=== PATIENT | male | born 1945 | race Caucasian/White ===

== ENCOUNTER 2016-08-23 20:23 | Inpatient (IN) | payer BC, MEDICARE ==
[~2016-08-23] VITALS: Ht 175.3 cm; Wt 77.1 kg
[~2016-08-23 20:23] MED LIST: /PANT40TA OR; ACET50TAOT PO; ACET65TA OR; ACTO15TA; ASA PO; ASPI1TAB PO; ASPI81CH3 PO; ASPI81TA83 PO; CINNAMON PO; DIOV160T5 PO; DIOV160T6 PO; GLIM2TAB PO; GLUC850T PO; LIPI10TA PO; METF850T PO; METO-209 PO; METO100T3 PO; METOPROLOL PO; TYLE325T5 PO
[2016-08-23] MEDS ORDERED: MORPHINE 4 MG/ML 1ML SYRINGE As Ordered ONE ×2 (21:24→23:37)
[2016-08-23] MEDS ORDERED: ONDANSETRON 4MG/2ML VIAL (J2405) As Ordered ONE ×2 (21:24→23:15)
[2016-08-23 21:52] LABS: BASO % 0.1 % (0.0-1.0); EOS # 0.2 K/mm3 (0.0-0.50); EOS % 1.1 % (0.0-3.0); LARGE UNSTAINED CELL % 0.2 % (0.0-4.0); LYMPH # 0.7 K/mm3 (1.5-4.5); LYMPH % 3.6 % (24.0-44.0); MEAN CORPUSCULAR HEMOGLOBIN 30.1 pg (27.0-33.0); MEAN CORPUSCULAR HGB CONC 34.9 g/dl (32.0-36.5); MEAN CORPUSCULAR VOLUME 86.2 fl (80.0-96.0); MONO # 0.8 K/mm3 (0.0-0.8); MONO % 4.3 % (0.0-5.0); NEUTROPHILS # 17.6 K/mm3 (1.8-7.7); NEUTROPHILS % 90.8 % (36.0-66.0); PLATELET COUNT, AUTOMATED 318 k/mm3 (150-450); RED CELL DISTRIBUTION WIDTH 13.5 % (11.5-14.5); WHITE BLOOD COUNT 19.4 K/mm3 (4.0-10.0)
[2016-08-23 22:16] LABS: ALBUMIN 3.2 GM/DL (3.2-5.2); ALBUMIN/GLOBULIN RATIO 1.33 (1.00-1.93); ALKALINE PHOSPHATASE 75 U/L (45-117); ALT/SGPT 24 U/L (12-78); ANION GAP 14 MEQ/L (8-16); AST/SGOT 23 U/L (15-37); BILIRUBIN,TOTAL 1.3 MG/DL (0.2-1.0); BLOOD UREA NITROGEN 14 MG/DL (7-18); CALCIUM LEVEL 8.4 MG/DL (8.8-10.2); CARBON DIOXIDE LEVEL 23 MEQ/L (21-32); CHLORIDE LEVEL 103 MEQ/L (98-107); CREATININE FOR GFR 1.02 MG/DL (0.70-1.30); GLOMERULAR FILTRATION RATE > 60.0 (>42); GLUCOSE, FASTING 341 MG/DL (83-110); POTASSIUM SERUM 4.3 MEQ/L (3.5-5.1); SODIUM LEVEL 140 MEQ/L (136-145); TOTAL PROTEIN 5.6 GM/DL (6.4-8.2)
[2016-08-23 22:49] LABS: AMYLASE 2620 U/L (25-115)
[2016-08-23] MEDS ORDERED: ISOVUE-370 76% 100ML VIAL (Q9967) As Ordered ONE (23:26)
[2016-08-23] MEDS ORDERED: PERCOCET 5MG/325MG TAB PO PRN ×2 (23:30)
[2016-08-23] MEDS ORDERED: ONDANSETRON 4MG/2ML VIAL (J2405) IV PRN (23:30)
[2016-08-23] MEDS ORDERED: GLUCAGON FOR INJ 1 MG VIAL (J1610) SC PRN (23:30)
[2016-08-23] MEDS ORDERED: GLUCOSE 4 GM CHEW TABLET PO PRN (23:30)
[2016-08-23] MEDS ORDERED: ACETAMINOPHEN TAB 650MG DOSE (2X325MG) PO PRN (23:30)
[2016-08-23] MEDS ORDERED: DEXTROSE 50% 50 ML SYRINGE IV PRN (23:30)
[2016-08-23] MEDS ORDERED: MORPHINE 4 MG/ML 1ML SYRINGE IV PRN (23:30)
[2016-08-24] MEDS ORDERED: LR 1,000 ML IV SCH
[2016-08-24 00:20] LABS: INR 0.96
--- NOTE | 2016-08-24 00:31 | EDDOCDS ---
Nurse's Notes [facility] Name: Mehul Griggs Age: 71 yrs Sex: Male : 1945 Arrival Date: 08/23/2016 Time: 20:23 Bed 14 Private MD: Liliya Diagnosis: Idiopathic acute pancreatitis-Acute on Chronic Idiopathic Pancreatitis Presentation: 08/23 20:27 Presenting complaint: Patient states: nausea, vomiting, abdominal pain- onset 3 hours af2 ago. reports "I think I am having one of my pancreatitis attacks.". Adult Sepsis Screening: The patient does not have new or worsening altered mentation. Patient's respiratory rate is less than 22. Systolic blood pressure is greater than 100. Patient has a qSOFA score of 0- Negative Sepsis Screen. Suicide/Homicide risk assessment- the patient denies having any suicidal and/or homicidal ideations and does not present with any other emotional, behavioral or mental health complaints. Status: Patient is not a support services manager or dependent. Transition of care: patient was not received from another setting of care. 20:27 Acuity: BASHIR Level 3 af2 20:27 Method Of Arrival: Walkin/Carried/Asstd af2 Triage Assessment: 20:29 General: Appears uncomfortable, Behavior is cooperative. Pain: Location: abdomen Pain af2 currently is 10 out of 10 on a pain scale. GI: Reports upper abdominal pain, nausea, vomiting. Historical: - Allergies: No known drug Allergies; - Home Meds: 1. Diovan 160 mg Oral tab 1 tab once daily 2. glimepiride 2 mg Oral tab 1 tab once daily 3. metoprolol tartrate 100 mg Oral tab 1 tab once daily 4. Lipitor 10 mg Oral tab 1 tab once daily 5. metformin 850 mg Oral tab 1 tab 2 times per day - PMHx: Diabetes - NIDDM: controlled; Hypercholesterolemia; Hypertension; Pancreatitis; - PSHx: Cholecystectomy; - Social history: Smoking status: Patient states was never smoker of tobacco. No barriers to communication noted, The patient speaks fluent Armenian. - Family history: Not pertinent. - : The pt / caregiver states he / she is not on anticoagulants. Home medication list is obtained from the patient. - Exposure Risk Screening:: None identified. Screenin:06 Screening information is obtained from the patient. Fall risk: No risks identified. mlc Assistance ADL's: requires no assistance with activities of daily living. Abuse/DV Screen: The patient / caregiver reports he/she is: not in a situation that causes fear, pain or injury. Nutritional screening: No deficits noted. Advance Directives: Currently, there is a health care proxy, Anna Peña, daughter. There is no active DNR order. There is a living will, but a copy is not available at this time. There is an active Power of Information Coordinator, Anna Peña, daughter. home support is adequate. Assessment: 21:06 General: Appears ill, Behavior is cooperative. Pain: Location: right upper quadrant and mlc left upper quadrant Pain currently is 10 out of 10 on a pain scale. Neurological: Level of Consciousness is awake, alert, Oriented to person, place, time. Cardiovascular: Capillary refill < 3 seconds Heart tones S1 S2 present. Respiratory: Airway is patent Respiratory effort is even, unlabored, Respiratory pattern is regular, Breath sounds are clear bilaterally. GI: Abdomen is non- distended Bowel sounds present X 4 quads. Abd is soft X 4 quads Abd is tender to palpation in right upper quadrant, left upper quadrant, right lower quadrant and left lower quadrant Reports nausea, vomiting. Derm: Skin is pale. 22:00 Reassessment: Patient appears in no apparent distress at this time. Patient states mlc symptoms have not improved. pt medicated per order. . 22:51 Reassessment: Patient appears in no apparent distress at this time. Patient states mlc feeling better. Patient states symptoms have improved. pt reports decrease in pain and nausea. IV fluids infusing per order. pt states he is comfortable. . 23:34 Reassessment: pt returned from CT, pt tolerated well. . mlc 23:55 Reassessment: Patient appears in no apparent distress at this time. pt reports pain is mlc increased, pt medicated per order.. 08/24 00:15 General: Appears in no apparent distress, comfortable, Behavior is cooperative. Pain: mlc Pain currently is 5 out of 10 on a pain scale. Neurological: Level of Consciousness is awake, alert, Oriented to person, place, time. Respiratory: Airway is patent Respiratory effort is even, unlabored, Respiratory pattern is regular. Derm: Skin is. Vital Signs: 08/23 20:25 BP 147 / 82; Pulse 82; Resp 18 S; Temp 97.6(O); Pulse Ox 100% on R/A; Weight 77.11 kg gr2 (R); Height 5 ft. 9 in. (175.26 cm) (R); Pain 7/10; 22:50 BP 152 / 74; Pulse 87; Resp 18; Pulse Ox 100% ; Pain 5/10; mlc 08/24 00:15 Temp 98.2; Pain 5/10; mlc 00:19 BP 169 / 82; Pulse 86; Resp 18; Pulse Ox 96% on R/A; Pain 5/10; david 08/23 20:25 Body Mass Index 25.10 (77.11 kg, 175.26 cm) gr2 Vitals: 08/23 20:25 Log In Time: August 23, 2016 at 20:25. gr2 ED Course: 20:24 Patient visited by Marysol Blancas. gr2 20:24 Patient moved to Waiting gr2 20:25 Liliya is Private Physician. gr2 20:26 Patient visited by Marysol Blancas. gr2 20:26 Patient moved to Pre RCE gr2 20:28 Triage Initiated af2 20:30 Patient visited by Virgie Grace,HO. af2 20:33 Guillermina Chen,HO is Primary Nurse. sls1 20:33 Patient moved to 14 sls1 20:36 Geraldine Rice FNP is PHCP. le 20:37 Godfrey Henriquez DO is PHCP. gk1 20:37 Tito Bedoya DO is Attending Physician. gk1 20:43 Patient visited by Pat Roberson PCA. cln 20:43 EKG done. (by ED staff). Reviewed by Godfrey Henriquez DO. cln 20:44 Patient visited by Tito Bedoya DO. mm11 21:08 Patient visited by Guillermina Chen,HO. mlc 21:54 Inserted saline lock: 20 gauge in left forearm. ko2 22:00 The patient / caregiver is instructed regarding the plan of care and ED course. mlc 22:01 Patient visited by Guillermina Chen,HO. mlc 22:24 [facility] Payment Agreement was scanned into [employer] and attached to record. slh 22:51 Patient visited by Guillermina Chen RN. mlc 23:19 Jarvis Rubio DO is Hospitalizing Provider. gk1 23:54 BLOOD CULTURES Sent. [facility] 23:55 Patient visited by Guillermina Chen RN. [facility] 02 00:20 Patient visited by Prema Tadeo PCA. david 00:20 No procedures done that require assistance. mlc Administered Medications: 08/23 21:17 CANCELLED (Other Intervention Used): morphine 1 mg IVP once [facility] 22:00 Drug: Ondansetron 4 mg [ondansetron HCl 2 mg/mL intravenous solution (2 mL)] Route: mlc IVP; Site: left forearm; 22:50 Follow up: Response: Nausea is decreased [facility] 22:00 Drug: NS 0.9% 1000 ml [sodium chloride 0.9 % intravenous solution] Route: IV; Rate: mlc bolus; Site: left forearm; 23:55 Follow up: IV Status: Completed infusion [facility] 22:00 Drug: morphine 4 mg [morphine 4 mg/mL intravenous cartridge (1 mL)] Route: IVP; Site: [facility] left forearm; 22:50 Follow up: BP 152 / 74; Pulse 87 bpm; Resp 18 bpm; Pulse Ox 100% ; Pain 5/10 Adult; [facility] Response: Pain is decreased; pt reports he is comfortable at this time 23:14 Not Given (Other Intervention Used): Ondansetron 4 mg PO once [facility] 23:19 Drug: Ondansetron 4 mg [ondansetron HCl 2 mg/mL intravenous solution (2 mL)] Route: mlc IVP; Site: left forearm; 23:34 Follow up: Response: Nausea is decreased [facility] 23:54 Drug: NS 0.9% 1000 ml [sodium chloride 0.9 % intravenous solution] Route: IV; Rate: 250 mlc mL/hr; Site: left forearm; 23:55 Drug: morphine 4 mg [morphine 4 mg/mL intravenous cartridge (1 mL)] Route: IVP; Site: [facility] left forearm; Intake: Order Results: Lab Order: Amylase; SPEC'M 08/23/16 21:41 Test: AMYLASE; Value: 2620; Range: 25-115; Abnormal: Above high normal; Units: U/L; Status: F Lab Order: Lipase; SPEC'M 08/23/16 21:41 Test: LIPASE; Value: 99719; Range: 73-393; Abnormal: Above high normal; Units: U/L; Status: F Lab Order: CBC with Diff; SPEC'M 08/23/16 21:41 Test: WHITE BLOOD COUNT; Value: 19.4; Range: 4.0-10.0; Abnormal: Above high normal; Units: K/mm3; Status: F Test: RED BLOOD COUNT; Value: 5.03; Range: 4.30-6.10; Units: M/mm3; Status: F Test: HEMOGLOBIN; Value: 15.1; Range: 14.0-18.0; Units: g/dl; Status: F Test: HEMATOCRIT; Value: 43.3; Range: 42.0-52.0; Units: %; Status: F Test: MEAN CORPUSCULAR VOLUME; Value: 86.2; Range: 80.0-96.0; Units: fl; Status: F Test: MEAN CORPUSCULAR HEMOGLOBIN; Value: 30.1; Range: 27.0-33.0; Units: pg; Status: F Test: MEAN CORPUSCULAR HGB CONC; Value: 34.9; Range: 32.0-36.5; Units: g/dl; Status: F Test: RED CELL DISTRIBUTION WIDTH; Value: 13.5; Range: 11.5-14.5; Units: %; Status: F Test: PLATELET COUNT, AUTOMATED; Value: 318; Range: 150-450; Units: k/mm3; Status: F Test: NEUTROPHILS %; Value: 90.8; Range: 36.0-66.0; Abnormal: Above high normal; Units: %; Status: F Test: LYMPH %; Value: 3.6; Range: 24.0-44.0; Abnormal: Below low normal; Units: %; Status: F Test: MONO %; Value: 4.3; Range: 0.0-5.0; Units: %; Status: F Test: EOS %; Value: 1.1; Range: 0.0-3.0; Units: %; Status: F Test: BASO %; Value: 0.1; Range: 0.0-1.0; Units: %; Status: F Test: LARGE UNSTAINED CELL %; Value: 0.2; Range: 0.0-4.0; Units: %; Status: F Test: NEUTROPHILS #; Value: 17.6; Range: 1.8-7.7; Abnormal: Above high normal; Units: K/mm3; Status: F Test: LYMPH #; Value: 0.7; Range: 1.5-4.5; Abnormal: Below low normal; Units: K/mm3; Status: F Test: MONO #; Value: 0.8; Range: 0.0-0.8; Units: K/mm3; Status: F Test: EOS #; Value: 0.2; Range: 0.0-0.50; Units: K/mm3; Status: F Test: BASO #; Value: 0.0; Range: 0.0-0.2; Units: K/mm3; Status: F Test: LARGE UNSTAINED CELL #; Value: 0.0; Range: 0.0-0.4; Units: K/mm3; Status: F Lab Order: Complete Comphrensive Metabolic; SPEC'M 08/23/16 21:41 Test: GLUCOSE, FASTING; Value: 341; Range: 83-110; Abnormal: Above high normal; Units: MG/DL; Status: F Test: BLOOD UREA NITROGEN; Value: 14; Range: 7-18; Units: MG/DL; Status: F Test: CREATININE FOR GFR; Value: 1.02; Range: 0.70-1.30; Units: MG/DL; Status: F Test: GLOMERULAR FILTRATION RATE; Value: > 60.0; Range: >42; Status: F Test: SODIUM LEVEL; Value: 140; Range: 136-145; Units: MEQ/L; Status: F Test: POTASSIUM SERUM; Value: 4.3; Range: 3.5-5.1; Units: MEQ/L; Status: F Test: CHLORIDE LEVEL; Value: 103; Range: 98-107; Units: MEQ/L; Status: F Test: CARBON DIOXIDE LEVEL; Value: 23; Range: 21-32; Units: MEQ/L; Status: F Test: ANION GAP; Value: 14; Range: 8-16; Units: MEQ/L; Status: F Test: CALCIUM LEVEL; Value: 8.4; Range: 8.8-10.2; Abnormal: Below low normal; Units: MG/DL; Status: F Test: AST/SGOT; Value: 23; Range: 15-37; Units: U/L; Status: F Test: ALT/SGPT; Value: 24; Range: 12-78; Units: U/L; Status: F Test: ALKALINE PHOSPHATASE; Value: 75; Range: 45-117; Units: U/L; Status: F Test: BILIRUBIN,TOTAL; Value: 1.3; Range: 0.2-1.0; Abnormal: Above high normal; Units: MG/DL; Status: F Test: TOTAL PROTEIN; Value: 5.6; Range: 6.4-8.2; Abnormal: Below low normal; Units: GM/DL; Status: F Test: ALBUMIN; Value: 3.2; Range: 3.2-5.2; Units: GM/DL; Status: F Test: ALBUMIN/GLOBULIN RATIO; Value: 1.33; Range: 1.00-1.93; Status: F Test Note: ; Units are mL/min/1.73 m2 Chronic Kidney Disease Staging per NKF: Stage I & II GFR >=60 Normal to Mildly Decreased Stage III GFR 30-59 Moderately Decreased Stage IV GFR 15-29 Severely Decreased Stage V GFR <15 Very Little GFR Left ESRD GFR <15 on OPERATOR CAVITY PUMP Lab Order: Cardiac Injury Profile; SPEC'M 08/23/16 21:41 Test: CPK CREATINE PHOSPHOKINASE; Value: 89; Range: 39-308; Units: U/L; Status: F Test: CK-MB VALUE MASS; Value: 1.1; Range: 0.0-3.6; Units: NG/ML; Status: F Test: MB/CK RELATIVE INDEX; Value: 1.23; Range: < OR =4; Status: F Test Note: ; DIAGNOSIS CRITERIA MMB ng/ml Relative Index (RI) NON-AMI < or = 5 N/A COREA ZONE > 5 < or = 4 AMI > 5 > 4 Lab Order: Troponin; SPEC'M 08/23/16 21:41 Test: TROPONIN I; Value: < 0.02; Range: < 0.10; Units: NG/ML; Status: F Test Note: ; Troponin I Reference Interval for Rover LOCI: 99th Percentile= 0.00-0.045 ng/ml Risk Stratification: <= 0.10 ng/ml Decreased Risk for Adverse Clinical Events. 0.10-1.50 ng/ml Increased Risk for Adverse Clinical Events. Evaluation of additional criterion and/or repeat testing in 2-6 hours is suggested to rule out myocardial damage. >= 1.50 ng/ml Indicative of Myocardial Injury. Lab Order: PT & APTT; SPEC'M 08/23/16 23:56 Test: PROTHROMBIN TIME; Value: 12.9; Range: 12.3-14.5; Units: SECONDS; Status: F Test: INR; Value: 0.96; Status: F Test: PARTIAL THROMBOPLASTIN TIME; Value: 22.4; Range: 26.6-37.1; Abnormal: Below low normal; Units: SECONDS; Status: F Test Note: ; THERAPUTIC HUMAN INR VALUES INDICATIONS NORMAL RANGES PROPHYLAXIS/TREATMENT OF: VENOUS THROMBOSIS 2.0-3.0 PULMONARY EMBOLISM 2.0-3.0 PREVENTION OF SYSTEMIC EMBOLISM FROM: TISSUE HEART VALVES 2.0-3.0 ACUTE MYOCARDIAL INFARCTION 2.0-3.0 VALVULAR HEART DISEASE 2.0-3.0 ATRIAL FIBRILLATION 2.0-3.0 MECHANICAL VALVES(HIGH RISK) 2.5-3.5 RECURRENT MYOCARDIAL INFARCTION 2.5-3.5 Outcome: 23:20 Decision to Hospitalize by Provider. gk1 08/24 00:17 Discharge Assessment: Patient awake, alert and oriented x 3. No cognitive and/or mlc functional deficits noted. Patient verbalized understanding of disposition instructions. patient administered narcotics - yes. Patient was admitted to the hospital or transferred to another facility. The following High Risk Discharge criteria are identified: None. Admitted to Pediatrics accompanied by tech, via wheelchair. Condition: stable. CT Study completed. Admission hand-off: Report called to HO Noonan. Property :Personal belongings accompany Pt. 00:30 Patient left the ED. [facility] Signatures: Tito Bedoya, DO DO mm11 Geraldine Rice, JOURNEYMAN ELECTRICIAN JOURNEYMAN ELECTRICIAN Prema Uriarte, LICENSED DISPENSING OPTICIAN LICENSED DISPENSING OPTICIAN Subha Avilez RN RN sls1 Marysol Blancas gr2 Guillermina Chen RN RN [facility] Dawn Wheat RN RN ko2 Sumi Adan Virgie Bean RN RN af2 Pat Roberson, LICENSED DISPENSING OPTICIAN LICENSED DISPENSING OPTICIAN denian Godfrey Henriquez, DO DO gk1 MTDD
--- NOTE | 2016-08-24 00:31 | EDDOCDS ---
Physician Documentation [facility] Name: Mehul Griggs Age: 71 yrs Sex: Male : 1945 Arrival Date: 08/23/2016 Time: 20:23 Bed 14 Private MD: Liliya Disposition: 08/23 23:13 I have independently interviewed and examined the patient, and I agree with the mm11 investigation, diagnosis and treatment plan as documented by the Resident. Disposition: 08/23/16 23:20 Hospitalization ordered by Jarvis Rubio for Inpatient Admission. Preliminary diagnosis is Idiopathic acute pancreatitis - Acute on Chronic Idiopathic Pancreatitis. - Bed requested for M PED. - Status is Inpatient Admission. mlc - Condition is Stable. - Problem is an acute exacerbation. - Symptoms have improved. Historical: - Allergies: No known drug Allergies; - Home Meds: 1. Diovan 160 mg Oral tab 1 tab once daily 2. glimepiride 2 mg Oral tab 1 tab once daily 3. metoprolol tartrate 100 mg Oral tab 1 tab once daily 4. Lipitor 10 mg Oral tab 1 tab once daily 5. metformin 850 mg Oral tab 1 tab 2 times per day - PMHx: Diabetes - NIDDM: controlled; Hypercholesterolemia; Hypertension; Pancreatitis; - PSHx: Cholecystectomy; - Social history: Smoking status: Patient states was never smoker of tobacco. No barriers to communication noted, The patient speaks fluent [place]. - Family history: Not pertinent. - : The pt / caregiver states he / she is not on anticoagulants. Home medication list is obtained from the patient. - Exposure Risk Screening:: None identified. Vital Signs: 20:25 BP 147 / 82; Pulse 82; Resp 18 S; Temp 97.6(O); Pulse Ox 100% on R/A; Weight 77.11 kg / gr2 170 lbs (R); Height 5 ft. 9 in. (175.26 cm) (R); Pain 7/10; 22:50 BP 152 / 74; Pulse 87; Resp 18; Pulse Ox 100% ; Pain 5/10; mlc 08/24 00:15 Temp 98.2; Pain 5/10; mlc 00:19 BP 169 / 82; Pulse 86; Resp 18; Pulse Ox 96% on R/A; Pain 5/10; david 08/23 20:25 Body Mass Index 25.10 (77.11 kg, 175.26 cm) gr2 MDM: 08/23 20:35 ECG WITH READING ER PHYS+CARDIAG ordered. EDMS 21:10 IV Saline Lock ordered. gk1 21:10 Ondansetron 4 mg IVP once ordered. gk1 21:10 NS 0.9% 1000 ml IV at bolus once ordered. gk1 21:12 Amylase Ordered. EDMS 21:12 Lipase Ordered. EDMS 21:12 CBC with Diff Ordered. EDMS 21:12 Complete Comphrensive Metabolic Ordered. EDMS 21:12 Cardiac Injury Profile Ordered. EDMS 21:12 Troponin Ordered. EDMS 21:12 NOTHING BY MOUTH+DIET ordered. EDMS 21:15 Financial registration complete. h 21:15 morphine 4 mg IVP every 30 minutes; Document pain score/vitals after each dose (Hold if gk1 SBP < 90mmHg) x2 ordered. 22:21 CBC with Diff Reviewed. mm11 22:24 [facility] Payment Agreement was scanned into [employer] and attached to record. [facility] 22:53 Amylase Reviewed. [facility] 22:53 Lipase Reviewed. mm11 22:53 Complete Comphrensive Metabolic Reviewed. mm11 22:53 Cardiac Injury Profile Reviewed. mm11 22:53 Troponin Reviewed. mm11 22:54 CT ABD & PELVIS: IV Contrast Only Ordered. EDMS 22:59 BED REQUEST+ADM ordered. EDMS 23:07 -Blood Culture (Adults Only), peripheral from different site, or from device/port/PICC gk1 etc. if present ordered. 23:07 NS 0.9% 1000 ml IV at 250 mL/hr continuous ordered. gk1 23:09 -Blood Culture (Adults Only), peripheral from different site, or from device/port/PICC ml3 etc. if present complete. 23:09 BLOOD CULTURES Ordered. EDMS 23:11 Ondansetron 4 mg PO once ordered. gk1 23:14 Ondansetron 4 mg IVP once ordered. gk1 23:22 morphine 4 mg IVP every 30 minutes; Document pain score/vitals after each dose (Hold if gk1 SBP < 90mmHg) x2 ordered. 23:35 Admission / Observation Status ordered. EDMS 23:36 NPO DIET ordered. EDMS 23:36 PT & APTT Ordered. EDMS 23:36 ERYTHROCYTE SEDIMENTATION RATE Ordered. EDMS 23:36 C REACTIVE PROTEIN QUANTITATIV Ordered. EDMS 23:36 COMPLETE BLOOD COUNT Ordered. EDMS 23:37 COMPLETE COMPHRENSIVE METABOLI Ordered. EDMS 23:37 LIPASE Ordered. EDMS 23:40 LACTATE DEHYDROGENASE Ordered. EDMS 08/24 00:04 LACTIC ACID LEVEL, LACTATE Ordered. EDMS 00:08 C REACTIVE PROTEIN QUANTITATIV Ordered. EDMS Administered Medications: 08/23 21:17 CANCELLED (Other Intervention Used): morphine 1 mg IVP once [facility] [place] 22:00 Drug: Ondansetron 4 mg [ondansetron HCl 2 mg/mL intravenous solution (2 mL)] Route: mlc IVP; Site: left forearm; 22:50 Follow up: Response: Nausea is decreased [facility] [place] 22:00 Drug: NS 0.9% 1000 ml [sodium chloride 0.9 % intravenous solution] Route: IV; Rate: mlc bolus; Site: left forearm; 23:55 Follow up: IV Status: Completed infusion [facility] [place] 22:00 Drug: morphine 4 mg [morphine 4 mg/mL intravenous cartridge (1 mL)] Route: IVP; Site: [facility] [place] left forearm; 22:50 Follow up: BP 152 / 74; Pulse 87 bpm; Resp 18 bpm; Pulse Ox 100% ; Pain 5/10 Adult; [facility] Response: Pain is decreased; pt reports he is comfortable at this time 23:14 Not Given (Other Intervention Used): Ondansetron 4 mg PO once gk1 23:19 Drug: Ondansetron 4 mg [ondansetron HCl 2 mg/mL intravenous solution (2 mL)] Route: mlc IVP; Site: left forearm; 23:34 Follow up: Response: Nausea is decreased [facility] 23:54 Drug: NS 0.9% 1000 ml [sodium chloride 0.9 % intravenous solution] Route: IV; Rate: 250 mlc mL/hr; Site: left forearm; 23:55 Drug: morphine 4 mg [morphine 4 mg/mL intravenous cartridge (1 mL)] Route: IVP; Site: [facility] [place] [place] left forearm; Signatures: Dispatcher [employer] EDMS Ross Tomas, [employer] ml3 Tito Bedoya DO DO mm11 Guillermina Chen RN RN mlc Hook, Sandra slh Fulton, Amber, RN RN af2 Godfrey Henriquez DO DO gk1 The chart was reviewed and I authenticate all verbal orders and agree with the evaluation and treatment provided.Corrections: (The following items were deleted from the chart) 21:17 21:11 morphine 1 mg IVP once ordered. gk1 [facility] 21:17 21:16 morphine 1 mg IVP once [address] [facility] 23:57 23:36 PROTHROMBIN TIME PROFILE\E\INR ordered. EDMS EDMS 08/24 00:08 02 23:36 C REACTIVE PROTEIN QUANTITATIV ordered. EDMS EDMS Attachments: 22:24 [facility] [place] Agreement [facility] MTDD
[2016-08-24 00:40] VITALS: BP 171/87
--- NOTE | 2016-08-24 01:10 | REPUSA ---
CLINICAL HISTORY: Abdominal pain. TECHNIQUE: Multiple axial, sagittal and coronal CT images were obtained through the abdomen and pelvi s after administration of intravenous contrast material. COMMENTS: Comparison is made to the prior exam on 05/05/2016. The liver is of decreased attenuation with scattered simple hepatic cysts. There is no intra or extra hepatic biliary ductal dilatation. The spleen is normal. The gallbladder is surgically absent. There is no evidence of adrenal mass. Enlarged pancreas. There is peripancreatic fat stranding. Surrounding free fluid. No loculated draina ble fluid collection. Reactive thickening of the second and third portions of the duodenum. Both kidneys demonstrate prompt and equal nephrograms. The kidneys are normal in size, shape and conf iguration. There is no evidence of renal or ureteral mass. No renal or ureteral calculi are identifie d. There is no hydroureter or hydronephrosis. No evidence for appendicitis. No evidence for small or large bowel obstruction. There is no evidenc e of abdominal ascites or lymphadenopathy. There is no evidence of intrinsic or extrinsic bladder mass. There is no pelvic ascites or lymphadeno lety. Moderate prostatomegaly. Prostatic calcifications. Mild diffuse thickening of the one of the b ladder. Images of the lung bases show no evidence of pleural or parenchymal mass. There are no pleural effusi ons. The bony structures are free of lytic or blastic lesions. Multilevel degenerative changes are seen in volving the thoracolumbar spine. Scattered calcifications are seen involving the aorta and major bran ches compatible with atherosclerosis. Bilateral fat containing inguinal hernias without incarceration. IMPRESSION: Acute pancreatitis. This is a recurrent finding. No loculated fluid collection. Mild fatty liver infiltration. Reactive duodenitis. Thank you for your kind referral of this patient.
[2016-08-24] MEDS: HumaLOG INSULIN (NovoLOG) PER UNIT SC SCH ×4 (01:27→17:56)
[2016-08-24] MEDS: metroNIDAZOLE 500 MG in APPROPRIATE DILUENT 1 EA IV SCH ×3 (04:12→21:03)
[2016-08-24 04:15] VITALS: BP 138/76
[2016-08-24] MEDS: LR 1,000 ML IV SCH ×3 (06:04→17:48)
--- NOTE | 2016-08-24 06:10 | ECGEPIP ---
Stationary ECG Study [facility] - ED Test Date: 2016-08-23 Pat Name: SERA HAQUE Department: Room: - Gender: M Pharmacy Affairs Assistant: noemi : 1945 Requested By: LIZBET Silva PA-C Order Number: [id number] Reading MD: Rico Mittal Measurements Intervals [place] Rate: 72 P: 7 GA: 129 QRS: -6 QRSD: 102 T: 37 QT: 366 QTc: 403 Interpretive Statements SINUS RHYTHM NONSPECIFIC ST DEPRESSION SIMILAR TO 12/30/15 Electronically Signed On 08-24-2016 6:09:35 EST by Rico Mittal
--- NOTE | 2016-08-24 06:41 | HPE ---
DATE OF ADMISSION: 08/23/2016 PRIMARY CARE PROVIDER: Dr. Lovell. PHYSICS TECHNICIAN: Shared between Dr. Anibal martinez and [facility]. CHIEF COMPLAINT: Abdominal pain, midepigastric. HISTORY OF PRESENT ILLNESS: Mr. Griggs is a 71-year-old gentleman familiar to the hospitalist service with history of recurrent acute on chronic pancreatitis. He stated that he was in his normal state of health and approximately 3 hours ago suddenly developed abdominal pain in the epigastric region with nausea, vomiting and states that he has had some of these pancreatic attacks in the past that he knows to get to the hospital immediately. His last pancreatitis episode was three months ago. He was seen at [facility] approximately 4-6 weeks ago, had an endoscopic retrograde cholangiopancreatography (ERCP) done and he stated they did snip the tip of the ampulla of Vater to see if that would help out with his symptomatology. Again, he does have a history of idiopathic pancreatitis. He does not drink alcohol. No tobacco use. His main risk factor for pancreatitis is the fact that he has had repeated episodes in the past without any definitive cause, hence the diagnosis of chronic idiopathic pancreatitis. He denies fevers, chills, shortness of breath, productive sputum, cough or hemoptysis. His vital signs have been stable in the emergency department. However, he does have uncontrolled abdominal epigastric pain with elevated white count. His CT of the abdomen and pelvis is pending at this time. However, the hospitalist was called for admission due to him having a lipase greater than 63,000 and his symptomatology. PAST MEDICAL HISTORY: 1. Recurrent episodes of chronic idiopathic pancreatitis. 2. Diabetes. 3. Hypertension. 4. Hyperlipidemia. PAST SURGICAL HISTORY: Cholecystectomy. SOCIAL HISTORY: The patient lives at home. Denies any tobacco use, alcohol use. No recent travel. No sick contacts. No illicit drug use. FAMILY HISTORY: Noncontributory. ALLERGIES: NO KNOWN DRUG ALLERGIES. HOME MEDICATION: - Diovan 160 mg daily. - glimepiride 2 mg daily - metoprolol tartrate 100 mg daily - Lipitor 10 mg daily - metformin 850 mg daily REVIEW OF SYSTEMS: CONSTITUTIONAL: He denies lightheaded, dizziness, blurry vision, double vision, no difficulty with speech or swallow. PULMONARY: No productive sputum, cough or hemoptysis. Denies shortness of breath or wheeze. No cough. CARDIOVASCULAR: Denies substernal chest pain, paroxysmal nocturnal dyspnea (PND), orthopnea and no dyspnea on exertion. GASTROINTESTINAL (GI): As outlined above, epigastric pain that started suddenly about 3 hours ago which he describes as sharp, stabbing pain in the epigastric region. He did have some nausea with vomiting times one with no hemoptysis. He denies any steatorrhea, and denies any hematochezia or melena. MUSCULOSKELETAL: No bone loss or joint pain swelling or erythema. NEUROLOGY: No paresthesias, paralysis or loss of consciousness. No history of seizure disorder. ENDOCRINE: Positive for diabetes. Positive for chronic pancreatitis with recurrent episodes and noted to be idiopathic. No history of thyroid disorder. HEMATOLOGY: No bleeding or bruising disorder. No prior history of venous thromboembolism. ONCOLOGY: No history of cancer. LYMPHATICS: No lumps, bumps, swelling neck, axilla or groin. No night sweats. No weight loss. PSYCHIATRIC: Negative for depression. No anxiety. No suicidal ideation and no audiovisual hallucinations. 10-point review of systems complete, pertinent positives are listed. PHYSICAL EXAMINATION: VITAL SIGNS: Temperature is 97.6, respiratory rate 18, pulse 87, blood pressure (BP) is 147/82, repeat is 152/74, SPO2 is 100% on room air. GENERAL: The patient appears to be in no acute distress. However, he is in some discomfort with a 10/10 pain in the epigastric region. HEENT: Head is atraumatic, normocephalic. Eyes: Pupils equal, round, reactive to light and accommodation (PERRLA), throat clear. LUNGS: Clear. HEART: Regular rhythm. ABDOMEN: Epigastric tenderness. Positive bowel sounds. No masses, no rebound. EXTREMITIES: No edema or calf tenderness. NEUROLOGY: Cranial nerves II-XII grossly intact. He does not demonstrate any focal neurologic deficits. LABORATORY DATA AND DIAGNOSTICS: 12-lead EKG sinus rhythm with no acute ST-T wave abnormality. White count is 19.4, hemoglobin 15.1, platelets are 318,000. Sodium 140, potassium 4.3, chloride 103, bicarbonate 23, anion gap 14, BUN is 14, creatinine 1.02, glucose is 341. Total bilirubin 1.3, calcium is 8.4, AST 23, ALT is 24, alkaline phosphatase 75, CK 89, CK-MB 1.1, troponin less than 0.02, albumin is 3.2, amylase 2620, lipase is 63,000. CT of the abdomen and pelvis preliminary; he does appear to have some inflammatory changes surrounding the pancreas. I do not appreciate a pseudocyst. No bowel obstruction; however, official reading is pending at this time. IMPRESSION: Mr. Griggs is a pleasant 71-year-old gentleman who unfortunately has repeated episodes of acute on chronic pancreatitis which is felt to be idiopathic. He has had multiple workups, multiple diagnostic studies in the past . Recently he had an endoscopic retrograde cholangiopancreatography (ERCP) performed with procedure to try to dilate the ampulla of Vater approximately 4-6 weeks ago. He states he has been well up until this time and suddenly developed, approximately three hours ago, with intractable nausea, vomiting and mid epigastric pain. He presents to the emergency department with elevated lipase of 63,000 and white count 19,000. He remains afebrile. Vital signs stable and no signs of sepsis at this point. PROBLEM LIST: 1. Acute on chronic pancreatitis, history of idiopathic chronic pancreatitis. 2. Leukocytosis with no signs of sepsis. No fever. 3. Diabetes. 4. Hypertension. 5. Hyperlipidemia. PLAN: The patient will be admitted to the [facility] per Dr. Onofre. Will continue with intravenous (IV) fluid bolus in the emergency room (ER) followed by lactated Ringer's at 250 mL an hour for another liter, then to change to 150 mL an hour thereafter. He will remain nothing by mouth (NPO) through the night. Will manage pain control and check official read on CT abdomen and pelvis when it is available. Will check an LDH and a lactate on him now. His hemoglobin and hematocrit appear to be relatively unremarkable and no signs of hemoconcentration at this point. In the morning we will repeat his labs. Currently will hold his home medications for now and plan on restarting in the morning. Will check fingerstick blood sugars every six hours with sliding scale coverage. Currently he does not appear to have any signs of multiorgan dysfunction. His vital signs are stable. No signs of hypotension or shock and likely a good candidate for the medical floor. However, should he appear to deteriorate at any point we will consider an upgrade to continue or intensive care unit (ICU), however, his clinical picture for the time being does not appear to necessitate this. Deep venous thrombosis (DVT) prophylaxis with Lovenox. DISPOSITION: He will likely be here for 2-3
[2016-08-24 07:20] LABS: MEAN CORPUSCULAR HEMOGLOBIN 31.3 pg (27.0-33.0); RED CELL DISTRIBUTION WIDTH 13.7 % (11.5-14.5); WHITE BLOOD COUNT 14.4 K/mm3 (4.0-10.0)
[2016-08-24 07:45] VITALS: BP 156/75
[2016-08-24 07:52] LABS: ALBUMIN 2.7 GM/DL (3.2-5.2); ALBUMIN/GLOBULIN RATIO 1.35 (1.00-1.93); ALKALINE PHOSPHATASE 58 U/L (45-117); ALT/SGPT 20 U/L (12-78); ANION GAP 8 MEQ/L (8-16); AST/SGOT 14 U/L (15-37); BILIRUBIN,TOTAL 1.4 MG/DL (0.2-1.0); BLOOD UREA NITROGEN 14 MG/DL (7-18); CALCIUM LEVEL 8.1 MG/DL (8.8-10.2); CARBON DIOXIDE LEVEL 28 MEQ/L (21-32); CHLORIDE LEVEL 107 MEQ/L (98-107); CREATININE FOR GFR 0.72 MG/DL (0.70-1.30); GLOMERULAR FILTRATION RATE > 60.0 (>42); GLUCOSE, FASTING 227 MG/DL (83-110); POTASSIUM SERUM 4.2 MEQ/L (3.5-5.1); SODIUM LEVEL 143 MEQ/L (136-145); TOTAL PROTEIN 4.7 GM/DL (6.4-8.2)
[2016-08-24] MEDS: ENOXAPARIN 40 MG/0.4 ML SYRINGE (J1650) SC SCH (09:15)
[2016-08-24 16:00] VITALS: BP 147/74
--- NOTE | 2016-08-24 19:58 | IPN ---
DATE: 08/24/2016 SUBJECTIVE: Patient seen and examined in the room today. Patient stated his abdominal pain shows improvement. Patient has been having recurrence of pancreatitis flare for (cut off). Patient has been followed by Dr. Barnett, gastrointestinal (GI) specialist in [place]; however, there is no known cause of the patient's chronic pancreatitis with frequent flare. Patient denied alcohol use. Denies any new lifestyle modification. Denies any new medications. Currently, patient does not have any acute complaints. OBJECTIVE: VITAL SIGNS: Temperature 97, pulse 75, respirations 18, blood pressure is 156/75, pulse oximetry 97% on room air. GENERAL: No sign of acute distress, alert and oriented times three. HEENT: Normocephalic, atraumatic. Extraocular motor grossly intact. CARDIOVASCULAR: Positive S1, S2, regular rate. GASTROINTESTINAL: Epigastric tenderness. Positive bowel sounds. Abdomen is soft. EXTREMITIES: No edema. No sign of cyanosis. LABORATORY DATA: WBC is 14.4, hemoglobin is 13.5, hematocrit 37.4, platelet count is 245. Sodium is 143, potassium 4.2, chloride 107, carbon dioxide 28, BUN 14, creatinine 0.72, GFR greater than 60, fasting glucose 227, calcium is 8.1. Total bilirubin is 1.4, AST is 14, ALT is 20, alkaline phosphatase 58, C-reactive protein is 1.75, albumin 2.7. Lipase is 34. Blood cultures pending. CT of abdomen and pelvis showed acute pancreatitis. No loculated fluid collection. Mild fatty liver infiltrate. Reactive duodenitis. ASSESSMENT AND PLAN: 1. Acute on chronic pancreatitis. Patient is on conservative medical management with pain control. Patient showed improvement of his symptoms. Patient's white count decreased from 19.4 to 14.4. Lipase level dropped from 63,640 down to 17,234. Will continue the same management. Patient to follow with Dr. Barnett in [place], GI specialist in [place]. 2. Diabetes. Continue consistent-carbohydrate diet and sliding scale. 3. Hypertension. Currently blood pressure is in the satisfactory range. 4. Hyperlipidemia. We will followup with lipid profile. 5. Deep vein thrombosis (DVT) prophylaxis. Patient on Lovenox.
[2016-08-24 20:00] VITALS: BP 159/82
[2016-08-24] MEDS: ASPIRIN 81 MG ENTERIC TAB PO SCH (21:04)
[2016-08-24] MEDS: VALSARTAN 80 MG TAB (DIOVAN) PO SCH (21:04)
[2016-08-24] MEDS: METOPROLOL SUCC (TopROL XL) 100MG *XL* TAB PO SCH (21:05)
[2016-08-24] MEDS: ATORVASTATIN 10 MG TAB PO SCH (21:05)
[2016-08-25] VITALS: BP 132/77
[2016-08-25] MEDS: HumaLOG INSULIN (NovoLOG) PER UNIT SC SCH ×4 (00:48→17:56)
[2016-08-25] MEDS: LR 1,000 ML IV SCH ×4 (00:49→19:46)
[2016-08-25] MEDS: metroNIDAZOLE 500 MG in APPROPRIATE DILUENT 1 EA IV SCH ×3 (04:54→19:45)
[2016-08-25 06:51] LABS: MEAN CORPUSCULAR HEMOGLOBIN 30.6 pg (27.0-33.0); MEAN CORPUSCULAR HGB CONC 35.1 g/dl (32.0-36.5); MEAN CORPUSCULAR VOLUME 87.3 fl (80.0-96.0); RED CELL DISTRIBUTION WIDTH 13.6 % (11.5-14.5); WHITE BLOOD COUNT 14.6 K/mm3 (4.0-10.0)
[2016-08-25 07:12] LABS: ALBUMIN 2.3 GM/DL (3.2-5.2); ALBUMIN/GLOBULIN RATIO 0.92 (1.00-1.93); ALKALINE PHOSPHATASE 50 U/L (45-117); ALT/SGPT 17 U/L (12-78); ANION GAP 8 MEQ/L (8-16); AST/SGOT 14 U/L (15-37); BILIRUBIN,TOTAL 1.7 MG/DL (0.2-1.0); BLOOD UREA NITROGEN 11 MG/DL (7-18); CALCIUM LEVEL 7.8 MG/DL (8.8-10.2); CARBON DIOXIDE LEVEL 27 MEQ/L (21-32); CHLORIDE LEVEL 105 MEQ/L (98-107); CHOLESTEROL LEVEL 119 MG/DL (<200); CREATININE FOR GFR 0.71 MG/DL (0.70-1.30); GLOMERULAR FILTRATION RATE > 60.0 (>42); GLUCOSE, FASTING 110 MG/DL (83-110); POTASSIUM SERUM 3.9 MEQ/L (3.5-5.1); SODIUM LEVEL 140 MEQ/L (136-145); TOTAL PROTEIN 4.8 GM/DL (6.4-8.2); TRIGLYCERIDES LEVEL 66 MG/DL (<150)
[2016-08-25 08:00] VITALS: BP 137/83
[2016-08-25] MEDS: VALSARTAN 80 MG TAB (DIOVAN) PO SCH (09:02)
[2016-08-25] MEDS: ATORVASTATIN 10 MG TAB PO SCH (09:02)
[2016-08-25] MEDS: METOPROLOL SUCC (TopROL XL) 100MG *XL* TAB PO SCH (09:02)
[2016-08-25] MEDS: ENOXAPARIN 40 MG/0.4 ML SYRINGE (J1650) SC SCH (09:03)
--- NOTE | 2016-08-25 14:11 | REP ---
Clinical: Right upper quadrant pain. Findings: The patient is status post cholecystectomy. No biliary ductal dilatation is appreciated and the common bile duct measures 3 mm diameter. Liver is normal in contour, size, and echogenicity with to right lobe cysts measuring 11 mm and 4 mm diameter. Visualized pancreas is unremarkable. Right kidney measures 10.5 x 6.6 x 6.4 cm without hydronephrosis and includes 1.7 cm mid pole simple cyst. No ascites in the visualized right upper quadrant. Impression: 1. 1.7 cm benign right renal cyst. 2. Two small subcentimeter hepatic cysts. 3. Status post cholecystectomy without biliary ductal dilatation. Signed by Chilango Griffiths MD 08/25/2016 02:02 P
--- NOTE | 2016-08-25 15:44 | IPNPDOC ---
Text Note Date of Service The patient was seen on 08/25/16. NOTE Subjective: Patient states his abdominal pain, nausea, vomiting has resolved. Feeling well. Objective: Vitals: (see below) General: No acute distress, laying comfortably in bed. HEENT: Moist mucous membranes. Neck: No JVD or lymphadenopathy Cardiac: RRR, No murmurs Pulm: Clear to auscultation b/l. No wheezing, rhonchi Abd: NT/ND + BS Ext: No edema or cyanosis Labs (see below) Images: CT abd/pelvis 08/24/16 IMPRESSION: Acute pancreatitis. This is a recurrent finding. No loculated fluid collection. Mild fatty liver infiltration. Reactive duodenitis. Abd u/s 08/25/16 Impression: 1. 1.7 cm benign right renal cyst. 2. Two small subcentimeter hepatic cysts. 3. Status post cholecystectomy without biliary ductal dilatation. Assessment/Plan 1. Acute on chronic pancreatitis- abdominal pain resolved, lipase trending down. CT abdomen pelvis with acute pancreatitis, however no complications. Abdominal ultrasound (see above). Patient states his status post ampulla sphincterotomy, follows up closely with Dr. Treviño (GI at [facility]). States this is his seventh episode of pancreatitis with clear cause. Denies any alcohol use. Is status post cholecystectomy. Advanced diet to clears followed by full liquid diets and regular diet as tolerated. 2. Diabetes mellitus- sliding-scale insulin. Carbohydrate consistent diet 3. Hypertension- controlled continue current meds DVT prophy: Lovenox Dispo: Plan to discharge in next 24- to 48 hours if tolerating diet. VS,Fishbone, I+O VS, Fishbone, I+O Laboratory Tests 08/25/16 06:11 Calcium Level 7.8 L, Aspartate Amino Transf (AST/SGOT) 14 L, Alanine Aminotransferase (ALT/SGPT) 17, Alkaline Phosphatase 50, Total Bilirubin 1.7 H, Triglycerides Level 66, Cholesterol Level 119, HDL Cholesterol 44, LDL Cholesterol 61.8, Total Protein 4.8 L, Albumin 2.3 L, Red Blood Count 4.42, Mean Corpuscular Volume 87.3, Mean Corpuscular Hemoglobin 30.6, Mean Corpuscular Hemoglobin Concent 35.1, Red Cell Distribution Width 13.6 Vital Signs Date Time Temp Pulse Resp B/P Pulse Ox O2 Delivery O2 Flow Rate FiO2 08/25/16 09:02 137/83 08/25/16 09:02 88 08/25/16 08:00 97.7 18 97 Room Air I&O- Last 24 Hours up to 6 AM 08/25/16 06:00 Intake Total 1900 ml Output Total 2825 ml Balance -925 ml MICHEAL SINGH MD Aug 25, 2016 15:44
[2016-08-25 16:00] VITALS: BP 132/81
[2016-08-25] MEDS ORDERED: GLUCAGON FOR INJ 1 MG VIAL (J1610) SC PRN (18:30)
[2016-08-25] MEDS ORDERED: GLUCOSE 4 GM CHEW TABLET PO PRN (18:30)
[2016-08-25] MEDS ORDERED: DEXTROSE 50% 50 ML SYRINGE IV PRN (18:30)
[2016-08-25] MEDS: ASPIRIN 81 MG ENTERIC TAB PO SCH (19:46)
[2016-08-25 20:00] VITALS: BP 133/73
[2016-08-25] MEDS ORDERED: HumaLOG INSULIN (NovoLOG) PER UNIT SC SCH (21:00)
[2016-08-26] VITALS: BP 162/83
--- NOTE | 2016-08-26 01:31 | EDDOCDS ---
Physician Documentation [facility] Name: Mehul Griggs Age: 71 yrs Sex: Male : 1945 Arrival Date: 08/23/2016 Time: 20:23 Bed 14 Private MD: Liliya Disposition: 08/23 23:13 I have independently interviewed and examined the patient, and I agree with the mm11 investigation, diagnosis and treatment plan as documented by the Resident. Disposition: 08/23/16 23:20 Hospitalization ordered by Jarvis Rubio for Inpatient Admission. Preliminary diagnosis is Idiopathic acute pancreatitis - Acute on Chronic Idiopathic Pancreatitis. - Bed requested for M PED. - Status is Inpatient Admission. mlc - Condition is Stable. - Problem is an acute exacerbation. - Symptoms have improved. Historical: - Allergies: No known drug Allergies; - Home Meds: 1. Diovan 160 mg Oral tab 1 tab once daily 2. glimepiride 2 mg Oral tab 1 tab once daily 3. metoprolol tartrate 100 mg Oral tab 1 tab once daily 4. Lipitor 10 mg Oral tab 1 tab once daily 5. metformin 850 mg Oral tab 1 tab 2 times per day - PMHx: Diabetes - NIDDM: controlled; Hypercholesterolemia; Hypertension; Pancreatitis; - PSHx: Cholecystectomy; - Social history: Smoking status: Patient states was never smoker of tobacco. No barriers to communication noted, The patient speaks fluent Guyanese. - Family history: Not pertinent. - : The pt / caregiver states he / she is not on anticoagulants. Home medication list is obtained from the patient. - Exposure Risk Screening:: None identified. Vital Signs: 20:25 BP 147 / 82; Pulse 82; Resp 18 S; Temp 97.6(O); Pulse Ox 100% on R/A; Weight 77.11 kg / gr2 170 lbs (R); Height 5 ft. 9 in. (175.26 cm) (R); Pain 7/10; 22:50 BP 152 / 74; Pulse 87; Resp 18; Pulse Ox 100% ; Pain 5/10; mlc 08/24 00:15 Temp 98.2; Pain 5/10; mlc 00:19 BP 169 / 82; Pulse 86; Resp 18; Pulse Ox 96% on R/A; Pain 5/10; david 08/23 20:25 Body Mass Index 25.10 (77.11 kg, 175.26 cm) gr2 MDM: 08/23 20:35 ECG WITH READING ER PHYS+CARDIAG ordered. EDMS 21:10 IV Saline Lock ordered. gk1 21:10 Ondansetron 4 mg IVP once ordered. gk1 21:10 NS 0.9% 1000 ml IV at bolus once ordered. gk1 21:12 Amylase Ordered. EDMS 21:12 Lipase Ordered. EDMS 21:12 CBC with Diff Ordered. EDMS 21:12 Complete Comphrensive Metabolic Ordered. EDMS 21:12 Cardiac Injury Profile Ordered. EDMS 21:12 Troponin Ordered. EDMS 21:12 NOTHING BY MOUTH+DIET ordered. EDMS 21:15 Financial registration complete. h 21:15 morphine 4 mg IVP every 30 minutes; Document pain score/vitals after each dose (Hold if gk1 SBP < 90mmHg) x2 ordered. 22:21 CBC with Diff Reviewed. mm11 22:24 [facility] Payment Agreement was scanned into Enlighted and attached to record. [facility] 22:53 Amylase Reviewed. [facility] 22:53 Lipase Reviewed. mm11 22:53 Complete Comphrensive Metabolic Reviewed. mm11 22:53 Cardiac Injury Profile Reviewed. mm11 22:53 Troponin Reviewed. mm11 22:54 CT ABD & PELVIS: IV Contrast Only Ordered. EDMS 22:59 BED REQUEST+ADM ordered. EDMS 23:07 -Blood Culture (Adults Only), peripheral from different site, or from device/port/PICC gk1 etc. if present ordered. 23:07 NS 0.9% 1000 ml IV at 250 mL/hr continuous ordered. gk1 23:09 -Blood Culture (Adults Only), peripheral from different site, or from device/port/PICC ml3 etc. if present complete. 23:09 BLOOD CULTURES Ordered. EDMS 23:11 Ondansetron 4 mg PO once ordered. gk1 23:14 Ondansetron 4 mg IVP once ordered. gk1 23:22 morphine 4 mg IVP every 30 minutes; Document pain score/vitals after each dose (Hold if gk1 SBP < 90mmHg) x2 ordered. 23:35 Admission / Observation Status ordered. EDMS 23:36 NPO DIET ordered. EDMS 23:36 PT & APTT Ordered. EDMS 23:36 ERYTHROCYTE SEDIMENTATION RATE Ordered. EDMS 23:36 C REACTIVE PROTEIN QUANTITATIV Ordered. EDMS 23:36 COMPLETE BLOOD COUNT Ordered. EDMS 23:37 COMPLETE COMPHRENSIVE METABOLI Ordered. EDMS 23:37 LIPASE Ordered. EDMS 23:40 LACTATE DEHYDROGENASE Ordered. EDMS 08/24 00:04 LACTIC ACID LEVEL, LACTATE Ordered. EDMS 00:08 C REACTIVE PROTEIN QUANTITATIV Ordered. EDMS 12:27 T-Sheet-- Draft Copy was scanned into Enlighted and attached to record. gb 12:27 ECG/EKG was scanned into Enlighted and attached to record. gb Administered Medications: 08/23 21:17 CANCELLED (Other Intervention Used): morphine 1 mg IVP once [facility] 22:00 Drug: Ondansetron 4 mg [ondansetron HCl 2 mg/mL intravenous solution (2 mL)] Route: mlc IVP; Site: left forearm; 22:50 Follow up: Response: Nausea is decreased [facility] 22:00 Drug: NS 0.9% 1000 ml [sodium chloride 0.9 % intravenous solution] Route: IV; Rate: mlc bolus; Site: left forearm; 23:55 Follow up: IV Status: Completed infusion [facility] 22:00 Drug: morphine 4 mg [morphine 4 mg/mL intravenous cartridge (1 mL)] Route: IVP; Site: mlc left forearm; 22:50 Follow up: BP 152 / 74; Pulse 87 bpm; Resp 18 bpm; Pulse Ox 100% ; Pain 5/10 Adult; [facility] Response: Pain is decreased; pt reports he is comfortable at this time 23:14 Not Given (Other Intervention Used): Ondansetron 4 mg PO once gk1 23:19 Drug: Ondansetron 4 mg [ondansetron HCl 2 mg/mL intravenous solution (2 mL)] Route: mlc IVP; Site: left forearm; 23:34 Follow up: Response: Nausea is decreased [facility] 23:54 Drug: NS 0.9% 1000 ml [sodium chloride 0.9 % intravenous solution] Route: IV; Rate: 250 mlc mL/hr; Site: left forearm; 23:55 Drug: morphine 4 mg [morphine 4 mg/mL intravenous cartridge (1 mL)] Route: IVP; Site: mlc left forearm; Signatures: Dispatcher [employer] EDMS Lupe Norris, Reg Reg gb Ross Tomas, [employer] ml3 Tito Bedoya DO DO mm11 Guillermina Chen,RN RN mlc Loco Sumi [facility] Virgie GraceRN RN af2 Godfrey Henriquez, DO gk1 The chart was reviewed and I authenticate all verbal orders and agree with the evaluation and treatment provided.Corrections: (The following items were deleted from the chart) 21:17 21:11 morphine 1 mg IVP once ordered. gk1 [facility] 21:17 21:16 morphine 1 mg IVP once ordered. [facility] 23:57 23:36 PROTHROMBIN TIME PROFILE\E\INR ordered. EDMS EDMS 08/24 00:08 08/23 23:36 C REACTIVE PROTEIN QUANTITATIV ordered. EDMS EDMS Attachments: 22:24 [facility] [place] Agreement [facility] 08/24 12:27 T-Sheet-- Draft Copy gb 12:27 ECG/EKG gb Chart Complete MTDMariah
--- NOTE | 2016-08-26 01:31 | EDDOCDS ---
Nurse's Notes [facility] Name: Mehul Griggs Age: 71 yrs Sex: Male : 1945 Arrival Date: 08/23/2016 Time: 20:23 Bed 14 Private MD: Liliya Diagnosis: Idiopathic acute pancreatitis-Acute on Chronic Idiopathic Pancreatitis Presentation: 08/23 20:27 Presenting complaint: Patient states: nausea, vomiting, abdominal pain- onset 3 hours af2 ago. reports "I think I am having one of my pancreatitis attacks.". Adult Sepsis Screening: The patient does not have new or worsening altered mentation. Patient's respiratory rate is less than 22. Systolic blood pressure is greater than 100. Patient has a qSOFA score of 0- Negative Sepsis Screen. Suicide/Homicide risk assessment- the patient denies having any suicidal and/or homicidal ideations and does not present with any other emotional, behavioral or mental health complaints. Status: Patient is not a client service coordinator or dependent. Transition of care: patient was not received from another setting of care. 20:27 Acuity: BASHIR Level 3 af2 20:27 Method Of Arrival: Walkin/Carried/Asstd af2 Triage Assessment: 20:29 General: Appears uncomfortable, Behavior is cooperative. Pain: Location: abdomen Pain af2 currently is 10 out of 10 on a pain scale. GI: Reports upper abdominal pain, nausea, vomiting. Historical: - Allergies: No known drug Allergies; - Home Meds: 1. Diovan 160 mg Oral tab 1 tab once daily 2. glimepiride 2 mg Oral tab 1 tab once daily 3. metoprolol tartrate 100 mg Oral tab 1 tab once daily 4. Lipitor 10 mg Oral tab 1 tab once daily 5. metformin 850 mg Oral tab 1 tab 2 times per day - PMHx: Diabetes - NIDDM: controlled; Hypercholesterolemia; Hypertension; Pancreatitis; - PSHx: Cholecystectomy; - Social history: Smoking status: Patient states was never smoker of tobacco. No barriers to communication noted, The patient speaks fluent Uzbek. - Family history: Not pertinent. - : The pt / caregiver states he / she is not on anticoagulants. Home medication list is obtained from the patient. - Exposure Risk Screening:: None identified. Screenin:06 Screening information is obtained from the patient. Fall risk: No risks identified. mlc Assistance ADL's: requires no assistance with activities of daily living. Abuse/DV Screen: The patient / caregiver reports he/she is: not in a situation that causes fear, pain or injury. Nutritional screening: No deficits noted. Advance Directives: Currently, there is a health care proxy, Anna Peña, daughter. There is no active DNR order. There is a living will, but a copy is not available at this time. There is an active Power of Flat Grinder Operator, Anna Peña, daughter. home support is adequate. Assessment: 21:06 General: Appears ill, Behavior is cooperative. Pain: Location: right upper quadrant and mlc left upper quadrant Pain currently is 10 out of 10 on a pain scale. Neurological: Level of Consciousness is awake, alert, Oriented to person, place, time. Cardiovascular: Capillary refill < 3 seconds Heart tones S1 S2 present. Respiratory: Airway is patent Respiratory effort is even, unlabored, Respiratory pattern is regular, Breath sounds are clear bilaterally. GI: Abdomen is non- distended Bowel sounds present X 4 quads. Abd is soft X 4 quads Abd is tender to palpation in right upper quadrant, left upper quadrant, right lower quadrant and left lower quadrant Reports nausea, vomiting. Derm: Skin is pale. 22:00 Reassessment: Patient appears in no apparent distress at this time. Patient states mlc symptoms have not improved. pt medicated per order. . 22:51 Reassessment: Patient appears in no apparent distress at this time. Patient states mlc feeling better. Patient states symptoms have improved. pt reports decrease in pain and nausea. IV fluids infusing per order. pt states he is comfortable. . 23:34 Reassessment: pt returned from CT, pt tolerated well. . mlc 23:55 Reassessment: Patient appears in no apparent distress at this time. pt reports pain is mlc increased, pt medicated per order.. 08/24 00:15 General: Appears in no apparent distress, comfortable, Behavior is cooperative. Pain: mlc Pain currently is 5 out of 10 on a pain scale. Neurological: Level of Consciousness is awake, alert, Oriented to person, place, time. Respiratory: Airway is patent Respiratory effort is even, unlabored, Respiratory pattern is regular. Derm: Skin is. Vital Signs: 08/23 20:25 BP 147 / 82; Pulse 82; Resp 18 S; Temp 97.6(O); Pulse Ox 100% on R/A; Weight 77.11 kg gr2 (R); Height 5 ft. 9 in. (175.26 cm) (R); Pain 7/10; 22:50 BP 152 / 74; Pulse 87; Resp 18; Pulse Ox 100% ; Pain 5/10; mlc 08/24 00:15 Temp 98.2; Pain 5/10; mlc 00:19 BP 169 / 82; Pulse 86; Resp 18; Pulse Ox 96% on R/A; Pain 5/10; david 08/23 20:25 Body Mass Index 25.10 (77.11 kg, 175.26 cm) gr2 Vitals: 08/23 20:25 Log In Time: August 23, 2016 at 20:25. gr2 ED Course: 20:24 Patient visited by Marysol Blancas. gr2 20:24 Patient moved to Waiting gr2 20:25 Liliya is Private Physician. gr2 20:26 Patient visited by Marysol Blancas. gr2 20:26 Patient moved to Pre RCE gr2 20:28 Triage Initiated af2 20:30 Patient visited by Virgie Grace,HO. af2 20:33 Guillermina Chen,HO is Primary Nurse. sls1 20:33 Patient moved to 14 sls1 20:36 Geraldine Rice FNP is PHCP. le 20:37 Godfrey Henriquez DO is PHCP. gk1 20:37 Tito Bedoya DO is Attending Physician. gk1 20:43 Patient visited by Pat Roberson PCA. cln 20:43 EKG done. (by ED staff). Reviewed by Godfrey Henriquez DO. cln 20:44 Patient visited by Tito Bedoya DO. mm11 21:08 Patient visited by Guillermina Chen,HO. mlc 21:54 Inserted saline lock: 20 gauge in left forearm. ko2 22:00 The patient / caregiver is instructed regarding the plan of care and ED course. mlc 22:01 Patient visited by Guillermina Chen,HO. mlc 22:24 [facility] Payment Agreement was scanned into X-IO and attached to record. slh 22:51 Patient visited by Guillermina Chen RN. mlc 23:19 Jarvis Rubio DO is Hospitalizing Provider. gk1 23:54 BLOOD CULTURES Sent. [facility] 23:55 Patient visited by Guillermina Chen RN. mlc 02 00:20 Patient visited by Prema Tadeo PCA. david 00:20 No procedures done that require assistance. [facility] 12:27 T-Sheet-- Draft Copy was scanned into X-IO and attached to record. gb 12:27 ECG/EKG was scanned into [email or web address] and attached to record. gb Administered Medications: 08/23 21:17 CANCELLED (Other Intervention Used): morphine 1 mg IVP once [facility] 22:00 Drug: Ondansetron 4 mg [ondansetron HCl 2 mg/mL intravenous solution (2 mL)] Route: mlc IVP; Site: left forearm; 22:50 Follow up: Response: Nausea is decreased [facility] 22:00 Drug: NS 0.9% 1000 ml [sodium chloride 0.9 % intravenous solution] Route: IV; Rate: mlc bolus; Site: left forearm; 23:55 Follow up: IV Status: Completed infusion [facility] 22:00 Drug: morphine 4 mg [morphine 4 mg/mL intravenous cartridge (1 mL)] Route: IVP; Site: [facility] left forearm; 22:50 Follow up: BP 152 / 74; Pulse 87 bpm; Resp 18 bpm; Pulse Ox 100% ; Pain 5/10 Adult; [facility] Response: Pain is decreased; pt reports he is comfortable at this time 23:14 Not Given (Other Intervention Used): Ondansetron 4 mg PO once 1 23:19 Drug: Ondansetron 4 mg [ondansetron HCl 2 mg/mL intravenous solution (2 mL)] Route: mlc IVP; Site: left forearm; 23:34 Follow up: Response: Nausea is decreased [facility] 23:54 Drug: NS 0.9% 1000 ml [sodium chloride 0.9 % intravenous solution] Route: IV; Rate: 250 mlc mL/hr; Site: left forearm; 23:55 Drug: morphine 4 mg [morphine 4 mg/mL intravenous cartridge (1 mL)] Route: IVP; Site: [facility] left forearm; Intake: Order Results: Lab Order: Amylase; SPEC'M 08/23/16 21:41 Test: AMYLASE; Value: 2620; Range: 25-115; Abnormal: Above high normal; Units: U/L; Status: F Lab Order: Lipase; SPEC'M 08/23/16 21:41 Test: LIPASE; Value: 53731; Range: 73-393; Abnormal: Above high normal; Units: U/L; Status: F Lab Order: CBC with Diff; SPEC'M 08/23/16 21:41 Test: WHITE BLOOD COUNT; Value: 19.4; Range: 4.0-10.0; Abnormal: Above high normal; Units: K/mm3; Status: F Test: RED BLOOD COUNT; Value: 5.03; Range: 4.30-6.10; Units: M/mm3; Status: F Test: HEMOGLOBIN; Value: 15.1; Range: 14.0-18.0; Units: g/dl; Status: F Test: HEMATOCRIT; Value: 43.3; Range: 42.0-52.0; Units: %; Status: F Test: MEAN CORPUSCULAR VOLUME; Value: 86.2; Range: 80.0-96.0; Units: fl; Status: F Test: MEAN CORPUSCULAR HEMOGLOBIN; Value: 30.1; Range: 27.0-33.0; Units: pg; Status: F Test: MEAN CORPUSCULAR HGB CONC; Value: 34.9; Range: 32.0-36.5; Units: g/dl; Status: F Test: RED CELL DISTRIBUTION WIDTH; Value: 13.5; Range: 11.5-14.5; Units: %; Status: F Test: PLATELET COUNT, AUTOMATED; Value: 318; Range: 150-450; Units: k/mm3; Status: F Test: NEUTROPHILS %; Value: 90.8; Range: 36.0-66.0; Abnormal: Above high normal; Units: %; Status: F Test: LYMPH %; Value: 3.6; Range: 24.0-44.0; Abnormal: Below low normal; Units: %; Status: F Test: MONO %; Value: 4.3; Range: 0.0-5.0; Units: %; Status: F Test: EOS %; Value: 1.1; Range: 0.0-3.0; Units: %; Status: F Test: BASO %; Value: 0.1; Range: 0.0-1.0; Units: %; Status: F Test: LARGE UNSTAINED CELL %; Value: 0.2; Range: 0.0-4.0; Units: %; Status: F Test: NEUTROPHILS #; Value: 17.6; Range: 1.8-7.7; Abnormal: Above high normal; Units: K/mm3; Status: F Test: LYMPH #; Value: 0.7; Range: 1.5-4.5; Abnormal: Below low normal; Units: K/mm3; Status: F Test: MONO #; Value: 0.8; Range: 0.0-0.8; Units: K/mm3; Status: F Test: EOS #; Value: 0.2; Range: 0.0-0.50; Units: K/mm3; Status: F Test: BASO #; Value: 0.0; Range: 0.0-0.2; Units: K/mm3; Status: F Test: LARGE UNSTAINED CELL #; Value: 0.0; Range: 0.0-0.4; Units: K/mm3; Status: F Lab Order: Complete Comphrensive Metabolic; SPEC'M 08/23/16 21:41 Test: GLUCOSE, FASTING; Value: 341; Range: 83-110; Abnormal: Above high normal; Units: MG/DL; Status: F Test: BLOOD UREA NITROGEN; Value: 14; Range: 7-18; Units: MG/DL; Status: F Test: CREATININE FOR GFR; Value: 1.02; Range: 0.70-1.30; Units: MG/DL; Status: F Test: GLOMERULAR FILTRATION RATE; Value: > 60.0; Range: >42; Status: F Test: SODIUM LEVEL; Value: 140; Range: 136-145; Units: MEQ/L; Status: F Test: POTASSIUM SERUM; Value: 4.3; Range: 3.5-5.1; Units: MEQ/L; Status: F Test: CHLORIDE LEVEL; Value: 103; Range: 98-107; Units: MEQ/L; Status: F Test: CARBON DIOXIDE LEVEL; Value: 23; Range: 21-32; Units: MEQ/L; Status: F Test: ANION GAP; Value: 14; Range: 8-16; Units: MEQ/L; Status: F Test: CALCIUM LEVEL; Value: 8.4; Range: 8.8-10.2; Abnormal: Below low normal; Units: MG/DL; Status: F Test: AST/SGOT; Value: 23; Range: 15-37; Units: U/L; Status: F Test: ALT/SGPT; Value: 24; Range: 12-78; Units: U/L; Status: F Test: ALKALINE PHOSPHATASE; Value: 75; Range: 45-117; Units: U/L; Status: F Test: BILIRUBIN,TOTAL; Value: 1.3; Range: 0.2-1.0; Abnormal: Above high normal; Units: MG/DL; Status: F Test: TOTAL PROTEIN; Value: 5.6; Range: 6.4-8.2; Abnormal: Below low normal; Units: GM/DL; Status: F Test: ALBUMIN; Value: 3.2; Range: 3.2-5.2; Units: GM/DL; Status: F Test: ALBUMIN/GLOBULIN RATIO; Value: 1.33; Range: 1.00-1.93; Status: F Test Note: ; Units are mL/min/1.73 m2 Chronic Kidney Disease Staging per NKF: Stage I & II GFR >=60 Normal to Mildly Decreased Stage III GFR 30-59 Moderately Decreased Stage IV GFR 15-29 Severely Decreased Stage V GFR <15 Very Little GFR Left ESRD GFR <15 on PRACTICING MD ANESTHESIOLOGIST Lab Order: Cardiac Injury Profile; SPEC'08/23/16 21:41 Test: CPK CREATINE PHOSPHOKINASE; Value: 89; Range: 39-308; Units: U/L; Status: F Test: CK-MB VALUE MASS; Value: 1.1; Range: 0.0-3.6; Units: NG/ML; Status: F Test: MB/CK RELATIVE INDEX; Value: 1.23; Range: < OR =4; Status: F Test Note: ; DIAGNOSIS CRITERIA MMB ng/ml Relative Index (RI) NON-AMI < or = 5 N/A COREA ZONE > 5 < or = 4 AMI > 5 > 4 Lab Order: Troponin; SPEC'M 08/23/16 21:41 Test: TROPONIN I; Value: < 0.02; Range: < 0.10; Units: NG/ML; Status: F Test Note: ; Troponin I Reference Interval for [employer] LOCI: 99th Percentile= 0.00-0.045 ng/ml Risk Stratification: <= 0.10 ng/ml Decreased Risk for Adverse Clinical Events. 0.10-1.50 ng/ml Increased Risk for Adverse Clinical Events. Evaluation of additional criterion and/or repeat testing in 2-6 hours is suggested to rule out myocardial damage. >= 1.50 ng/ml Indicative of Myocardial Injury. Lab Order: PT & APTT; [facility] 08/23/16 23:56 Test: PROTHROMBIN TIME; Value: 12.9; Range: 12.3-14.5; Units: SECONDS; Status: F Test: INR; Value: 0.96; Status: F Test: PARTIAL THROMBOPLASTIN TIME; Value: 22.4; Range: 26.6-37.1; Abnormal: Below low normal; Units: SECONDS; Status: F Test Note: ; THERAPUTIC HUMAN INR VALUES INDICATIONS NORMAL RANGES PROPHYLAXIS/TREATMENT OF: VENOUS THROMBOSIS 2.0-3.0 PULMONARY EMBOLISM 2.0-3.0 PREVENTION OF SYSTEMIC EMBOLISM FROM: TISSUE HEART VALVES 2.0-3.0 ACUTE MYOCARDIAL INFARCTION 2.0-3.0 VALVULAR HEART DISEASE 2.0-3.0 ATRIAL FIBRILLATION 2.0-3.0 MECHANICAL VALVES(HIGH RISK) 2.5-3.5 RECURRENT MYOCARDIAL INFARCTION 2.5-3.5 Lab Order: ERYTHROCYTE SEDIMENTATION RATE; [facility] 08/23/16 23:56 Test: ERYTHROCYTE SEDIMENTATION RATE; Value: 6; Range: 0-20; Units: mm/hr; Status: F Lab Order: LACTATE DEHYDROGENASE; [facility] 08/23/16 23:56 Test: LDH LACTATE DEHYDROGENASE; Value: 136; Range: 87-241; Units: U/L; Status: F Lab Order: C REACTIVE PROTEIN QUANTITATIV; [facility] 08/23/16 23:56 Test: C REACTIVE PROTEIN QUANTITATIV; Value: < 0.30; Range: 0.00-0.30; Units: MG/DL; Status: F Outcome: 23:20 Decision to Hospitalize by Provider. gk1 08/24 00:17 Discharge Assessment: Patient awake, alert and oriented x 3. No cognitive and/or mlc functional deficits noted. Patient verbalized understanding of disposition instructions. patient administered narcotics - yes. Patient was admitted to the hospital or transferred to another facility. The following High Risk Discharge criteria are identified: None. Admitted to Pediatrics accompanied by tech, via wheelchair. Condition: stable. CT Study completed. Admission hand-off: Report called to HO Noonan. Property :Personal belongings accompany Pt. 00:30 Patient left the ED. [facility] Signatures: Lupe Norris, Reg Reg gb Tito Bedoya, DO DO mm11 Geraldine Rice, STORAGE BATTERY INSPECTOR AND TESTER STORAGE BATTERY INSPECTOR AND TESTER Prema Uriarte, SCHOOL COOK SCHOOL COOK david Subha Staton, RN RN sls1 Marysol Blancas gr2 Guillermina Chen RN RN [facility] Dawn Wheat RN RN ko2 Sumi Adan AmberRN RN af2 Pat Roberson, SCHOOL COOK SCHOOL COOK cln Godfrey Henriquez, DO DO gk1 Chart Complete MTDD
--- NOTE | 2016-08-26 01:31 | EDDOCDS ---
Physician Documentation [facility] Name: Mehul Griggs Age: 71 yrs Sex: Male : 1945 Arrival Date: 08/23/2016 Time: 20:23 Bed 14 Private MD: Liliya Disposition: 08/23 23:13 I have independently interviewed and examined the patient, and I agree with the mm11 investigation, diagnosis and treatment plan as documented by the Resident. Disposition: 08/23/16 23:20 Hospitalization ordered by Jarvis Rubio for Inpatient Admission. Preliminary diagnosis is Idiopathic acute pancreatitis - Acute on Chronic Idiopathic Pancreatitis. - Bed requested for M PED. - Status is Inpatient Admission. mlc - Condition is Stable. - Problem is an acute exacerbation. - Symptoms have improved. Historical: - Allergies: No known drug Allergies; - Home Meds: 1. Diovan 160 mg Oral tab 1 tab once daily 2. glimepiride 2 mg Oral tab 1 tab once daily 3. metoprolol tartrate 100 mg Oral tab 1 tab once daily 4. Lipitor 10 mg Oral tab 1 tab once daily 5. metformin 850 mg Oral tab 1 tab 2 times per day - PMHx: Diabetes - NIDDM: controlled; Hypercholesterolemia; Hypertension; Pancreatitis; - PSHx: Cholecystectomy; - Social history: Smoking status: Patient states was never smoker of tobacco. No barriers to communication noted, The patient speaks fluent Mongolian. - Family history: Not pertinent. - : The pt / caregiver states he / she is not on anticoagulants. Home medication list is obtained from the patient. - Exposure Risk Screening:: None identified. Vital Signs: 20:25 BP 147 / 82; Pulse 82; Resp 18 S; Temp 97.6(O); Pulse Ox 100% on R/A; Weight 77.11 kg / gr2 170 lbs (R); Height 5 ft. 9 in. (175.26 cm) (R); Pain 7/10; 22:50 BP 152 / 74; Pulse 87; Resp 18; Pulse Ox 100% ; Pain 5/10; mlc 08/24 00:15 Temp 98.2; Pain 5/10; mlc 00:19 BP 169 / 82; Pulse 86; Resp 18; Pulse Ox 96% on R/A; Pain 5/10; david 08/23 20:25 Body Mass Index 25.10 (77.11 kg, 175.26 cm) gr2 MDM: 08/23 20:35 ECG WITH READING ER PHYS+CARDIAG ordered. EDMS 21:10 IV Saline Lock ordered. gk1 21:10 Ondansetron 4 mg IVP once ordered. gk1 21:10 NS 0.9% 1000 ml IV at bolus once ordered. gk1 21:12 Amylase Ordered. EDMS 21:12 Lipase Ordered. EDMS 21:12 CBC with Diff Ordered. EDMS 21:12 Complete Comphrensive Metabolic Ordered. EDMS 21:12 Cardiac Injury Profile Ordered. EDMS 21:12 Troponin Ordered. EDMS 21:12 NOTHING BY MOUTH+DIET ordered. EDMS 21:15 Financial registration complete. h 21:15 morphine 4 mg IVP every 30 minutes; Document pain score/vitals after each dose (Hold if gk1 SBP < 90mmHg) x2 ordered. 22:21 CBC with Diff Reviewed. mm11 22:24 [facility] Payment Agreement was scanned into [employer] and attached to record. [facility] 22:53 Amylase Reviewed. [facility] 22:53 Lipase Reviewed. mm11 22:53 Complete Comphrensive Metabolic Reviewed. mm11 22:53 Cardiac Injury Profile Reviewed. mm11 22:53 Troponin Reviewed. mm11 22:54 CT ABD & PELVIS: IV Contrast Only Ordered. EDMS 22:59 BED REQUEST+ADM ordered. EDMS 23:07 -Blood Culture (Adults Only), peripheral from different site, or from device/port/PICC gk1 etc. if present ordered. 23:07 NS 0.9% 1000 ml IV at 250 mL/hr continuous ordered. gk1 23:09 -Blood Culture (Adults Only), peripheral from different site, or from device/port/PICC ml3 etc. if present complete. 23:09 BLOOD CULTURES Ordered. EDMS 23:11 Ondansetron 4 mg PO once ordered. gk1 23:14 Ondansetron 4 mg IVP once ordered. gk1 23:22 morphine 4 mg IVP every 30 minutes; Document pain score/vitals after each dose (Hold if gk1 SBP < 90mmHg) x2 ordered. 23:35 Admission / Observation Status ordered. EDMS 23:36 NPO DIET ordered. EDMS 23:36 PT & APTT Ordered. EDMS 23:36 ERYTHROCYTE SEDIMENTATION RATE Ordered. EDMS 23:36 C REACTIVE PROTEIN QUANTITATIV Ordered. EDMS 23:36 COMPLETE BLOOD COUNT Ordered. EDMS 23:37 COMPLETE COMPHRENSIVE METABOLI Ordered. EDMS 23:37 LIPASE Ordered. EDMS 23:40 LACTATE DEHYDROGENASE Ordered. EDMS 08/24 00:04 LACTIC ACID LEVEL, LACTATE Ordered. EDMS 00:08 C REACTIVE PROTEIN QUANTITATIV Ordered. EDMS 12:27 T-Sheet-- Draft Copy was scanned into [employer] and attached to record. gb 12:27 ECG/EKG was scanned into [employer] and attached to record. gb Administered Medications: 08/23 21:17 CANCELLED (Other Intervention Used): morphine 1 mg IVP once [facility] 22:00 Drug: Ondansetron 4 mg [ondansetron HCl 2 mg/mL intravenous solution (2 mL)] Route: mlc IVP; Site: left forearm; 22:50 Follow up: Response: Nausea is decreased [facility] 22:00 Drug: NS 0.9% 1000 ml [sodium chloride 0.9 % intravenous solution] Route: IV; Rate: mlc bolus; Site: left forearm; 23:55 Follow up: IV Status: Completed infusion [facility] 22:00 Drug: morphine 4 mg [morphine 4 mg/mL intravenous cartridge (1 mL)] Route: IVP; Site: mlc left forearm; 22:50 Follow up: BP 152 / 74; Pulse 87 bpm; Resp 18 bpm; Pulse Ox 100% ; Pain 5/10 Adult; [facility] Response: Pain is decreased; pt reports he is comfortable at this time 23:14 Not Given (Other Intervention Used): Ondansetron 4 mg PO once gk1 23:19 Drug: Ondansetron 4 mg [ondansetron HCl 2 mg/mL intravenous solution (2 mL)] Route: mlc IVP; Site: left forearm; 23:34 Follow up: Response: Nausea is decreased [facility] 23:54 Drug: NS 0.9% 1000 ml [sodium chloride 0.9 % intravenous solution] Route: IV; Rate: 250 mlc mL/hr; Site: left forearm; 23:55 Drug: morphine 4 mg [morphine 4 mg/mL intravenous cartridge (1 mL)] Route: IVP; Site: mlc left forearm; Signatures: Dispatcher [employer] EDMS Lupe Norris, Reg Reg gb Ross Tomas, Professional Development Manager Unit ml3 Tito Bedoya DO DO mm11 Guillermina Chen,RN RN mlc Loco Sumi [facility] Virgie GraceRN RN af2 Godfrey Henriquez, DO gk1 The chart was reviewed and I authenticate all verbal orders and agree with the evaluation and treatment provided.Corrections: (The following items were deleted from the chart) 21:17 21:11 morphine 1 mg IVP once ordered. gk1 [facility] 21:17 21:16 morphine 1 mg IVP once ordered. [facility] 23:57 23:36 PROTHROMBIN TIME PROFILE\E\INR ordered. EDMS EDMS 08/24 00:08 08/23 23:36 C REACTIVE PROTEIN QUANTITATIV ordered. EDMS EDMS Attachments: 22:24 [facility] Payment Agreement [facility] 08/24 12:27 T-Sheet-- Draft Copy gb 12:27 ECG/EKG gb Chart Complete MTDMariah
[2016-08-26] MEDS: metroNIDAZOLE 500 MG in APPROPRIATE DILUENT 1 EA IV SCH ×2 (04:35→11:41)
[2016-08-26] MEDS: LR 1,000 ML IV SCH ×2 (04:36→08:21)
[2016-08-26 06:53] LABS: MEAN CORPUSCULAR HEMOGLOBIN 31.3 pg (27.0-33.0); MEAN CORPUSCULAR HGB CONC 35.6 g/dl (32.0-36.5); MEAN CORPUSCULAR VOLUME 87.7 fl (80.0-96.0); RED CELL DISTRIBUTION WIDTH 13.4 % (11.5-14.5); WHITE BLOOD COUNT 10.6 K/mm3 (4.0-10.0)
[2016-08-26 07:14] LABS: ALBUMIN 2.1 GM/DL (3.2-5.2); ALBUMIN/GLOBULIN RATIO 0.84 (1.00-1.93); ALKALINE PHOSPHATASE 50 U/L (45-117); ALT/SGPT 16 U/L (12-78); ANION GAP 10 MEQ/L (8-16); AST/SGOT 13 U/L (15-37); BILIRUBIN,TOTAL 1.9 MG/DL (0.2-1.0); BLOOD UREA NITROGEN 11 MG/DL (7-18); CALCIUM LEVEL 7.8 MG/DL (8.8-10.2); CARBON DIOXIDE LEVEL 26 MEQ/L (21-32); CHLORIDE LEVEL 105 MEQ/L (98-107); CREATININE FOR GFR 0.59 MG/DL (0.70-1.30); GLOMERULAR FILTRATION RATE > 60.0 (>42); GLUCOSE, FASTING 125 MG/DL (83-110); POTASSIUM SERUM 3.7 MEQ/L (3.5-5.1); SODIUM LEVEL 141 MEQ/L (136-145); TOTAL PROTEIN 4.6 GM/DL (6.4-8.2)
[2016-08-26 08:00] VITALS: BP 139/71
[2016-08-26] MEDS: HumaLOG INSULIN (NovoLOG) PER UNIT SC SCH ×2 (08:19→11:41)
[2016-08-26] MEDS: ENOXAPARIN 40 MG/0.4 ML SYRINGE (J1650) SC SCH (08:20)
[2016-08-26] MEDS: VALSARTAN 80 MG TAB (DIOVAN) PO SCH (08:20)
[2016-08-26 08:21] VITALS: BP 139/71
[2016-08-26] MEDS: METOPROLOL SUCC (TopROL XL) 100MG *XL* TAB PO SCH (08:21)
[2016-08-26] MEDS: ATORVASTATIN 10 MG TAB PO SCH (08:21)
[2016-08-26 12:00] VITALS: BP 139/78
--- NOTE | 2016-08-26 15:09 | DS.PDOC ---
Discharge Summary General Date of Admission Aug 23, 2016 at 23:17 Date of Discharge 08/26/16 Primary Care Physician: Jr Lovell Collins Attending Physician: MICHEAL SINGH MD Discharge Summary PROCEDURES PERFORMED DURING STAY: None. COMPLICATIONS/CHIEF COMPLAINT: Acute Pancreatitis/Leukocytosis ADMISSION/DISCHARGE DIAGNOSES: 1. Acute on chronic pancreatitis 2. Diabetes mellitus 3. Hypertension 4. Elevated bilirubin HISTORY OF PRESENT ILLNESS/HOSPITAL COURSE: This is a 71-year-old male past history of diabetes, hypertension, chronic pancreatitis who presents complaining of abdominal pain found to be in acute pancreatitis lipase 63,000. Patient also had CAT scan findings of acute pancreatitis however no loculated fluid collection. Patient states that he's been followed by Dr. looney at [facility] for gastroenterology and recently had Ampulla sphincterotomy a month ago. Patient also had extensive workup for his recurrent pancreatitis and states this is seventh episode. No clear cause has been found at this time. Patient does not drink alcohol. Had his cholecystectomy many years ago. No overt medications causing this. Triglyceride level within normal limits. At this time patient's abdominal pain has completely resolved and lipase has decreased dramatically. He is tolerating a regular diets and he is ready for discharge. He'll need to follow-up with his engineering scientist closely. I have also given him a prescription for CMP to be done by 08/28/16 for elevated bilirubin, with results to be sent to his primary care physician.. DISCHARGE MEDICATIONS: Please see below. ALLERGIES: Please see below. PHYSICAL EXAMINATION ON DISCHARGE: VITAL SIGNS: Please see below. General: No acute distress, laying comfortably in bed. HEENT: Moist mucous membranes. Neck: No JVD or lymphadenopathy Cardiac: RRR, No murmurs Pulm: Clear to auscultation b/l. No wheezing, rhonchi Abd: NT/ND + BS Ext: No edema or cyanosis LABORATORY DATA: Please see below. IMAGING: CT abd/pelvis 08/24/16 IMPRESSION: Acute pancreatitis. This is a recurrent finding. No loculated fluid collection. Mild fatty liver infiltration. Reactive duodenitis. Abd u/s 08/25/16 Impression: 1. 1.7 cm benign right renal cyst. 2. Two small subcentimeter hepatic cysts. 3. Status post cholecystectomy without biliary ductal dilatation. VTE Prophylaxis ordered?: Y DISCHARGE CONDITION: Stable. DISPOSITION: Stable ACTIVITY: As tolerated DIET: As tolerated DISCHARGE PLAN AND INSTRUCTIONS: 1. TIME SPENT ON DISCHARGE: Greater than 30 minutes. Vital Signs/I&Os Vital Signs Date Time Temp Pulse Resp B/P Pulse Ox O2 Delivery O2 Flow Rate FiO2 08/26/16 12:00 98.9 88 18 139/78 95 Room Air I&O- Last 24 Hours up to 6 AM 08/26/16 06:00 Intake Total 4630 ml Output Total 2650 ml Balance 1980 ml Laboratory Data Labs 24H Laboratory Tests 2 08/25/16 17:51: Bedside Glucose (Misc Panel) 129H 08/25/16 21:27: Bedside Glucose (Misc Panel) 116H 08/26/16 06:17: Blood Urea Nitrogen 11, Creatinine 0.59L, Sodium Level 141, Potassium Level 3.7 , Chloride Level 105, Carbon Dioxide Level 26, Calcium Level 7.8L, Aspartate Amino Transf (AST/SGOT) 13L, Alanine Aminotransferase (ALT/SGPT) 16, Alkaline Phosphatase 50, Total Bilirubin 1.9H, Total Protein 4.6L, Albumin 2.1L, Albumin/ Globulin Ratio 0.84L, Anion Gap 10, Glomerular Filtration Rate > 60.0, Lipase 131 08/26/16 11:26: Bedside Glucose (Misc Panel) 136H CBC/BMP Laboratory Tests 08/26/16 06:17 Calcium Level 7.8 L, Aspartate Amino Transf (AST/SGOT) 13 L, Alanine Aminotransferase (ALT/SGPT) 16, Alkaline Phosphatase 50, Total Bilirubin 1.9 H, Total Protein 4.6 L, Albumin 2.1 L, Red Blood Count 4.08 L, Mean Corpuscular Volume 87.7, Mean Corpuscular Hemoglobin 31.3, Mean Corpuscular Hemoglobin Concent 35.6, Red Cell Distribution Width 13.4 FSBS Laboratory Tests Test 08/25/16 17:51 08/25/16 21:27 08/26/16 11:26 Range/Units Bedside Glucose (Misc Panel) 129 116 136 83-110 MG/DL Microbiology Microbiology 08/23/16 Blood Culture - Preliminary, Resulted No Growth after 48 hours. All Specime... Medications Scheduled Aspirin (Aspirin 81) 81 Mg Tab 81 MG PO QHS Atorvastatin Calcium (Lipitor) 10 Mg Tab 10 MG PO DAILY Glimepiride (Glimepiride) 2 Mg Tab 2 MG PO QHS Metformin Hydrochloride (Metformin HCl) 850 Mg Tab 850 MG PO BID Metoprolol Succinate (Metoprolol Succinate ER) 100 Mg Tab 100 MG PO DAILY Valsartan (Diovan) 160 Mg Tab 160 MG PO DAILY Allergies Coded Allergies: No Known Drug Allergy (Verified Allergy, Unknown, 10/08/12) MICHEAL SINGH MD Aug 26, 2016 15:09
== END 2016-08-26 15:50 | disposition home or self-care (01) | DRG 440 ==
LOC: M ED 20:23 → M ED INP 23:17 → M PED 08-24 00:39
PROVIDERS: ADMIT Hospitalist; ATTEND Internal Medicine
DX: K85.00 Idiopathic acute pancreatitis without necrosis or infection (principal); E80.6 Other disorders of bilirubin metabolism; K86.1 Other chronic pancreatitis; E78.5 Hyperlipidemia, unspecified; E11.9 Type 2 diabetes mellitus without complications; K29.80 Duodenitis without bleeding; N28.1 Cyst of kidney, acquired; I10 Essential (primary) hypertension; Z90.49 Acquired absence of other specified parts of digestive tract; Z79.84 Long term (current) use of oral hypoglycemic drugs; Z79.899 Other long term (current) drug therapy

== ENCOUNTER → 2016-11-18 | Outpatient (REF) | payer MEDICARE, BC ==
[2016-11-18 16:46] LABS: AMYLASE 44 U/L (25-115)
[2016-11-25 13:08] LABS: F-ACTIN IgG AUTOANTIBODIES 10 UNITS (<20)
== END ==
LOC: M LABDRAW1 15:36
PROVIDERS: ATTEND Internal Medicine Gastroenterology
DX: K86.1 Other chronic pancreatitis (principal); Z79.899 Other long term (current) drug therapy

== ENCOUNTER → 2017-03-11 | Outpatient (CLI) | payer BC, MEDICARE ==
[~2017-03-11] MED LIST changes: -METF850T PO; +METF850T4 PO; -METO-209 PO; +METO1TAB33 PO
--- NOTE | 2017-03-11 11:21 | REP ---
MRCP EXAMINATION WITHOUT CONTRAST: HISTORY: Chronic pancreatitis. Comparison sonography August 25, 2016. Comparison CT study August 23, 2016. Comparison MRI study March 13, 2016. TECHNIQUE: Coronal TRUE FISP and axial T2 HASTE imaging was acquired. In addition MRCP T2-weighted imaging was acquired and maximal intensity projection images are generated and viewed rotational. MRCP FINDINGS: There are multiple tiny subcentimeter cysts projecting in the liver. No pancreatic or hepatic mass lesion is seen. No pancreatic cyst is observed. The hepatic cysts are unchanged from comparison imaging. The visualized intrahepatic bile ducts are normal in caliber. Pancreatic duct is unremarkable. The common bile and common hepatic duct segment are normal in caliber. No stricture or mass is seen. IMPRESSION: Multiple small subcentimeter liver cysts. Otherwise unremarkable MRCP exam. Signed by Rashard Shannon MD 03/11/2017 02:44 P
--- NOTE | 2017-03-11 12:00 | REP ---
MRI abdomen without and with IV contrast: History: Chronic pancreatitis. Comparison MRI study is from 12/29/2011. Comparison CT examination August 23, 2016. MRI contrast dose: 15 ml of intravenous ProHance. MR technique: Axial and coronal imaging planes utilized. T1 and T2-weighted sequences include true FISP, in and out of phase, spin echo, turbo spin-echo, and sequential dynamic postcontrast T1 fat sat 2-D gradient echo sequences. MRI findings: Multiple subcentimeter T2 hyperintense foci are seen within the liver compatible with previously noted small cysts. No focal hepatic lesion is seen. No splenic lesion is observed. No adrenal mass is seen. There is a cyst in the upper pole of the right kidney noted measuring 2.0 cm. No pancreatic cyst or mass is seen. Dynamically acquired post gadolinium enhanced images show no suspicious area of enhancement. There is no evidence of mass in the pancreatic tail. This enhances homogeneously today. Impression: Multiple small cysts in the liver. Right upper pole renal cyst again noted unchanged. No pancreatic cyst or mass. Signed by Rashard Shannon MD 03/11/2017 02:45 P
[2017-03-11 12:24] LABS: BLOOD UREA NITROGEN 16 MG/DL (7-18); CREATININE FOR GFR 0.73 MG/DL (0.70-1.30); GLOMERULAR FILTRATION RATE > 60.0 (>42)
== END ==
LOC: M LAB 09:11
PROVIDERS: ATTEND Internal Medicine Gastroenterology
DX: K86.1 Other chronic pancreatitis (principal)
CPT/HCPCS: 74181; 74183; 82565; 84520; A9576

== ENCOUNTER 2017-07-01 09:15 | Inpatient (IN) | payer MEDICARE ==
[2017-07-01 09:58] LABS: BASO # 0.1 10^3/uL (0.0-0.2); BASO % 0.3 % (0.0-1.0); EOS # 0.2 10^3/uL (0.0-0.50); EOS % 1.2 % (0.0-3.0); IMMATURE GRANULOCYTE # 0.1 10^3/uL (0-0); IMMATURE GRANULOCYTE % 0.6 % (0-0); LYMPH % 5.8 % (24.0-44.0); MEAN CORPUSCULAR HEMOGLOBIN 30.6 pg (27.0-33.0); MEAN CORPUSCULAR HGB CONC 34.7 g/dl (32.0-36.5); MEAN CORPUSCULAR VOLUME 88.2 fl (80.0-96.0); MONO # 0.8 10^3/uL (0.0-0.8); MONO % 4.8 % (0.0-5.0); NEUTROPHILS # 14.8 10^3/uL (1.8-7.7); NEUTROPHILS % 87.3 % (36.0-66.0); PLATELET COUNT, AUTOMATED 317 10^3/uL (150-450); WHITE BLOOD COUNT 16.9 10^3/uL (4.0-10.0)
[2017-07-01] MEDS: ONDANSETRON 4MG/2ML VIAL (J2405) IV (10:04)
[2017-07-01] MEDS: NS 500 ML IV ×2 (10:04→10:26)
[2017-07-01] MEDS: MORPHINE 4 MG/ML 1ML SYRINGE IV (10:04)
[2017-07-01 10:06] LABS: KETONE, URINE AUTO RFX TRACE mg/dL (NEGATIVE); MUCUS, URINE RFX SMALL (NEGATIVE); RBC, URINE AUTO RFX 2 /HPF (0-3); SPECIFIC GRAVITY UR AUTO RFX 1.024 (1.002-1.035); SQUAM EPITHELIAL CELL UR AURFX 0 /HPF (0-6); WBC, URINE AUTO RFX 3 /HPF (0-3)
[2017-07-01 10:07] LABS: LEUKOCYTE ESTERASE UR AUTO RFX TRACE (NEGATIVE); NITRITE, URINE AUTO RFX POSITIVE (NEGATIVE)
[2017-07-01 10:21] LABS: ALBUMIN 3.1 GM/DL (3.2-5.2); ALBUMIN/GLOBULIN RATIO 1.24 (1.00-1.93); ALKALINE PHOSPHATASE 71 U/L (45-117); ALT/SGPT 27 U/L (12-78); ANION GAP 10 MEQ/L (8-16); AST/SGOT 19 U/L (7-37); BILIRUBIN,DIRECT 0.2 MG/DL (0.0-0.2); BLOOD UREA NITROGEN 20 MG/DL (7-18); CARBON DIOXIDE LEVEL 27 MEQ/L (21-32); CHLORIDE LEVEL 104 MEQ/L (98-107); CREATININE FOR GFR 0.89 MG/DL (0.70-1.30); GLOMERULAR FILTRATION RATE > 60.0 (>42); GLUCOSE, FASTING 312 MG/DL (83-110); POTASSIUM SERUM 3.8 MEQ/L (3.5-5.1); SODIUM LEVEL 141 MEQ/L (136-145); TOTAL PROTEIN 5.6 GM/DL (6.4-8.2)
[2017-07-01 10:22] LABS: LACTIC ACID SEPSIS PROTOCOL 4.8 MMOL/L (0.4-2.0)
[2017-07-01] MEDS ORDERED: ISOVUE-370 76% 100ML VIAL (Q9967) As Ordered (10:24)
[2017-07-01] MEDS: HumaLOG INSULIN (NovoLOG) PER UNIT SC ×3 (12:00→19:12)
[2017-07-01] MEDS ORDERED: GLUCAGON FOR INJ 1 MG VIAL (J1610) SC (13:15)
[2017-07-01] MEDS ORDERED: MORPHINE 2 MG/ML 1ML SYRINGE IV (13:15)
[2017-07-01] MEDS ORDERED: DEXTROSE 50% 50 ML SYRINGE IV (13:15)
[2017-07-01] MEDS ORDERED: ONDANSETRON 4MG/2ML VIAL (J2405) IV (13:15)
[2017-07-01] MEDS ORDERED: GLUCOSE 4 GM CHEW TABLET PO (13:15)
[2017-07-01] MEDS ORDERED: ACETAMINOPHEN TAB 650MG DOSE (2X325MG) PO (13:15)
[2017-07-01] MEDS: SODIUM CHLORIDE 0.9% 1000 ML IV (14:20)
[2017-07-01] MEDS: NS 1,000 ML IV ×2 (15:00→23:30)
[2017-07-01] MEDS: PERCOCET 5MG/325MG TAB PO (16:50)
[2017-07-01] MEDS: ATORVASTATIN 10 MG TAB PO (16:51)
[2017-07-01] MEDS: METOPROLOL SUCC (TopROL XL) 100MG *XL* TAB PO (16:53)
[2017-07-01] MEDS: VALSARTAN 80 MG TAB (DIOVAN) PO (16:58)
[2017-07-01] MEDS: ASPIRIN 81 MG ENTERIC TAB PO (21:21)
[2017-07-02] MEDS: HumaLOG INSULIN (NovoLOG) PER UNIT SC ×4 (00:43→18:51)
[2017-07-02] MEDS: NS 1,000 ML IV ×3 (06:15→15:47)
[2017-07-02 06:48] LABS: MEAN CORPUSCULAR HEMOGLOBIN 30.2 pg (27.0-33.0); MEAN CORPUSCULAR HGB CONC 35.2 g/dl (32.0-36.5); MEAN CORPUSCULAR VOLUME 85.9 fl (80.0-96.0); PLATELET COUNT, AUTOMATED 269 10^3/uL (150-450); RED CELL DISTRIBUTION WIDTH 13.3 % (11.5-14.5); WHITE BLOOD COUNT 16.3 10^3/uL (4.0-10.0)
[2017-07-02 07:13] LABS: ALBUMIN 2.3 GM/DL (3.2-5.2); ALBUMIN/GLOBULIN RATIO 0.88 (1.00-1.93); ALKALINE PHOSPHATASE 50 U/L (45-117); ALT/SGPT 25 U/L (12-78); ANION GAP 8 MEQ/L (8-16); AST/SGOT 12 U/L (7-37); BILIRUBIN,TOTAL 1.7 MG/DL (0.2-1.0); BLOOD UREA NITROGEN 14 MG/DL (7-18); CALCIUM LEVEL 7.4 MG/DL (8.8-10.2); CARBON DIOXIDE LEVEL 25 MEQ/L (21-32); CHLORIDE LEVEL 110 MEQ/L (98-107); CHOLESTEROL LEVEL 137 MG/DL (<200); CREATININE FOR GFR 0.48 MG/DL (0.70-1.30); GLOMERULAR FILTRATION RATE > 60.0 (>42); GLUCOSE, FASTING 130 MG/DL (83-110); MAGNESIUM LEVEL 1.7 MG/DL (1.8-2.4); POTASSIUM SERUM 3.5 MEQ/L (3.5-5.1); SODIUM LEVEL 143 MEQ/L (136-145); TOTAL PROTEIN 4.9 GM/DL (6.4-8.2); TRIGLYCERIDES LEVEL 72 MG/DL (<150)
[2017-07-02] MEDS: ATORVASTATIN 10 MG TAB PO (09:07)
[2017-07-02] MEDS: ENOXAPARIN 40 MG/0.4 ML SYRINGE (J1650) SC (09:07)
[2017-07-02] MEDS: MAGNESIUM OXIDE 400 MG TAB (MAG-OX) PO ×2 (09:08→20:48)
[2017-07-02] MEDS: VALSARTAN 80 MG TAB (DIOVAN) PO (09:08)
[2017-07-02] MEDS: METOPROLOL SUCC (TopROL XL) 100MG *XL* TAB PO (09:08)
[2017-07-02] MEDS: ASPIRIN 81 MG ENTERIC TAB PO (20:48)
[2017-07-03 05:57] LABS: MEAN CORPUSCULAR HEMOGLOBIN 30.8 pg (27.0-33.0); MEAN CORPUSCULAR HGB CONC 35.8 g/dl (32.0-36.5); MEAN CORPUSCULAR VOLUME 86.2 fl (80.0-96.0); PLATELET COUNT, AUTOMATED 257 10^3/uL (150-450)
[2017-07-03 06:24] LABS: ALBUMIN 2.2 GM/DL (3.2-5.2); ALBUMIN/GLOBULIN RATIO 0.85 (1.00-1.93); ALKALINE PHOSPHATASE 47 U/L (45-117); ALT/SGPT 18 U/L (12-78); ANION GAP 7 MEQ/L (8-16); AST/SGOT 14 U/L (7-37); BILIRUBIN,TOTAL 1.9 MG/DL (0.2-1.0); BLOOD UREA NITROGEN 11 MG/DL (7-18); CALCIUM LEVEL 7.5 MG/DL (8.8-10.2); CARBON DIOXIDE LEVEL 25 MEQ/L (21-32); CHLORIDE LEVEL 108 MEQ/L (98-107); CREATININE FOR GFR 0.55 MG/DL (0.70-1.30); GLOMERULAR FILTRATION RATE > 60.0 (>42); GLUCOSE, FASTING 119 MG/DL (83-110); MAGNESIUM LEVEL 1.9 MG/DL (1.8-2.4); POTASSIUM SERUM 3.9 MEQ/L (3.5-5.1); SODIUM LEVEL 140 MEQ/L (136-145); TOTAL PROTEIN 4.8 GM/DL (6.4-8.2)
[2017-07-03] MEDS: HumaLOG INSULIN (NovoLOG) PER UNIT SC ×2 (06:43)
[2017-07-03] MEDS: ENOXAPARIN 40 MG/0.4 ML SYRINGE (J1650) SC (09:00)
[2017-07-03] MEDS: METOPROLOL SUCC (TopROL XL) 100MG *XL* TAB PO (10:05)
[2017-07-03] MEDS: ATORVASTATIN 10 MG TAB PO (10:06)
[2017-07-03] MEDS: MAGNESIUM OXIDE 400 MG TAB (MAG-OX) PO (10:06)
[2017-07-03] MEDS: VALSARTAN 80 MG TAB (DIOVAN) PO (10:06)
== END 2017-07-03 11:10 | disposition home or self-care (01) | DRG 439 ==
LOC: M ED 09:15 → M ED INP 13:03 → M MSPAV 15:40
DX: K85.00 Idiopathic acute pancreatitis without necrosis or infection (principal); E87.2 Acidosis; E78.5 Hyperlipidemia, unspecified; I10 Essential (primary) hypertension; E11.9 Type 2 diabetes mellitus without complications; Z79.82 Long term (current) use of aspirin; Z79.84 Long term (current) use of oral hypoglycemic drugs; Z79.899 Other long term (current) drug therapy; Z90.49 Acquired absence of other specified parts of digestive tract

== ENCOUNTER 2018-05-08 06:58 | Observation (INO) | payer MEDICARE ==
[2018-05-08 07:38] LABS: BASO % 0.2 % (0.0-1.0); EOS # 0.2 10^3/uL (0.0-0.50); EOS % 1.9 % (0.0-3.0); HEMOGLOBIN 14.6 g/dl (13.5-17.5); IMMATURE GRANULOCYTE % 0.6 % (0-3.0); LYMPH # 0.4 10^3/uL (1.5-4.5); LYMPH % 3.3 % (24.0-44.0); MEAN CORPUSCULAR HEMOGLOBIN 31.3 pg (27.0-33.0); MEAN CORPUSCULAR HGB CONC 35.6 g/dl (32.0-36.5); MEAN CORPUSCULAR VOLUME 87.8 fl (80.0-96.0); MONO # 0.7 10^3/uL (0.0-0.8); NEUTROPHILS # 10.3 10^3/uL (1.8-7.7); PLATELET COUNT, AUTOMATED 295 10^3/uL (150-450); RED BLOOD COUNT 4.67 10^6/uL (4.30-6.10); RED CELL DISTRIBUTION WIDTH 13.1 % (11.5-14.5); WHITE BLOOD COUNT 11.7 10^3/uL (4.0-10.0)
[2018-05-08] MEDS: ONDANSETRON 4MG/2ML VIAL (J2405) IV (07:38)
[2018-05-08] MEDS: MORPHINE 4 MG/ML 1ML VIAL/SYRINGE (J2270) IV (07:38)
[2018-05-08] MEDS: NS 1,000 ML IV ×3 (07:38→21:36)
[2018-05-08 08:11] LABS: ALBUMIN 2.9 GM/DL (3.2-5.2); ALBUMIN/GLOBULIN RATIO 1.21 (1.00-1.93); ALKALINE PHOSPHATASE 55 U/L (45-117); ALT/SGPT 24 U/L (12-78); AMYLASE 512 U/L (25-115); ANION GAP 9 MEQ/L (8-16); AST/SGOT 14 U/L (7-37); BILIRUBIN,DIRECT 0.2 MG/DL (0.0-0.2); BILIRUBIN,TOTAL 1.1 MG/DL (0.2-1.0); BLOOD UREA NITROGEN 17 MG/DL (7-18); CALCIUM LEVEL 8.4 MG/DL (8.8-10.2); CARBON DIOXIDE LEVEL 26 MEQ/L (21-32); CHLORIDE LEVEL 106 MEQ/L (98-107); CREATININE FOR GFR 0.82 MG/DL (0.70-1.30); GLOMERULAR FILTRATION RATE > 60.0 (>42); GLUCOSE, FASTING 270 MG/DL (70-100); LIPASE 6654 U/L (73-393); POTASSIUM SERUM 3.8 MEQ/L (3.5-5.1); SODIUM LEVEL 141 MEQ/L (136-145); TOTAL PROTEIN 5.3 GM/DL (6.4-8.2)
[2018-05-08] MEDS: LR 1,000 ML IV (09:16)
[2018-05-08] MEDS ORDERED: GLUCAGON FOR INJ 1 MG VIAL (J1610) SC (12:30)
[2018-05-08] MEDS ORDERED: GLUCOSE 4 GM CHEW TABLET PO (12:30)
[2018-05-08] MEDS ORDERED: MORPHINE 4 MG/ML 1ML VIAL/SYRINGE (J2270) IV (12:30)
[2018-05-08] MEDS ORDERED: PERCOCET 5MG/325MG TAB PO (12:30)
[2018-05-08] MEDS ORDERED: ONDANSETRON 4MG/2ML VIAL (J2405) IV (12:30)
[2018-05-08] MEDS ORDERED: ACETAMINOPHEN TAB 650MG DOSE (2X325MG) PO (12:30)
[2018-05-08] MEDS ORDERED: DEXTROSE 50% 50 ML SYRINGE IV (12:30)
[2018-05-08] MEDS: HumaLOG INSULIN (NovoLOG) PER UNIT SC ×3 (13:03→23:12)
[2018-05-08] MEDS: METOPROLOL SUCC (TopROL XL) 100MG *XL* TAB PO (13:04)
[2018-05-08] MEDS: VALSARTAN 80 MG TAB (DIOVAN) PO (13:04)
[2018-05-08] MEDS: ENOXAPARIN 40 MG/0.4 ML SYRINGE (J1650) SC (13:05)
[2018-05-08 17:42] LABS: BEDSIDE GLUCOSE 95 MG/DL (83-110)
[2018-05-08] MEDS: ASPIRIN 81 MG ENTERIC TAB PO (20:44)
[2018-05-08] MEDS: **hydrALAZINE** 10 MG TAB PO (21:36)
[2018-05-08 23:10] LABS: BEDSIDE GLUCOSE 94 MG/DL (83-110)
[2018-05-09 05:55] LABS: BEDSIDE GLUCOSE 122 MG/DL (83-110)
[2018-05-09] MEDS: NS 1,000 ML IV (05:55)
[2018-05-09] MEDS: HumaLOG INSULIN (NovoLOG) PER UNIT SC ×2 (05:55→13:10)
[2018-05-09 07:29] LABS: HEMATOCRIT 38.9 % (42.0-52.0); HEMOGLOBIN 13.4 g/dl (13.5-17.5); MEAN CORPUSCULAR HEMOGLOBIN 30.5 pg (27.0-33.0); MEAN CORPUSCULAR HGB CONC 34.4 g/dl (32.0-36.5); MEAN CORPUSCULAR VOLUME 88.6 fl (80.0-96.0); PLATELET COUNT, AUTOMATED 256 10^3/uL (150-450); RED BLOOD COUNT 4.39 10^6/uL (4.30-6.10); WHITE BLOOD COUNT 6.9 10^3/uL (4.0-10.0)
[2018-05-09 07:53] LABS: ALBUMIN 2.2 GM/DL (3.2-5.2); ALBUMIN/GLOBULIN RATIO 0.88 (1.00-1.93); ALKALINE PHOSPHATASE 46 U/L (45-117); ALT/SGPT 26 U/L (12-78); ANION GAP 6 MEQ/L (8-16); AST/SGOT 19 U/L (7-37); BILIRUBIN,TOTAL 1.5 MG/DL (0.2-1.0); BLOOD UREA NITROGEN 8 MG/DL (7-18); CALCIUM LEVEL 7.4 MG/DL (8.8-10.2); CARBON DIOXIDE LEVEL 26 MEQ/L (21-32); CHLORIDE LEVEL 111 MEQ/L (98-107); CREATININE FOR GFR 0.66 MG/DL (0.70-1.30); GLOMERULAR FILTRATION RATE > 60.0 (>42); GLUCOSE, FASTING 118 MG/DL (70-100); LIPASE 254 U/L (73-393); MAGNESIUM LEVEL 1.5 MG/DL (1.8-2.4); POTASSIUM SERUM 3.8 MEQ/L (3.5-5.1); SODIUM LEVEL 143 MEQ/L (136-145); TOTAL PROTEIN 4.7 GM/DL (6.4-8.2)
[2018-05-09] MEDS: MAG SULF 1GM/100ML (MAG RUN) 1 GM in APPROPRIATE DILUENT 1 EA IV ×3 (08:54→11:55)
[2018-05-09] MEDS: ENOXAPARIN 40 MG/0.4 ML SYRINGE (J1650) SC (09:01)
[2018-05-09] MEDS: VALSARTAN 80 MG TAB (DIOVAN) PO (09:02)
[2018-05-09] MEDS: METOPROLOL SUCC (TopROL XL) 100MG *XL* TAB PO (09:03)
[2018-05-09 11:49] LABS: BEDSIDE GLUCOSE 318 MG/DL (83-110)
[2018-05-09 11:51] LABS: BEDSIDE GLUCOSE 270 MG/DL (83-110)
[2018-05-09] MEDS ORDERED: HumaLOG INSULIN (NovoLOG) PER UNIT SC ×2 (12:00→21:00)
== END 2018-05-09 14:50 | disposition home or self-care (01) ==
LOC: M ED 06:58 → M ED INP 12:33 → M PED 15:40
DX: K85.90 Acute pancreatitis without necrosis or infection, unspecified (principal); D72.829 Elevated white blood cell count, unspecified; E11.9 Type 2 diabetes mellitus without complications; I10 Essential (primary) hypertension; E78.5 Hyperlipidemia, unspecified; Z79.82 Long term (current) use of aspirin; Z79.84 Long term (current) use of oral hypoglycemic drugs; Z79.899 Other long term (current) drug therapy
CPT/HCPCS: J2270

== ENCOUNTER → 2020-06-11 | Outpatient (CLI) | payer MEDICARE ==
[~2020-06-11] MED LIST changes: -/PANT40TA OR; +ACET500T15 PO; -ACET50TAOT PO; -ASPI1TAB PO; -ASPI81CH3 PO; +ASPI81CH48 PO; +ASPI81TA26 PO; +GLIM2TAB4 PO; +LOSA100T50 PO; +MAGN200T PO; +PROT1TAB2 OR
== END ==
LOC: M LABSMTC 13:44
PROVIDERS: ATTEND Pediatrics
DX: Z11.59 Encounter for screening for other viral diseases (principal)

== ENCOUNTER → 2020-09-11 | Outpatient (REF) | payer MEDICARE | LOC: M LAB REF 18:28 | PROVIDERS: ATTEND Dermatology | DX: C44.229 Squamous cell carcinoma of skin of left ear and external auricular canal (principal) ==

== ENCOUNTER 2020-12-04 09:31 | Inpatient (IN) | payer MEDICARE ==
[~2020-12-04] VITALS: Ht 175.3 cm; Wt 75.1 kg
[2020-12-04] VITALS (8 sets, daily range): BP systolic 111–152; BP diastolic 58–81
[2020-12-04 10:08] LABS: BASO % 0.3 % (0.0-1.0); EOS # 0.3 10^3/uL (0.0-0.5); EOS % 2.8 % (0.0-3.0); HEMATOCRIT 46.2 % (42.0-52.0); HEMOGLOBIN 15.7 g/dl (13.5-17.5); LYMPH # 0.7 10^3/uL (1.5-5.0); LYMPH % 7.3 % (24.0-44.0); MEAN CORPUSCULAR HEMOGLOBIN 30.9 pg (27.0-33.0); MEAN CORPUSCULAR VOLUME 90.9 fl (80.0-96.0); MONO # 0.6 10^3/uL (0.0-0.8); MONO % 6.6 % (2.0-8.0); NEUTROPHILS # 7.6 10^3/uL (1.5-8.5); NEUTROPHILS % 82.6 % (36.0-66.0); PLATELET COUNT, AUTOMATED 303 10^3/uL (150-450); RED BLOOD COUNT 5.08 10^6/uL (4.30-6.10); WHITE BLOOD COUNT 9.2 10^3/uL (4.0-10.0)
--- NOTE | 2020-12-04 10:14 | REP ---
INDICATION: CVA - Nursing interventions must not delay CT COMPARISON: None. TECHNIQUE: Axial noncontrast images from the skull base to the thoracic inlet with coronal reformations. This CT examination was performed using the following dose reduction techniques: Automated exposure control, adjustment of mA and/or kv according to the patient's size, and use of iterative reconstruction technique. FINDINGS: Atrophy with periventricular leukomalacia and microvascular ischemic changes are appreciated. The ventricles and sulci are symmetric. Toth-white differentiation is maintained. There is no evidence for acute intracranial hemorrhage, mass/mass effect, pathology or infarction. No extra-axial fluid collection. Calvarium is intact. Paranasal sinuses and mastoid air cells are clear. IMPRESSION: Atrophy and microvascular ischemic changes. No acute intracranial hemorrhage, infarction, or mass/mass effect. <Electronically signed by Chilango Griffiths > 12/04/20 1016
--- NOTE | 2020-12-04 10:20 | REP ---
INDICATION: CVA COMPARISON: None. TECHNIQUE: Portable AP view of the chest FINDINGS: The mediastinum and cardiac silhouette are within normal limits for portable technique. Incidental calcified lymph nodes suggest prior granulomatous disease. The lung penaloza are clear without acute consolidation, effusion, or pneumothorax. Skeletal structures are intact. IMPRESSION: No acute cardiopulmonary process appreciated. <Electronically signed by Chilango Griffiths > 12/04/20 1016
[2020-12-04] MEDS ORDERED: GLIP5TAB8 PO ×2 (10:23→11:20)
[2020-12-04] MEDS ORDERED: INVO300T PO (10:23)
[2020-12-04] MEDS ORDERED: MYRB25TA PO (10:23)
[2020-12-04 10:26] LABS: INR 0.86; PROTHROMBIN TIME 11.9 SECONDS (12.5-14.3)
[2020-12-04 10:27] LABS: PARTIAL THROMBOPLASTIN TIME 24.9 SECONDS (24.2-38.5)
[2020-12-04 10:38] LABS: CK-MB VALUE MASS 1.6 NG/ML (<3.6); CPK CREATINE PHOSPHOKINASE 40 U/L (39-308); TROPONIN I < 0.02 NG/ML (< 0.10)
[2020-12-04 11:19] LABS: ALT/SGPT 35 U/L (12-78); BILIRUBIN,TOTAL 1.3 MG/DL (0.2-1.0); BLOOD UREA NITROGEN 18 MG/DL (7-18); CALCIUM LEVEL 8.8 MG/DL (8.8-10.2); CARBON DIOXIDE LEVEL 27 MEQ/L (21-32); CHLORIDE LEVEL 107 MEQ/L (98-107); CREATININE FOR GFR 0.76 MG/DL (0.70-1.30); GLOMERULAR FILTRATION RATE > 60.0 (>42); GLUCOSE, FASTING 231 MG/DL (70-100); POTASSIUM SERUM 4.6 MEQ/L (3.5-5.1); SODIUM LEVEL 140 MEQ/L (136-145); TOTAL PROTEIN 5.5 GM/DL (6.4-8.2)
[2020-12-04] MEDS ORDERED: VITMTA PO (11:20)
[2020-12-04] MEDS ORDERED: DEXTROSE 50% 50 ML SYRINGE IV PRN (11:50)
[2020-12-04] MEDS ORDERED: GLUCOSE 4GM CHEW TABLET PO PRN (11:50)
[2020-12-04] MEDS ORDERED: GLUCAGON INJ 1MG VIAL SC PRN (11:50)
[2020-12-04] MEDS: HumaLOG INSULIN (NovoLOG) PER UNIT SC SCH ×3 (12:00→21:00)
[2020-12-04 12:04] LABS: RSV AMPLIFICATION NEGATIVE (NEGATIVE)
--- NOTE | 2020-12-04 12:34 | HPEPDOC ---
General Date of Admission December 04, 2020 Date of Service: Dec 04, 2020 Chief Complaint The patient is a 75-year-old male admitted with a reason for visit of S/S Stroke. Source: Patient, Family History of Present Illness Mr. Griggs is a 75 year old male with diabetes mellitus and chronic pancreatitis who presents with ataxia and slurred speech. Yesterday, he was in good health. After eating dinner on 12/03/2020, he felt unstable on his feet. He could not walk straight. Otherwise, denied any fever/chills, chest pain, dyspnea, or abdominal pain. He went to bed. This morning, he went to the shower and he was still unstable on his feet. He sat down and spoke with his son who noticed that his speech was slurred. He was taken to the ED. While in the ED, his CT head was negative, but he still has dysarthria and mild right lower extremity weakness. Patient was outside the window for TPA. Patient denies any history of stroke, cardiac history, or arrhythmia. Admission was called. When I saw the patient, he was dysarthric and had asymmetry of the mouth while talking. He has mild dysarthria. Otherwise, EOMI. Finger to nose intact. Negative pronator drift. Muscle strength was 5/5 but felt weaker in the right arm and right leg when compared to left. Patient will be admitted for stroke work up. Home Medications Scheduled Aspirin (Aspirin EC) 81 Mg Tab, 81 MG PO QHS, (Reported) Canagliflozin (Invokana) 300 Mg Tablet, 300 MG PO DAILY, (Reported) Glipizide (Glipizide) 5 Mg Tablet, 5 MG PO DAILY, (Reported) Glipizide (Glipizide) 5 Mg Tablet, 10 MG PO QPM, (Reported) Losartan Potassium (Losartan Potassium) 100 Mg Tablet, 100 TAB PO DAILY, (Reported) Magnesium (Magnesium) 200 Mg Tab, 200 MG PO QHS, (Reported) Metformin HCl (Metformin HCl) 850 Mg Tab, 850 MG PO BID, (Reported) Metoprolol Succinate (Metoprolol Succinate) 100 Mg Tab, 100 MG PO DAILY, (Reported) Mirabegron (Myrbetriq) 25 Mg Tab.er.24h, 25 MG PO DAILY, (Reported) Multivitamins (Thera M Plus Tablet) 1 Each Tablet, 1 TAB PO QHS, (Reported) Allergies Coded Allergies: No Known Allergies (Unverified , 10/20/18) Past Medical History Medical History 1. NIDDM 2. Chronic pancreatitis 3. Hyperlipidemia 4. Hypercholesterolemia Surgical History 1. Ampulla Sphincterotomy in 07/2016 2. Cholecystectomy Family History Father: at 96 years old from prostate cancer and GI cancer Mother: at 92 year old from natural causes Social History * Smoker: non-smoker Alcohol: Denies Drugs: denies A-FIB/CHADSVASC A-FIB History Current/History of A-Fib/PAF?: No Review of Systems Constitutional: Reports: Weakness; Denies: Chills, Fever Eyes: Denies: Vision change ENT: Denies: Sore Throat Skin: Denies: Rash Pulmonary: Denies: Dyspnea, Cough Cardiovascular: Denies: Chest Pain Gastrointestinal: Denies: Abdominal Pain Genitourinary: Denies: Dysuria Hematologic: Reports: Bruising (reports thin skin and easily bruised) Neurological: Reports: Other Symptoms (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 Has some neuropathy in hands bilaterally) Psych: Denies: Anxiety, Depression Physical Examination General Exam: Positive: Alert, Cooperative Eye Exam: Positive: EOMI; Negative: Sclera icteric ENT Exam: Positive: Atraumatic Neck Exam: Positive: Supple Chest Exam: Positive: Clear to auscultation; Negative: Rales, Rhonchi, Wheezing Heart Exam: Positive: Rate Normal, Regular Rhythm Abdomen Exam: Positive: Normal bowel sounds, Soft; Negative: Tenderness Extremity Exam: Negative: Edema Neuro Exam: Positive: Other (finger to nose intact, negative pronator drift); Negative: Normal Speech (dysarthric) Psych Exam: Positive: Mental status NL, Mood NL Vital Signs Vital Signs Date Time Temp Pulse Resp B/P (MAP) Pulse Ox O2 Delivery O2 Flow Rate FiO2 12/04/20 11:46 61 15 134/82 (99) 98 Room Air 12/04/20 09:32 97.3 Laboratory Data Labs 24H Laboratory Tests 2 12/04/20 09:53: Immature Granulocyte % (Auto) 0.4, Neutrophils (%) (Auto) 82.6H, Lymphocytes (%) (Auto) 7.3L, Monocytes (%) (Auto) 6.6, Eosinophils (%) (Auto) 2.8, Basophils (%) (Auto) 0.3, Neutrophils # (Auto) 7.6, Lymphocytes # (Auto) 0.7L, Monocytes # (Auto) 0.6, Eosinophils # (Auto) 0.3, Basophils # (Auto) 0.0, Nucleated Red Blood Cells % (auto) 0.0, Prothrombin Time 11.9, Prothromb Time International Ratio 0.86, Activated Partial Thromboplast Time 24.9L, Anion Gap 6L, Glomerular Filtration Rate > 60.0, Calcium Level 8.8, Total Bilirubin 1.3H, Aspartate Amino Transf (AST/SGOT) 18, Alanine Aminotransferase (ALT/SGPT) 35, Alkaline Phosphatase 64, Total Creatine Kinase 40, Creatine Kinase MB 1.6, Creatine Kinase MB Relative Index 4.00, Troponin I < 0.02, Total Protein 5.5L, Albumin 3.0L, Albumin/Globulin Ratio 1.2 12/04/20 11:12: Coronavirus (COVID-19)(PCR) NEGATIVE, Influenza Type A (RT-PCR) NEGATIVE, Influenza Type B (RT-PCR) NEGATIVE, Respiratory Syncytial Virus (PCR) NEGATIVE CBC/BMP Laboratory Tests 12/04/20 09:53 Assessment/Plan Mr. Griggs is a 75 year old male with diabetes mellitus and chronic pancreatitis who presents with ataxia and slurred speech. Highly suspect patient had a CVA. Ordered for MRI brain, MRA head, US carotids, echocardiogram, and telemetry. Lipid panel and HbA1c will be obtained tomorrow. PT and ST ordered. Will allow for permissive hypertension for 48 hours. Plan / VTE VTE Prophylaxis Ordered?: Yes Plan Plan 1. Suspected CVA -Pending MRI brain, MRA head, and US carotids -Echocardiogram, Lipid panel, and HbA1c ordered for tomorrow -Monitor on telemetry and allow for permissive hypertension -If MRI is positive for CVA, will discuss antiplatelet agents with neurology as patient was previously on aspirin 2. NIDDM -Carbohydrate consistent diet -Sliding scale insulin -HbA1c ordered for tomorrow morning 3. Hypertension -Allowing for permissive hypertension -Holding losartan and Toprol XL at this time 4. History of chronic pancreatitis -Ampulla Sphincterotomy in 07/2016 -Doing well. Last flare was about a year and a half ago 5. DVT ppx -SCD and TEDs Disposition: Pending results of MRI. Patient may need 48 hours of permissive hypertension if MRI positive for CVA. STAR MEDRANO DO Dec 04, 2020 12:34
[2020-12-04] MEDS: MULTIVITAMINS/MINERALS THERAP 1 TAB PO SCH (20:15)
[2020-12-04] MEDS: ASPIRIN 81MG ENTERIC TABLET PO SCH (20:15)
--- NOTE | 2020-12-04 20:52 | ECGEPIP ---
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
--- NOTE | 2020-12-04 22:32 | REPVR ---
PROCEDURE INFORMATION: Exam: MR Head Without Contrast Exam date and time: 12/04/2020 9:58 PM Age: 75 years old Clinical indication: Other: Dysarthria TECHNIQUE: Imaging protocol: MR of the head without contrast. COMPARISON: CT Head without contrast 2020-12-04 10:00 FINDINGS: Brain: 2 x 1.3 cm acute left hubert felicitas infarct. [id number] scattered FLAIR hyperintense foci within the supratentorial deep and subcortical white matter suggesting mild chronic small vessel ischemic disease. No gradient susceptibility blooming within the brain parenchyma to suggest hemorrhage. No midline shift, mass, or fluid collection is present. Diffuse cerebral age related volume loss. Cerebral ventricles: Normal. No ventriculomegaly. Bones/joints: Unremarkable. Paranasal sinuses: Normal as visualized. No acute sinusitis. Mastoid air cells: Normal as visualized. No mastoid effusion. Orbital cavity: Unremarkable. Soft tissues: Unremarkable. IMPRESSION: 2 x 1.3 cm acute left hubert feilcitas infarct. Electronically signed by: Delgado Chapman On 12/04/2020 22:32:19 PM
--- NOTE | 2020-12-04 22:35 | REPVR ---
PROCEDURE INFORMATION: Exam: MRA Head Without Contrast; Arteriography Exam date and time: 12/04/2020 9:58 PM Age: 75 years old Clinical indication: Other: Dysarthria TECHNIQUE: Imaging protocol: Magnetic resonance angiography head without contrast. Exam focused on the arteries. COMPARISON: CT Head without contrast 2020-12-04 10:00 FINDINGS: ANTERIOR CIRCULATION: Right internal carotid artery: Mild cavernous and supraclinoid right internal carotid artery atherosclerotic plaque and stenosis. 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 Right middle cerebral artery: No occlusion or significant stenosis. No aneurysm. Right anterior cerebral artery: Small anterior communicating artery. Left internal carotid artery: Mild cavernous and supraclinoid left internal carotid artery atherosclerotic plaque and stenosis. Left middle cerebral artery: No occlusion or significant stenosis. No aneurysm. Left anterior cerebral artery: No occlusion or significant stenosis. No aneurysm. POSTERIOR CIRCULATION: Right vertebral artery: Severely stenotic right vertebral artery proximal V4 segment with severe stenosis/near occlusion of the right vertebral artery V4 segment in the region of the right PICA origin. Left vertebral artery: Mild left vertebral artery atherosclerotic irregularity. Basilar artery: No occlusion or significant stenosis. No aneurysm. Right posterior cerebral artery: No occlusion or significant stenosis. No aneurysm. Left posterior cerebral artery: No occlusion or significant stenosis. No aneurysm. IMPRESSION: 1. Severely stenotic right vertebral artery proximal V4 segment with severe stenosis/near occlusion of the right vertebral artery V4 segment in the region of the right PICA origin. 2. 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 Electronically signed by: Delgado Chapman On 12/04/2020 22:35:24 PM
[2020-12-05] MEDS ORDERED: CLOPIDOGREL 75 MG TAB PO ONE (00:15)
[2020-12-05 00:30] VITALS: BP 110/60
--- NOTE | 2020-12-05 01:12 | IPNPDOC ---
Text Note Date of Service The patient was seen on 12/05/20. NOTE Received patients MRI Brain results which shows: Severely stenotic Right Vertebr al Artery proximal V4 segment with severe stenosis occluding the Right Vertebral Artery segment V4 in region of Right PICA. 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 Right internal carotid artery: Mild cavernous and supraclinoid right internal carotid artery atherosclerotic plaque and stenosis. *Right middle cerebral artery is not occluded or stenotic, and negative for a neurysm. Right anterior cerebral artery: Small anterior communicating artery. *Left internal carotid artery: Mild cavernous and supraclinoid left internal carotid artery has atherosclerotic plaque with stenosis. Left middle cerebral and Left anterior cerebral artery is not occluded nor are they stenotic, and both negative for aneurysm. I assessed patient at bedside and informed him of the results of his MRI Brain. In physically assessing patient he has Right sided upper and lower extremity drift, lips mildly shifted to left, speech continues to be slurred when speaking. Current blood pressure 110/62. Attending notified and will continue to monitor patients blood pressure and symptoms. Neurology consult/manage made to Neurologist Dr. Сергей Mccarty for recommendations sent via Joyride. Patients morning provider will follow up with referral. Vital Signs Date Time Temp Pulse Resp B/P (MAP) Pulse Ox O2 Delivery O2 Flow Rate FiO2 12/04/20 21:00 98.1 66 18 119/62 (81) 95 Room Air 12/04/20 16:00 78 111/60 (77) 12/04/20 16:00 113/61 12/04/20 13:58 61 16 111/60 Room Air 12/04/20 13:51 98.6 69 20 116/59 (78) 95 Room Air 12/04/20 13:15 98.2 61 17 111/60 (77) 98 Room Air 12/04/20 13:00 64 16 132/83 (99) 97 Room Air 12/04/20 12:45 63 16 116/59 (78) 98 Room Air 12/04/20 12:30 55 16 109/65 (80) 96 Room Air 12/04/20 12:15 61 15 150/69 (96) 98 Room Air 12/04/20 11:46 61 15 134/82 (99) 98 Room Air 12/04/20 11:31 61 16 143/67 (92) 98 Room Air 12/04/20 11:15 55 16 128/58 (81) 98 Room Air 12/04/20 11:05 111/58 12/04/20 11:00 59 16 111/58 (75) 97 Room Air 12/04/20 10:50 137/65 12/04/20 10:35 142/78 12/04/20 10:30 60 16 116/62 (80) 97 Room Air 12/04/20 10:23 12/04/20 10:23 152/81 12/04/20 10:15 66 16 152/81 (104) 99 Room Air 12/04/20 10:10 63 16 114/66 (82) 99 Room Air 12/04/20 10:07 63 18 171/77 (108) 99 Room Air 12/04/20 09:54 63 18 137/67 (90) 99 Room Air 12/04/20 09:32 97.3 64 16 168/75 (106) 97 Room Air Intake & Output 12/05/20 06:00 Intake Total 240 ml Output Total 0 ml Balance 240 ml Laboratory Tests 12/04/20 09:53: White Blood Count 9.2, Red Blood Count 5.08, Hemoglobin 15.7, Hematocrit 46.2, Mean Corpuscular Volume 90.9, Mean Corpuscular Hemoglobin 30.9, Mean Corpuscular Hemoglobin Concent 34.0, Red Cell Distribution Width 12.9, Platelet Count 303, Immature Granulocyte % (Auto) 0.4, Neutrophils (%) (Auto) 82.6H, Lymphocytes (%) (Auto) 7.3L, Monocytes (%) (Auto) 6.6, Eosinophils (%) (Auto) 2.8, Basophils (%) (Auto) 0.3, Neutrophils # (Auto) 7.6, Lymphocytes # (Auto) 0.7L, Monocytes # (Auto) 0.6, Eosinophils # (Auto) 0.3, Basophils # (Auto) 0.0, Nucleated Red B lood Cells % (auto) 0.0, Prothrombin Time 11.9, Prothromb Time International Ratio 0.86, Activated Partial Thromboplast Time 24.9L, Sodium Level 140, Potassium Level 4.6, Chloride Level 107, Carbon Dioxide Level 27, Anion Gap 6L, Blood Urea Nitrogen 18, Creatinine 0.76, Glomerular Filtration Rate > 60.0, Fasting Glucose 231H, Calcium Level 8.8, Total Bilirubin 1.3H, Aspartate Amino Transf (AST/SGOT) 18, Alanine Aminotransferase (ALT/SGPT) 35, Alkaline Phosphatase 64, Total Creatine Kinase 40, Creatine Kinase MB 1.6, Creatine Kinase MB Relative Index 4.00, Troponin I < 0.02, Total Protein 5.5L, Albumin 3.0L, Albumin/Globulin Ratio 1.2 12/04/20 10:13: Bedside Glucose (Misc Panel) 219H 12/04/20 11:12: Coronavirus (COVID-19)(PCR) NEGATIVE, Influenza Type A (RT-PCR) NEGATIVE, Influenza Type B (RT-PCR) NEGATIVE, Respiratory Syncytial Virus (PCR) NEGATIVE 12/04/20 16:34: Bedside Glucose (Misc Panel) 183H 12/04/20 20:52: Bedside Glucose (Misc Panel) 152H Current Medications Medications (Trade) Dose Ordered Sig/Anay Route PRN Reason Start Time Stop Time Status Last Admin Dose Admin Aspirin (Ecotrin) 81 mg QHS PO 12/04/20 21:00 12/04/20 20:15 81 MG Insulin Human Lispro (HumaLOG INSULIN) SEE PROTOCOL TABLE AC SC 12/04/20 12:00 12/04/20 17:42 4 UNITS Multivitamins (Theragram-M) 1 tab QHS PO 12/04/20 21:00 12/04/20 20:15 1 TAB VS,Fishbone, I+O VS, Fishbone, I+O Laboratory Tests 12/04/20 09:53 Vital Signs Date Time Temp Pulse Resp B/P (MAP) Pulse Ox O2 Delivery O2 Flow Rate FiO2 12/04/20 21:00 98.1 66 18 119/62 (81) 95 Room Air I&O- Last 24 Hours up to 6 AM 12/05/20 06:00 Intake Total 240 ml Output Total 0 ml Balance 240 ml NITHIN ANNA Dec 05, 2020 01:12
[2020-12-05 06:00] VITALS: BP 102/52
[2020-12-05] MEDS: CLOPIDOGREL 75 MG TAB PO SCH (08:21)
[2020-12-05] MEDS: HumaLOG INSULIN (NovoLOG) PER UNIT SC SCH ×4 (08:21→20:21)
--- NOTE | 2020-12-05 08:51 | REP ---
INDICATION: CVA COMPARISON: None. TECHNIQUE: Toth scale and color Doppler evaluation using linear high frequency transducer Findings: FINDINGS: Two-dimensional toth scale and color images demonstrate minimal amount of bilateral atheromatous plaquing with normal arterial and normal laminar flow. No appreciable narrowing or occlusion identified. Color Doppler interrogation demonstrates normal arterial wave patterns and velocities with no significant spectral broadening. Normal flow direction is appreciated in the bilateral vertebral arteries. ICA peak systolic velocity: Right 89.6 cm/s; Left 85.9 cm/s ICA diastolic velocity: Right 22.2 cm/s; Left 20.7 cm/s ECA peak systolic velocity: Right 85.1 cm/s; Left 98.8 cm/s CCA peak systolic velocity: Right 110.3 cm/s; Left 109.6 cm/s ICA/CCA ratio: Right 0.8 cm/s; Left 0.8 cm/s IMPRESSION: No hemodynamically significant areas of narrowing or stenosis appreciated. Based on set standards narrowing falls within the less than 50% range. <Electronically signed by Chilango Griffiths > 12/05/20 0840
[2020-12-05 09:28] LABS: HEMATOCRIT 44.7 % (42.0-52.0); HEMOGLOBIN 15.2 g/dl (13.5-17.5); MEAN CORPUSCULAR HEMOGLOBIN 30.6 pg (27.0-33.0); MEAN CORPUSCULAR VOLUME 90.1 fl (80.0-96.0); PLATELET COUNT, AUTOMATED 283 10^3/uL (150-450); RED BLOOD COUNT 4.96 10^6/uL (4.30-6.10); WHITE BLOOD COUNT 8.3 10^3/uL (4.0-10.0)
[2020-12-05 10:07] LABS: ALBUMIN 2.6 GM/DL (3.2-5.2); ALT/SGPT 28 U/L (12-78); BILIRUBIN,TOTAL 1.5 MG/DL (0.2-1.0); BLOOD UREA NITROGEN 21 MG/DL (7-18); CALCIUM LEVEL 8.5 MG/DL (8.8-10.2); CARBON DIOXIDE LEVEL 23 MEQ/L (21-32); CHLORIDE LEVEL 108 MEQ/L (98-107); CHOLESTEROL LEVEL 164 MG/DL (<200); CHOLESTEROL RISK RATIO 3.094 (<5); CREATININE FOR GFR 0.66 MG/DL (0.70-1.30); GLOMERULAR FILTRATION RATE > 60.0 (>42); GLUCOSE, FASTING 222 MG/DL (70-100); HDL CHOLESTEROL 53 MG/DL (>40); LDL CHOLESTEROL 98 MG/DL (<100); NON-HDL-C 111 MG/DL; POTASSIUM SERUM 4.5 MEQ/L (3.5-5.1); SODIUM LEVEL 139 MEQ/L (136-145); TOTAL PROTEIN 5.1 GM/DL (6.4-8.2); TRIGLYCERIDES LEVEL 65 MG/DL (<150)
[2020-12-05 10:18] LABS: HEMOGLOBIN A1c 8.7 %
--- NOTE | 2020-12-05 14:10 | IPNPDOC ---
Subjective Date Seen The patient was seen on 12/05/20. Subjective Chief Complaint/HPI Mr. 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 This morning, patient denied any chest pain or dyspnea. He felt that his dysarthria was a little better today. Otherwise, his MRI brain demonstrated left felicitas CVA and MRA head demonstrated stenosis in the right vertebral artery. No arrhythmias seen on telemetry. Objective Physical Examination General Exam: Positive: Alert, Cooperative Eye Exam: Positive: EOMI; Negative: Sclera icteric ENT Exam: Positive: Atraumatic Neck Exam: Positive: Supple Chest Exam: Positive: Clear to auscultation; Negative: Rales, Rhonchi, Wheezing Heart Exam: Positive: Rate Normal, Regular Rhythm Abdomen Exam: Positive: Normal bowel sounds, Soft; Negative: Tenderness Extremity Exam: Negative: Edema Neuro Exam: Negative: Normal Speech (dysarthric) Psych Exam: Positive: Mental status NL, Mood NL Assessment /Plan Assessment Mr. 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 Stroke work up was order and patient was found to have right vertebral artery stenosis. Otherwise telemetry was negative for arrhythmia and US carotid arteries were negative for stenosis. Pending echocardiogram results. Will allow for 48 hours of permissive hypertension. Physical therapy to evaluate for ambulation. Otherwise, spoke with neurology, patient will need to be on dual antiplatelet therapy. Plan/VTE VTE Prophylaxis Ordered?: Yes Plan 1. Suspected CVA -MRI demonstrates left felicitas infarct. MRA demonstrates right vertebral artery stenosis. US carotids negative for stenosis -Echocardiogram pending results -Lipid panel demonstrates LDL of 98 -HbA1c elevated at 8.7 -Monitor on telemetry and allow for permissive hypertension -Spoke with neurology, patient will be on DAPT 2. NIDDM -Carbohydrate consistent diet -Sliding scale insulin -HbA1c of 8.7 3. Hypertension -Allowing for permissive hypertension -Holding losartan and Toprol XL at this time 4. History of chronic pancreatitis -Ampulla Sphincterotomy in 07/2016 -Doing well. Last flare was about a year and a half ago 5. DVT ppx -SCD and TEDs Disposition: Patient will need 48 hours of permissive hypertension. Pending PT evaluation. VS, I&O, 24H, Fishbone Vital Signs/I&O Vital Signs Date Time Temp Pulse Resp B/P (MAP) Pulse Ox O2 Delivery O2 Flow Rate FiO2 12/05/20 06:00 97.4 62 17 102/52 (69) 97 Room Air I&O- Last 24 Hours up to 6 AM 12/05/20 06:00 Intake Total 540 ml Output Total 0 ml Balance 540 ml Laboratory Data 24H LABS Laboratory Tests 2 12/04/20 16:34: Bedside Glucose (Misc Panel) 183H 12/04/20 20:52: Bedside Glucose (Misc Panel) 152H 12/05/20 08:14: Bedside Glucose (Misc Panel) 139H 12/05/20 09:13: Nucleated Red Blood Cells % (auto) 0.0, Anion Gap 8, Glomerular Filtration Rate > 60.0, Estimated Mean Plasma Glucose 203H, Hemoglobin A1c 8.7, Calcium Level 8.5L, Total Bilirubin 1.5H, Aspartate Amino Transf (AST/SGOT) 15, Alanine Aminotransferase (ALT/SGPT) 28, Alkaline Phosphatase 57, Total Protein 5.1L, Albumin 2.6L, Albumin/Globulin Ratio 1.0, Triglycerides Level 65, Total Cholesterol 164, LDL Cholesterol 98, Non-HDL Cholesterol (LDL + VLDL) 111, Total HDL Cholesterol 53, Cholesterol/HDL Ratio 3.094 12/05/20 12:12: Bedside Glucose (Misc Panel) 313H CBC/BMP Laboratory Tests 12/05/20 09:13 STAR MEDRANO DO Dec 05, 2020 14:10
[2020-12-05] MEDS: NS 1,000 ML IV SCH (16:24)
--- NOTE | 2020-12-05 16:46 | ECHO ---
ECHOCARDIOGRAM DATE OF PROCEDURE: 12/05/2020 Age: 75 Gender: Male Height: 69 inches Weight: 160 pounds Body surface area: 1.88 m2 [facility] REFERRING PHYSICIAN: Lewis King DO INDICATION: Cerebrovascular accident (CVA) cardiac source of embolic material. MEASUREMENTS: 2D Measurements: RV 3.3 cm LV 3.5 cm Septum 1.1 cm Posterior wall 1.1 cm Aortic Root 3.3 cm LA 3.6 cm LVEF 65% Doppler Measurements: AV 1.39 m/s LVOT 0.93 m/s LVOT diameter 2.2 cm MV-E 69, A 100, E/A ratio 0.7 Early mitral deceleration time 275 msec E prime medial 7, A prime medial 10, E prime lateral 7.4 Average E/E prime ratio 9.6/PCWP - 13 mmHg PV 0.8 m/s Pulmonary artery acceleration time 143 msec RVSP 23 mmHg IVC 1.8 cm COMMENTS: Normal sinus rhythm without intraventricular conduction disturbance. M-mode and two-dimensional echocardiography was performed with pulse, continuous wave, color flow, and tissue Doppler studies. Normal left ventricular size, wall thickness, and wall motion. Normal left atrial size with grade 1 LV diastolic dysfunction, but normal estimated mean left atrial pressure. Normal right heart chamber sizes and function with normal pulmonary arterial pressure. Normal IVC size and collapse against an elevated central venous pressure. Normal aortic dimensions. Mildly thickened aortic cusps with normal cusp separation and no aortic insufficiency. Normal appearing mitral valve apparatus and leaflet excursion with no posterior systolic buckling. No more than trace insufficiency. Normal appearing tricuspid valve with [id number] insufficiency. No apparent intracardiac mass or pericardial effusion. MTDD
[2020-12-05] MEDS: MULTIVITAMINS/MINERALS THERAP 1 TAB PO SCH (20:34)
[2020-12-05] MEDS: ASPIRIN 81MG ENTERIC TABLET PO SCH (20:34)
[2020-12-05 22:00] VITALS: BP 121/76
[2020-12-06] MEDS: NS 1,000 ML IV SCH ×3 (02:00→21:31)
[2020-12-06 06:00] VITALS: BP 163/79
[2020-12-06 06:28] LABS: HEMATOCRIT 44.1 % (42.0-52.0); HEMOGLOBIN 14.8 g/dl (13.5-17.5); MEAN CORPUSCULAR HEMOGLOBIN 30.5 pg (27.0-33.0); MEAN CORPUSCULAR HGB CONC 33.6 g/dl (32.0-36.5); MEAN CORPUSCULAR VOLUME 90.9 fl (80.0-96.0); PLATELET COUNT, AUTOMATED 274 10^3/uL (150-450); RED BLOOD COUNT 4.85 10^6/uL (4.30-6.10); WHITE BLOOD COUNT 7.8 10^3/uL (4.0-10.0)
[2020-12-06 06:55] LABS: BLOOD UREA NITROGEN 21 MG/DL (7-18); CALCIUM LEVEL 8.5 MG/DL (8.8-10.2); CARBON DIOXIDE LEVEL 24 MEQ/L (21-32); CHLORIDE LEVEL 111 MEQ/L (98-107); CREATININE FOR GFR 0.68 MG/DL (0.70-1.30); GLOMERULAR FILTRATION RATE > 60.0 (>42); GLUCOSE, FASTING 182 MG/DL (70-100); POTASSIUM SERUM 4.1 MEQ/L (3.5-5.1); SODIUM LEVEL 142 MEQ/L (136-145)
[2020-12-06] MEDS: CLOPIDOGREL 75 MG TAB PO SCH (09:34)
[2020-12-06] MEDS: HumaLOG INSULIN (NovoLOG) PER UNIT SC SCH ×4 (09:35→20:27)
[2020-12-06 14:00] VITALS: BP 141/86
--- NOTE | 2020-12-06 19:12 | IPNPDOC ---
Subjective Date Seen The patient was seen on 12/06/20. Subjective Chief Complaint/HPI Mr. 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 Today, he denies any fever/chills, chest pain, or dyspnea. He worked with PT/OT. Pending insurance approval for ARU Objective Physical Examination General Exam: Positive: Alert, Cooperative Eye Exam: Positive: EOMI; Negative: Sclera icteric ENT Exam: Positive: Atraumatic Neck Exam: Positive: Supple Chest Exam: Positive: Clear to auscultation; Negative: Rales, Rhonchi, Wheezing Heart Exam: Positive: Rate Normal, Regular Rhythm Abdomen Exam: Positive: Normal bowel sounds, Soft; Negative: Tenderness Extremity Exam: Negative: Edema Neuro Exam: Negative: Normal Speech (dysarthric) Psych Exam: Positive: Mental status NL, Mood NL Assessment /Plan Assessment Mr. 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 Stroke work up was order and patient was found to have right vertebral artery stenosis. Otherwise telemetry was negative for arrhythmia and US carotid arteries were negative for stenosis. Pending echocardiogram results. Will allow for 48 hours of permissive hypertension. Physical therapy to evaluate for ambulation. Otherwise, spoke with neurology, patient will need to be on dual antiplatelet therapy. Plan/VTE VTE Prophylaxis Ordered?: Yes Plan 1. Suspected CVA -MRI demonstrates left felicitas infarct. MRA demonstrates right vertebral artery stenosis. US carotids negative for stenosis -Echocardiogram: EF 65% -Lipid panel demonstrates LDL of 98 -HbA1c elevated at 8.7 -Monitor on telemetry and allow for permissive hypertension -Spoke with neurology, patient will be on DAPT 2. NIDDM -Carbohydrate consistent diet -Sliding scale insulin -HbA1c of 8.7 3. Hypertension -Allowing for permissive hypertension -Holding losartan and Toprol XL at this time 4. History of chronic pancreatitis -Ampulla Sphincterotomy in 07/2016 -Doing well. Last flare was about a year and a half ago 5. DVT ppx -SCD and TEDs Disposition: Pending insurance for ARU VS, I&O, 24H, Fishbone Vital Signs/I&O Vital Signs Date Time Temp Pulse Resp B/P (MAP) Pulse Ox O2 Delivery O2 Flow Rate FiO2 12/06/20 14:00 98.0 75 18 141/86 (104) 97 Room Air I&O- Last 24 Hours up to 6 AM 12/06/20 06:00 Intake Total 2630 ml Output Total 0 ml Balance 2630 ml Laboratory Data 24H LABS Laboratory Tests 2 12/05/20 20:17: Bedside Glucose (Misc Panel) 248H 12/06/20 05:58: Nucleated Red Blood Cells % (auto) 0.0, Anion Gap 7L, Glomerular Filtration Rate > 60.0, Calcium Level 8.5L 12/06/20 11:42: Bedside Glucose (Misc Panel) 328H 12/06/20 16:42: Bedside Glucose (Misc Panel) 186H 12/06/20 17:06: Bedside Glucose (Misc Panel) 168H CBC/BMP Laboratory Tests 12/06/20 05:58 STAR MEDRANO DO Dec 06, 2020 19:12
[2020-12-06] MEDS: MULTIVITAMINS/MINERALS THERAP 1 TAB PO SCH (20:34)
[2020-12-06] MEDS: ASPIRIN 81MG ENTERIC TABLET PO SCH (20:34)
[2020-12-06 22:00] VITALS: BP 138/86
[2020-12-07 06:00] VITALS: BP 160/72
[2020-12-07 06:22] LABS: HEMATOCRIT 39.7 % (42.0-52.0); HEMOGLOBIN 13.5 g/dl (13.5-17.5); MEAN CORPUSCULAR HEMOGLOBIN 30.8 pg (27.0-33.0); MEAN CORPUSCULAR VOLUME 90.6 fl (80.0-96.0); PLATELET COUNT, AUTOMATED 249 10^3/uL (150-450); RED BLOOD COUNT 4.38 10^6/uL (4.30-6.10); WHITE BLOOD COUNT 7.2 10^3/uL (4.0-10.0)
[2020-12-07 06:49] LABS: BLOOD UREA NITROGEN 16 MG/DL (7-18); CALCIUM LEVEL 7.6 MG/DL (8.8-10.2); CARBON DIOXIDE LEVEL 24 MEQ/L (21-32); CHLORIDE LEVEL 112 MEQ/L (98-107); GLOMERULAR FILTRATION RATE > 60.0 (>42); GLUCOSE, FASTING 155 MG/DL (70-100); POTASSIUM SERUM 3.9 MEQ/L (3.5-5.1); SODIUM LEVEL 142 MEQ/L (136-145)
[2020-12-07] MEDS: CLOPIDOGREL 75 MG TAB PO SCH (08:37)
[2020-12-07] MEDS: HumaLOG INSULIN (NovoLOG) PER UNIT SC SCH ×4 (08:37→20:32)
[2020-12-07] MEDS: NS 1,000 ML IV SCH ×2 (08:38→18:10)
[2020-12-07 14:00] VITALS: BP 140/83
--- NOTE | 2020-12-07 14:33 | IPNPDOC ---
Subjective Date Seen The patient was seen on 12/07/20. Subjective Chief Complaint/HPI Mr. 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 Today, he does not feel as strong as yesterday. Otherwise, denies chest pain or dyspnea. Objective Physical Examination General Exam: Positive: Alert, Cooperative Eye Exam: Positive: EOMI; Negative: Sclera icteric ENT Exam: Positive: Atraumatic Neck Exam: Positive: Supple Chest Exam: Positive: Clear to auscultation; Negative: Rales, Rhonchi, Wheezing Heart Exam: Positive: Rate Normal, Regular Rhythm Abdomen Exam: Positive: Normal bowel sounds, Soft; Negative: Tenderness Extremity Exam: Negative: Edema Neuro Exam: Negative: Normal Speech (dysarthric) Psych Exam: Positive: Mental status NL, Mood NL Assessment /Plan Assessment Mr. 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 Stroke work up was order and patient was found to have right vertebral artery stenosis. Otherwise telemetry was negative for arrhythmia and US carotid arteries were negative for stenosis. Will allow for 48 hours of permissive hypertension. Physical therapy to evaluate for ambulation. Otherwise, spoke with neurology, patient will need to be on dual antiplatelet therapy. Currently pending insurance approval for ARU. Plan/VTE VTE Prophylaxis Ordered?: Yes Plan 1. Suspected CVA -MRI demonstrates left felicitas infarct. MRA demonstrates right vertebral artery stenosis. US carotids negative for stenosis -Echocardiogram: EF 65% -Lipid panel demonstrates LDL of 98 -HbA1c elevated at 8.7 -Monitor on telemetry and allow for permissive hypertension -Spoke with neurology, patient will be on DAPT 2. NIDDM -Carbohydrate consistent diet -Sliding scale insulin -HbA1c of 8.7 3. Hypertension -Allowing for permissive hypertension -Holding losartan and Toprol XL at this time 4. History of chronic pancreatitis -Ampulla Sphincterotomy in 07/2016 -Doing well. Last flare was about a year and a half ago 5. DVT ppx -SCD and TEDs Disposition: Pending insurance for ARU VS, I&O, 24H, Fishbone Vital Signs/I&O Vital Signs Date Time Temp Pulse Resp B/P (MAP) Pulse Ox O2 Delivery O2 Flow Rate FiO2 12/07/20 14:00 97.8 78 14 140/83 (102) 98 Room Air I&O- Last 24 Hours up to 6 AM 12/07/20 06:00 Intake Total 3790 ml Balance 3790 ml Laboratory Data 24H LABS Laboratory Tests 2 12/06/20 16:42: Bedside Glucose (Misc Panel) 186H 12/06/20 17:06: Bedside Glucose (Misc Panel) 168H 12/06/20 20:06: Bedside Glucose (Misc Panel) 136H 12/07/20 05:25: Nucleated Red Blood Cells % (auto) 0.0, Anion Gap 6L, Glomerular Filtration Rate > 60.0, Calcium Level 7.6L 12/07/20 12:00: Bedside Glucose (Misc Panel) 187H CBC/BMP Laboratory Tests 12/07/20 05:25 STAR MEDRANO DO Dec 07, 2020 14:33
[2020-12-07] MEDS: MULTIVITAMINS/MINERALS THERAP 1 TAB PO SCH (20:32)
[2020-12-07] MEDS: ASPIRIN 81MG ENTERIC TABLET PO SCH (20:32)
[2020-12-08] MEDS: NS 1,000 ML IV SCH (04:45)
[2020-12-08 05:59] LABS: HEMATOCRIT 40.2 % (42.0-52.0); HEMOGLOBIN 13.9 g/dl (13.5-17.5); MEAN CORPUSCULAR HGB CONC 34.6 g/dl (32.0-36.5); MEAN CORPUSCULAR VOLUME 89.7 fl (80.0-96.0); PLATELET COUNT, AUTOMATED 251 10^3/uL (150-450); RED BLOOD COUNT 4.48 10^6/uL (4.30-6.10); WHITE BLOOD COUNT 6.9 10^3/uL (4.0-10.0)
[2020-12-08 06:00] VITALS: BP 144/90
[2020-12-08 06:22] LABS: BLOOD UREA NITROGEN 16 MG/DL (7-18); CALCIUM LEVEL 7.8 MG/DL (8.8-10.2); CARBON DIOXIDE LEVEL 25 MEQ/L (21-32); CHLORIDE LEVEL 112 MEQ/L (98-107); CREATININE FOR GFR 0.61 MG/DL (0.70-1.30); GLOMERULAR FILTRATION RATE > 60.0 (>42); GLUCOSE, FASTING 193 MG/DL (70-100); POTASSIUM SERUM 3.9 MEQ/L (3.5-5.1); SODIUM LEVEL 142 MEQ/L (136-145)
[2020-12-08] MEDS: CLOPIDOGREL 75 MG TAB PO SCH (08:25)
[2020-12-08] MEDS: HumaLOG INSULIN (NovoLOG) PER UNIT SC SCH ×4 (08:26→20:58)
--- NOTE | 2020-12-08 13:11 | IPNPDOC ---
Subjective Date Seen The patient was seen on 12/08/20. Subjective Chief Complaint/HPI Mr. 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 Today, he denies any fever, chest pain, or dyspnea. Objective Physical Examination General Exam: Positive: Alert, Cooperative Eye Exam: Positive: EOMI; Negative: Sclera icteric ENT Exam: Positive: Atraumatic Neck Exam: Positive: Supple Chest Exam: Positive: Clear to auscultation; Negative: Rales, Rhonchi, Wheezing Heart Exam: Positive: Rate Normal, Regular Rhythm Abdomen Exam: Positive: Normal bowel sounds, Soft; Negative: Tenderness Extremity Exam: Negative: Edema Neuro Exam: Negative: Normal Speech (dysarthric) Psych Exam: Positive: Mental status NL, Mood NL Assessment /Plan Assessment Mr. 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 Stroke work up was order and patient was found to have right vertebral artery stenosis. Otherwise telemetry was negative for arrhythmia and US carotid arteries were negative for stenosis. Will allow for 48 hours of permissive hypertension. Physical therapy to evaluate for ambulation. Otherwise, spoke with neurology, patient will need to be on dual antiplatelet therapy. Currently pending insurance approval for ARU. Plan/VTE VTE Prophylaxis Ordered?: Yes Plan 1. Suspected CVA -MRI demonstrates left felicitas infarct. MRA demonstrates right vertebral artery stenosis. US carotids negative for stenosis -Echocardiogram: EF 65% -Lipid panel demonstrates LDL of 98 -HbA1c elevated at 8.7 -Monitor on telemetry and allow for permissive hypertension -Spoke with neurology, patient will be on DAPT 2. NIDDM -Carbohydrate consistent diet -Sliding scale insulin -HbA1c of 8.7 3. Hypertension -Completed 48 hours of permissive hypertension -Will restart Losartan -Patient may not need Toprol XL depending on how his blood pressure reacts to Losartan 4. History of chronic pancreatitis -Ampulla Sphincterotomy in 07/2016 -Doing well. Last flare was about a year and a half ago 5. DVT ppx -SCD and TEDs Disposition: Pending insurance for ARU VS, I&O, 24H, Fishbone Vital Signs/I&O Vital Signs Date Time Temp Pulse Resp B/P (MAP) Pulse Ox O2 Delivery O2 Flow Rate FiO2 12/08/20 06:00 98.1 77 20 144/90 (108) 99 Room Air I&O- Last 24 Hours up to 6 AM 12/08/20 06:00 Intake Total 4100 ml Output Total 320 ml Balance 3780 ml Laboratory Data 24H LABS Laboratory Tests 2 12/07/20 16:38: Bedside Glucose (Misc Panel) 343H 12/07/20 19:50: Bedside Glucose (Misc Panel) 270H 12/08/20 05:48: Nucleated Red Blood Cells % (auto) 0.0, Anion Gap 5L, Glomerular Filtration Rate > 60.0, Calcium Level 7.8L 12/08/20 12:03: Bedside Glucose (Misc Panel) 319H CBC/BMP Laboratory Tests 12/08/20 05:48 STAR MEDRANO DO Dec 08, 2020 13:11
[2020-12-08 14:00] VITALS: BP 162/88
[2020-12-08] MEDS: LOSARTAN 50MG TABLET PO SCH (14:04)
[2020-12-08] MEDS: ASPIRIN 81MG ENTERIC TABLET PO SCH (20:12)
[2020-12-08] MEDS: MULTIVITAMINS/MINERALS THERAP 1 TAB PO SCH (20:12)
[2020-12-08 22:00] VITALS: BP 138/88
[2020-12-09 05:51] LABS: HEMATOCRIT 42.9 % (42.0-52.0); HEMOGLOBIN 14.5 g/dl (13.5-17.5); MEAN CORPUSCULAR HEMOGLOBIN 30.1 pg (27.0-33.0); MEAN CORPUSCULAR HGB CONC 33.8 g/dl (32.0-36.5); MEAN CORPUSCULAR VOLUME 89.2 fl (80.0-96.0); PLATELET COUNT, AUTOMATED 268 10^3/uL (150-450); RED BLOOD COUNT 4.81 10^6/uL (4.30-6.10); WHITE BLOOD COUNT 7.8 10^3/uL (4.0-10.0)
[2020-12-09 06:00] VITALS: BP 132/71
[2020-12-09 06:15] LABS: BLOOD UREA NITROGEN 16 MG/DL (7-18); CALCIUM LEVEL 7.9 MG/DL (8.8-10.2); CARBON DIOXIDE LEVEL 24 MEQ/L (21-32); CHLORIDE LEVEL 111 MEQ/L (98-107); CREATININE FOR GFR 0.58 MG/DL (0.70-1.30); GLOMERULAR FILTRATION RATE > 60.0 (>42); GLUCOSE, FASTING 205 MG/DL (70-100); POTASSIUM SERUM 3.9 MEQ/L (3.5-5.1); SODIUM LEVEL 141 MEQ/L (136-145)
[2020-12-09] MEDS: HumaLOG INSULIN (NovoLOG) PER UNIT SC SCH ×4 (08:16→20:57)
[2020-12-09] MEDS: CLOPIDOGREL 75 MG TAB PO SCH (08:16)
[2020-12-09] MEDS: LOSARTAN 50MG TABLET PO SCH (08:18)
[2020-12-09 14:00] VITALS: BP 134/69
[2020-12-09 20:55] VITALS: BP 131/68
[2020-12-09] MEDS: ASPIRIN 81MG ENTERIC TABLET PO SCH (20:57)
[2020-12-09] MEDS: MULTIVITAMINS/MINERALS THERAP 1 TAB PO SCH (20:57)
--- NOTE | 2020-12-09 21:01 | REPVR ---
PROCEDURE INFORMATION: Exam: MR Head Without Contrast Exam date and time: 12/09/2020 8:19 PM Age: 75 years old Clinical indication: Other: Increasing weakness. Expanding leasion? TECHNIQUE: Imaging protocol: MR of the head without contrast. COMPARISON: MRI-Brain without Contrast 12/04/2020 9:16 PM FINDINGS: Acute left pontine infarct unchanged in size and appearance, be coming somewhat more demarcated in the interim. No hemorrhagic transformation. Midline structures and cerebellar tonsillar position appear normal. Ventricles, cisterns and sulci are symmetric and normal for age. No intracranial mass, midline shift or abnormal extra-axial fluid. No acute intracranial hemorrhage. Mild pattern of increased T2 and flair signal in supratentorial white matter. Optic chiasm and pituitary infundibulum appear normal. Normal vascular flow voids in major intracranial arteries and dural venous sinuses. Paranasal sinuses are normally aerated. Mastoid air cells are normally aerated. Optic globes and orbits are unremarkable. IMPRESSION: No hemorrhagic transformation or appreciable change involving the left pontine infarct measuring roughly 2 x 1 cm. 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
[2020-12-09 21:08] VITALS: BP 120/70
--- NOTE | 2020-12-09 21:14 | IPNPDOC ---
Subjective Date Seen The patient was seen on 12/09/20. Subjective Chief Complaint/HPI Mr. 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 Today he denied any chest pain or dyspnea. He felt weaker than last Wednesday. Spoke with Dr. Mary. Recommended repeating MRI. MRI demonstrated no change. Objective Physical Examination General Exam: Positive: Alert, Cooperative Eye Exam: Positive: EOMI; Negative: Sclera icteric ENT Exam: Positive: Atraumatic Neck Exam: Positive: Supple Chest Exam: Positive: Clear to auscultation; Negative: Rales, Rhonchi, Wheezing Heart Exam: Positive: Rate Normal, Regular Rhythm Abdomen Exam: Positive: Normal bowel sounds, Soft; Negative: Tenderness Extremity Exam: Negative: Edema Neuro Exam: Negative: Normal Speech (dysarthric) Psych Exam: Positive: Mental status NL, Mood NL Assessment /Plan Assessment Mr. 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 Stroke work up was order and patient was found to have right vertebral artery stenosis. Otherwise telemetry was negative for arrhythmia and US carotid arteries were negative for stenosis. Will allow for 48 hours of permissive hypertension. Physical therapy to evaluate for ambulation. Otherwise, spoke with neurology, patient will need to be on dual antiplatelet therapy. Currently pending insurance approval for ARU. Plan/VTE VTE Prophylaxis Ordered?: Yes Plan 1. Suspected CVA -MRI demonstrates left felicitas infarct. MRA demonstrates right vertebral artery stenosis. US carotids negative for stenosis -Echocardiogram: EF 65% -Lipid panel demonstrates LDL of 98 -HbA1c elevated at 8.7 -Monitor on telemetry and allow for permissive hypertension -Spoke with neurology, patient will be on DAPT 2. NIDDM -Carbohydrate consistent diet -Sliding scale insulin -HbA1c of 8.7 3. Hypertension -Completed 48 hours of permissive hypertension -Will restart Losartan -Patient may not need Toprol XL depending on how his blood pressure reacts to Losartan 4. History of chronic pancreatitis -Ampulla Sphincterotomy in 07/2016 -Doing well. Last flare was about a year and a half ago 5. DVT ppx -SCD and TEDs Disposition: Pending insurance for ARU VS, I&O, 24H, Fishbone Vital Signs/I&O Vital Signs Date Time Temp Pulse Resp B/P (MAP) Pulse Ox O2 Delivery O2 Flow Rate FiO2 12/09/20 21:08 56 36 120/70 (87) Room Air 12/09/20 14:00 97.7 99 I&O- Last 24 Hours up to 6 AM 12/09/20 06:00 Intake Total 1635 ml Output Total 0 ml Balance 1635 ml Laboratory Data 24H LABS Laboratory Tests 2 12/09/20 05:33: Nucleated Red Blood Cells % (auto) 0.0, Anion Gap 6L, Glomerular Filtration Rate > 60.0, Calcium Level 7.9L 12/09/20 11:09: Bedside Glucose (Misc Panel) 288H 12/09/20 16:43: Bedside Glucose (Misc Panel) 301H CBC/BMP Laboratory Tests 12/09/20 05:33 STAR MEDRANO DO Dec 09, 2020 21:13
[2020-12-09] MEDS ORDERED: MORPHINE 2 MG/ML 1ML VIAL (J2270) IV ONE (21:20)
[2020-12-09 21:26] VITALS: BP 138/69
[2020-12-09 22:08] LABS: HEMOGLOBIN 14.9 g/dl (13.5-17.5); MEAN CORPUSCULAR HEMOGLOBIN 30.8 pg (27.0-33.0); MEAN CORPUSCULAR HGB CONC 33.1 g/dl (32.0-36.5); PLATELET COUNT, AUTOMATED 313 10^3/uL (150-450); RED BLOOD COUNT 4.84 10^6/uL (4.30-6.10); WHITE BLOOD COUNT 10.5 10^3/uL (4.0-10.0)
[2020-12-09] MEDS ORDERED: ISOVUE-370 76% 100ML VIAL As Ordered ONE (22:26)
--- NOTE | 2020-12-09 22:56 | REPVR ---
PROCEDURE INFORMATION: Exam: CTA Abdomen and Pelvis With Contrast Exam date and time: 12/09/2020 10:38 PM Age: 75 years old Clinical indication: Abdominal pain; Generalized; Additional info: Rule out mesenteric ischemia TECHNIQUE: Imaging protocol: Computed tomographic angiography of the abdomen and pelvis with contrast material. 3D rendering (Not supervised by radiologist): MIP and/or 3D reconstructed images were created by the technologist. Radiation optimization: All CT scans at this facility use at least one of these dose optimization techniques: automated exposure control; mA and/or kV adjustment per patient size (includes targeted exams where dose is matched to clinical indication); or iterative reconstruction. Contrast material: ISOVUE 370; Contrast volume: 100 ml; Contrast route: INTRAVENOUS (IV); COMPARISON: CT ABD/PEL W/IV CONTRAST ONLY 07/01/2017 10:30 AM FINDINGS: Lungs: No suspicious mass or airspace process in the visualized lung bases. Aorta: Distal thoracic aorta is normal in caliber. No aneurysm. Abdominal aorta is normal in caliber with no aneurysm or dissection and with mild atherosclerotic change. Celiac trunk and mesenteric arteries: Celiac trunk, SMA and ROBBIN show mild origin plaque with no significant stenosis. Normal enhancement of the major branch vessels. Renal arteries: Right and left renal arteries show normal luminal caliber and enhancement and no significant origin stenosis. Right iliac arteries: Right iliac arteries show mild atherosclerotic change with no flow limiting lesion. Left iliac arteries: Left iliac arteries show mild atherosclerotic change with no flow limiting lesion. Liver: Liver appears normal with no focal abnormality. Gallbladder and bile ducts: Gallbladder is surgically absent. Pancreas: Pancreas appears normal. No focal mass or peripancreatic inflammation. Spleen: Spleen appears homogeneous without focal mass. Adrenal glands: Adrenal glands are normal in appearance. Kidneys and ureters: Kidneys appear normal, with no stone, solid mass or hydronephrosis. Incidental right renal simple fluid density cyst medially, measuring 2 cm, unchanged since June 2017 Stomach and bowel: No evidence of small bowel obstruction. Terminal ileum has normal appearance. No concerning asymmetry or abnormality at the GE junction. No evidence of acute diverticulitis. Appendix: Normal caliber appendix is identified, with no adjacent inflammation. Intraperitoneal space: No pneumoperitoneum. Lymph nodes: No enlarged lymph nodes. Urinary bladder: Urinary bladder is distended. Bladder diverticula are present. Reproductive: Dystrophic prostate calcifications are noted. Bones/joints: Degenerative changes are present in the hips and lumbar spine. Soft tissues: Mild lower abdominal and pelvic body wall edema is present. IMPRESSION: 1. No significant atherosclerotic lesion involving the aortic mesenteric or renal vessels. No bowel changes of mesenteric ischemia or bowel inflammatory process. No explanation for clinical symptoms 2. Urinary bladder distension Electronically signed by: Michi Osborn On 12/09/2020 22:56:02 PM
[2020-12-09 23:49] LABS: BLOOD UREA NITROGEN 21 MG/DL (7-18); CALCIUM LEVEL 8.2 MG/DL (8.8-10.2); CARBON DIOXIDE LEVEL 25 MEQ/L (21-32); CHLORIDE LEVEL 107 MEQ/L (98-107); CREATININE FOR GFR 0.78 MG/DL (0.70-1.30); GLOMERULAR FILTRATION RATE > 60.0 (>42); GLUCOSE, FASTING 232 MG/DL (70-100); MAGNESIUM LEVEL 1.9 MG/DL (1.8-2.4); POTASSIUM SERUM 3.7 MEQ/L (3.5-5.1); SODIUM LEVEL 141 MEQ/L (136-145); TROPONIN I < 0.02 NG/ML (< 0.10)
[2020-12-10] MEDS ORDERED: ONDANSETRON 4MG/2ML VIAL IV PRN (04:25)
[2020-12-10 06:00] VITALS: BP_SYST 135; BP_SYST 145; BP_DIAS 73
[2020-12-10 06:06] LABS: HEMATOCRIT 44.6 % (42.0-52.0); HEMOGLOBIN 15.2 g/dl (13.5-17.5); MEAN CORPUSCULAR HEMOGLOBIN 30.7 pg (27.0-33.0); MEAN CORPUSCULAR HGB CONC 34.1 g/dl (32.0-36.5); MEAN CORPUSCULAR VOLUME 90.1 fl (80.0-96.0); PLATELET COUNT, AUTOMATED 315 10^3/uL (150-450); RED BLOOD COUNT 4.95 10^6/uL (4.30-6.10)
[2020-12-10 06:31] LABS: BLOOD UREA NITROGEN 19 MG/DL (7-18); CALCIUM LEVEL 8.3 MG/DL (8.8-10.2); CARBON DIOXIDE LEVEL 23 MEQ/L (21-32); CHLORIDE LEVEL 106 MEQ/L (98-107); CREATININE FOR GFR 0.68 MG/DL (0.70-1.30); GLOMERULAR FILTRATION RATE > 60.0 (>42); GLUCOSE, FASTING 328 MG/DL (70-100); POTASSIUM SERUM 4.2 MEQ/L (3.5-5.1); SODIUM LEVEL 138 MEQ/L (136-145)
[2020-12-10] MEDS: CLOPIDOGREL 75 MG TAB PO SCH (09:02)
[2020-12-10] MEDS: HumaLOG INSULIN (NovoLOG) PER UNIT SC SCH ×4 (09:03→21:00)
[2020-12-10] MEDS: LOSARTAN 50MG TABLET PO SCH (09:04)
--- NOTE | 2020-12-10 09:51 | REP ---
INDICATION: wbc elevation. COMPARISON: 12/04/2020. TECHNIQUE: Single portable AP view of the chest was performed. FINDINGS: There is no acute infiltrate or pulmonary edema. The heart is normal in size. Calcified left hilar lymph node is noted.The visualized osseous structures appear intact. IMPRESSION: No acute pulmonary disease. <Electronically signed by Bobby Toth > 12/10/20 [id number]
[2020-12-10 12:04] LABS: ALBUMIN 2.8 GM/DL (3.2-5.2); ALT/SGPT 29 U/L (12-78); BILIRUBIN,DIRECT 0.3 MG/DL (0.0-0.2); BILIRUBIN,TOTAL 1.1 MG/DL (0.2-1.0); LIPASE 5467 U/L (73-393); TOTAL PROTEIN 5.4 GM/DL (6.4-8.2); TROPONIN I < 0.02 NG/ML (< 0.10)
[2020-12-10 14:00] VITALS: BP 144/69
[2020-12-10] MEDS: TAMSULOSIN 0.4 MG CAP PO SCH (14:26)
[2020-12-10] MEDS: LEVEMIR (INSULIN DETEMIR) 1 UNITS/0.01ML SC SCH (18:00)
[2020-12-10] MEDS ORDERED: ATORVASTATIN 20 MG TAB PO SCH (21:00)
--- NOTE | 2020-12-10 21:04 | IPNPDOC ---
Date Seen The patient was seen on 12/10/20. Progress Note SUBJECTIVE: Mr. 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 Today he denied any chest pain or dyspnea. He felt weaker than last Wednesday.. Recommended repeating MRI. MRI demonstrated no change. Abdo pain overnight. retainin gurine. OBJECTIVE PHYSICAL EXAMINATION: VITAL SIGNS: please see below General: NAD, comfortable HEENT: PERRLA, EOMI, sclerae clear Neck: supple, normal ROM, no JVD Respiratory: lungs CTAB, no wheeze, no rales, no crackles CVS: RRR, normal S1, S2, no murmurs Abdo: soft, no masses, no hepatosplenomegaly, BS+, no rebound tenderness Extremities: no edema, pulses 2+ MSK: no joint deformities, normal ROM Neuro: RUE, RLE,3/5 strength. Psych: calm, cooperative, AAO x 3 LABORATORY DATA, IMAGING STUDIES, MICROBIOLOGY: Please see below. Echocardiogram: 12/05/20: Normal sinus rhythm without intraventricular conduction disturbance. M-mode and two-dimensional echocardiography was performed with pulse, continuous wave, color flow, and tissue Doppler studies. Normal left ventricular size, wall thickness, and wall motion. Normal left atrial size with grade 1 LV diastolic dysfunction, but normal estimated mean left atrial pressure. Normal right heart chamber sizes and function with normal pulmonary arterial pressure. Normal IVC size and collapse against an elevated central venous pressure. Normal aortic dimensions. Mildly thickened aortic cusps with normal cusp separation and no aortic insufficiency. Normal appearing mitral valve apparatus and leaflet excursion with no posterior systolic buckling. No more than trace insufficiency. Normal appearing tricuspid valve with [id number] insufficiency. No apparent intracardiac mass or pericardial effusion DVT prophylaxis ordered?: SCDs, teds ASSESSMENT AND PLAN: Mr. 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 Stroke work up was order and patient was found to have right vertebral artery stenosis. Otherwise telemetry was negative for arrhythmia and US carotid arteries were negative for stenosis. Will allow for 48 hours of permissive hypertension. Physical therapy to evaluate for ambulation. Otherwise, spoke with neurology, patient will need to be on dual antiplatelet therapy. Currently pending insurance approval for ARU. PROBLEMS: 1. Suspected CVA -MRI demonstrates left felicitas infarct. MRA demonstrates right vertebral artery stenosis. US carotids negative for stenosis -Echocardiogram: EF 65% -Lipid panel demonstrates LDL of 98 -HbA1c elevated at 8.7 -Monitor on telemetry and allow for permissive hypertension -Spoke with neurology, patient will be on DAPT - Dr. Mccarty evaluated patient, recommendations are greatly appreciated. Ordered CT angio neck and head. - reduced dose of antihypertensives - accepted at [facility], but family requesting attempt to transfer to [facility] [place]. - currently no bed availability at [facility] per my discussion with transfer center at 1800 on 11/09/20. 2. NIDDM -Carbohydrate consistent diet - elevated BGs -Sliding scale insulin - add levemir 10 units bid -HbA1c of 8.7 3. Hypertension -Completed 48 hours of permissive hypertension -Will restart Losartan -Patient may not need Toprol XL depending on how his blood pressure reacts to Losartan 4. History of chronic pancreatitis -Ampulla Sphincterotomy in 07/2016 -Doing well. Last flare was about a year and a half ago Urinary retention - straight cath 800 cc overnight, 600 during day - hx of protate hyperplasia - consider urology consult Abdo pain - likely 2/2 acute pancreatitis - CLD, pain control DVT ppx -SCD and TEDs VS, I&O, 24H, Fishbone Vital Signs/I&O Vital Signs Date Time Temp Pulse Resp B/P (MAP) Pulse Ox O2 Delivery O2 Flow Rate FiO2 12/10/20 14:00 98.0 82 14 144/69 (94) 98 Room Air I&O- Last 24 Hours up to 6 AM 12/10/20 06:00 Intake Total 1300 ml Output Total 1275 ml Balance 25 ml Laboratory Data 24H LABS Laboratory Tests 2 12/09/20 21:41: Nucleated Red Blood Cells % (auto) 0.0 12/09/20 23:06: Anion Gap 9, Glomerular Filtration Rate > 60.0, Calcium Level 8.2L, Magnesium Level 1.9, Troponin I < 0.02 12/10/20 05:42: Nucleated Red Blood Cells % (auto) 0.0, Anion Gap 9, Glomerular Filtration Rate > 60.0, Calcium Level 8.3L 12/10/20 08:59: Troponin I < 0.02, Lactic Acid Level 1.8, Total Bilirubin 1.1H, Direct Bilirubin 0.3H, Aspartate Amino Transf (AST/SGOT) 11, Alanine Aminotransferase (ALT/SGPT) 29, Alkaline Phosphatase 67, Total Protein 5.4L, Albumin 2.8L, Albumin/Globulin Ratio 1.1, Lipase 5467H 12/10/20 11:24: Bedside Glucose (Misc Panel) 255H 12/10/20 15:07: Urine Color YELLOW, Urine Appearance HAZY, Urine pH 5.0, Urine Specific [place] 1.038, Urine Protein NEGATIVE, Urine Glucose (UA) 3+H, Urine Ketones 2+H, Urine Blood 3+H, Urine Nitrite POSITIVEH, Urine Bilirubin NEGATIVE, Urine Urobilinogen 0.2, Urine Leukocyte Esterase NEGATIVE, Urine WBC (Auto) 5H, Urine RBC (Auto) 14H, Urine Hyaline Casts (Auto) 0, Urine Bacteria (Auto) 2+H, Urine Squamous Epithelial Cells 0, Urine Sperm (Auto) 12/10/20 16:28: Bedside Glucose (Misc Panel) 232H CBC/BMP Laboratory Tests 12/09/20 21:41 12/09/20 23:06 12/10/20 05:42 Microbiology Microbiology 12/10/20 Urine Culture, Received Pending 12/10/20 Blood Culture, Received Pending 12/10/20 Blood Culture, Received Pending SANYA DOMINGUEZ MD Dec 10, 2020 21:04
[2020-12-10] MEDS: MULTIVITAMINS/MINERALS THERAP 1 TAB PO SCH (21:05)
[2020-12-10] MEDS: ASPIRIN 81MG ENTERIC TABLET PO SCH (21:05)
[2020-12-10 22:00] VITALS: BP 142/70
--- NOTE | 2020-12-10 23:33 | REPVR ---
PROCEDURE INFORMATION: Exam: CT Angiography Neck With Contrast Exam date and time: 12/10/2020 5:47 PM Age: 75 years old Clinical indication: Other: Right side weak; Additional info: CVA TECHNIQUE: Imaging protocol: Computed tomography angiography of the neck with contrast. 3D rendering (Not supervised by radiologist): MIP and/or 3D reconstructed images were created by the technologist. Radiation optimization: All CT scans at this facility use at least one of these dose optimization techniques: automated exposure control; mA and/or kV adjustment per patient size (includes targeted exams where dose is matched to clinical indication); or iterative reconstruction. Contrast material: ISO; Contrast volume: 100 ml; Contrast route: INTRAVENOUS (IV); COMPARISON: US Duplex,carotid (complete) 12/05/2020 5:45 AM FINDINGS: Right common carotid artery: Minimal calcification at the right common carotid bifurcation without stenosis. Right internal carotid artery: No stenosis of the extracranial segment. No dissection or occlusion. Right external carotid artery: No occlusion or stenosis of the origin. Left common carotid artery: Mild calcification at the left common carotid bifurcation without hemodynamically significant stenosis. Left internal carotid artery: No stenosis of the extracranial segment. No dissection or occlusion. Left external carotid artery: No occlusion or stenosis of the origin. Right vertebral artery: No stenosis. No dissection or occlusion. Left vertebral artery: Left vertebral artery is dominant. Left vertebral artery is dominant. Soft tissues: Normal. No significant soft tissue swelling. Bones/joints: There are degenerative changes involving the spine. IMPRESSION: No hemodynamically significant stenosis. REFERENCES: NASCET CRITERIA. The degree of internal carotid artery stenosis is based on NASCET criteria. Normal is no stenosis. Mild is less than 50% stenosis. Moderate is 50-69% stenosis. Severe is 70% to 99% stenosis. Total occlusion is no detectable patent lumen. Electronically signed by: Tejinder Navarro On 12/10/2020 23:33:11 PM
--- NOTE | 2020-12-10 23:39 | REPVR ---
PROCEDURE INFORMATION: Exam: CT Angiography Head With Contrast, Arteriography Exam date and time: 12/10/2020 5:47 PM Age: 75 years old Clinical indication: Other: Right weaknes; Additional info: CVA TECHNIQUE: Imaging protocol: Computed tomography angiography of the head with contrast. Exam focused on the arteries. 3D rendering (Not supervised by radiologist): MIP and/or 3D reconstructed images were created by the technologist. Radiation optimization: All CT scans at this facility use at least one of these dose optimization techniques: automated exposure control; mA and/or kV adjustment per patient size (includes targeted exams where dose is matched to clinical indication); or iterative reconstruction. Contrast material: ISO; Contrast volume: 100 ml; Contrast route: INTRAVENOUS (IV); COMPARISON: MRA BRAIN W/O CONTRAST 12/04/2020 9:16 PM FINDINGS: ANTERIOR CIRCULATION: Right internal carotid artery: There is dense calcification involving the right carotid siphon with mild stenosis. No definite aneurysm is visualized. Right middle cerebral artery: Unremarkable. No occlusion or significant stenosis. No aneurysm. Right anterior cerebral artery: Unremarkable. No occlusion or significant stenosis. No aneurysm. Left internal carotid artery: Dense calcification involving the left carotid siphon with mild stenosis. Left middle cerebral artery: Unremarkable. No occlusion or significant stenosis. No aneurysm. Left anterior cerebral artery: Unremarkable. No occlusion or significant stenosis. No aneurysm. POSTERIOR CIRCULATION: Right vertebral artery: Severe right vertebral artery V4 stenosis versus short segment occlusion. Appearance is similar from recent MRA. Left vertebral artery: Dominant left vertebral artery. There is calcification at the proximal left vertebral artery with [id number] stenosis. Basilar artery: Unremarkable. No occlusion or significant stenosis. No aneurysm. Right posterior cerebral artery: Unremarkable. No occlusion or significant stenosis. No aneurysm. Left posterior cerebral artery: Unremarkable. No occlusion or significant stenosis. No aneurysm. IMPRESSION: Short segment severe stenosis involving the right vertebral artery V4 segment versus occlusion, stable from recent MRA. Electronically signed by: Tejinder Navarro On 12/10/2020 23:38:44 PM
[2020-12-11 06:00] VITALS: BP 150/80
--- NOTE | 2020-12-11 07:29 | REPVR ---
PROCEDURE INFORMATION: Exam: US Abdomen, Limited; Right Upper Quadrant Exam date and time: 12/11/2020 6:24 AM Age: 75 years old Clinical indication: Abnormal findings; Abnormal lab test; Other: Evel bili; Additional info: Elevated bilirubin TECHNIQUE: Imaging protocol: US abdomen. Real time ultrasound with image documentation. Limited exam focused on the right upper quadrant. COMPARISON: Abdomen, limited US 08/25/2016 1:27 PM FINDINGS: Liver: Hepatomegaly and steatosis. Gallbladder: Status post cholecystectomy. Common bile duct: Normal. No stones. No dilation. Pancreas: Obscured by bowel gas. Right kidney: Normal. No mass. No hydronephrosis. IMPRESSION: Hepatomegaly and steatosis Electronically signed by: Audi Ibarra On 12/11/2020 07:28:58 AM
--- NOTE | 2020-12-11 07:31 | REPVR ---
PROCEDURE INFORMATION: Exam: US Pelvis Limited, Bladder Exam date and time: 12/11/2020 6:24 AM Age: 75 years old Clinical indication: Retention of urine; Additional info: Urinary retention TECHNIQUE: Imaging protocol: Real-time pelvic ultrasound with image documentation. COMPARISON: CT ANGIO ABD/PEL 12/09/2020 10:30 PM FINDINGS: Urinary bladder: Distended thick-walled urinary bladder contains internal low-level echoes. Bladder pre-void volume (cc): 196 cc Bladder post-void residual volume (cc): Patient unable to void Prostate: Prostate measures approximately 4.2 x 4.5 x 4 cm. IMPRESSION: Distended thick-walled urinary bladder contains internal low-level echoes. Electronically signed by: Audi Ibarra On 12/11/2020 07:30:51 AM
[2020-12-11] MEDS ORDERED: cefTRIAXone SOD 1 GM in D5W MINI-BAG PLUS 50 ML IV SCH (08:00)
[2020-12-11] MEDS ORDERED: LOSARTAN 50MG TABLET PO SCH (09:00)
[2020-12-11] MEDS: LEVEMIR (INSULIN DETEMIR) 1 UNITS/0.01ML SC SCH (09:02)
[2020-12-11] MEDS: HumaLOG INSULIN (NovoLOG) PER UNIT SC SCH ×2 (09:02→12:32)
[2020-12-11] MEDS: CLOPIDOGREL 75 MG TAB PO SCH (09:03)
[2020-12-11] MEDS: TAMSULOSIN 0.4 MG CAP PO SCH (09:03)
[2020-12-11 09:05] VITALS: BP 139/69
--- NOTE | 2020-12-11 09:16 | CR ---
CONSULTATION DATE: 12/10/2020 REFERRING PHYSICIAN: Rodney Sorenson MD REASON FOR CONSULTATION: Stroke. HISTORY OF PRESENT ILLNESS: Mehul Griggs is a 75-year-old man with a history of diabetes, pancreatitis who presented to [facility] due to slurred speech and difficulty walking, ataxia. He was at his baseline state of health until the evening of December 03, 2020. He felt off balance when walking. He could not walk straight. He went to bed and woke up and when he went to take a shower, he felt unsteady on his feet. He sat down and tried talking to his son who noted slurred speech and he was brought to [facility] emergency department. The patient was not a candidate for TPA. He was noted to have right-sided weakness. He had difficulty speaking with slurred speech. MRI scan of brain showed left paramedian 2 x 1 cm acute ischemic stroke. He had a repeat MRI scan of due to fluctuating symptoms. At times his symptoms improve and other times he has worsening of symptoms temporarily. He thinks his symptoms are worse when he is tired. Two days ago, the patient developed urinary retention. He usually has urinary frequency and overactive bladder. He takes medications for prostate. Two days ago, he developed urinary retention. He denies any headaches, neck or back pain, double vision, falls, loss of consciousness or head injuries. DIAGNOSTIC STUDIES: MRI scan of brain is summarized above. He had two MRI scans of brain which showed stable stroke without hemorrhage. MRA brain showed severe stenosis of right vertebral artery. Carotid ultrasound showed less than 50% bilateral carotid artery stenosis. Telemetry monitoring and EKG revealed normal sinus rhythm. 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 HOME MEDICATIONS: 1. Aspirin 81 mg p.o. daily. 2. Invokana 300 mg p.o. daily. 3. Glipizide 5 mg in the morning and 10 mg at night. 4. Losartan 100 mg p.o. daily. 5. Metformin 850 mg p.o. b.i.d. 6. Metoprolol 100 mg p.o. daily. 7. Mybetriq 25 mg p.o. daily. 8. Multivitamin one tablet p.o. daily. ALLERGIES: None. PAST MEDICAL HISTORY: 1. Type 2 diabetes. 2. Chronic pancreatitis. 3. Dyslipidemia. 4. Cholecystectomy. 5. Ampulla sphincterotomy. SOCIAL HISTORY: The patient denies smoking, alcohol or illicit drugs. FAMILY HISTORY: Mother of natural causes. Father had prostate cancer and GI cancer. REVIEW OF SYSTEMS: All systems were reviewed and found to be noncontributory except as mentioned in history of present illness. PHYSICAL EXAMINATION: VITAL SIGNS: Temperature 98, pulse 82, respiratory rate 14, blood pressure 144/69, 98% saturation on room air. HEART: Regular rate and rhythm. LUNGS: Clear to auscultation. ABDOMEN: Soft, nontender, nondistended. EXTREMITIES: No pedal edema. MUSCULOSKELETAL: No abnormalities. SKIN: No rash. NEUROLOGICAL: No signs of meningeal irritation. The patient is awake, alert, oriented to place, person and time. Normal speech, comprehension and repetition. Extraocular muscles are intact. No facial weakness. Tongue and uvula are midline. Strength in his right arm and leg is 4-/5. He has slowing of rapid finger movements. Left-sided strength is 5/5. Deep tendon reflexes are 2+ in arms and knees and absent at ankles. His gait is unsteady. Right plantar is upgoing. There is no tremor, nystagmus, signs of meningeal irritation. He has decreased cold, pin prick vibration sensation in his feet. ASSESSMENT: 1. Left pontine paramedian 2 x 1 cm acute ischemic stroke. 2. Slurred speech, ataxia and right hemiparesis related to above. 3. Urinary retention possibly related to pontine stroke. There are case reports of urinary retention with unilateral pontine strokes. 4. Rule out prostate enlargement and avoid anticholinergic medications. 5. Hypertension, dyslipidemia and diabetes. 6. 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 PLAN: 1. Allow permissive hypertension and keep blood pressure below 180/100. 2. Decrease Losartan to 50 mg p.o. daily. 3. Aspirin 81 mg p.o. daily and Plavix 75 mg p.o. daily. 4. Start Lipitor 20 mg p.o. daily. 5. Physical, occupational therapy and rehabilitation. 6. CTA of head and neck and ultrasound of prostate and urinary bladder. 7. Consider urology consult if patient decides to stay at [facility]. Family is discussing amongst themselves if they want to transfer him to [facility].
[2020-12-11 09:41] LABS: BASO % 0.1 % (0.0-1.0); EOS # 0.2 10^3/uL (0.0-0.5); EOS % 1.6 % (0.0-3.0); HEMATOCRIT 47.4 % (42.0-52.0); HEMOGLOBIN 15.7 g/dl (13.5-17.5); LYMPH # 0.5 10^3/uL (1.5-5.0); LYMPH % 3.6 % (24.0-44.0); MEAN CORPUSCULAR HEMOGLOBIN 30.7 pg (27.0-33.0); MEAN CORPUSCULAR HGB CONC 33.1 g/dl (32.0-36.5); MEAN CORPUSCULAR VOLUME 92.6 fl (80.0-96.0); MONO # 0.9 10^3/uL (0.0-0.8); MONO % 6.5 % (2.0-8.0); NEUTROPHILS # 12.8 10^3/uL (1.5-8.5); NEUTROPHILS % 87.7 % (36.0-66.0); PLATELET COUNT, AUTOMATED 319 10^3/uL (150-450); RED BLOOD COUNT 5.12 10^6/uL (4.30-6.10); WHITE BLOOD COUNT 14.6 10^3/uL (4.0-10.0)
[2020-12-11 10:15] LABS: ALBUMIN 3.1 GM/DL (3.2-5.2); ALT/SGPT 26 U/L (12-78); BILIRUBIN,TOTAL 1.6 MG/DL (0.2-1.0); BLOOD UREA NITROGEN 17 MG/DL (7-18); CALCIUM LEVEL 8.8 MG/DL (8.8-10.2); CARBON DIOXIDE LEVEL 28 MEQ/L (21-32); CHLORIDE LEVEL 105 MEQ/L (98-107); CREATININE FOR GFR 0.61 MG/DL (0.70-1.30); GLOMERULAR FILTRATION RATE > 60.0 (>42); GLUCOSE, FASTING 185 MG/DL (70-100); MAGNESIUM LEVEL 1.9 MG/DL (1.8-2.4); POTASSIUM SERUM 4.2 MEQ/L (3.5-5.1); SODIUM LEVEL 140 MEQ/L (136-145); TOTAL PROTEIN 5.7 GM/DL (6.4-8.2)
[2020-12-11] MEDS ORDERED: COZA50TA PO (13:31)
[2020-12-11] MEDS ORDERED: CLOP75TA2 PO (13:31)
[2020-12-11] MEDS ORDERED: FLOM0.4C39 PO (13:31)
[2020-12-11] MEDS ORDERED: INSUDET SC (13:31)
[2020-12-11] MEDS ORDERED: ATOR1TAB21 PO (13:31)
--- NOTE | 2020-12-11 13:32 | DS.PDOC ---
Discharge Summary General Date of Admission Dec 04, 2020 at 11:46 Date of Discharge 12/11/20 Discharge Summary PROCEDURES PERFORMED DURING STAY: [None]. COMPLICATIONS/CHIEF COMPLAINT: CVA. HISTORY OF PRESENT ILLNESS: Mr. Griggs is a 75 year old male with diabetes mellitus and chronic pancreatitis who presents with ataxia and slurred speech. Yesterday, he was in good health. After eating dinner on 12/03/2020, he felt unstable on his feet. He could not walk straight. Otherwise, denied any fever/chills, chest pain, dyspnea, or abdominal pain. He went to bed. This morning, he went to the shower and he was still unstable on his feet. He sat down and spoke with his son who noticed that his speech was slurred. He was taken to the ED. While in the ED, his CT head was negative, but he still has dysarthria and mild right lower extremity weakness. Patient was outside the window for TPA. Patient denies any history of stroke, cardiac history, or arrhythmia. Admission was called. When I saw the patient, he was dysarthric and had asymmetry of the mouth while talking. He has mild dysarthria. Otherwise, EOM I. Finger to nose intact. Negative pronator drift. Muscle strength was 5/5 but felt weaker in the right arm and right leg when compared to left. Patient will be admitted for stroke work up. HOSPITAL COURSE: Mr. 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 Stroke work up was order and patient was found to have right vertebral artery stenosis. Otherwise telemetry was negative for arrhythmia and US carotid arteries were negative for stenosis. Will allow for 48 hours of permissive hypertension. Physical therapy to evaluate for ambulation. Otherwise, spoke with neurology, patient will need to be on dual antiplatelet therapy. Currently pending insurance approval for ARU. PROBLEMS: 1. Acute ischemic L pontine CVA -MRI demonstrates left felicitas infarct. MRA demonstrates right vertebral artery stenosis. US carotids negative for stenosis - Neck CTA negative for hemodynamically significant stenosis - CTA head showign severe stenosis involving R vertebral artery V4 segment vs occlusion, stable from MRA on admission -Echocardiogram: EF 65% -Lipid panel demonstrates LDL of 98 -HbA1c elevated at 8.7 -Monitor on telemetry and allow for permissive hypertension -Spoke with neurology, patient will be on DAPT with ASA and plavix - continue with atorvastatin 20 mg qhs. - Dr. Mccarty evaluated patient, recommendations are greatly appreciated. - reduced dose of antihypertensives - accepted at ARU, but family requesting attempt to transfer to [facility]. - attempted transfer per family request to [facility], but due to lack of bed availability for 24 hours, family agreeable for transfer 2. NIDDM -Carbohydrate consistent diet - patient received ISS - due to persistent hyperglycemia, added levemir 10 units BID - discontinued glipizide on DC to reduce risk of hypoglycemia with concurrent insulin use - continue PO metformin and invokana on DC -HbA1c of 8.7 3. Hypertension -Completed 48 hours of permissive hypertension -Losartan resumed at a lower dose of [address] Mccarty's recommendations - DC metoprolol for BP control. 4. Acute pancreatitis - recurrent hx, Ampulla Sphincterotomy in 07/2016 - lipase was ~5000, pain improved with NPO overnight - resumed patient on low fat diet - CTA abdomen did not show evidence of ischemia Urinary retention - patient previously taking myrbetriq for bladder spasms, started by PCP - developed abdominal pain overnight of 11/08/20 - started patient on flomax. D/w Dr. Bennett, recommended patient to receive indwelling salazar catheter as was retaining > 50% of bladder volume - will f/u in urology clinic on DC DVT ppx -SCD and TEDs DISCHARGE MEDICATIONS: Please see below. ALLERGIES: Please see below. PHYSICAL EXAMINATION ON DISCHARGE: VITAL SIGNS: Please see below. VITAL SIGNS: please see below General: NAD, comfortable HEENT: PERRLA, EOMI, sclerae clear Neck: supple, normal ROM, no JVD Respiratory: lungs CTAB, no wheeze, no rales, no crackles CVS: RRR, normal S1, S2, no murmurs Abdo: soft, no masses, no hepatosplenomegaly, BS+, no rebound tenderness Extremities: no edema, pulses 2+ MSK: no joint deformities, normal ROM Neuro: RUE, RLE,3/5 strength. Psych: calm, cooperative, AAO x 3 LABORATORY DATA: Please see below. IMAGING: Echocardiogram: 12/05/20: -Normal sinus rhythm without intraventricular conduction disturbance. -M-mode and two-dimensional echocardiography was performed with pulse, continuous wave, color flow, and tissue Doppler studies. -Normal left ventricular size, wall thickness, and wall motion. -Normal left atrial size with grade 1 LV diastolic dysfunction, but normal estimated mean left atrial pressure. -Normal right heart chamber sizes and function with normal pulmonary arterial pressure. -Normal IVC size and collapse against an elevated central venous pressure. Normal aortic dimensions. -Mildly thickened aortic cusps with normal cusp separation and no aortic insufficiency. -Normal appearing mitral valve apparatus and leaflet excursion with no posterior systolic buckling. No more than trace insufficiency. -Normal appearing tricuspid valve with hiue-gz-mjjhvnez insufficiency. - No apparent intracardiac mass or pericardial effusion Liver US (12/11/20): FINDINGS: Liver: Hepatomegaly and steatosis. Gallbladder: Status post cholecystectomy. Common bile duct: Normal. No stones. No dilation. Pancreas: Obscured by bowel gas. Right kidney: Normal. No mass. No hydronephrosis. IMPRESSION: Hepatomegaly and steatosis Bladder US (12/11/20): FINDINGS: Urinary bladder: Distended thick-walled urinary bladder contains internal low-level echoes. Bladder pre-void volume (cc): 196 cc Bladder post-void residual volume (cc): Patient unable to void Prostate: Prostate measures approximately 4.2 x 4.5 x 4 cm. IMPRESSION: Distended thick-walled urinary bladder contains internal low-level echoes CTA neck (12/10/20): FINDINGS: Right common carotid artery: Minimal calcification at the right common carotid bifurcation without stenosis. Right internal carotid artery: No stenosis of the extracranial segment. No dissection or occlusion. Right external carotid artery: No occlusion or stenosis of the origin. Left common carotid artery: Mild calcification at the left common carotid bifurcation without hemodynamically significant stenosis. Left internal carotid artery: No stenosis of the extracranial segment. No dissection or occlusion. Left external carotid artery: No occlusion or stenosis of the origin. Right vertebral artery: No stenosis. No dissection or occlusion. Left vertebral artery: Left vertebral artery is dominant. Left vertebral artery is dominant. Soft tissues: Normal. No significant soft tissue swelling. Bones/joints: There are degenerative changes involving the spine. IMPRESSION: No hemodynamically significant stenosis. CTA head (12/10/20): FINDINGS: ANTERIOR CIRCULATION: Right internal carotid artery: There is dense calcification involving the right carotid siphon with mild stenosis. No definite aneurysm is visualized. Right middle cerebral artery: Unremarkable. No occlusion or significant stenosis. No aneurysm. Right anterior cerebral artery: Unremarkable. No occlusion or significant stenosis. No aneurysm. Left internal carotid artery: Dense calcification involving the left carotid siphon with mild stenosis. Left middle cerebral artery: Unremarkable. No occlusion or significant stenosis. No aneurysm. Left anterior cerebral artery: Unremarkable. No occlusion or significant stenosis. No aneurysm. POSTERIOR CIRCULATION: Right vertebral artery: Severe right vertebral artery V4 stenosis versus short segment occlusion. Appearance is similar from recent MRA. Left vertebral artery: Dominant left vertebral artery. There is calcification at the proximal left vertebral artery with okbd-oy-qwhhsjaw stenosis. Basilar artery: Unremarkable. No occlusion or significant stenosis. No aneurysm. Right posterior cerebral artery: Unremarkable. No occlusion or significant stenosis. No aneurysm. Left posterior cerebral artery: Unremarkable. No occlusion or significant stenosis. No aneurysm. IMPRESSION: Short segment severe stenosis involving the right vertebral artery V4 segment versus occlusion, stable from recent MRA. CTA abdomen (12/09/20): 1. No significant atherosclerotic lesion involving the aortic mesenteric or renal vessels. No bowel changes of mesenteric ischemia or bowel inflammatory process. No explanation for clinical symptoms 2. Urinary bladder distension MRI brain wo contrast (12/09/20): No hemorrhagic transformation or appreci able change involving the left pontine infarct measuring roughly 2 x 1 cm. Mild chronic microangiopathic supratentorial white matter changes MRA brain wo contrast (12/09/20): 1. Severely stenotic right vertebral artery proximal V4 segment with severe stenosis/near occlusion of the right vertebral artery V4 segment in the region of the right PICA origin. 2. 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 MRI brain wo contrast (12/09/20): FINDINGS: Brain: 2 x 1.3 cm acute left hubert felicitas infarct. Bqkn-hl-njqmkeew scattered FLAIR hyperintense foci within the supratentorial deep and subcortical white matter suggesting mild chronic small vessel ischemic disease. No gradient susceptibility blooming within the brain parenchyma to suggest hemorrhage. No midline shift, mass, or fluid collection is present. Diffuse cerebral age related volume loss. Cerebral ventricles: Normal. No ventriculomegaly. Bones/joints: Unremarkable. Paranasal sinuses: Normal as visualized. No acute sinusitis. Mastoid air cells: Normal as visualized. No mastoid effusion. Orbital cavity: Unremarkable. Soft tissues: Unremarkable. IMPRESSION: 2 x 1.3 cm acute left hubert felicitas infarct. CT head wo contrast (12/04/20): Atrophy and microvascular ischemic changes. No acute intracranial hemorrhage, infarction, or mass/mass effect PROGNOSIS: good ACTIVITY: [As tolerated]. DIET: Consistent carbohydrate DISCHARGE PLAN: DC to ARU for ongoing rehab. Continue with DAPT (ASA and plavix), atorvastatin for acute L pontine CVA. To continue with indwelling salazar catheter, along with flomax, and hold myrbetriq. Will f/u in urology clinic with Dr. Bennett after DC for evaluation of possible BPH/urinary retention. Continue with ciprofloxacin for suspected UTI which may be contributing to UTI, (ciprofloxacin EOT 12/17/20). DISPOSITION: DC to ARU. DISCHARGE INSTRUCTIONS: . Please follow-up with your primary care doctor within 3-5 days . Please follow-up with urology within 1-2 weeks . Please taking medications as prescribed. . If you develop bleeding, chest pain, shortness of breath, seizures, nausea, fevers, or otherwise worsening of your symptoms, please call 911 or return to the nearest emergency room. ITEMS TO FOLLOWUP ON ON OUTPATIENT: 1. Final urine culture. DISCHARGE CONDITION: [Stable]. TIME SPENT ON DISCHARGE: 35 minutes Vital Signs/I&Os Vital Signs Date Time Temp Pulse Resp B/P (MAP) Pulse Ox O2 Delivery O2 Flow Rate FiO2 12/11/20 09:05 139/69 12/11/20 06:00 97.3 89 16 98 Room Air I&O- Last 24 Hours up to 6 AM 12/11/20 06:00 Intake Total 460 ml Output Total 1550 ml Balance -1090 ml Laboratory Data Labs 24H Laboratory Tests 2 12/10/20 15:07: Urine Color YELLOW, Urine Appearance HAZY, Urine pH 5.0, Urine Specific [place] 1.038, Urine Protein NEGATIVE, Urine Glucose (UA) 3+H, Urine Ketones 2+H, Urine Blood 3+H, Urine Nitrite POSITIVEH, Urine Bilirubin NEGATIVE, Urine Urobilinogen 0.2, Urine Leukocyte Esterase NEGATIVE, Urine WBC (Auto) 5H, Urine RBC (Auto) 14H, Urine Hyaline Casts (Auto) 0, Urine Bacteria (Auto) 2+H, Urine Squamous Epithelial Cells 0, Urine Sperm (Auto) 12/10/20 16:28: Bedside Glucose (Misc Panel) 232H 12/10/20 20:47: Bedside Glucose (Misc Panel) 191H 12/11/20 04:55: Bedside Glucose (Misc Panel) 151H 12/11/20 08:48: Immature Granulocyte % (Auto) 0.5, Neutrophils (%) (Auto) 87.7H, Lymphocytes (%) (Auto) 3.6L, Monocytes (%) (Auto) 6.5, Eosinophils (%) (Auto) 1.6, Basophils (%) (Auto) 0.1, Neutrophils # (Auto) 12.8H, Lymphocytes # (Auto) 0.5L, Monocytes # (Auto) 0.9H, Eosinophils # (Auto) 0.2, Basophils # (Auto) 0.0, Nucleated Red Blood Cells % (auto) 0.0, Anion Gap 7L, Glomerular Filtration Rate > 60.0, Calcium Level 8.8, Magnesium Level 1.9, Total Bilirubin 1.6H, Aspartate Amino Transf (AST/SGOT) 12, Alanine Aminotransferase (ALT/SGPT) 26, Alkaline Phosphatase 71, Total Protein 5.7L, Albumin 3.1L, Albumin/Globulin Ratio 1.2 12/11/20 11:46: Bedside Glucose (Misc Panel) 227H CBC/BMP Laboratory Tests 12/11/20 08:48 FSBS Laboratory Tests Test 12/10/20 16:28 12/10/20 20:47 12/11/20 04:55 12/11/20 11:46 Range/Units Bedside Glucose (Misc Panel) 232 191 151 227 83-110 MG/DL Microbiology Microbiology 12/10/20 Urine Culture, Received Pending 12/10/20 Blood Culture - Preliminary, Resulted No growth after 24 hours . All specim... 12/10/20 Blood Culture - Preliminary, Resulted No growth after 24 hours . All specim... Discharge Medications Scheduled Aspirin (Aspirin EC) 81 Mg Tab, 81 MG PO QHS, (Reported) Atorvastatin Calcium (Atorvastatin Calcium) 20 Mg Tablet, 20 MG PO QHS Canagliflozin (Invokana) 300 Mg Tablet, 300 MG PO DAILY, (Reported) Ciprofloxacin HCl (Cipro) 500 Mg Tablet, 1 TAB PO BID Clopidogrel Bisulfate (Clopidogrel) 75 Mg Tablet, 75 MG PO DAILY Insulin Detemir (Levemir) 100 Unit/1 Ml Vial, 10 UNITS SC BID Losartan Potassium (Cozaar) 50 Mg Tablet, 50 MG PO DAILY Magnesium (Magnesium) 200 Mg Tab, 200 MG PO QHS, (Reported) Metformin HCl (Metformin HCl) 850 Mg Tab, 850 MG PO BID, (Reported) Multivitamins (Thera M Plus Tablet) 1 Each Tablet, 1 TAB PO QHS, (Reported) Tamsulosin HCl (Flomax) 0.4 Mg Capsule, 0.4 MG PO DAILY Allergies Coded Allergies: No Known Allergies (Unverified , 10/20/18) SANYA DOMINGUEZ MD Dec 11, 2020 13:32
[2020-12-11] MEDS ORDERED: CIPR-249 PO (13:37)
[2020-12-11 14:00] VITALS: BP 136/85
--- NOTE | 2020-12-12 05:35 | ECGEPIP ---
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
== END 2020-12-11 15:29 | DRG 64 ==
LOC: M ED 09:31 → M ED INP 11:46 → ENRESERV 12:37 → M MSPAV 13:41
PROVIDERS: ADMIT Internal Medicine; ATTEND Family Medicine
DX: I63.9 Cerebral infarction, unspecified (principal); K85.90 Acute pancreatitis without necrosis or infection, unspecified; I69.351 Hemiplegia and hemiparesis following cerebral infarction affecting right dominant side; I69.393 Ataxia following cerebral infarction; E11.9 Type 2 diabetes mellitus without complications; I10 Essential (primary) hypertension; R33.9 Retention of urine, unspecified; Z79.4 Long term (current) use of insulin; Z79.899 Other long term (current) drug therapy

== ENCOUNTER 2020-12-10 14:31 | Inpatient (IN) | payer MEDICARE ==
[~2020-12-10] VITALS: Ht 172.7 cm; Wt 76.5 kg
[~2020-12-10 14:31] MED LIST changes: +GLIP5TAB8 PO; +INVO300T PO; +MYRB25TA PO; +VITMTA PO
[2020-12-10] MEDS ORDERED: ISOVUE-370 76% 100ML VIAL As Ordered ONE (23:08)
[2020-12-11] MEDS ORDERED: ACETAMINOPHEN TAB 650MG DOSE (2X325MG) PO PRN (13:20)
[2020-12-11] MEDS ORDERED: GLUCOSE 4GM CHEW TABLET PO PRN (13:20)
[2020-12-11] MEDS ORDERED: GLUCAGON INJ 1MG VIAL SC PRN (13:20)
[2020-12-11] MEDS ORDERED: MIRALAX *UNIT DOSE* 17GM PACKET PO PRN (13:20)
[2020-12-11] MEDS ORDERED: DEXTROSE 50% 50 ML SYRINGE IV PRN (13:20)
[2020-12-11] MEDS ORDERED: BISACODYL 10 MG SUPP PR PRN (13:20)
--- NOTE | 2020-12-11 13:22 | HPEPDOC ---
Mechanical Design Engineer Note DATE OF ADMISSION: 12-11-20 DATE OF SERVICE: 12-12-20 TIME OF ADMISSION: Please refer to physician's admission order. SOURCE OF ADMISSION INFORMATION: [facility] record and patient CHIEF COMPLAINT: stroke HISTORY OF PRESENT ILLNESS: 75M pmh chronic pancreatitis, DM, HLD who presented to [facility] ED on 12-04-20 with ataxia, dysarthria with RLE weakness. He was outside TPA window with MRI showing left felicitas infarct and MRA showing severe right vertebral artery stenosis. He was monitored on telemetry, allowed permissive HTN, and started on ASA and Plavix. He had worsening weakness on exam and there was concern for new stroke with follow-up MRI 12-09-20 sowing, No hemorrhagic transformation or appreciable boone e involving the left pontine infarct measuring roughly 2 x 1 cm. He had leukocytosis and started on Ceftriaxone for UTI with cultures pending. Additionally he had an episode of acute pancreatitis for which he was made NPO and then advanced to clear liquid diet then to low fat diet. He had considerable ADL and mobility impairments and was deemed medically appropriate for discharge top ARU on 12-11-20 REVIEW OF SYSTEMS: The following is a completed review of systems and has been reviewed. Review of systems otherwise unremarkable. PAIN: Patient self reports no pain EYES: No recent vision changes EARS, NOSE, & THROAT: No throat pain, or dysphagia, or rhinorrhea CARDIOVASCULAR: denies chest pain or palpitations PULMONARY: Denies shortness of breath GASTROINTESTINAL: Denies constipation/diarrhea GENITOURINARY: +salazar (retention) MUSCULOSKELETAL: right sided paresis NEUROLOGICAL:Right sided paresis, dysarthria HEMATOLOGICAL: denies easy bruising SKIN: no rash PSYCHIATRIC: Unremarkable All other review of systems found to be negative. PAST MEDICAL HISTORY: as per HPI PAST SURGICAL HISTORY: Cholecystectomy, ampulla sphincterotomy ALLERGIES: Please see below. MEDICATIONS: Please see below. FAMILY HISTORY:Prostate and GI cancer SOCIAL HISTORY: No etoh/illicit drugs/smoking DIET: mechanical soft PHYSICAL EXAMINATION: VITAL SIGNS: Please see below. GENERAL: Pleasant and cooperative. No acute distress. right facial droop HEENT: PERRL. Extraocular movements intact. Clear conjunctiva CARDIOVASCULAR: Regular rate and rhythm. No murmurs, rubs, or gallops LUNGS: Clear to auscultation bilaterally. No wheezes. No rhonchi ABDOMEN: Soft, nontender, nondistended. Positive bowel sounds. Normal active bowel sounds NEUROLOGICAL: Alert and oriented times three. Cranial nerves II through XII grossly intact. Sensation diminished to light touch RUE and altered in RLE EXTREMITIES: 5\5 strength left upper extremities. 4/5 RUE 5/5 strength in left lower extremity. 4/5 RLE RLE edema (-) homans LABORATORY DATA: Please see below. IMAGING:Imaging documentation personally reviewed by record FUNCTIONAL STATUS: Premorbid: Independent with all activities of daily life as well as mobility On Admission: Contact guard-Min assist for functional transfers, dressing, ambulation, toileting GOALS: Mod-I for functional transfers, dressing, ambulation, toileting ASSESSMENT:75-year-old M with past medical history of DM, chronic pancreatitis who presents status post left felicitas stroke PLAN: 1. REhab- PT/OT advance mobility and ADLs, strengthen/stretch/maintain ROM all 4 limbs, evaluate for AFO -VIDEO TAPE EDITOR for cog and swallow 2. 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 Cardiac- hx of HTN c/u BP meds, adjust prn 4. Resp- monitor for infection 5. GI ppx- protonix -hx of chronic pancreatitis with recent flair, patient stating his abdomen feels well 6. DVT ppx- MELLY, Dopplers to check for DVTs 7. Pain- tylenol prn 8. - +urinary tract infection on Ceftriaxone, switching to Ciprofloxacin, f/u Ucx 9. endo- hx of DM, c/u levemir and ISS 10. Dispo: tbd ECHO showing grade 1 diastolic dysfunction POST ADMISSION PHYSICIAN EVALUATION: Medical and functional status: Description of medical status, medical assessment: As above. Rehabilitation diagnosis and current and prior cold morbid medical conditions as above. Risk of complications and plans to mitigate them as above. Description of functional status current status is as above. Prior status as above. Status compared to preadmission: There are no clinically significant differences between the patient's current status and the information described on the preadmission screening document. Treatment plan anticipated: Treatment plan is as described above. Required disciplines including physical therapy, occupational therapy, others as noted above Intensity of services: 3 hours a day, 6 days a week. Special considerations: There are no specific special or safety considerations that would likely preclude immediate implementation of an intensive rehabilitation program or subsequently influence the plan of care. ATTESTATION: Considering all the information above, it is my best judgment that this patient requires intensive rehabilitation therapy as described above and an inpatient hospital environment due to the complexity of nursing, medical, and rehabilitation needs required by the patient. Furthermore, this patient can reasonably be expected to participate in an benefit from an inpatient rehabilitation stay with an interdisciplinary team approach to the delivery of rehabilitation care under the direction and supervision of rehabilitation physician. PROGNOSIS: Excellent ESTIMATED LENGTH OF STAY:14-16 days. PROJECTED DISCHARGE DESTINATION: Home with family support and any durable medical equipment required to increase functional safety and mobility TIME SPENT COUNSELING AND COORDINATING INITIAL CARE: Greater than 40 minutes. Vital Signs Vital Signs Date Time Temp Pulse Resp B/P (MAP) Pulse Ox O2 Delivery O2 Flow Rate FiO2 12/11/20 15:33 99.3 91 18 153/75 (101) 97 Room Air Home Medications Scheduled Aspirin (Aspirin EC) 81 Mg Tab, 81 MG PO QHS, (Reported) Atorvastatin Calcium (Atorvastatin Calcium) 20 Mg Tablet, 20 MG PO QHS Canagliflozin (Invokana) 300 Mg Tablet, 300 MG PO DAILY, (Reported) Ciprofloxacin HCl (Cipro) 500 Mg Tablet, 1 TAB PO BID Clopidogrel Bisulfate (Clopidogrel) 75 Mg Tablet, 75 MG PO DAILY Insulin Detemir (Levemir) 100 Unit/1 Ml Vial, 10 UNITS SC BID Losartan Potassium (Cozaar) 50 Mg Tablet, 50 MG PO DAILY Magnesium (Magnesium) 200 Mg Tab, 200 MG PO QHS, (Reported) Metformin HCl (Metformin HCl) 850 Mg Tab, 850 MG PO BID, (Reported) Multivitamins (Thera M Plus Tablet) 1 Each Tablet, 1 TAB PO QHS, (Reported) Tamsulosin HCl (Flomax) 0.4 Mg Capsule, 0.4 MG PO DAILY Allergies Coded Allergies: No Known Allergies (Unverified , 10/20/18) A-FIB/CHADSVASC A-FIB History Current/History of A-Fib/PAF?: No Current PO Anticoag Therapy: No AUSTIN SOUZA MD Dec 11, 2020 13:22
[2020-12-11] MEDS ORDERED: CLOP75TA2 PO (13:31)
[2020-12-11] MEDS ORDERED: COZA50TA PO (13:31)
[2020-12-11] MEDS ORDERED: INSUDET SC (13:31)
[2020-12-11] MEDS ORDERED: ATOR1TAB21 PO (13:31)
[2020-12-11] MEDS ORDERED: FLOM0.4C39 PO (13:31)
[2020-12-11] MEDS ORDERED: CIPR-249 PO (13:37)
[2020-12-11 15:33] VITALS: BP 153/75
[2020-12-11] MEDS: REMEDY PHYTOPLEX Z-GUARD PASTE 113GM TUBE (FROM STOREROOM PRODUCT) TOP SCH ×2 (16:00→20:48)
[2020-12-11] MEDS: HumaLOG INSULIN (NovoLOG) PER UNIT SC SCH ×2 (17:41→20:47)
[2020-12-11 20:00] VITALS: BP 132/73
[2020-12-11] MEDS: DOCUSATE SODIUM 100MG CAPSULE PO SCH (20:46)
[2020-12-11] MEDS: ATORVASTATIN 20 MG TAB PO SCH (20:46)
[2020-12-11] MEDS: SENNA 8.6 MG TAB (SENOKOT) PO SCH (20:47)
[2020-12-11] MEDS: LEVEMIR (INSULIN DETEMIR) 1 UNITS/0.01ML SC SCH (20:47)
[2020-12-12 06:00] VITALS: BP 154/73
[2020-12-12 06:40] LABS: BASO % 0.4 % (0.0-1.0); EOS # 0.4 10^3/uL (0.0-0.5); EOS % 3.5 % (0.0-3.0); HEMATOCRIT 42.4 % (42.0-52.0); HEMOGLOBIN 14.6 g/dl (13.5-17.5); LYMPH # 0.6 10^3/uL (1.5-5.0); LYMPH % 5.1 % (24.0-44.0); MEAN CORPUSCULAR HEMOGLOBIN 31.1 pg (27.0-33.0); MEAN CORPUSCULAR HGB CONC 34.4 g/dl (32.0-36.5); MEAN CORPUSCULAR VOLUME 90.2 fl (80.0-96.0); MONO # 0.9 10^3/uL (0.0-0.8); MONO % 7.8 % (2.0-8.0); NEUTROPHILS # 9.4 10^3/uL (1.5-8.5); NEUTROPHILS % 82.7 % (36.0-66.0); PLATELET COUNT, AUTOMATED 312 10^3/uL (150-450); WHITE BLOOD COUNT 11.3 10^3/uL (4.0-10.0)
[2020-12-12 07:06] LABS: ALBUMIN 2.6 GM/DL (3.2-5.2); ALT/SGPT 24 U/L (12-78); BILIRUBIN,TOTAL 1.4 MG/DL (0.2-1.0); BLOOD UREA NITROGEN 12 MG/DL (7-18); CALCIUM LEVEL 8.2 MG/DL (8.8-10.2); CARBON DIOXIDE LEVEL 26 MEQ/L (21-32); CHLORIDE LEVEL 109 MEQ/L (98-107); CREATININE FOR GFR 0.55 MG/DL (0.70-1.30); GLOMERULAR FILTRATION RATE > 60.0 (>42); GLUCOSE, FASTING 107 MG/DL (70-100); POTASSIUM SERUM 3.6 MEQ/L (3.5-5.1); SODIUM LEVEL 141 MEQ/L (136-145); TOTAL PROTEIN 5.6 GM/DL (6.4-8.2)
[2020-12-12] MEDS: ASPIRIN 81MG ENTERIC TABLET PO SCH (08:21)
[2020-12-12] MEDS: PANTOPRAZOLE 40MG TAB (PROTONIX) PO SCH (08:22)
[2020-12-12] MEDS: CLOPIDOGREL 75 MG TAB PO SCH (08:22)
[2020-12-12] MEDS: MULTIVITAMINS/MINERALS THERAP 1 TAB PO SCH (08:22)
[2020-12-12] MEDS: LOSARTAN 50MG TABLET PO SCH (08:22)
[2020-12-12] MEDS: HumaLOG INSULIN (NovoLOG) PER UNIT SC SCH ×4 (08:22→20:33)
[2020-12-12] MEDS: TAMSULOSIN 0.4 MG CAP PO SCH (08:22)
[2020-12-12] MEDS: LEVEMIR (INSULIN DETEMIR) 1 UNITS/0.01ML SC SCH ×2 (08:23→20:32)
[2020-12-12] MEDS: DOCUSATE SODIUM 100MG CAPSULE PO SCH ×2 (08:23→20:34)
[2020-12-12] MEDS: REMEDY PHYTOPLEX Z-GUARD PASTE 113GM TUBE (FROM STOREROOM PRODUCT) TOP SCH ×3 (08:24→20:34)
[2020-12-12] MEDS ORDERED: amLODIPine 5 MG TAB PO SCH (09:00)
[2020-12-12] MEDS ORDERED: cefTRIAXone SOD 1 GM in D5W MINI-BAG PLUS 50 ML IV SCH (09:00)
[2020-12-12] MEDS: LACTOBACILLUS ACIDOPHILUS CAP (BACID) PO SCH ×3 (09:00→20:32)
[2020-12-12 10:00] VITALS: BP 151/76
--- NOTE | 2020-12-12 12:48 | IPNPDOC ---
Date Seen The patient was seen on 12/12/20. Progress Note SUBJECTIVE: Patient was seen and examined at bedside this morning. Good spirits, sitting upright in chair, comfortable, doing well. Has gotten up and go to the bathroom, having a small bowel movement. Abdominal pain has resolved. Tolerating solid diet. No acute complaints at this time. OBJECTIVE PHYSICAL EXAMINATION: VITAL SIGNS: please see below General: NAD, comfortable HEENT: PERRLA, EOMI, sclerae clear Neck: supple, normal ROM, no JVD Respiratory: lungs CTAB, no wheeze, no rales, no crackles CVS: RRR, normal S1, S2, no murmurs Abdo: soft, no masses, no hepatosplenomegaly, BS+, no rebound tenderness Extremities: no edema, pulses 2+ MSK: no joint deformities, normal ROM Neuro: RUE, RLE,3/5 strength. Psych: calm, cooperative, AAO x 3 LABORATORY DATA, IMAGING STUDIES, MICROBIOLOGY: Please see below. Echocardiogram: Echocardiogram: 12/05/20: -Normal sinus rhythm without intraventricular conduction disturbance. -M-mode and two-dimensional echocardiography was performed with pulse, continuous wave, color flow, and tissue Doppler studies. -Normal left ventricular size, wall thickness, and wall motion. -Normal left atrial size with grade 1 LV diastolic dysfunction, but normal estimated mean left atrial pressure. -Normal right heart chamber sizes and function with normal pulmonary arterial pressure. -Normal IVC size and collapse against an elevated central venous pressure. Normal aortic dimensions. -Mildly thickened aortic cusps with normal cusp separation and no aortic insufficiency. -Normal appearing mitral valve apparatus and leaflet excursion with no posterior systolic buckling. No more than trace insufficiency. -Normal appearing tricuspid valve with kalp-ri-[id number] insufficiency. - No apparent intracardiac mass or pericardial effusion DVT prophylaxis ordered?: ASSESSMENT AND PLAN: Mr. 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 Stroke work up was order and patient was found to have right vertebral artery stenosis. Evaluated by neurology, to continue with ASA, plavix, atorvastatin. Admitted to ARU for ongoing acute rehab. PROBLEMS: #. Acute ischemic L pontine CVA -MRI demonstrates left felicitas infarct. MRA demonstrates right vertebral artery stenosis. US carotids negative for stenosis - Neck CTA negative for hemodynamically significant stenosis - CTA head showign severe stenosis involving R vertebral artery V4 segment vs occlusion, stable from MRA on admission -Echocardiogram: EF 65% -Lipid panel demonstrates LDL of 98 -HbA1c elevated at 8.7 -Monitor on telemetry and allow for permissive hypertension -Spoke with neurology, patient will be on DAPT with ASA and plavix - continue with atorvastatin 20 mg qhs. - Dr. Mccarty evaluated patient, recommendations are greatly appreciated. - reduced dose of antihypertensives - accepted at ARU, but family requesting attempt to transfer to [facility]. - attempted transfer per family request to [facility], but due to lack of bed availability for 24 hours, family agreeable for transfer to ARU. #. NIDDM -Carbohydrate consistent diet - patient received ISS - due to persistent hyperglycemia, added levemir 10 units BID - discontinued glipizide on DC to reduce risk of hypoglycemia with concurrent insulin use - continue PO metformin and invokana on DC - HbA1c of 8.7 #. Hypertension -Completed 48 hours of permissive hypertension -Losartan resumed at a lower dose of [address] Mccarty's recommendations - DC metoprolol for BP control. #. Acute pancreatitis - recurrent hx, Ampulla Sphincterotomy in 07/2016 - lipase was ~5000, pain improved with NPO overnight - resumed patient on low fat diet - CTA abdomen did not show evidence of ischemia #.Urinary retention - patient previously taking myrbetriq for bladder spasms, started by PCP - developed abdominal pain overnight of 11/08/20 - started patient on flomax. D/w Dr. Bennett, recommended patient to receive indwelling salazar catheter as was retaining > 50% of bladder volume - will f/u in urology clinic on DC DVT ppx -SCD and TEDs VS, I&O, 24H, Fishbone Vital Signs/I&O Vital Signs Date Time Temp Pulse Resp B/P (MAP) Pulse Ox O2 Delivery O2 Flow Rate FiO2 12/12/20 10:02 100 151/76 12/12/20 06:00 98.4 18 100 Room Air I&O- Last 24 Hours up to 6 AM 12/12/20 06:00 Intake Total 50 ml Output Total 725 ml Balance -675 ml Laboratory Data 24H LABS Laboratory Tests 2 12/11/20 16:31: Bedside Glucose (Misc Panel) 156H 12/11/20 20:43: Bedside Glucose (Misc Panel) 224H 12/12/20 06:23: Bedside Glucose (Misc Panel) 110 12/12/20 06:29: Immature Granulocyte % (Auto) 0.5, Neutrophils (%) (Auto) 82.7H, Lymphocytes (%) (Auto) 5.1L, Monocytes (%) (Auto) 7.8, Eosinophils (%) (Auto) 3.5H, Basophils (%) (Auto) 0.4, Neutrophils # (Auto) 9.4H, Lymphocytes # (Auto) 0.6L, Monocytes # (Auto) 0.9H, Eosinophils # (Auto) 0.4, Basophils # (Auto) 0.0, Nucleated Red Blood Cells % (auto) 0.0, Anion Gap 6L, Glomerular Filtration Rate > 60.0, Calcium Level 8.2L, Total Bilirubin 1.4H, Aspartate Amino Transf (AST/SGOT) 13, Alanine Aminotransferase (ALT/SGPT) 24, Alkaline Phosphatase 64, Total Protein 5.6L, Albumin 2.6L, Albumin/Globulin Ratio 0.9 12/12/20 11:22: Bedside Glucose (Misc Panel) 168H CBC/BMP Laboratory Tests 12/12/20 06:29 SANYA DOMINGUEZ MD Dec 12, 2020 12:48
[2020-12-12 13:15] VITALS: BP 153/68
[2020-12-12] MEDS: **hydrALAZINE HCL** 25 MG TAB PO SCH ×3 (13:38→23:50)
[2020-12-12 18:13] VITALS: BP 130/81
[2020-12-12 20:00] VITALS: BP 132/60
[2020-12-12] MEDS: ATORVASTATIN 20 MG TAB PO SCH (20:32)
[2020-12-12] MEDS: HEPARIN SOD (PORCINE) 5000UNITS/ML 1ML VIAL/SYRINGE SQ SCH (20:33)
[2020-12-12] MEDS: SENNA 8.6 MG TAB (SENOKOT) PO SCH (20:34)
[2020-12-13] MEDS: **hydrALAZINE HCL** 25 MG TAB PO SCH ×4 (05:49→23:25)
[2020-12-13] MEDS: CIPROFLOXACIN 500MG TABLET PO SCH ×2 (05:49→17:27)
[2020-12-13 06:00] VITALS: BP 168/77
[2020-12-13] MEDS: HumaLOG INSULIN (NovoLOG) PER UNIT SC SCH ×4 (07:05→21:00)
[2020-12-13] MEDS: TAMSULOSIN 0.4 MG CAP PO SCH (08:12)
[2020-12-13] MEDS: PANTOPRAZOLE 40MG TAB (PROTONIX) PO SCH (08:12)
[2020-12-13] MEDS: ASPIRIN 81MG ENTERIC TABLET PO SCH (08:13)
[2020-12-13] MEDS: REMEDY PHYTOPLEX Z-GUARD PASTE 113GM TUBE (FROM STOREROOM PRODUCT) TOP SCH ×3 (08:13→21:00)
[2020-12-13] MEDS: MULTIVITAMINS/MINERALS THERAP 1 TAB PO SCH (08:13)
[2020-12-13] MEDS: HEPARIN SOD (PORCINE) 5000UNITS/ML 1ML VIAL/SYRINGE SQ SCH ×2 (08:13→21:03)
[2020-12-13] MEDS: DOCUSATE SODIUM 100MG CAPSULE PO SCH ×2 (08:13→21:00)
[2020-12-13] MEDS: CLOPIDOGREL 75 MG TAB PO SCH (08:13)
[2020-12-13] MEDS: LACTOBACILLUS ACIDOPHILUS CAP (BACID) PO SCH ×3 (08:13→21:02)
[2020-12-13] MEDS: LOSARTAN 50MG TABLET PO SCH (08:14)
[2020-12-13] MEDS: LEVEMIR (INSULIN DETEMIR) 1 UNITS/0.01ML SC SCH ×2 (08:15→21:03)
[2020-12-13] MEDS: amLODIPine 5 MG TAB PO SCH ×2 (08:15→21:02)
[2020-12-13 12:05] VITALS: BP 126/78
[2020-12-13 14:00] VITALS: BP 151/67
[2020-12-13 16:44] VITALS: BP 121/68
[2020-12-13 21:00] VITALS: BP 139/66
[2020-12-13] MEDS: SENNA 8.6 MG TAB (SENOKOT) PO SCH (21:00)
[2020-12-13] MEDS: ATORVASTATIN 20 MG TAB PO SCH (21:02)
--- NOTE | 2020-12-14 00:40 | REPVR ---
PROCEDURE INFORMATION: Exam: US Duplex Lower Extremity Veins, Bilateral Exam date and time: 12/13/2020 9:55 PM Age: 75 years old Clinical indication: Screening exam; Immobility TECHNIQUE: Imaging protocol: Real-time duplex ultrasound of the extremities with 2-D roach scale, color Doppler flow and spectral waveform analysis with image documentation. Complete exam focused on the bilateral lower extremity veins. COMPARISON: No relevant prior studies available. FINDINGS: Right deep veins: Unremarkable. The common femoral, femoral, popliteal and visualized calf veins are patent without thrombus. Normal Doppler waveforms. Normal compressibility and/or augmentation response. Right superficial veins: Saphenofemoral junction is patent without thrombus. Left deep veins: Unremarkable. The common femoral, femoral, popliteal and visualized calf veins are patent without thrombus. Normal Doppler waveforms. Normal compressibility and/or augmentation response. Left superficial veins: Saphenofemoral junction is patent without thrombus. Soft tissues: Unremarkable. IMPRESSION: No sonographic evidence of deep vein thrombosis. Electronically signed by: Jaron Lama On 12/14/2020 00:39:44 AM
[2020-12-14] MEDS: **hydrALAZINE HCL** 25 MG TAB PO SCH ×3 (05:24→17:21)
[2020-12-14] MEDS: CIPROFLOXACIN 500MG TABLET PO SCH ×2 (05:24→17:19)
[2020-12-14 06:00] VITALS: BP 136/69
[2020-12-14 08:08] LABS: BASO % 0.5 % (0.0-1.0); EOS # 0.4 10^3/uL (0.0-0.5); EOS % 5.4 % (0.0-3.0); HEMATOCRIT 40.5 % (42.0-52.0); HEMOGLOBIN 14.1 g/dl (13.5-17.5); LYMPH # 0.4 10^3/uL (1.5-5.0); LYMPH % 5.6 % (24.0-44.0); MEAN CORPUSCULAR HEMOGLOBIN 31.5 pg (27.0-33.0); MEAN CORPUSCULAR HGB CONC 34.8 g/dl (32.0-36.5); MEAN CORPUSCULAR VOLUME 90.4 fl (80.0-96.0); MONO # 0.6 10^3/uL (0.0-0.8); MONO % 8.3 % (2.0-8.0); NEUTROPHILS # 5.3 10^3/uL (1.5-8.5); NEUTROPHILS % 79.9 % (36.0-66.0); PLATELET COUNT, AUTOMATED 297 10^3/uL (150-450); RED BLOOD COUNT 4.48 10^6/uL (4.30-6.10); WHITE BLOOD COUNT 6.7 10^3/uL (4.0-10.0)
[2020-12-14 08:29] LABS: BLOOD UREA NITROGEN 11 MG/DL (7-18); CALCIUM LEVEL 8.6 MG/DL (8.8-10.2); CARBON DIOXIDE LEVEL 26 MEQ/L (21-32); CHLORIDE LEVEL 106 MEQ/L (98-107); CREATININE FOR GFR 0.66 MG/DL (0.70-1.30); GLOMERULAR FILTRATION RATE > 60.0 (>42); GLUCOSE, FASTING 229 MG/DL (70-100); POTASSIUM SERUM 3.8 MEQ/L (3.5-5.1); SODIUM LEVEL 139 MEQ/L (136-145)
[2020-12-14] MEDS: LACTOBACILLUS ACIDOPHILUS CAP (BACID) PO SCH ×3 (08:42→22:04)
[2020-12-14] MEDS: CLOPIDOGREL 75 MG TAB PO SCH (08:42)
[2020-12-14] MEDS: DOCUSATE SODIUM 100MG CAPSULE PO SCH ×2 (08:42→22:04)
[2020-12-14] MEDS: ASPIRIN 81MG ENTERIC TABLET PO SCH (08:42)
[2020-12-14] MEDS: TAMSULOSIN 0.4 MG CAP PO SCH (08:42)
[2020-12-14] MEDS: HEPARIN SOD (PORCINE) 5000UNITS/ML 1ML VIAL/SYRINGE SQ SCH ×2 (08:42→22:03)
[2020-12-14] MEDS: PANTOPRAZOLE 40MG TAB (PROTONIX) PO SCH (08:42)
[2020-12-14] MEDS: LOSARTAN 50MG TABLET PO SCH (08:42)
[2020-12-14] MEDS: MULTIVITAMINS/MINERALS THERAP 1 TAB PO SCH (08:42)
[2020-12-14] MEDS: amLODIPine 5 MG TAB PO SCH ×2 (08:43→22:04)
[2020-12-14] MEDS: HumaLOG INSULIN (NovoLOG) PER UNIT SC SCH ×4 (08:43→21:00)
[2020-12-14] MEDS: LEVEMIR (INSULIN DETEMIR) 1 UNITS/0.01ML SC SCH ×2 (08:44→22:05)
[2020-12-14] MEDS: REMEDY PHYTOPLEX Z-GUARD PASTE 113GM TUBE (FROM STOREROOM PRODUCT) TOP SCH ×3 (08:44→22:07)
[2020-12-14 14:00] VITALS: BP 136/65
[2020-12-14 20:00] VITALS: BP 129/61
[2020-12-14] MEDS: ATORVASTATIN 20 MG TAB PO SCH (22:03)
[2020-12-14] MEDS: SENNA 8.6 MG TAB (SENOKOT) PO SCH (22:04)
[2020-12-15] MEDS: **hydrALAZINE HCL** 25 MG TAB PO SCH ×4 (00:34→17:25)
[2020-12-15] MEDS ORDERED: MORPHINE 4 MG/ML 1ML VIAL/SYRINGE (J2270) IM ONE (03:40)
[2020-12-15] MEDS: CIPROFLOXACIN 500MG TABLET PO SCH ×2 (05:37→17:25)
[2020-12-15 06:13] VITALS: BP 142/70
[2020-12-15 08:12] LABS: LIPASE 14745 U/L (73-393)
[2020-12-15 08:13] LABS: AMYLASE 1670 U/L (25-115)
[2020-12-15] MEDS: ASPIRIN 81MG ENTERIC TABLET PO SCH (08:19)
[2020-12-15] MEDS: MULTIVITAMINS/MINERALS THERAP 1 TAB PO SCH (08:20)
[2020-12-15] MEDS: HEPARIN SOD (PORCINE) 5000UNITS/ML 1ML VIAL/SYRINGE SQ SCH ×2 (08:20→20:40)
[2020-12-15] MEDS: TAMSULOSIN 0.4 MG CAP PO SCH (08:20)
[2020-12-15] MEDS: CLOPIDOGREL 75 MG TAB PO SCH (08:20)
[2020-12-15] MEDS: LACTOBACILLUS ACIDOPHILUS CAP (BACID) PO SCH ×3 (08:20→20:40)
[2020-12-15] MEDS: PANTOPRAZOLE 40MG TAB (PROTONIX) PO SCH (08:20)
[2020-12-15] MEDS: DOCUSATE SODIUM 100MG CAPSULE PO SCH ×2 (08:20→20:40)
[2020-12-15] MEDS: LOSARTAN 50MG TABLET PO SCH (08:20)
[2020-12-15] MEDS: HumaLOG INSULIN (NovoLOG) PER UNIT SC SCH ×4 (08:21→20:42)
[2020-12-15] MEDS: amLODIPine 5 MG TAB PO SCH ×2 (08:21→20:41)
[2020-12-15] MEDS: LEVEMIR (INSULIN DETEMIR) 1 UNITS/0.01ML SC SCH ×2 (08:21→20:40)
[2020-12-15] MEDS: REMEDY PHYTOPLEX Z-GUARD PASTE 113GM TUBE (FROM STOREROOM PRODUCT) TOP SCH ×3 (08:22→20:41)
[2020-12-15 14:23] VITALS: BP 140/67
--- NOTE | 2020-12-15 18:05 | IPNPDOC ---
Date Seen The patient was seen on 12/15/20. Progress Note Patient was seen and examined at bedside. Seen walking with a walker to the bathroom, alert, oriented and in good spirits. States his abdominal pain has resolved. Overnight patient developed significant epigastric pain, worsening left upper quadrant, approximately 7 out of 10 in intensity. Reports no vomiting. Denies any chest pain, seizures of breath, palpitations or fevers[place] [address]. Amylase 1700. Will continue to monitor for pain. Converted diet to clear liquids, tolerating well. VS, I&O, 24H, Fishbone Vital Signs/I&O Vital Signs Date Time Temp Pulse Resp B/P (MAP) Pulse Ox O2 Delivery O2 Flow Rate FiO2 12/15/20 17:25 128/68 12/15/20 14:23 98.5 101 16 98 Room Air I&O- Last 24 Hours up to 6 AM 12/15/20 06:00 Intake Total 490 ml Output Total 1350 ml Balance -860 ml Laboratory Data 24H LABS Laboratory Tests 2 12/14/20 20:30: Bedside Glucose (Misc Panel) 208H 12/15/20 05:09: Bedside Glucose (Misc Panel) 204H 12/15/20 06:32: Amylase Level 1670H, Lipase [id number] 12/15/20 11:53: Bedside Glucose (Misc Panel) 104 12/15/20 16:32: Bedside Glucose (Misc Panel) 170H SANYA DOMINGUEZ MD Dec 15, 2020 18:05
[2020-12-15 20:00] VITALS: BP 139/72
[2020-12-15] MEDS: SENNA 8.6 MG TAB (SENOKOT) PO SCH (20:40)
[2020-12-15] MEDS: ATORVASTATIN 20 MG TAB PO SCH (20:40)
[2020-12-16] MEDS: **hydrALAZINE HCL** 25 MG TAB PO SCH ×4 (00:12→17:30)
[2020-12-16] MEDS: CIPROFLOXACIN 500MG TABLET PO SCH ×2 (05:41→17:30)
[2020-12-16 06:47] VITALS: BP 147/72
[2020-12-16 07:06] LABS: BASO % 0.2 % (0.0-1.0); EOS # 0.5 10^3/uL (0.0-0.5); EOS % 5.9 % (0.0-3.0); HEMATOCRIT 41.3 % (42.0-52.0); HEMOGLOBIN 14.2 g/dl (13.5-17.5); LYMPH # 0.4 10^3/uL (1.5-5.0); LYMPH % 4.6 % (24.0-44.0); MEAN CORPUSCULAR HEMOGLOBIN 30.8 pg (27.0-33.0); MEAN CORPUSCULAR HGB CONC 34.4 g/dl (32.0-36.5); MEAN CORPUSCULAR VOLUME 89.6 fl (80.0-96.0); MONO # 0.7 10^3/uL (0.0-0.8); MONO % 8.3 % (2.0-8.0); NEUTROPHILS # 7.1 10^3/uL (1.5-8.5); NEUTROPHILS % 80.7 % (36.0-66.0); PLATELET COUNT, AUTOMATED 294 10^3/uL (150-450); RED BLOOD COUNT 4.61 10^6/uL (4.30-6.10); WHITE BLOOD COUNT 8.8 10^3/uL (4.0-10.0)
[2020-12-16] MEDS: HumaLOG INSULIN (NovoLOG) PER UNIT SC SCH ×4 (07:21→20:50)
[2020-12-16] MEDS: LEVEMIR (INSULIN DETEMIR) 1 UNITS/0.01ML SC SCH ×2 (07:23→20:49)
[2020-12-16 07:32] LABS: BLOOD UREA NITROGEN 10 MG/DL (7-18); CALCIUM LEVEL 8.2 MG/DL (8.8-10.2); CARBON DIOXIDE LEVEL 29 MEQ/L (21-32); CHLORIDE LEVEL 105 MEQ/L (98-107); CREATININE FOR GFR 0.56 MG/DL (0.70-1.30); GLOMERULAR FILTRATION RATE > 60.0 (>42); GLUCOSE, FASTING 87 MG/DL (70-100); POTASSIUM SERUM 3.7 MEQ/L (3.5-5.1); SODIUM LEVEL 140 MEQ/L (136-145)
[2020-12-16] MEDS: REMEDY PHYTOPLEX Z-GUARD PASTE 113GM TUBE (FROM STOREROOM PRODUCT) TOP SCH ×3 (09:00→20:50)
--- NOTE | 2020-12-16 09:35 | IPNPDOC ---
PM&R Progress Note DATE OF SERVICE: Dec 13, 2020 [employer] Sailor Progress Note Subjective: Patient seen in the gym on the exercise bike stating he is feeling well and has no abdominal pain. REVIEW OF SYSTEMS: The following is a completed review of systems and has been reviewed. Review of systems otherwise unremarkable. PAIN: Patient self reports no pain EYES: No recent vision changes EARS, NOSE, & THROAT: No throat pain, or dysphagia, or rhinorrhea CARDIOVASCULAR: denies chest pain or palpitations PULMONARY: Denies shortness of breath GASTROINTESTINAL: Denies constipation/diarrhea GENITOURINARY: +salazar (retention) MUSCULOSKELETAL: right sided paresis NEUROLOGICAL:Right sided paresis, dysarthria HEMATOLOGICAL: denies easy bruising SKIN: no rash PSYCHIATRIC: Unremarkable All other review of systems found to be negative. PHYSICAL EXAMINATION: VITAL SIGNS: Please see below. GENERAL: Pleasant and cooperative. No acute distress. right facial droop HEENT: PERRL. Extraocular movements intact. Clear conjunctiva CARDIOVASCULAR: Regular rate and rhythm. No murmurs, rubs, or gallops LUNGS: Clear to auscultation bilaterally. No wheezes. No rhonchi ABDOMEN: Soft, nontender, nondistended. Positive bowel sounds. Normal active bowel sounds NEUROLOGICAL: Alert and oriented times three. Cranial nerves II through XII grossly intact. Sensation diminished to light touch RUE and altered in RLE EXTREMITIES: 5\5 strength left upper extremities. 4/5 RUE 5/5 strength in left lower extremity. 4/5 RLE RLE edema (-) homans ASSESSMENT:75-year-old M with past medical history of DM, chronic pancreatitis who presents status post left felicitas stroke PLAN: 1. REhab- PT/OT advance mobility and ADLs, strengthen/stretch/maintain ROM all 4 limbs, evaluate for AFO -MANAGER OB for cog and swallow 2. 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 Cardiac- hx of HTN c/u BP meds, adjust prn 4. Resp- monitor for infection 5. GI ppx- protonix -hx of chronic pancreatitis with recent flair, patient stating his abdomen feels well 6. DVT ppx- MELLY, Dopplers to check for DVTs 7. Pain- tylenol prn 8. - +urinary tract infection on Ceftriaxone, switching to Ciprofloxacin, f/u Ucx -remove salazar today for TOV and c/u flomax 9. endo- hx of DM, c/u levemir and ISS 10. Dispo: tbd Allergies Coded Allergies: No Known Allergies (Unverified , 10/20/18) Vital Signs Vital Signs Date Time Temp Pulse Resp B/P (MAP) Pulse Ox O2 Delivery O2 Flow Rate FiO2 12/16/20 06:47 99.2 73 16 147/72 (97) 97 Room Air Laboratory Data CBC/BMP Laboratory Tests 12/16/20 06:38 Labs 24H Laboratory Tests 2 12/15/20 11:53: Bedside Glucose (Misc Panel) 104 12/15/20 16:32: Bedside Glucose (Misc Panel) 170H 12/15/20 20:28: Bedside Glucose (Misc Panel) 133H 12/16/20 05:36: Bedside Glucose (Misc Panel) 69L 12/16/20 06:38: Immature Granulocyte % (Auto) 0.3, Neutrophils (%) (Auto) 80.7H, Lymphocytes (%) (Auto) 4.6L, Monocytes (%) (Auto) 8.3H, Eosinophils (%) (Auto) 5.9H, Basophils ( %) (Auto) 0.2, Neutrophils # (Auto) 7.1, Lymphocytes # (Auto) 0.4L, Monocytes # (Auto) 0.7, Eosinophils # (Auto) 0.5, Basophils # (Auto) 0.0, Nucleated Red Blood Cells % (auto) 0.0, Anion Gap 6L, Glomerular Filtration Rate > 60.0, Calcium Level 8.2L Current Medications Current Medications Current Medications Medications (Trade) Dose Ordered Sig/Anay Route PRN Reason Start Time Stop Time Status Last Admin Dose Admin Acetaminophen (Tylenol Tab) 650 mg Q4HP PRN PO fever/MILD PAIN (PS 1-4) 12/11/20 13:20 Amlodipine Besylate (Norvasc) 5 mg BID PO 12/13/20 09:00 12/15/20 20:41 Amlodipine Besylate (Norvasc) 5 mg DAILY PO 12/12/20 09:00 12/13/20 08:07 DC 12/12/20 10:02 Aspirin (Ecotrin) 81 mg DAILY PO 12/12/20 09:00 12/15/20 08:19 Atorvastatin Calcium (Lipitor) 20 mg QHS PO 12/11/20 21:00 12/15/20 20:40 Bisacodyl (Dulcolax Suppository) 10 mg DAILYPRN PRN [place] CONSTIPATION 12/11/20 13:20 Ceftriaxone Sodium 1 gm/ Dextrose 50 ml @ 100 mls/hr Q24H IV 12/12/20 09:00 12/12/20 13:14 DC 12/12/20 08:21 Ciprofloxacin (Cipro) 500 mg BID@06,18 PO 12/13/20 06:00 12/18/20 18:01 12/16/20 05:41 Clopidogrel Bisulfate (PLAVix) 75 mg DAILY PO 12/12/20 09:00 12/15/20 08:20 Dextrose (Dextrose 50%) 25 ml ASDIRECTED PRN IV SEE LABEL COMMENTS 12/11/20 13:20 Docusate Sodium (Colace) 100 mg BID PO 12/11/20 21:00 12/15/20 20:40 Glucagon (Glucagon) 1 mg ASDIRECTED PRN SC SEE LABEL COMMENTS 12/11/20 13:20 Glucose (Glucose) 16 GM ASDIRECTED PRN PO SEE LABEL COMMENTS 12/11/20 13:20 Heparin Sodium (Porcine) (Heparin) 5,000 units Q12H SQ 12/12/20 21:00 12/15/20 20:40 Hydralazine HCl (Apresoline) 25 mg Q6H PO 12/12/20 12:00 12/16/20 05:41 Insulin Detemir (Levemir Insulin) 10 units BID SC 12/11/20 21:00 12/15/20 20:40 Insulin Human Lispro (HumaLOG INSULIN) SEE PROTOCOL TABLE AC SC 12/11/20 17:30 12/15/20 17:26 Insulin Human Lispro (HumaLOG INSULIN) SEE PROTOCOL TABLE QHS SC 12/11/20 21:00 12/12/20 20:33 Lactobacillus Acidophilus (Bacid) 1 ea TID PO 12/12/20 09:00 12/15/20 20:40 Losartan Potassium (Cozaar) 50 mg DAILY PO 12/12/20 09:00 12/15/20 08:20 Multivitamins (Theragram-M) 1 tab DAILY PO 12/12/20 09:00 12/15/20 08:20 Pantoprazole Sodium (Protonix) 40 mg DAILY PO 12/12/20 09:00 12/15/20 08:20 Polyethylene Glycol (Miralax) 1 pkt DAILY PRN PO CONSTIPATION 12/11/20 13:20 Senna (Senokot) 1 tab QHS PO 12/11/20 21:00 12/15/20 20:40 Tamsulosin HCl (Flomax) 0.4 mg DAILY PO 12/12/20 09:00 12/15/20 08:20 AUSTIN SOUZA MD Dec 16, 2020 09:35
--- NOTE | 2020-12-16 09:36 | IPNPDOC ---
PM&R Progress Note DATE OF SERVICE: Dec 16, 2020 [employer] Partner Progress Note Subjective: Patient stating he has no abdominal pain. He is not followed by a GI specialist for his chronic pancreatitis. He states his right foot starts to frop when he fatigues and is open to bracing. REVIEW OF SYSTEMS: The following is a completed review of systems and has been reviewed. Review of systems otherwise unremarkable. PAIN: Patient self reports no pain EYES: No recent vision changes EARS, NOSE, & THROAT: No throat pain, or dysphagia, or rhinorrhea CARDIOVASCULAR: denies chest pain or palpitations PULMONARY: Denies shortness of breath GASTROINTESTINAL: Denies constipation/diarrhea GENITOURINARY: denies dysuria/retention MUSCULOSKELETAL: right sided paresis NEUROLOGICAL:Right sided paresis, dysarthria HEMATOLOGICAL: denies easy bruising SKIN: no rash PSYCHIATRIC: Unremarkable All other review of systems found to be negative. PHYSICAL EXAMINATION: VITAL SIGNS: Please see below. GENERAL: Pleasant and cooperative. No acute distress. right facial droop HEENT: PERRL. Extraocular movements intact. Clear conjunctiva CARDIOVASCULAR: Regular rate and rhythm. No murmurs, rubs, or gallops LUNGS: Clear to auscultation bilaterally. No wheezes. No rhonchi ABDOMEN: Soft, nontender, nondistended. Positive bowel sounds. Normal active bowel sounds NEUROLOGICAL: Alert and oriented times three. Cranial nerves II through XII grossly intact. Sensation diminished to light touch RUE and altered in RLE EXTREMITIES: 5\5 strength left upper extremities. 4/5 RUE 5/5 strength in left lower extremity. 4/5 RLE RLE edema (-) homans ASSESSMENT:75-year-old M with past medical history of DM, chronic pancreatitis who presents status post left felicitas stroke PLAN: 1. 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 Cardiac- hx of HTN c/u BP meds, adjust prn 4. Resp- monitor for infection 5. GI ppx- protonix -hx of chronic pancreatitis with recent flair, elevated lipase over the weekend, diet change to clear liquid, patient reporting no abdominal sx today, will recheck lipase tomorrow and refer to GI 6. DVT ppx- MELLY, Dopplers negative for DVT 7. Pain- tylenol prn 8. - +urinary tract infection on Ceftriaxone, switching to Ciprofloxacin, Ucx +KOCURIA FRANDY, salazar removed, patient voiding well, c/u flomax 9. endo- hx of DM, c/u levemir and ISS 10. Dispo: tbd Allergies Coded Allergies: No Known Allergies (Unverified , 10/20/18) Vital Signs Vital Signs Date Time Temp Pulse Resp B/P (MAP) Pulse Ox O2 Delivery O2 Flow Rate FiO2 12/16/20 06:47 99.2 73 16 147/72 (97) 97 Room Air Laboratory Data CBC/BMP Laboratory Tests 12/16/20 06:38 Labs 24H Laboratory Tests 2 12/15/20 11:53: Bedside Glucose (Misc Panel) 104 12/15/20 16:32: Bedside Glucose (Misc Panel) 170H 12/15/20 20:28: Bedside Glucose (Misc Panel) 133H 12/16/20 05:36: Bedside Glucose (Misc Panel) 69L 12/16/20 06:38: Immature Granulocyte % (Auto) 0.3, Neutrophils (%) (Auto) 80.7H, Lymphocytes (%) (Auto) 4.6L, Monocytes (%) (Auto) 8.3H, Eosinophils (%) (Auto) 5.9H, Basophils (%) (Auto) 0.2, Neutrophils # (Auto) 7.1, Lymphocytes # (Auto) 0.4L, Monocytes # (Auto) 0.7, Eosinophils # (Auto) 0.5, Basophils # (Auto) 0.0, Nucleated Red Blood Cells % (auto) 0.0, Anion Gap 6L, Glomerular Filtration Rate > 60.0, Calcium Level 8.2L Current Medications Current Medications Current Medications Medications (Trade) Dose Ordered Sig/Anay Route PRN Reason Start Time Stop Time Status Last Admin Dose Admin Acetaminophen (Tylenol Tab) 650 mg Q4HP PRN PO fever/MILD PAIN (PS 1-4) 12/11/20 13:20 Amlodipine Besylate (Norvasc) 5 mg BID PO 12/13/20 09:00 12/15/20 20:41 Amlodipine Besylate (Norvasc) 5 mg DAILY PO 12/12/20 09:00 12/13/20 08:07 DC 12/12/20 10:02 Aspirin (Ecotrin) 81 mg DAILY PO 12/12/20 09:00 12/15/20 08:19 Atorvastatin Calcium (Lipitor) 20 mg QHS PO 12/11/20 21:00 12/15/20 20:40 Bisacodyl (Dulcolax Suppository) 10 mg DAILYPRN PRN [place] CONSTIPATION 12/11/20 13:20 Ceftriaxone Sodium 1 gm/ Dextrose 50 ml @ 100 mls/hr Q24H IV 12/12/20 09:00 12/12/20 13:14 DC 12/12/20 08:21 Ciprofloxacin (Cipro) 500 mg BID@06,18 PO 12/13/20 06:00 12/18/20 18:01 12/16/20 05:41 Clopidogrel Bisulfate (PLAVix) 75 mg DAILY PO 12/12/20 09:00 12/15/20 08:20 Dextrose (Dextrose 50%) 25 ml ASDIRECTED PRN IV SEE LABEL COMMENTS 12/11/20 13:20 Docusate Sodium (Colace) 100 mg BID PO 12/11/20 21:00 12/15/20 20:40 Glucagon (Glucagon) 1 mg ASDIRECTED PRN SC SEE LABEL COMMENTS 12/11/20 13:20 Glucose (Glucose) 16 GM ASDIRECTED PRN PO SEE LABEL COMMENTS 12/11/20 13:20 Heparin Sodium (Porcine) (Heparin) 5,000 units Q12H SQ 12/12/20 21:00 12/15/20 20:40 Hydralazine HCl (Apresoline) 25 mg Q6H PO 12/12/20 12:00 12/16/20 05:41 Insulin Detemir (Levemir Insulin) 10 units BID SC 12/11/20 21:00 12/15/20 20:40 Insulin Human Lispro (HumaLOG INSULIN) SEE PROTOCOL TABLE AC SC 12/11/20 17:30 12/15/20 17:26 Insulin Human Lispro (HumaLOG INSULIN) SEE PROTOCOL TABLE QHS SC 12/11/20 21:00 12/12/20 20:33 Lactobacillus Acidophilus (Bacid) 1 ea TID PO 12/12/20 09:00 12/15/20 20:40 Losartan Potassium (Cozaar) 50 mg DAILY PO 12/12/20 09:00 12/15/20 08:20 Multivitamins (Theragram-M) 1 tab DAILY PO 12/12/20 09:00 12/15/20 08:20 Pantoprazole Sodium (Protonix) 40 mg DAILY PO 12/12/20 09:00 12/15/20 08:20 Polyethylene Glycol (Miralax) 1 pkt DAILY PRN PO CONSTIPATION 12/11/20 13:20 Senna (Senokot) 1 tab QHS PO 12/11/20 21:00 12/15/20 20:40 Tamsulosin HCl (Flomax) 0.4 mg DAILY PO 12/12/20 09:00 12/15/20 08:20 AUSTIN SOUZA MD Dec 16, 2020 09:36
[2020-12-16] MEDS: ASPIRIN 81MG ENTERIC TABLET PO SCH (10:15)
[2020-12-16] MEDS: DOCUSATE SODIUM 100MG CAPSULE PO SCH ×2 (10:15→20:50)
[2020-12-16] MEDS: TAMSULOSIN 0.4 MG CAP PO SCH (10:15)
[2020-12-16] MEDS: PANTOPRAZOLE 40MG TAB (PROTONIX) PO SCH (10:16)
[2020-12-16] MEDS: LACTOBACILLUS ACIDOPHILUS CAP (BACID) PO SCH ×3 (10:16→20:48)
[2020-12-16] MEDS: LOSARTAN 50MG TABLET PO SCH (10:16)
[2020-12-16] MEDS: CLOPIDOGREL 75 MG TAB PO SCH (10:16)
[2020-12-16] MEDS: amLODIPine 5 MG TAB PO SCH ×2 (10:17→20:49)
[2020-12-16] MEDS: MULTIVITAMINS/MINERALS THERAP 1 TAB PO SCH (10:17)
[2020-12-16] MEDS: HEPARIN SOD (PORCINE) 5000UNITS/ML 1ML VIAL/SYRINGE SQ SCH ×2 (10:19→20:49)
[2020-12-16 14:00] VITALS: BP 154/83
[2020-12-16 20:00] VITALS: BP 137/66
[2020-12-16] MEDS: ATORVASTATIN 20 MG TAB PO SCH (20:49)
[2020-12-16] MEDS: SENNA 8.6 MG TAB (SENOKOT) PO SCH (20:50)
[2020-12-17] MEDS: **hydrALAZINE HCL** 25 MG TAB PO SCH ×5 (00:12→23:50)
[2020-12-17 05:24] VITALS: BP 143/65
[2020-12-17] MEDS: CIPROFLOXACIN 500MG TABLET PO SCH ×2 (06:23→17:20)
[2020-12-17] MEDS: HumaLOG INSULIN (NovoLOG) PER UNIT SC SCH ×4 (07:30→20:21)
[2020-12-17] MEDS: LEVEMIR (INSULIN DETEMIR) 1 UNITS/0.01ML SC SCH ×2 (09:00→20:21)
[2020-12-17] MEDS: REMEDY PHYTOPLEX Z-GUARD PASTE 113GM TUBE (FROM STOREROOM PRODUCT) TOP SCH ×3 (09:00→20:21)
[2020-12-17] MEDS: DOCUSATE SODIUM 100MG CAPSULE PO SCH ×2 (09:00→20:21)
[2020-12-17] MEDS: PANTOPRAZOLE 40MG TAB (PROTONIX) PO SCH (09:21)
[2020-12-17] MEDS: TAMSULOSIN 0.4 MG CAP PO SCH (09:21)
[2020-12-17] MEDS: LACTOBACILLUS ACIDOPHILUS CAP (BACID) PO SCH ×3 (09:21→20:20)
[2020-12-17] MEDS: ASPIRIN 81MG ENTERIC TABLET PO SCH (09:21)
[2020-12-17] MEDS: amLODIPine 5 MG TAB PO SCH ×2 (09:22→20:20)
[2020-12-17] MEDS: CLOPIDOGREL 75 MG TAB PO SCH (09:22)
[2020-12-17] MEDS: MULTIVITAMINS/MINERALS THERAP 1 TAB PO SCH (09:22)
[2020-12-17] MEDS: LOSARTAN 50MG TABLET PO SCH (09:23)
[2020-12-17] MEDS: HEPARIN SOD (PORCINE) 5000UNITS/ML 1ML VIAL/SYRINGE SQ SCH ×2 (09:23→20:21)
--- NOTE | 2020-12-17 11:52 | IPNPDOC ---
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 He would like to wait another day before advancing his diet. REVIEW OF SYSTEMS: The following is a completed review of systems and has been reviewed. Review of systems otherwise unremarkable. PAIN: Patient self reports no pain EYES: No recent vision changes EARS, NOSE, & THROAT: No throat pain, or dysphagia, or rhinorrhea CARDIOVASCULAR: denies chest pain or palpitations PULMONARY: Denies shortness of breath GASTROINTESTINAL: Denies constipation/diarrhea GENITOURINARY: denies dysuria/retention MUSCULOSKELETAL: right sided paresis NEUROLOGICAL:Right sided paresis, dysarthria HEMATOLOGICAL: denies easy bruising SKIN: no rash PSYCHIATRIC: Unremarkable All other review of systems found to be negative. PHYSICAL EXAMINATION: VITAL SIGNS: Please see below. GENERAL: Pleasant and cooperative. No acute distress. right facial droop HEENT: PERRL. Extraocular movements intact. Clear conjunctiva CARDIOVASCULAR: Regular rate and rhythm. No murmurs, rubs, or gallops LUNGS: Clear to auscultation bilaterally. No wheezes. No rhonchi ABDOMEN: Soft, nontender, nondistended. Positive bowel sounds. Normal active bowel sounds NEUROLOGICAL: Alert and oriented times three. Cranial nerves II through XII grossly intact. Sensation diminished to light touch RUE and altered in RLE EXTREMITIES: 5\5 strength left upper extremities. 4/5 RUE 5/5 strength in left lower extremity. 4/5 RLE RLE edema (-) homans ASSESSMENT:75-year-old M with past medical history of DM, chronic pancreatitis who presents status post left felicitas stroke PLAN: 1. 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 Cardiac- hx of HTN c/u BP meds, adjust prn 4. Resp- monitor for infection 5. GI ppx- protonix -hx of chronic pancreatitis with recent flair, elevated lipase over the weekend, diet changed to clear liquid, patient reporting no abdominal sx today, will recheck lipase today and refer to GI 6. DVT ppx- MELLY, Dopplers negative for DVT 7. Pain- tylenol prn 8. - +urinary tract infection on Ceftriaxone, switching to Ciprofloxacin, Ucx +KOCURICyn WISE, salazar removed, patient voiding well, c/u flomax 9. endo- hx of DM, c/u levemir and ISS 10. Dispo: tbd Allergies Coded Allergies: No Known Allergies (Unverified , 10/20/18) Vital Signs Vital Signs Date Time Temp Pulse Resp B/P (MAP) Pulse Ox O2 Delivery O2 Flow Rate FiO2 12/17/20 09:22 88 138/71 12/17/20 05:24 98.0 18 98 Room Air Laboratory Data Labs 24H Laboratory Tests 2 12/16/20 16:43: Bedside Glucose (Misc Panel) 160H 12/16/20 19:58: Bedside Glucose (Misc Panel) 143H 12/17/20 05:34: Bedside Glucose (Misc Panel) 82L 12/17/20 11:20: Bedside Glucose (Misc Panel) 215H Current Medications Current Medications Current Medications Medications (Trade) Dose Ordered Sig/Anay Route PRN Reason Start Time Stop Time Status Last Admin Dose Admin Acetaminophen (Tylenol Tab) 650 mg Q4HP PRN PO fever/MILD PAIN (PS 1-4) 12/11/20 13:20 Amlodipine Besylate (Norvasc) 5 mg BID PO 12/13/20 09:00 12/17/20 09:22 Amlodipine Besylate (Norvasc) 5 mg DAILY PO 12/12/20 09:00 12/13/20 08:07 DC 12/12/20 10:02 Aspirin (Ecotrin) 81 mg DAILY PO 12/12/20 09:00 12/17/20 09:21 Atorvastatin Calcium (Lipitor) 20 mg QHS PO 12/11/20 21:00 12/16/20 20:49 Bisacodyl (Dulcolax Suppository) 10 mg DAILYPRN PRN [place] CONSTIPATION 12/11/20 13:20 Ceftriaxone Sodium 1 gm/ Dextrose 50 ml @ 100 mls/hr Q24H IV 12/12/20 09:00 12/12/20 13:14 DC 12/12/20 08:21 Ciprofloxacin (Cipro) 500 mg BID@06,18 PO 12/13/20 06:00 12/18/20 18:01 12/17/20 06:23 Clopidogrel Bisulfate (PLAVix) 75 mg DAILY PO 12/12/20 09:00 12/17/20 09:22 Dextrose (Dextrose 50%) 25 ml ASDIRECTED PRN IV SEE LABEL COMMENTS 12/11/20 13:20 Docusate Sodium (Colace) 100 mg BID PO 12/11/20 21:00 12/16/20 10:15 Glucagon (Glucagon) 1 mg ASDIRECTED PRN SC SEE LABEL COMMENTS 12/11/20 13:20 Glucose (Glucose) 16 GM ASDIRECTED PRN PO SEE LABEL COMMENTS 12/11/20 13:20 Heparin Sodium (Porcine) (Heparin) 5,000 units Q12H SQ 12/12/20 21:00 12/17/20 09:23 Hydralazine HCl (Apresoline) 25 mg Q6H PO 12/12/20 12:00 12/17/20 06:23 Insulin Detemir (Levemir Insulin) 10 units BID SC 12/11/20 21:00 12/16/20 20:49 Insulin Human Lispro (HumaLOG INSULIN) SEE PROTOCOL TABLE AC SC 12/11/20 17:30 12/16/20 16:49 Insulin Human Lispro (HumaLOG INSULIN) SEE PROTOCOL TABLE QHS SC 12/11/20 21:00 12/12/20 20:33 Lactobacillus Acidophilus (Bacid) 1 ea TID PO 12/12/20 09:00 12/17/20 09:21 Losartan Potassium (Cozaar) 50 mg DAILY PO 12/12/20 09:00 12/17/20 09:23 Multivitamins (Theragram-M) 1 tab DAILY PO 12/12/20 09:00 12/17/20 09:22 Pantoprazole Sodium (Protonix) 40 mg DAILY PO 12/12/20 09:00 12/17/20 09:21 Polyethylene Glycol (Miralax) 1 pkt DAILY PRN PO CONSTIPATION 12/11/20 13:20 Senna (Senokot) 1 tab QHS PO 12/11/20 21:00 12/15/20 20:40 Tamsulosin HCl (Flomax) 0.4 mg DAILY PO 12/12/20 09:00 12/17/20 09:21 AUSTIN SOUZA MD Dec 17, 2020 11:51
[2020-12-17 14:00] VITALS: BP 119/57
[2020-12-17 20:00] VITALS: BP 130/62
[2020-12-17] MEDS: ATORVASTATIN 20 MG TAB PO SCH (20:20)
[2020-12-17] MEDS: SENNA 8.6 MG TAB (SENOKOT) PO SCH (20:21)
[2020-12-18] MEDS: CIPROFLOXACIN 500MG TABLET PO SCH ×2 (05:19→17:13)
[2020-12-18] MEDS: **hydrALAZINE HCL** 25 MG TAB PO SCH ×4 (05:19→23:49)
[2020-12-18 06:00] VITALS: BP 133/63
[2020-12-18 07:22] LABS: BASO % 0.4 % (0.0-1.0); EOS # 0.2 10^3/uL (0.0-0.5); EOS % 3.3 % (0.0-3.0); HEMATOCRIT 42.1 % (42.0-52.0); HEMOGLOBIN 14.4 g/dl (13.5-17.5); LYMPH # 0.6 10^3/uL (1.5-5.0); LYMPH % 7.9 % (24.0-44.0); MEAN CORPUSCULAR HEMOGLOBIN 30.9 pg (27.0-33.0); MEAN CORPUSCULAR HGB CONC 34.2 g/dl (32.0-36.5); MEAN CORPUSCULAR VOLUME 90.3 fl (80.0-96.0); MONO # 0.7 10^3/uL (0.0-0.8); MONO % 9.5 % (2.0-8.0); NEUTROPHILS # 5.8 10^3/uL (1.5-8.5); NEUTROPHILS % 78.5 % (36.0-66.0); PLATELET COUNT, AUTOMATED 364 10^3/uL (150-450); RED BLOOD COUNT 4.66 10^6/uL (4.30-6.10); WHITE BLOOD COUNT 7.4 10^3/uL (4.0-10.0)
[2020-12-18] MEDS: HumaLOG INSULIN (NovoLOG) PER UNIT SC SCH ×4 (07:30→21:33)
[2020-12-18] MEDS: LEVEMIR (INSULIN DETEMIR) 1 UNITS/0.01ML SC SCH ×2 (07:37→21:33)
[2020-12-18 07:43] LABS: BLOOD UREA NITROGEN 9 MG/DL (7-18); CALCIUM LEVEL 8.5 MG/DL (8.8-10.2); CARBON DIOXIDE LEVEL 28 MEQ/L (21-32); CHLORIDE LEVEL 106 MEQ/L (98-107); CREATININE FOR GFR 0.74 MG/DL (0.70-1.30); GLOMERULAR FILTRATION RATE > 60.0 (>42); GLUCOSE, FASTING 118 MG/DL (70-100); POTASSIUM SERUM 3.4 MEQ/L (3.5-5.1); SODIUM LEVEL 140 MEQ/L (136-145)
[2020-12-18] MEDS: DOCUSATE SODIUM 100MG CAPSULE PO SCH ×2 (09:00→21:31)
[2020-12-18] MEDS: REMEDY PHYTOPLEX Z-GUARD PASTE 113GM TUBE (FROM STOREROOM PRODUCT) TOP SCH ×3 (09:00→21:00)
[2020-12-18] MEDS: ASPIRIN 81MG ENTERIC TABLET PO SCH (09:29)
[2020-12-18] MEDS: PANTOPRAZOLE 40MG TAB (PROTONIX) PO SCH (09:30)
[2020-12-18] MEDS: LACTOBACILLUS ACIDOPHILUS CAP (BACID) PO SCH ×3 (09:30→21:31)
[2020-12-18] MEDS: MULTIVITAMINS/MINERALS THERAP 1 TAB PO SCH (09:30)
[2020-12-18] MEDS: LOSARTAN 50MG TABLET PO SCH (09:30)
[2020-12-18] MEDS: TAMSULOSIN 0.4 MG CAP PO SCH (09:30)
[2020-12-18] MEDS: amLODIPine 5 MG TAB PO SCH ×2 (09:30→21:32)
[2020-12-18] MEDS: CLOPIDOGREL 75 MG TAB PO SCH (09:30)
[2020-12-18] MEDS: HEPARIN SOD (PORCINE) 5000UNITS/ML 1ML VIAL/SYRINGE SQ SCH ×2 (09:30→21:34)
[2020-12-18 10:39] LABS: MAGNESIUM LEVEL 1.8 MG/DL (1.8-2.4)
[2020-12-18] MEDS ORDERED: POTASSIUM CHLORIDE 10 MEQ SR TABLET PO ONE (11:00)
[2020-12-18 11:16] VITALS: BP 125/58
[2020-12-18 14:00] VITALS: BP 126/59
--- NOTE | 2020-12-18 15:17 | IPNPDOC ---
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 REVIEW OF SYSTEMS: The following is a completed review of systems and has been reviewed. Review of systems otherwise unremarkable. PAIN: Patient self reports no pain EYES: No recent vision changes EARS, NOSE, & THROAT: No throat pain, or dysphagia, or rhinorrhea CARDIOVASCULAR: denies chest pain or palpitations PULMONARY: Denies shortness of breath GASTROINTESTINAL: Denies constipation/diarrhea GENITOURINARY: denies dysuria/retention MUSCULOSKELETAL: right sided paresis NEUROLOGICAL:Right sided paresis, dysarthria HEMATOLOGICAL: denies easy bruising SKIN: no rash PSYCHIATRIC: Unremarkable All other review of systems found to be negative. PHYSICAL EXAMINATION: VITAL SIGNS: Please see below. GENERAL: Pleasant and cooperative. No acute distress. right facial droop HEENT: PERRL. Extraocular movements intact. Clear conjunctiva CARDIOVASCULAR: Regular rate and rhythm. No murmurs, rubs, or gallops LUNGS: Clear to auscultation bilaterally. No wheezes. No rhonchi ABDOMEN: Soft, nontender, nondistended. Positive bowel sounds. Normal active bowel sounds NEUROLOGICAL: Alert and oriented times three. Cranial nerves II through XII grossly intact. Sensation diminished to light touch RUE and altered in RLE EXTREMITIES: 5\5 strength left upper extremities. 4/5 RUE 5/5 strength in left lower extremity. 4/5 RLE RLE edema (-) homans ASSESSMENT:75-year-old M with past medical history of DM, chronic pancreatitis who presents status post left felicitas stroke PLAN: 1. 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 Cardiac- hx of HTN c/u BP meds, adjust prn 4. Resp- monitor for infection 5. GI ppx- protonix -hx of chronic pancreatitis with recent flair, elevated lipase over the weekend, lipase WNL will advance CLD to full liquid and recheck lipase tomorrow, GI referral sent 6. DVT ppx- MELLY, Dopplers negative for DVT 7. Pain- tylenol prn 8. - +urinary tract infection on Ceftriaxone, switching to Ciprofloxacin, Ucx +KOCURIA FRANDY, salazar removed, patient voiding well, c/u flomax 9. endo- hx of DM, c/u levemir and ISS 10. Dispo: tbd Allergies Coded Allergies: No Known Allergies (Unverified , 10/20/18) Vital Signs Vital Signs Date Time Temp Pulse Resp B/P (MAP) Pulse Ox O2 Delivery O2 Flow Rate FiO2 12/18/20 14:00 98.0 105 18 126/59 (81) 97 Room Air Laboratory Data CBC/BMP Laboratory Tests 12/18/20 06:51 Labs 24H Laboratory Tests 2 12/17/20 16:27: Bedside Glucose (Misc Panel) 143H 12/17/20 19:45: Bedside Glucose (Misc Panel) 200H 12/18/20 05:19: Bedside Glucose (Misc Panel) 84 12/18/20 06:51: Immature Granulocyte % (Auto) 0.4, Neutrophils (%) (Auto) 78.5H, Lymphocytes (%) (Auto) 7.9L, Monocytes (%) (Auto) 9.5H, Eosinophils (%) (Auto) 3.3H, Basophils (%) (Auto) 0.4, Neutrophils # (Auto) 5.8, Lymphocytes # (Auto) 0.6L, Monocytes # (Auto) 0.7, Eosinophils # (Auto) 0.2, Basophils # (Auto) 0.0, Nucleated Red Blood Cells % (auto) 0.0, Anion Gap 6L, Glomerular Filtration Rate > 60.0, Calcium Level 8.5L, Magnesium Level 1.8 12/18/20 11:22: Bedside Glucose (Misc Panel) 206H Current Medications Current Medications Current Medications Medications (Trade) Dose Ordered Sig/Anay Route PRN Reason Start Time Stop Time Status Last Admin Dose Admin Acetaminophen (Tylenol Tab) 650 mg Q4HP PRN PO fever/MILD PAIN (PS 1-4) 12/11/20 13:20 Amlodipine Besylate (Norvasc) 5 mg BID PO 12/13/20 09:00 12/18/20 09:30 Amlodipine Besylate (Norvasc) 5 mg DAILY PO 12/12/20 09:00 12/13/20 08:07 DC 12/12/20 10:02 Aspirin (Ecotrin) 81 mg DAILY PO 12/12/20 09:00 12/18/20 09:29 Atorvastatin Calcium (Lipitor) 20 mg QHS PO 12/11/20 21:00 12/17/20 20:20 Bisacodyl (Dulcolax Suppository) 10 mg DAILYPRN PRN [place] CONSTIPATION 12/11/20 13:20 Ceftriaxone Sodium 1 gm/ Dextrose 50 ml @ 100 mls/hr Q24H IV 12/12/20 09:00 12/12/20 13:14 DC 12/12/20 08:21 Ciprofloxacin (Cipro) 500 mg BID@06,18 PO 12/13/20 06:00 12/18/20 18:01 12/18/20 05:19 Clopidogrel Bisulfate (PLAVix) 75 mg DAILY PO 12/12/20 09:00 12/18/20 09:30 Dextrose (Dextrose 50%) 25 ml ASDIRECTED PRN IV SEE LABEL COMMENTS 12/11/20 13:20 Docusate Sodium (Colace) 100 mg BID PO 12/11/20 21:00 12/16/20 10:15 Glucagon (Glucagon) 1 mg ASDIRECTED PRN SC SEE LABEL COMMENTS 12/11/20 13:20 Glucose (Glucose) 16 GM ASDIRECTED PRN PO SEE LABEL COMMENTS 12/11/20 13:20 Heparin Sodium (Porcine) (Heparin) 5,000 units Q12H SQ 12/12/20 21:00 12/18/20 09:30 Hydralazine HCl (Apresoline) 25 mg Q6H PO 12/12/20 12:00 12/18/20 05:19 Insulin Detemir (Levemir Insulin) 10 units BID SC 12/11/20 21:00 12/17/20 20:21 Insulin Human Lispro (HumaLOG INSULIN) SEE PROTOCOL TABLE AC SC 12/11/20 17:30 12/18/20 11:59 Insulin Human Lispro (HumaLOG INSULIN) SEE PROTOCOL TABLE QHS SC 12/11/20 21:00 12/12/20 20:33 Lactobacillus Acidophilus (Bacid) 1 ea TID PO 12/12/20 09:00 12/18/20 09:30 Losartan Potassium (Cozaar) 50 mg DAILY PO 12/12/20 09:00 12/18/20 09:30 Multivitamins (Theragram-M) 1 tab DAILY PO 12/12/20 09:00 12/18/20 09:30 Pantoprazole Sodium (Protonix) 40 mg DAILY PO 12/12/20 09:00 12/18/20 09:30 Polyethylene Glycol (Miralax) 1 pkt DAILY PRN PO CONSTIPATION 12/11/20 13:20 Senna (Senokot) 1 tab QHS PO 12/11/20 21:00 12/15/20 20:40 Tamsulosin HCl (Flomax) 0.4 mg DAILY PO 12/12/20 09:00 12/18/20 09:30 AUSTIN SOUZA MD Dec 18, 2020 15:17
[2020-12-18 16:50] VITALS: BP 135/64
[2020-12-18 20:00] VITALS: BP 134/60
[2020-12-18] MEDS: SENNA 8.6 MG TAB (SENOKOT) PO SCH (21:31)
[2020-12-18] MEDS: ATORVASTATIN 20 MG TAB PO SCH (21:32)
[2020-12-19] MEDS: **hydrALAZINE HCL** 25 MG TAB PO SCH ×3 (05:39→17:41)
[2020-12-19 05:47] VITALS: BP 137/67
[2020-12-19] MEDS: HumaLOG INSULIN (NovoLOG) PER UNIT SC SCH ×4 (07:30→21:38)
[2020-12-19 08:04] LABS: AMYLASE 66 U/L (25-115); BLOOD UREA NITROGEN 6 MG/DL (7-18); CALCIUM LEVEL 8.9 MG/DL (8.8-10.2); CARBON DIOXIDE LEVEL 26 MEQ/L (21-32); CHLORIDE LEVEL 109 MEQ/L (98-107); CREATININE FOR GFR 0.65 MG/DL (0.70-1.30); GLOMERULAR FILTRATION RATE > 60.0 (>42); GLUCOSE, FASTING 98 MG/DL (70-100); LIPASE 231 U/L (73-393); POTASSIUM SERUM 3.9 MEQ/L (3.5-5.1); SODIUM LEVEL 141 MEQ/L (136-145)
[2020-12-19] MEDS: REMEDY PHYTOPLEX Z-GUARD PASTE 113GM TUBE (FROM STOREROOM PRODUCT) TOP SCH ×3 (09:00→21:00)
[2020-12-19] MEDS: LEVEMIR (INSULIN DETEMIR) 1 UNITS/0.01ML SC SCH ×2 (09:00→21:38)
[2020-12-19] MEDS: DOCUSATE SODIUM 100MG CAPSULE PO SCH ×2 (09:00→21:00)
[2020-12-19] MEDS: TAMSULOSIN 0.4 MG CAP PO SCH (09:26)
[2020-12-19] MEDS: CLOPIDOGREL 75 MG TAB PO SCH (09:26)
[2020-12-19] MEDS: PANTOPRAZOLE 40MG TAB (PROTONIX) PO SCH (09:26)
[2020-12-19] MEDS: MULTIVITAMINS/MINERALS THERAP 1 TAB PO SCH (09:26)
[2020-12-19] MEDS: LACTOBACILLUS ACIDOPHILUS CAP (BACID) PO SCH ×3 (09:26→21:37)
[2020-12-19] MEDS: ASPIRIN 81MG ENTERIC TABLET PO SCH (09:26)
[2020-12-19] MEDS: LOSARTAN 50MG TABLET PO SCH (09:28)
[2020-12-19] MEDS: HEPARIN SOD (PORCINE) 5000UNITS/ML 1ML VIAL/SYRINGE SQ SCH ×2 (09:28→21:38)
[2020-12-19] MEDS: amLODIPine 5 MG TAB PO SCH ×2 (09:28→21:37)
[2020-12-19 14:00] VITALS: BP 126/58
[2020-12-19 20:10] VITALS: BP 148/69
[2020-12-19] MEDS: SENNA 8.6 MG TAB (SENOKOT) PO SCH (21:00)
[2020-12-19] MEDS: ATORVASTATIN 20 MG TAB PO SCH (21:37)
[2020-12-20] MEDS: **hydrALAZINE HCL** 25 MG TAB PO SCH ×3 (00:29→06:50)
[2020-12-20 06:49] VITALS: BP 148/74
[2020-12-20] MEDS: HumaLOG INSULIN (NovoLOG) PER UNIT SC SCH (08:14)
[2020-12-20] MEDS: REMEDY PHYTOPLEX Z-GUARD PASTE 113GM TUBE (FROM STOREROOM PRODUCT) TOP SCH (08:15)
[2020-12-20] MEDS: HEPARIN SOD (PORCINE) 5000UNITS/ML 1ML VIAL/SYRINGE SQ SCH (08:15)
[2020-12-20] MEDS: PANTOPRAZOLE 40MG TAB (PROTONIX) PO SCH (08:15)
[2020-12-20] MEDS: MULTIVITAMINS/MINERALS THERAP 1 TAB PO SCH (08:15)
[2020-12-20] MEDS: LEVEMIR (INSULIN DETEMIR) 1 UNITS/0.01ML SC SCH (08:15)
[2020-12-20] MEDS: TAMSULOSIN 0.4 MG CAP PO SCH (08:15)
[2020-12-20] MEDS: CLOPIDOGREL 75 MG TAB PO SCH (08:15)
[2020-12-20] MEDS: ASPIRIN 81MG ENTERIC TABLET PO SCH (08:15)
[2020-12-20] MEDS: LACTOBACILLUS ACIDOPHILUS CAP (BACID) PO SCH (08:15)
[2020-12-20] MEDS: DOCUSATE SODIUM 100MG CAPSULE PO SCH (08:16)
[2020-12-20 08:17] VITALS: BP 136/68
[2020-12-20] MEDS: amLODIPine 5 MG TAB PO SCH (08:17)
[2020-12-20] MEDS: LOSARTAN 50MG TABLET PO SCH (08:17)
[2020-12-20] MEDS ORDERED: ASPI-551 PO (09:33)
[2020-12-20] MEDS ORDERED: RISATAB3 PO (09:33)
[2020-12-20] MEDS ORDERED: ATOR1TAB21 PO (09:33)
[2020-12-20] MEDS ORDERED: AMLO1TAB24 PO (09:33)
[2020-12-20] MEDS ORDERED: CLOP75TA2 PO (09:33)
[2020-12-20] MEDS ORDERED: COZA50TA PO (09:33)
[2020-12-20] MEDS ORDERED: METF850T4 PO (09:33)
[2020-12-20] MEDS ORDERED: PANT40TA29 PO (09:33)
[2020-12-20] MEDS ORDERED: FLOM0.4C39 PO (09:33)
[2020-12-20] MEDS ORDERED: HYDR25TA PO (09:33)
--- NOTE | 2020-12-24 14:14 | PMRDS ---
NAME: SERA HAQUE [facility] WT ID#: [id number] JOB: [id number] LEIGHANN: 12/20/2020 ACCT: [id number] DOCTOR: AUSTIN SOUZA MD PMR DISCHARGE SUMMARY DATE OF ADMISSION: 12/11/2020 DATE OF DISCHARGE: 12/20/2020 CHIEF COMPLAINT/DISCHARGE DIAGNOSIS: Stroke. HISTORY OF PRESENT ILLNESS: This is a 75-year-old man with a past medical history of chronic pancreatitis, diabetes, and hyperlipidemia who presented to [facility] ED on 12/04/2020 with ataxia and dysarthria with right lower extremity weakness. He was outside the TPA window with MRI showing left felicitas infarct and MRI showing severe right vertebral artery stenosis. He was monitored on telemetry, allowed permissive hypertension, and started on aspirin and Plavix. He had worsening weakness on exam, and there was concern for new stroke with follow up MRI 12/09/2020 showing "no hemorrhagic transformation or appreciable change involving the left pontine infarct." He had leukocytosis and was started on ceftriaxone for UTI with cultures pending. Additionally he had an episode of acute pancreatitis for which he was made n.p.o. and then advanced to clear liquid diet and then to low fat diet. He had considerable ADL and mobility impairments and was deemed medically appropriate for discharge to ARU on 12/11/20. PAST MEDICAL HISTORY: As per HPI. HOSPITAL COURSE: Patient was admitted and enrolled in a comprehensive PT, OT, speech and language pathology program. He received 24 hour nursing supervision, and weekly team meetings were held to discuss his progress. Patient was maintained on aspirin and Plavix for his left pontine stroke in addition to statin. Patient's blood pressures were reasonably well controlled. He did have a flare of pancreatitis, acute pancreatitis for which he was made n.p.o. followed by clear liquid diet and then transitioned into a full liquid diet with resolution of his acute pancreatitis. He was sent home with a GI referral. Patient initially had urinary retention, finished a course of ceftriaxone which was switched to Ciprofloxacin, started on Flomax, and Faust was removed with no difficulty voiding. His diabetes was controlled with Levemir and insulin sliding scale. He did have mild foot drop for which a consult was placed for an orthotics evaluation, and he was discharged home with family. DISCHARGE MEDICATIONS: As per instructions. FUNCTIONAL HISTORY: On discharge, patient was modified independent, able to ambulate 200 feet with a rolling walker, and modified independent for dressing. Thank you for this referral.
== END 2020-12-20 12:00 | disposition home or self-care (01) | DRG 57 ==
LOC: M PM&R 12-11 15:33
PROVIDERS: ADMIT Physical Medicine & Rehabilitation; ATTEND Physical Medicine & Rehabilitation
DX: I69.351 Hemiplegia and hemiparesis following cerebral infarction affecting right dominant side (principal); K86.1 Other chronic pancreatitis; N39.0 Urinary tract infection, site not specified; E11.9 Type 2 diabetes mellitus without complications; E78.5 Hyperlipidemia, unspecified; Z74.09 Other reduced mobility; Z74.1 Need for assistance with personal care; I69.322 Dysarthria following cerebral infarction; Z90.49 Acquired absence of other specified parts of digestive tract; I65.01 Occlusion and stenosis of right vertebral artery; I10 Essential (primary) hypertension; Z79.02 Long term (current) use of antithrombotics/antiplatelets; Z79.84 Long term (current) use of oral hypoglycemic drugs; Z79.899 Other long term (current) drug therapy

== ENCOUNTER → 2021-01-20 | Outpatient (CLI) | payer MEDICARE ==
[~2021-01-20] MED LIST changes: +AMLO1TAB24 PO; +ASPI-551 PO; +ATOR1TAB21 PO; +CIPR-249 PO; +CLOP75TA2 PO; +COZA50TA PO; +FLOM0.4C39 PO; +HYDR25TA PO; +INSUDET SC; +PANT40TA29 PO; +RISATAB3 PO
[2021-01-20 13:51] LABS: ALBUMIN 3.6 GM/DL (3.2-5.2); BILIRUBIN,DIRECT 0.3 MG/DL (0.0-0.2); BILIRUBIN,TOTAL 1.5 MG/DL (0.2-1.0); TOTAL PROTEIN 6.3 GM/DL (6.4-8.2)
== END ==
LOC: M LAB 12:18
PROVIDERS: ATTEND Physician Assistant Medical
DX: K85.00 Idiopathic acute pancreatitis without necrosis or infection (principal); R94.8 Abnormal results of function studies of other organs and systems

== ENCOUNTER → 2021-02-12 | Outpatient (CLI) | payer MEDICARE ==
--- NOTE | 2021-02-12 13:38 | REP ---
INDICATION: RT GROIN SWELLING ? HERNIA. COMPARISON: None. TECHNIQUE: Multiple ultrasonographic images of the right inguinal canal without and with Valsalva. FINDINGS: Bowel is identified herniating into the right inguinal calc canal with Valsalva. Without Valsalva the bowel spontaneously reduces. IMPRESSION: Right inguinal hernia as described. <Electronically signed by Bobby Larson > 02/12/21 [id number]
== END ==
LOC: M RAD 11:20
PROVIDERS: ATTEND Physician Assistant Medical
DX: R22.2 Localized swelling, mass and lump, trunk (principal)

== ENCOUNTER → 2021-04-10 | Outpatient (CLI) | payer MEDICARE ==
[~2021-04-10] MED LIST changes: +GLIM4TAB5 PO
== END ==
LOC: M LABSMTC 11:21
PROVIDERS: ATTEND Anesthesiology
DX: Z01.812 Encounter for preprocedural laboratory examination (principal); Z20.822 Contact with and (suspected) exposure to COVID-19

== ENCOUNTER 2021-04-15 09:01 | Day surgery (SDC) | payer MEDICARE ==
[~2021-04-15] VITALS: Ht 172.7 cm; Wt 410.5 kg
[~2021-04-15 09:01] MED LIST changes: +CelecoXIB 400 MG CAP PO ONE; +LIDOCAINE 1% MDV 20ML VIAL SQ PRN; +LIDOCAINE 2% 100MG/5ML SDV (FOR ANES.) As Ordered ONE; +LR 1,000 ML IV ONE; +MIDAZOLAM INJ 2MG/2ML VIAL (J2250 PER 1MG) As Ordered ONE; +ROCURONIUM BROMIDE 50 MG/5 ML VIAL As Ordered ONE; +ceFAZolin SOD 2 GM in IV 1 EA IV ONE; +fentaNYL 100 MCG/2 ML INJECTION (J3010) As Ordered ONE; +propofoL 200 MG/20 ML VIAL As Ordered ONE
[2021-04-15] MEDS ORDERED: BUPIVACAINE HCL 0.25% 30ML VIAL As Ordered ONE (09:25)
[2021-04-15] MEDS ORDERED: LIDOCAINE 1% SDV 30ML VIAL As Ordered ONE (09:25)
[2021-04-15] MEDS ORDERED: ONDANSETRON 4MG/2ML VIAL As Ordered ONE (09:57)
[2021-04-15] MEDS ORDERED: dexameTHASONE 4 MG/ML 1ML VIAL (J1100 PER 1MG) As Ordered ONE (09:57)
[2021-04-15] MEDS ORDERED: CelecoXIB 400 MG CAP PO ONE (10:00)
[2021-04-15] MEDS ORDERED: ACETAMINOPHEN 1000MG 100ML IV BTL (OFIRMEV) (J0131 PER 10MG) As Ordered ONE (10:05)
[2021-04-15] MEDS ORDERED: ROCURONIUM BROMIDE 50 MG/5 ML VIAL As Ordered ONE (10:22)
[2021-04-15] MEDS ORDERED: SUGAMMADEX SODIUM 500 MG/5 ML VIAL (BRIDION) As Ordered ONE (11:12)
--- NOTE | 2021-04-15 12:11 | ROOPDOC ---
[facility] Report Of Operation Report of Operation DATE OF PROCEDURE: 04/15/21 PREPROCEDURE DIAGNOSES: Right inguinal hernia. POSTPROCEDURE DIAGNOSES: Direct right inguinal hernia, cord lipoma. PROCEDURE PERFORMED: Robotic assisted laparoscopic transabdominal preperitoneal repair right inguinal hernia with 16 x 12 cm Progrip (XL) mesh SURGEON: Watson Martin MD MANAGER TRANSITION: Nikole Sarmiento, ELECTROENCEPHALOGRAPHIC TECHNOLOGIST Ms. Sarmiento assisted me with placement of ports, management of the instruments and adjustment of the robotic arms, instrument exchange, insertion of the mesh and sutures as well as closure of the ports. She remained on the field while I was at the surgeon's console ANESTHESIA: General endotracheal anesthesia. ESTIMATED BLOOD LOSS: Approximately 10 mL. COMPLICATIONS: None. REMARKS: 75-year-old male with bulging on his right groin roughly about 2 months with associated discomfort approach my clinic wishing repair of the hernia. No prior inguinal surgeries were hernia repair. He is brought in today for planned transabdominal preperitoneal repair with the da John robot. He was advised that a mesh will be placed as part of the repair. FINDINGS: Roughly about a 3 cm well-formed direct defect containing preperitoneal tissue, with associated attenuated transversalis fascia. This was plicated at the neck to reduce seroma formation. Exploration of the inguinal canal shows moderate bulky cord lipoma. No associated indirect hernia or invagination of the peritoneum into the inguinal canal. DESCRIPTION OF PROCEDURE: Patient received 2 g of Ancef IV preoperatively for wound prophylaxis. Patient was brought to the operating room, placed supine on the operating table. Compression boots placed in both lower extremities for DVT prophylaxis. General anesthesia started. His abdomen and groin/pelvic area then prepped and draped in the usual sterile fashion. We paused for a surgical timeout using both pre- incision safety checklist to verify correct patient, procedure site and addition al clinical information prior to beginning the procedure Entry to the abdomen done through a small incision 2 cms above the umbilical skin cleft. A Veress needle is inserted on a controlled fashion. CO2 insufflation started to pressure 15 mmHg. Using the same incision an 8 mm robotic trochard was then placed under direct vision of a 5mm laparoscope. The insertion site was inspected for injury and none was found. Patient was then positioned on a 10 degreeTrendelenburg position for adequate view of the hernia defect. Two 8mm working ports placed to the right and left of the camera trochar along the same line about 10 cms apart. The da John robot tower was then positioned in place and the trochars docked onto the robot. The robotic instruments were placed and positioned. I then unscrubbed and took control of the camera and the laparoscopic instruments at the surgeon's console. I used a 0 degree 8 mm robotic laparoscope, A forced bipolar forceps with bipolar cautery on left arm and A mynor-cut laparoscopic scissor with unipolar cautery in arm 1 was used, later on exhanged for a eneida suture cut needle seasonal driver. Operative Findings: No peritoneal defect/hernia found in the left side which was photo documented. Moderate sized direct defect on the right side. The internal ring opening was only minimally invaginated into the canal. An opening up of the peritoneal flap and examination of the inguinal canal on the right side, a moderate sized bulky cord lipoma was removed and reduced back into the preperitoneal space. The peritoneum was opened up about 6-7 cm above the superior edge of the indirect fascial defect of the inguinal hernia starting at the medial umbilical ligament going laterally towards the level of the anterior superior iliac spine. I maintained a preperitoneal dissection, keeping the parietal covering of the inferior epigastric vessels intact. The peritoneal envelope was then developed approaching the space of Retzius bringing the urinary bladder down. The pubic tubercle was exposed past the symphysis pubis and 2 cms inferior to the lower edge fo the pubic tubercle. The lateral space of Bogros was similarly opened up keeping the parietal envelope to the psoas muscle to prevent injury to the nerves traversing the muscle. . On approaching the inguinal hernia defect the preperitoneal tissue that was invaginating into the attenuated transversalis fascia was pulled back into the preperitoneal space. I plicated the redundant, attenuated transversalis fascia with a pursestring using a 2 OV lock suture to close the space and prevent seroma formation but did not attempt to close the defect itself to prevent nerve injury. This was pulled down into the Giorgio's ligament with the same 2 OV lock suture. The peritoneum was dissected further inferior to create adequate space for the mesh. The vas deferens was parietalized partially to free up the peritoneum inferiorly and medially. The inguinal canal was inspected and a moderate sized, bulky cord lipoma was found and reduced back into the preperitoneal space and divided to reduce the bulkiness. After fully dissecting the preperitoneal space, I checked for adequate hemostasis, as well as for presence of femoral hernia( none found), direct hernia and adequacy of the space created. I chose a 16 x 12 cm Parietex Pro Modeling [employer] Simulation Analyst self fixating mesh. This was folded with the center of the mesh marked for positioning. This was then delivered intra-abdominally through one of the trochars. In a controlled fashion this was positioned into the preperitoneal space with the medial side past the symphysis pubis, inferiorly below the pubic tubercle and center of the mesh abutting the inferior epigastric vessels,laterally at the Space of Bogros. This was carefully pressed onto the abdominal wall and made sure that it was flattened up. I further secured this with 2 OV lock placed at the gubernaculum on top of the symphysis pubis, Giorgio's ligament and medially to the investing transversalis fascia overlying the rectus abdominis muscle. After careful placement of the mesh, the peritoneal opening was then closed with a running suture of 3-0V LOC suture. As the hernia sac was long and redundant I incorporated the hernia sac into the closure of the peritoneum. The air in the preperitoneal space was gradually released to make sure there is no clamshellng of the inferior edge of the mesh. I then surveyed the abdomen and pelvis for any signs of injury. The instruments were removed. The abdomen was deflated. All ports were removed. The skin incisions were closed with 4-0 Monocryl in subcuticular fashion. The incisions were covered with Dermabond. The port sites were again infiltrated with local anesthesia. An ilioinguinal nerve block was also performed. Patient was promptly awakened, extubated and brought to the recovery room stable Count of sponges and instruments were verified correct. WATSON MARTIN MD Apr 15, 2021 12:11
[2021-04-15] MEDS ORDERED: ONDANSETRON 4MG/2ML VIAL IV PRN (12:15)
[2021-04-15] MEDS ORDERED: LR 1,000 ML IV SCH (12:15)
[2021-04-15] MEDS ORDERED: fentaNYL 100 MCG/2 ML INJECTION (J3010) IV PRN (12:15)
[2021-04-15] MEDS ORDERED: oxyCODONE 5MG TAB PO PRN (12:15)
[2021-04-15] MEDS ORDERED: KETOROLAC 30 MG/ML 1ML VIAL IV PRN (12:20)
[2021-04-15] MEDS ORDERED: PERCOCET 5MG/325MG TAB PO PRN (12:20)
[2021-04-15 13:50] VITALS: BP 148/67
== END 2021-04-15 14:30 | disposition home or self-care (01) ==
LOC: M SDC 09:01
PROVIDERS: ATTEND Surgery
DX: K40.90 Unilateral inguinal hernia, without obstruction or gangrene, not specified as recurrent (principal); I10 Essential (primary) hypertension; E78.5 Hyperlipidemia, unspecified; Z86.73 Personal history of transient ischemic attack (TIA), and cerebral infarction without residual deficits; Z79.82 Long term (current) use of aspirin; Z79.899 Other long term (current) drug therapy; Z79.84 Long term (current) use of oral hypoglycemic drugs
CPT/HCPCS: 49650; C1781; J0131; J0690; J1100; J2250; J2405; J3010; S2900

== ENCOUNTER 2021-05-05 03:22 | Observation (INO) | payer MEDICARE ==
[~2021-05-05] VITALS: Ht 172.7 cm; Wt 70.8 kg
[~2021-05-05 03:22] MED LIST changes: -CelecoXIB 400 MG CAP PO ONE; -LIDOCAINE 1% MDV 20ML VIAL SQ PRN; -LIDOCAINE 2% 100MG/5ML SDV (FOR ANES.) As Ordered ONE; -LR 1,000 ML IV ONE; -MIDAZOLAM INJ 2MG/2ML VIAL (J2250 PER 1MG) As Ordered ONE; -ROCURONIUM BROMIDE 50 MG/5 ML VIAL As Ordered ONE; -ceFAZolin SOD 2 GM in IV 1 EA IV ONE; -fentaNYL 100 MCG/2 ML INJECTION (J3010) As Ordered ONE; -propofoL 200 MG/20 ML VIAL As Ordered ONE
--- OUTSIDE RECORDS SUMMARY | 2021-05-05 03:28 | CCD | Continuity of Care Document ---
Author Author Mehul LOCO [place] Organization Unknown Address [address] [place] [address], [address] [place] [address] Phone [phone] Care Team Providers Care Parcel Post Truck Driver Name Role Phone Mark Lovell MD @ [facility] [phone] Mehul Harper AUTM [phone] Problems Active Problems Provider Date Deviated nasal septum Jaron Saxena MD Onset: 12/27/2013 Social History Type Date Description Comments Sex Unknown ETOH Use Denies alcohol use Tobacco Use Start: Unknown Denies Smoking Recreational Drug Use Denies Drug Use Allergies and adverse reactions Description No Known Drug Allergies Medications Active Medications SIG Qnty Indications Ordering Provide r Date Metoprolol Tartrate 100mg Tablets 1 po daily Unknown Metformin HCL 850mg Tablets 1 tab po bid Unknown Losartan Potassium 50mg Tablets 1 po daily Unknown Aspir-[address] 1 by mouth every day Unknown Invokana 300mg Tablets 1 po D aily Unknown Plavix 75mg Tablets 1 by mouth every day Unknown Atorvastatin Calcium 20mg Tablets 1 by mouth every day Unknown Tamsulosin HCL 0.4mg Capsules 1 by mouth every day Unknown Magnesium 400mg Tablets 1 by mouth every day Unknown Multi Vitamin Tablets by mouth every day Unknown Glipizide 5mg Tablets Take 1 Tablet By Mouth Every Day With Breakfast And 2 Tablets With Supper. Mark Lovell MD @ [facility] History Medications Hydrocodone Bitartrate/Acetaminophen 5-325mg Tablets 1 tabs by mouth every 6 hours as needed pain 14tabs Watson B Barayuga, MD 04/11/2021 - 04/29/2021 Immunizations Description No Information Available Vital Signs Date Vital Result Comment 04/29/2021 11:18am BP Systolic 156 mmHg BP Diastolic 79 mmHg Heart Rate 66 /min Body Temperature 98.4 F Height 68 inches 5'8" Weight 59.00 lb BMI (Body Mass Index) 9.0 kg/m2 [place] Body Weight 154 lb Weight 26.762 kg BSA (Body Surface Area) 1.22 m2 03/25/2021 2:53pm BP Systolic 132 mmHg BP Diastolic 70 mmHg Body Temperature 98.4 F Height 68 inches 5'8" Weight 157.12 lb BMI (Body Mass Index) 23.9 kg/m2 [place] Body Weight 154 lb Weight 71.272 kg BSA (Body Surface Area) 1.84 m2 Results Test Acquired Date Facility Test Result H/L Range Note Amylase & Lipase 01/20/2021 [facility] [address] [place] [address] [id number] [phone] Amylase 72 U/L Normal 25-115 Lipase 190 U/L Normal 73-393 1 Liver Profile 01/20/2021 [facility] [address] [place] [address] [id number] [phone] Ast/Sgot 24 U/L Normal 7-37 Alt/SGPT 54 U/L Normal 12-78 Alkaline Phosphatase 66 U/L Normal 45-117 Bilirubin,Total 1.5 mg/dL High 0.2-1.0 Bilirubin,Direct 0.3 mg/dL High 0.0-0.2 Total Protein 6.3 GM/DL Low 6.4-8.2 Albumin 3.6 GM/DL Normal 3.2-5.2 Albumin/Globulin Ratio 1.3 Normal 2 1 01/21/21 (WedJan 21) 03:59 PM KATHARINE CHARLEBOIS Normal. 2 01/21/21 (WedJan 21) 04:07 PM KATHARINE CHARLEBOIS Bilirubin mildly elevated. Total protein has improved. See triage. Procedures Date Code Description Status 04/15/2021 62262 Lap Inguinal Hernia Repair Compl eted 03/25/2021 17668 Office/Outpatient Established Lo w MDM 20-29 Min Completed 01/14/2021 48432 Office/Outpatient Established Mo d MDM 30-39 Min Completed Medical Devices Description No Information Available Encounters Type Date Location Provider Dx Diagnosis Office Visit 04/29/2021 11:15a [facility] LEORA Valdez K40.30 Unil inguinal hernia, w obst, w/o gangr, not spcf as recur Z48.815 Encntr for surgical aftcr fo llowing surgery on the dgstv sys Office Visit 03/25/2021 3:00p [facility] Zach Martin MD K40.90 Unil inguinal hernia, w/o ob st or gangr, not spcf as recur Office Visit 01/14/2021 3:15p [facility] SHAQ Hartley K85.00 Idiopathic acute pancreatiti s without necrosis or infection R94.8 Abnormal results of function studies of organs and systems Assessments Date Code Description Provider 04/29/2021 K40.30 Unilateral inguinal hernia, with obstruction, without gangrene, not specified as recurrent LEORA Hall 04/29/2021 Z48.815 Encounter for surgic al aftercare following surgery on the digestive system LEORA Hall 04/15/2021 K40.30 Unilateral inguinal hernia, with obstruction, without gangrene, not specified as recurrent Watson Martin MD 03/25/2021 K40.90 Right inguinal hernia Watson Martin MD 01/14/2021 K85.00 Idiopathic acute pancreatitis wi thout necrosis or infection SHAQ Hartley 01/14/2021 R94.8 Abnormal results of function studies of other organs and systems SHAQ Hartley Plan of Treatment No Information Available Functional Status Description No Information Available Mental Status Description No Information Available Referrals Refer to Dr Reason for Referral Status Appt Date Watson Martin MD RIGHT INGUINAL HERNIA Scheduled [address] [place] [address] [address] [place] [address] [phone] Delgado Barnett M.D. FOLLOW UP FROM ARU Scheduled 021 [facility], Gastroenterology [address] [place] [address], [place] [address] [phone]
--- OUTSIDE RECORDS SUMMARY | 2021-05-05 03:28 | CCD | Continuity of Care Document ---
Author Author Mehul MARTIN MD Organization Unknown Address [address] [place] [address] Phone [phone] Care Team Providers Care Psychologist Research Assistant Name Role Phone Mark Lovell MD @ [facility] Mehul Harper AUTM [phone] Problems Active Problems Provider Date Deviated nasal septum Jaron Saxena MD Onset: 12/27/2013 Social History Type Date Description Comments Sex Unknown ETOH Use Denies alcohol use Tobacco Use Start: Unknown Denies Smoking Recreational Drug Use Denies Drug Use Allergies and adverse reactions Description No Known Drug Allergies Medications Active Medications SIG Qnty Indications Ordering Provide r Date Hydrocodone Bitartrate/Acetaminophen 5-325mg Tablets 1 tabs by mouth every 6 hours as needed pain 14tabs Watson Martin MD 04/11/2021 Metoprolol Tartrate 100mg Tablets 1 po daily [...] Tablets With Supper. Mark Lovell MD @ [facility] Int Immunizations Description No Information Available Vital Signs Date Vital Result Comment 03/25/2021 2:53pm BP Systolic 132 mmHg BP Diastolic 70 mmHg Body Temperature 98.4 F Height 68 inches 5'8" Weight 157.12 lb BMI (Body Mass Index) 23.9 kg/m2 [place] Body Weight 154 lb Weight 71.272 kg BSA (Body Surface Area) 1.84 m2 01/14/2021 3:40pm BP Systolic 130 mmHg BP Diastolic 70 mmHg Height 68 inches 5'8" Weight 162.00 lb BMI (Body Mass Index) 24.6 kg/m2 [place] Body Weight 154 lb Weight 73.483 kg BSA (Body Surface Area) 1.87 m2 Results Test Acquired Date Facility Test Result H/L Range Note Amylase & Lipase 01/20/2021 [facility] [address] [place] [address] [phone] Amylase 72 U/L Normal 25-115 Lipase 190 U/L Normal 73-393 1 Liver Profile 01/20/2021 [facility] [address] [place] [address] [phone] Ast/Sgot 24 U/L Normal 7-37 Alt/SGPT 54 [...] triage. Procedures Date Code Description Status 04/15/2021 95285 Lap Inguinal Hernia Repair Compl eted 03/25/2021 80249 Office/Outpatient Established Lo w MDM 20-29 Min Completed 01/14/2021 25422 Office/Outpatient Established Mo d MDM 30-39 Min Completed Medical Devices Description No Information Available Encounters Type Date Location Provider Dx Diagnosis Office Visit 03/25/2021 3:00p [facility] Edu jammie Martin MD K40.90 Unil inguinal hernia, w/o ob st or gangr, not spcf as recur Office Visit 01/14/2021 3:15p [facility] SHAQ Hartley K85.00 Idiopathic acute pancreatiti s without necrosis or infection R94.8 Abnormal results of function studies of organs and systems Assessments Date Code Description Provider 04/15/2021 K40.30 Unilateral inguinal hernia, with obstruction, without gangrene, not specified as recurrent Watson Martin MD 03/25/2021 K40.90 Right inguinal hernia Watson Martin MD 01/14/2021 K85.00 Idiopathic acute pancreatitis wi thout necrosis or infection SHAQ Hartley 01/14/2021 R94.8 Abnormal results of function studies of other organs and systems SHAQ Hartley Plan of Treatment Future Appointment(s):* 04/29/2021 11:15 am - LEORA Hall at [facility] 03/25/2021 - Watson Martin MD* K40.90 Right inguinal hernia* Comments:* Patient has a mildly symptomatic moderate sized right inguinal hernia. No hernia in the left side on my exam. I spoke to him the different options for repair including open, laparoscopic, robotic assisted. I will bring him to the operating room for a laparoscopic assisted transabdominal preperitoneal repair of his indirect right inguinal hernia. It was explained to him that a mesh will be used and is necessary to prevent recurrence. This is going to be placed in the preperitoneal area to prevent adhesion to bowels.I discussed with the patient the details of the proposed procedure, the benefits of performing the procedure, the most common risks on doing the procedure. This may include risk of injury to nearby structures including testicular injury, bladder injury, vascular injury bowel injury, risks of pain even chronic pain, mesh complications, recurrence of the hernia, postop urinary retention. I answered his questions and patient has consented to the procedure. Functional Status Description No Information Available Mental Status Description No Information Available Referrals Refer to Reason for Referral Status Appt Date Watson Martin MD RIGHT INGUINAL HERNIA Scheduled [address] [facility] [address] [place] [address] [phone] Delgado Barnett M.D. FOLLOW UP FROM ARU Scheduled [address] [place] [address], Gastroenterology [address] [facility], [address] [place] [address] [phone]
--- OUTSIDE RECORDS SUMMARY | 2021-05-05 03:28 | CCD | Continuity of Care Document ---
Author Author Mehul Lovell MD Organization Unknown Address [address] [facility] [address] [place] [address] Phone [phone] Care Team Providers Care Railroader Name Role Phone Mark Lovell JR, MD AUTM Unavailable Delgado Barnett MD AUTM [phone] Ralph Treviño MD AUTM [phone] Bert Pearce MD AUTM [phone] Problems Active Problems Provider Date Benign essential hypertension Mark Lovell MD Onset: 0 09/01/2010 Type 2 diabetes mellitus Mark Lovell MD Onset: 2010 Pure hypercholesterolemia Mark Lovell MD Onset: 09/01 Long-Term Use Of Aspirin Mark Lovell MD Onset: 2010 Screening for malignant neoplasm of prostate Mark bagley MD Onset: 09/01/2010 Essential hypertension JESSICA Gore Onset: 01/09/2016 Idiopathic chronic pancreatitis Mark Lovell MD Onset: 06/14/2020 Social History Type Date Description Comments Sex Unknown ETOH Use Never used alcohol Tobacco Use Start: Unknown Patient has never smoked Allergies, Adverse Reactions, Alerts Active Allergies Criticality Reaction | Severity Comments Date Januvia Unable to assess criticality pancreatitis 11/11/2010 Inactive Allergies NKDA Unable to assess criticality 09/01/2010 Medications Active Medications SIG Qnty Indications Ordering Provide r Date Freestyle Xander 14 Day/Sensor/Flash Guera toring System Misc apply every 14 days 2units Mark marie MD 01/07/2021 Losartan Potassium 50mg Tablets 1 by mouth every day 90tabs RAIMUNDO Nielson JR 021 Glipizide 5mg Tablets take one tablet by mouth every day with breakfast and two with supper 270tabs Mark Lovell MD 09/17/2020 Invokana 300mg Tablets 1 by mouth every day 90tabs Mark Lovell MD 06/14/2020 Freestyle Lite Test Strips test twice a day and as needed test strips for free style freedom meter e11.65 100units Mark Lovell MD 08/12/2018 Magnesium Oxide 250mg Tablets 2 tab daily AT Night Mark Lovell MD 05/11/2018 Metoprolol Succinate ER 100mg Tablets ER 24HR take 1 tablet daily 90tabs RAIMUNDO Nielson JR 11/03/2011 Accu-Chek Compact Test Drum Strip s Test Twice Daily Or as Directed 102units Vijay Cornelius 12/26/2010 Multivitamins Tablets 1 po q d Mark Lovell MD 11/11/2010 Aspir-[address] 1 po qd 100tabs Mark Lovell MD 12/25/2009 Metformin HCL 850mg Tablets Take 1 Tablet Twice A Day Before Meals 180tabs Simon Steel M.D. Atorvastatin Calcium 20mg Tablets 1 by mouth every day 90tabs Simon Steel M.D. Tamsulosin HCL 0.4mg Capsules 1 daily 1/2 hour after same meal 90caps Simon Steel M.D. Clopidogrel Bisulfate 75mg Tablets 1 by mouth every day 90tabs Mark Lovell MD History Medications Freestyle Xander 2/Sensor/Flash Glucose M onitoring System 2Sensor Misc reapply every 2 weeks 2units RAIMUNDO Nielson JR 12/31/2020 - 01/07/2021 Medications Administered in Office Medication SIG Qnty Indications Ordering Provider Date Covid-19 vaccine, Unspecified Inj ection Unknown 08/25/2020 Covid-19 vaccine, Unspecified Inj ection Unknown 08/04/2020 Immunizations CPT Code Status Date Vaccine Lot # [id number] Given 08/14/2014 Prevnar 13 [id number] Given 05/07/2009 Pneumovax 23 U-Tetan Refused 09/17/2020 Tetanus,Unspecified U-Flu Refused 09/17/2020 Influenza,Unspecified [id number] Refused 09/17/2020 Shingrix Zoster Vaccine (HZV), Recombinant, Subunit, Adjuvanted [id number] Refused 08/31/2017 Zoster Vaccine [id number] Refused 08/31/2017 Influenza Vaccin e Quadrivalent Preser/Antibiotic Free Im Use Vital Signs Date Vital Result Comment 03/28/2021 9:44am BP Systolic 136 mmHg BP Diastolic 70 mmHg Heart Rate 64 /min Height 68 inches 5'8" Weight 156.00 lb BMI (Body Mass Index) 23.7 kg/m2 01/31/2021 11:54am BP Systolic 128 mmHg BP Diastolic 80 mmHg Heart Rate 76 /min Height 68 inches 5'8" Weight 162.00 lb BMI (Body Mass Index) 24.6 kg/m2 Results Test Acquired Date Facility Test Result H/L Range Note A1c 03/28/2021 [facility]ick[facility] Cycling Instructor: [place] [address] [phone] Hba1c 7.1 % High <5.7 1 Est Avg Glucose 157 mg/dL High 60 - 110 Laboratory test finding 03/28/2021 [facility] salazar Cycling Instructor: [place] [address] [phone] PSA 1.51 ng/mL <4.00 2 Comprehensive Chem Profile 03/28/2021 [facility] garber Cycling Instructor: [place] [address] [phone] Glucose 100 mg/dL High 74 - 99 3 BUN 22 mg/dL High 7 - 18 Creatinine 0.8 mg/dL 0.6 - 1.3 Sodium 141 mEq/L 136 - 145 Potassium 4.7 mEq/L 3.5 - 5.1 Chloride 105 mEq/L 98 - 107 Carbon Dioxide 29 mEq/L 21 - 32 Calcium 9.3 mg/dL 8.5 - 10.1 Alk. Phosphatase 60 mg/dL 46 - 116 Total Bilirubin 2.0 mg/dL High 0.2 - 1.0 4 Ast (Sgot) 12 U/L Low 15 - 37 Alt (SGPT) 30 U/L 12 - 78 Albumin 3.7 g/dL 3.4 - 5.0 Total Protein 6.3 g/dL Low 6.4 - 8.2 A/G Ratio 1.42 CALC 1.00 - 1.90 GFR >= 60 mL/min >60 GFR >= 60 mL/min >60 5 Lipid Profile 03/28/2021 [facility] Cycling Instructor: [place] [address] [phone] Cholesterol 102 mg/dL Low 131 - 200 Triglycerides 27 mg/dL Low 30 - 150 HDL Cholesterol 54 mg/dL 35 - 60 LDL (Calculated) 43 CALC Low 50 - 159 Liver Profile 01/20/2021 [facility] nter [address] [place] [address] [phone] Ast/Sgot 24 U/L Normal 7-37 Alt/SGPT 54 U/L Normal 12-78 Alkaline Phosphatase 66 U/L Normal 45-117 Bilirubin,Total 1.5 mg/dL High 0.2-1.0 Bilirubin,Direct 0.3 mg/dL High 0.0-0.2 Total Protein 6.3 GM/DL Low 6.4-8.2 Albumin 3.6 GM/DL Normal 3.2-5.2 Albumin/Globulin Ratio 1.3 Normal Laboratory test finding 01/20/2021 [facility] [address] [place] [address] [phone] Amylase 72 U/L Normal 25-115 Lipase 190 U/L Normal 73-393 Influenza A/B RSV Covid Amp 12/04/2020 [facility] [address] [place] [address] [phone] Influenza A Amplification NEGATIVE Normal Negati ve 6 Influenza B Amplification NEGATIVE Normal Negative 7 RSV Amplification NEGATIVE Normal Negative 8 Sars Covid-19 Amplification NEGATIVE Normal Negative 9 CBC With Differential 12/04/[address] [address] [phone] White Blood Count 9.2 10 Normal 4.0-10.0 Red Blood Count 5.08 10 Normal 4.30-6.10 Hemoglobin 15.7 g/dL Normal 13.5-17.5 Hematocrit 46.2 % Normal 42.0-52.0 Mean Corpuscular Volume 90.9 fl Normal 80.0-96.0 Mean Corpuscular Hemoglobin 30.9 pg Normal 27.0-33.0 Mean Corpuscular HGB Conc 34.0 g/dL Normal 32.0-36.5 Red Cell Distribution Width 12.9 % Normal 11.5-14.5 Platelet Count, Automated 303 10 Normal 150-450 Neutrophils % 82.6 % High 36.0-66.0 Lymph % 7.3 % Low 24.0-44.0 [place] % 6.6 % Normal 2.0-8.0 Eos % 2.8 % Normal 0.0-3.0 Baso % 0.3 % Normal 0.0-1.0 Immature Granulocyte % 0.4 % Normal 0-3.0 Nucleated Red Blood Cell % 0.0 % Normal 0-0 Neutrophils # 7.6 10 Normal 1.5-8.5 Lymph # 0.7 10 Low 1.5-5.0 [place] # 0.6 10 Normal 0.0-0.8 Eos # 0.3 10 Normal 0.0-0.5 Baso # 0.0 10 Normal 0.0-0.2 Prothrombin Time/Inr 12/04/2020 [facility] enter [address] [place] [address] [phone] Prothrombin Time 11.9 seconds Normal 12.5-14.3 Inr 0.86 Normal 10 Laboratory test finding 12/04/[address] [address] [phone] Partial Thromboplastin Time 24.9 seconds Low 24 .2-38.5 Cardiac Marker Panel 12/04/2020 [facility] enter [address] [place] [address] [phone] CPK Creatine Phosphokinase 40 U/L Normal 39-30 8 CK-MB Value Mass 1.6 NG/ML Normal <3.6 MB/CK Relative Index 4.00 Normal < Or =4 11 Troponin I < 0.02 NG/ML Normal < 0.10 12 Type & Screen -Incl Blood Type,Tone,AB SC 12/04/[address] [address] [phone] Blood Type O POSITIVE Normal AB Screen (Indirect Yakelin)Vis NEGATIVE Normal Comprehensive Metabolic Profil 12/04/2020 [facility] [address] [place] [address] [phone] Glucose, Fasting 231 mg/dL High 70-100 Blood Urea Nitrogen 18 mg/dL Normal 7-18 Creatinine For GFR 0.76 mg/dL Normal 0.70-1.30 Glomerular Filtration Rate > 60.0 Normal >42 1 3 Sodium Level 140 mEq/L Normal 136-145 Potassium Serum 4.6 mEq/L Normal 3.5-5.1 Chloride Level 107 mEq/L Normal 98-107 Carbon Dioxide Level 27 mEq/L Normal 21-32 Anion Gap 6 mEq/L Low 8-16 Calcium Level 8.8 mg/dL Normal 8.8-10.2 Ast/Sgot 18 U/L Normal 7-37 Alt/SGPT 35 U/L Normal 12-78 Alkaline Phosphatase 64 U/L Normal 45-117 Bilirubin,Total 1.3 mg/dL High 0.2-1.0 Total Protein 5.5 GM/DL Low 6.4-8.2 Albumin 3.0 GM/DL Low 3.2-5.2 Albumin/Globulin Ratio 1.2 Normal 1 Lab Result Notes: Pre-Diabetes 5.7 - 6.4 % Diabetes = or > 6.5% 2 This assay was performed on the Siemens Dimension EXL using the B- Galactosidase/CPRG methodology and should not be compared interchangeably with other methods. The PSA should not be used alone as a screening test for the presence or absence of malignant disease. 3 100-125 mg/dL PRE-DIABET ES/FASTING >126 mg/dL DIABETES/FASTING 4 NOTE: RESULT VERIFIED. 5 CHRONIC KIDNEY DISEASE STAGI NG PER NKF STAGE I & II GFR >= 60 NORMAL TO MILDLY DECREASED STAGE III GFR 30-59 MODERATELY DECREASED STAGE IV GFR 15-29 SEVERELY DECREASED STAGE V GFR <15 VERY LITTLE GFR LEFT ESRD GFR <15 ON JOINT FINISHER 6 Negative results do not prec lude influenza or RSV virus infection and should not be used as the sole basis for treatment or other patient management decisions. 7 Negative results do not prec lude influenza or RSV virus infection and should not be used as the sole basis for treatment or other patient management decisions. 8 Negative results do not prec lude influenza or RSV virus infection and should not be used as the sole basis for treatment or other patient management decisions. 9 A false negative result may occur if a specimen is improperly collected, transported or handled. False negative results may also occur if inadequate numbers of organisms are present in the specimen. As with any molecular test, mutations within the target regions of Xpert Xpress SARS-CoV-2 could affect primer and/or probe binding resulting in failure to detect the presence of virus. This test cannot rule out diseases caused by other bacterial or viral pathogens. DISCLAIMER: Testing was performed using the [employer] SARS-CoV-2 test. This test was developed and its performance characteristics determined by [employer]. This test has not been FDA cleared or approved. This test has been authorized by FDA under an Emergency Use Authorization (EUA). This test is only authorized for the duration of time the declaration that circumstances exist justifying the authorization of the emergency use of in vitro diagnostic tests for detection of SARS-CoV-2 virus and/or diagnosis of COVID-19 infection under section 564(b)(1) of the Act, 21 U.S.C. 360bbb-3(b)(1), unless the authorization is terminated or revoked sooner. 10 THERAPUTIC HUMAN INR VALUES INDICATIONS NORMAL RANGES PROPHYLAXIS/TREATMENT OF: VENOUS THROMBOSIS 2.0-3.0 PULMONARY EMBOLISM 2.0-3.0 PREVENTION OF SYSTEMIC EMBOLISM FROM: TISSUE HEART VALVES 2.0-3.0 ACUTE MYOCARDIAL INFARCTION 2.0-3.0 VALVULAR HEART DISEASE 2.0-3.0 ATRIAL FIBRILLATION 2.0-3.0 MECHANICAL VALVES(HIGH RISK) 2.5-3.5 RECURRENT MYOCARDIAL INFARCTION 2.5-3.5 11 DIAGNOSIS CRITERIA MMB ng/ml Relative Index (RI) NON-AMI < or = 5 N/A COREA ZONE > 5 < or = 4 AMI > 5 > 4 12 Troponin I Reference Interva l for Siemens SpinPunch LOCI: 99th Percentile= 0.00-0.045 ng/ml Risk Stratification: <= 0.10 ng/ml Decreased Risk for Adverse Clinical Events. 0.10-1.50 ng/ml Increased Risk for Adv erse Clinical Events. Evaluation of additional criterion and/or repeat testing in 2-6 hours is suggested to rule out myocardial damage. >= 1.50 ng/ml Indicative of Myocardial Injury. 13 Units are mL/min/1.73 m2 Chronic Kidney Disease Staging per NKF: Stage I & II GFR >=60 Normal to Mildly Decreased Stage III GFR 30-59 Moderately Decreased Stage IV GFR 15-29 Severely Decreased Stage V GFR <15 Very Little GFR Left ESRD GFR <15 on JOINT FINISHER Procedures Date Code Description Status 03/28/2021 53686 Office/Outpatient Established Mo d MDM 30-39 Min Completed 03/28/2021 26606 EKG/Interpretation & Report Comp leted 01/31/2021 44574 Office/Outpatient Established Lo w MDM 20-29 Min Completed 12/31/2020 99191 Trans Care SRV W/I 14D Of DC, Co mm W/I 2 Dys Med Rec Completed 05/23/2020 [id number] Diabetic Retinal Eye Exam Comple leslie 05/19/2019 650862982 Diabetic Retinal Eye Exam Comple leslie 05/18/2018 [id number] Diabetic Retinal Eye Exam Comple leslie 04/22/2017 [id number] Diabetic Retinal Eye Exam Comple leslie 03/17/2017 [id number] Diabetic Retinal Eye Exam Comple leslie 02/02/2017 063587071 Diabetic Retinal Eye Exam Comple leslie 05/10/2013 035514699 Diabetic Retinal Eye Exam Comple leslie 07/18/2012 [id number] Colonoscopy Completed 01/27/2012 506993817 Diabetic Retinal Eye Exam Comple leslie 06/09/2011 527928210 Diabetic Retinal Eye Exam Comple leslie Medical Devices Description No Information Available Encounters Type Date Location Provider Dx Diagnosis Office Visit 03/28/2021 9:40a [facility] Mark Lovell MD Z01.810 Encounter for preprocedural cardiovascul ar examination K40.90 Unil inguinal hernia, w/o ob st or gangr, not spcf as recur I10 Essential (primary) hyperten william E78.00 Pure hypercholesterolemia, u nspecified E11.65 Type 2 diabetes mellitus wit h hyperglycemia I63.9 Cerebral infarction, unspeci fied N40.1 Benign prostatic hyperplasia with lower urinary tract symp N32.81 Overactive bladder Z12.5 Encounter for screening for malignant neoplasm of prostate Office Visit 01/31/2021 1:20p [facility] He Harper JR, PA R19.09 Other intra-abdominal and pe lvic swelling, mass and lump Office Visit 12/31/2020 2:40p [facility] RAIMUNDO Moncada JR I63.9 Cerebral infarction, unspeci fied I10 Essential (primary) hyperten william E78.00 Pure hypercholesterolemia, u nspecified K86.1 Other chronic pancreatitis E11.65 Type 2 diabetes mellitus wit h hyperglycemia N40.1 Benign prostatic hyperplasia with lower urinary tract symp N32.81 Overactive bladder Assessments Date Code Description Provider 03/28/2021 Z01.810 Encounter for preprocedural card iovascular examination Mark Lovell MD 03/28/2021 K40.90 Unilateral inguinal hernia, without obstruction or gangrene, not specified as recurrent Mark Lovell MD 03/28/2021 I10 Essential (primary) hypertension Mark Lovell MD 03/28/2021 E78.00 Pure hypercholesterolemia, unspe cified Mark Lovell MD 03/28/2021 E11.65 Type 2 diabetes mellitus with hy perglycemia Mark Lovell MD 03/28/2021 I63.9 Cerebral infarction, unspecified Mark Lovell MD 03/28/2021 N40.1 Benign prostatic hyperplasia wit h lower urinary tract symptoms Mark Lovell MD 03/28/2021 N32.81 Overactive bladder Mark fay MD 03/28/2021 Z12.5 Encounter for screening for soto gnant neoplasm of prostate Mark Lovell MD 01/31/2021 R19.09 Other intra-abdominal and pelvic swelling, mass and lump RAIMUNDO Nielson JR 12/31/2020 I63.9 Cerebral infarction, unspecified RAIMUNDO Nielson JR 12/31/2020 I10 Essential (primary) hypertension RAIMUNDO Nielson JR 12/31/2020 E78.00 Pure hypercholesterolemia, unspe cified RAIMUNDO Nielson JR 12/31/2020 K86.1 Other chronic pancreatitis RAIMUNDO Thomas JR 12/31/2020 E11.65 Type 2 diabetes mellitus with hy perglycemia RAIMUNDO Nielson JR 12/31/2020 N40.1 Benign prostatic hyperplasia wit h lower urinary tract symptoms RAIMUNDO Nielson JR 12/31/2020 N32.81 Overactive bladder RAIMUNDO Neely JR Plan of Treatment Future Appointment(s):* 07/30/2021 8:40 am - Mark Lovell MD at [facility] 03/28/2021 - Mark Lovell MD* Z01.810 Encounter for preprocedural cardiovascular examination * K40.90 Unilateral inguinal hernia, without obstruction or gangrene, not specified as recurrent * I10 Essential (primary) hypertension* Comments:* Hypertension at [facility]-8 guidelines * E78.00 Pure hypercholesterolemia, unspecified * E11.65 Type 2 diabetes mellitus with hyperglycemia * I63.9 Cerebral infarction, unspecified * N40.1 Benign prostatic hyperplasia with lower urinary tract symptoms * N32.81 Overactive bladder * Z12.5 Encounter for screening for malignant neoplasm of prostate * All * Comments:* Flu shot given Functional Status Description No Information Available Mental Status Description No Information Available Referrals Refer to Reason for Referral Status Appt Date Watson Martin MD CONSULT FOR PAINFUL RT INGUINAL HERNIA Raimundo francis Notified 03/25/2021 [facility] [address] [facility], [facility] [address] [place] [address] [phone]
--- OUTSIDE RECORDS SUMMARY | 2021-05-05 03:28 | CCD | Continuity of Care Document ---
Author Author Mehul LOCO AR Organization Unknown Address [address] [place] [address], [address] [place] [address] Phone [phone] Care Team Providers Care Retail Helper Name Role Phone Mark Lovell MD @ [facility] AUTM [phone] Mehul Harper AUTM [phone] Problems Active Problems Provider Date Deviated nasal [...] lb BMI (Body Mass Index) 9.0 kg/m2 [place] Body Weight 154 lb Weight 26.762 kg BSA (Body Surface Area) 1.22 m2 03/25/2021 2:53pm BP Systolic 132 mmHg BP Diastolic 70 mmHg Body Temperature 98.4 F Height 68 inches 5'8" Weight 157.12 lb BMI (Body Mass Index) 23.9 kg/m2 [place] Body Weight 154 lb Weight 71.272 kg BSA (Body Surface Area) 1.84 m2 Results Test Acquired Date Facility Test Result H/L Range Note Amylase & Lipase 01/20/2021 [facility] [address] [place] [address] [id number] [phone] Amylase 72 U/L Normal 25-115 Lipase 190 U/L Normal 73-393 1 Liver Profile 01/20/2021 [facility] [address] [place] [address] [id number] [phone] Ast/Sgot 24 U/L Normal 7-37 Alt/SGPT 54 [...] triage. Procedures Date Code Description Status 04/15/2021 72227 Lap Inguinal Hernia Repair Compl eted 03/25/2021 27341 Office/Outpatient Established Lo w MDM 20-29 Min Completed 01/14/2021 24472 Office/Outpatient Established Mo d MDM 30-39 Min Completed Medical Devices Description No Information Available Encounters Type Date Location Provider Dx Diagnosis Office Visit 03/25/2021 3:00p [facility] Edu jammie Martin MD K40.90 Unil inguinal hernia, w/o ob st or gangr, not spcf as recur Office Visit 01/14/2021 3:15p [facility] Pra ctice SHAQ Hartley K85.00 Idiopathic [...] to Dr Reason for Referral Status Appt Watson Martin MD RIGHT INGUINAL HERNIA Scheduled [address] [facility] [address] [place] [address] [phone] Delgado Barnett M.D. FOLLOW UP FROM ARU Scheduled [address] [place] [address], Gastroenterology [address] [facility], [address] [place] [address] [phone]
--- OUTSIDE RECORDS SUMMARY | 2021-05-05 03:29 | CCD | Continuity of Care Document ---
Author Author Mehul MARTIN MD Organization Unknown Address [address] [place] [address] Phone [phone] Care Team Providers Care Ladies Underwear Operator Name Role Phone Mark Lovell MD @ [facility] AUTM [phone] Mehul Harper AUTM [phone] Problems Active Problems Provider Date Deviated nasal septum Jaron Saxena MD Onset: 12/27/2013 Social History Type Date Description Comments Sex Unknown ETOH Use Denies alcohol use Tobacco Use Start: Unknown Denies Smoking Recreational Drug Use Denies Drug Use Allergies, Adverse Reactions, Alerts Description No Known Drug Allergies Medications Active [...] Supper. Mark Lovell MD @ [facility] Immunizations Description No Information Available Vital Signs Date Vital Result Comment 03/25/2021 2:53pm BP Systolic 132 mmHg BP Diastolic 70 mmHg Body Temperature 98.4 F Height 68 inches 5'8" Weight 157.12 lb BMI (Body Mass Index) 23.9 kg/m2 [place] Body Weight 154 lb Weight 71.272 kg BSA (Body Surface Area) 1.84 m2 01/14/2021 3:40pm BP Systolic 130 mmHg BP Diastolic 70 mmHg Height 68 inches 5'8" Weight 162.00 lb BMI (Body Mass Index) 24.6 kg/m2 [place] Body Weight 154 lb Weight 73.483 kg BSA (Body Surface Area) 1.87 m2 Results Test Acquired Date Facility Test Result H/L Range Note Amylase & Lipase 01/20/2021 [facility] [address] [place] [address]0035 [phone] Amylase 72 U/L Normal 25-115 Lipase 190 U/L Normal 73-393 1 Liver Profile 01/20/2021 [facility] [address] [place] [address] [phone] Ast/Sgot 24 U/L Normal 7-37 Alt/SGPT 54 U/L Normal 12-78 Alkaline Phosphatase 66 U/L Normal 45-117 Bilirubin,Total 1.5 mg/dL High 0.2-1.0 Bilirubin,Direct 0.3 mg/dL High 0.0-0.2 Total Protein 6.3 GM/DL Low 6.4-8.2 Albumin 3.6 GM/DL Normal 3.2-5.2 Albumin/Globulin Ratio 1.3 Normal 2 1 01/21/21 (WedJan 21) 03:59 PM LETA CHARALEEBOIS Normal. 2 01/21/21 (WedJan 21) 04:07 PM LETA CHARLEBOIS Bilirubin mildly elevated. Total protein has improved. See triage. Procedures Date Code Description Status 01/14/2021 40883 Office/Outpatient Established Mo d MDM 30-39 Min Completed Medical Devices Description No Information Available Encounters Type Date Location Provider Dx Diagnosis Office Visit 01/14/2021 3:15p [facility] Gastroenterology Pra ctice Leta Alvarez, RPA-C K85.00 Idiopathic acute pancreatiti s without necrosis or infection R94.8 Abnormal results of function studies of organs and systems Assessments Date Code Description Provider 01/14/2021 K85.00 Idiopathic acute pancreatitis wi thout necrosis or infection SHAQ Hartley 01/14/2021 R94.8 Abnormal results of function studies of other organs and systems SHAQ Hartley Plan of Treatment No Information Available Functional Status Description No Information Available Mental Status Description No Information Available Referrals Refer to Reason for Referral Status Appt Date Watson Martin MD RIGHT INGUINAL HERNIA Scheduled [address] [facility] [address] [place] [id number] [phone] Delgado Barnett M.D. FOLLOW UP FROM ARU Scheduled [address] [place] [address], Gastroenterology [address] [facility], [address] [place] [address] [phone]
--- OUTSIDE RECORDS SUMMARY | 2021-05-05 03:29 | CCD | Continuity of Care Document ---
Author Author Mehul Lovell MD Organization Unknown Address 53 [facility] [address] [place] [address] Phone [phone] Care Team Providers Care Warp Spinner Name Role Phone Mark Lovell JR, MD AUTM Unavailable Delgado Barnett MD AUTM [phone] Ralph Treviño MD AUTM [phone] Bert Paerce MD AUTM [phone] Problems Active Problems Provider Date Benign essential [...] CPT Code Status Date Vaccine Lot # [id number] Given 08/14/2014 Prevnar 13 [id number] Given 05/07/2009 Pneumovax 23 U-Tetan Refused 09/17/2020 Tetanus,Unspecified U-Flu Refused 09/17/2020 Influenza,Unspecified 91335 Refused 09/17/2020 Shingrix Zoster Vaccine (HZV), Recombinant, Subunit, Adjuvanted 47259 Refused 08/31/2017 Zoster Vaccine 14852 Refused 08/31/2017 Influenza Vaccin e Quadrivalent Preser/Antibiotic Free Im Use Vital Signs Date Vital Result Comment 03/28/2021 9:44am BP Systolic 136 mmHg BP Diastolic 70 mmHg Height 68 inches 5'8" Weight 156.00 lb BMI (Body Mass Index) 23.7 kg/m2 01/31/2021 11:54am BP Systolic 128 mmHg BP Diastolic 80 mmHg Heart Rate 76 /min Height 68 inches 5'8" Weight 162.00 lb BMI (Body Mass Index) 24.6 kg/m2 Results Test Acquired Date Facility Test Result H/L Range Note Liver Profile 01/20/2021 [facility] nter [address] [place] [address] [phone] Ast/Sgot 24 U/L Normal 7-37 Alt/SGPT 54 U/L Normal 12-78 Alkaline Phosphatase 66 U/L Normal 45-117 Bilirubin,Total 1.5 mg/dL High 0.2-1.0 Bilirubin,Direct 0.3 mg/dL High 0.0-0.2 Total Protein 6.3 GM/DL Low 6.4-8.2 Albumin 3.6 GM/DL Normal 3.2-5.2 Albumin/Globulin Ratio 1.3 Normal Laboratory test finding 01/20/2021 [facility] [address] [place] [address] [phone] Amylase 72 U/L Normal 25-115 Lipase 190 U/L Normal 73-393 Influenza A/B RSV Covid Amp 12/04/2020 [facility] [address] [place] [address] [phone] Influenza A Amplification NEGATIVE Normal Negati ve 1 Influenza B Amplification NEGATIVE Normal Negative 2 RSV Amplification NEGATIVE Normal Negative 3 Sars Covid-19 Amplification NEGATIVE Normal Negative 4 CBC With Differential 12/04/2020 [facility] [address] [place] [address] [phone] White Blood Count 9.2 10 Normal 4.0-10.0 [...] 36.0-66.0 Lymph % 7.3 % Low 24.0-44.0 Menard % 6.6 % Normal 2.0-8.0 Eos % 2.8 % Normal 0.0-3.0 Baso % 0.3 % Normal 0.0-1.0 Immature Granulocyte % 0.4 % Normal 0-3.0 Nucleated Red Blood Cell % 0.0 % Normal 0-0 Neutrophils # 7.6 10 Normal 1.5-8.5 Lymph # 0.7 10 Low 1.5-5.0 Menard # 0.6 10 Normal 0.0-0.8 Eos # 0.3 10 Normal 0.0-0.5 Baso # 0.0 10 Normal 0.0-0.2 Prothrombin Time/Inr 12/04/[address] [facility] enter [address] [place] [address] [phone] Prothrombin Time 11.9 seconds Normal 12.5-14.3 Inr 0.86 Normal 5 Laboratory test finding 12/04/2020 [facility] [address] [place] [address] [phone] Partial Thromboplastin Time 24.9 seconds Low 24 .2-38.5 Cardiac Marker Panel 12/04/[address] [facility] enter [address] [place] [address] [phone] CPK Creatine Phosphokinase 40 U/L Normal 39-30 8 CK-MB Value Mass 1.6 NG/ML Normal <3.6 MB/CK Relative Index 4.00 Normal < Or =4 6 Troponin I < 0.02 NG/ML Normal < 0.10 7 Type & Screen -Incl Blood Type,Tone,AB SC 12/04/[address] [id number] [phone] Blood Type O POSITIVE Normal AB Screen (Indirect Yakelin)Vis NEGATIVE Normal Comprehensive Metabolic Profil 12/04/[address] [address] [phone] Glucose, Fasting 231 mg/dL High 70-100 Blood Urea Nitrogen 18 mg/dL Normal 7-18 Creatinine For GFR 0.76 mg/dL Normal 0.70-1.30 Glomerular Filtration Rate > 60.0 Normal >42 8 Sodium Level 140 mEq/L Normal 136-145 Potassium [...] Low 3.2-5.2 Albumin/Globulin Ratio 1.2 Normal 1 Negative results do not prec lude influenza or RSV virus infection and should not be used as the sole basis for treatment or other patient management decisions. 2 Negative results do not prec lude influenza or RSV virus infection and should not be used as the sole basis for treatment or other patient management decisions. 3 Negative results do not prec lude influenza or RSV virus infection and should not be used as the sole basis for treatment or other patient management decisions. 4 A false negative result may occur if [...] pathogens. DISCLAIMER: Testing was performed using the [employer] SARS-CoV-2 test. This test was developed and its performance characteristics determined by [employer]. This test has not been FDA cleared [...] the authorization is terminated or revoked sooner. 5 THERAPUTIC HUMAN INR VALUES INDICATIONS NORMAL RANGES PROPHYLAXIS/TREATMENT OF: VENOUS THROMBOSIS 2.0-3.0 PULMONARY EMBOLISM 2.0-3.0 PREVENTION OF SYSTEMIC EMBOLISM FROM: TISSUE HEART VALVES 2.0-3.0 ACUTE MYOCARDIAL INFARCTION 2.0-3.0 VALVULAR HEART DISEASE 2.0-3.0 ATRIAL FIBRILLATION 2.0-3.0 MECHANICAL VALVES(HIGH RISK) 2.5-3.5 RECURRENT MYOCARDIAL INFARCTION 2.5-3.5 6 DIAGNOSIS CRITERIA MMB ng/ml Relative Index (RI) NON-AMI < or = 5 N/A COREA ZONE > 5 < or = 4 AMI > 5 > 4 7 Troponin I Reference Interva l for [employer] LOCI: 99th Percentile= 0.00-0.045 ng/ml Risk Stratification: <= 0.10 ng/ml Decreased Risk for Adverse Clinical Events. 0.10-1.50 ng/ml Increased Risk for Adv erse Clinical Events. Evaluation of additional criterion and/or repeat testing in 2-6 hours is suggested to rule out myocardial damage. >= 1.50 ng/ml Indicative of Myocardial Injury. 8 Units are mL/min/1.73 m2 Chronic Kidney Disease Staging per NKF: Stage I & II GFR >=60 Normal to Mildly Decreased Stage III GFR 30-59 Moderately Decreased Stage IV GFR 15-29 Severely Decreased Stage V GFR <15 Very Little GFR Left ESRD GFR <15 on CHILD PROTECTIVE SERVICES SPECIALIST Procedures Date Code Description Status 01/31/2021 97134 Office/Outpatient Established Lo w MDM 20-29 Min Completed 12/31/2020 [address] [facility] Care SRV W/I 14D Of DC, Co mm W/I 2 Dys Med Rec Completed 05/23/2020 [id number] Diabetic Retinal Eye Exam Comple leslie 05/19/2019 [id number] Diabetic Retinal Eye Exam Comple leslie 05/18/2018 390206892 Diabetic Retinal Eye Exam Comple leslie 04/22/2017 566179749 Diabetic Retinal Eye Exam Comple leslie 03/17/2017 416086523 Diabetic Retinal Eye Exam Comple leslie 02/02/2017 569790860 Diabetic Retinal Eye Exam Comple leslie 05/10/2013 982760173 Diabetic Retinal Eye Exam Comple leslie 07/18/2012 [id number] Colonoscopy Completed 01/27/2012 [id number] Diabetic Retinal Eye Exam Comple leslie 06/09/2011 112420722 Diabetic Retinal Eye Exam Comple leslie Medical Devices Description No Information Available Encounters Type Date Location Provider Dx Diagnosis Office Visit 01/31/2021 1:20p [facility]CRAIMUNDO De La Rosa JR R19.09 Other intra-abdominal and pe lvic swelling, mass and lump Office Visit 12/31/2020 2:40p [facility]CRAIMUNDO De La Rosa JR I63.9 Cerebral infarction, unspeci fied I10 Essential (primary) hyperten william E78.00 Pure hypercholesterolemia, u nspecified K86.1 Other chronic pancreatitis E11.65 Type 2 diabetes mellitus wit h hyperglycemia N40.1 Benign prostatic hyperplasia with lower urinary tract symp N32.81 Overactive bladder Assessments Date Code Description Provider 01/31/2021 R19.09 Other intra-abdominal and pelvic swelling, [...] RAIMUNDO Nielson JR 12/31/2020 N32.81 Overactive bladder Mehul roberts JR PA Plan of Treatment Future Appointment(s):* 04/09/2021 1:30 pm - Mark Lovell MD at [facility] Functional Status Description No Information Available Mental Status Description No Information Available Referrals Refer to Reason for Referral Status Appt Date Watson Martin MD CONSULT FOR PAINFUL RT INGUINAL HERNIA Raimundo francis Notified 03/25/2021 [facility] [address] [facility], [place] [address] [phone]
--- OUTSIDE RECORDS SUMMARY | 2021-05-05 03:29 | CCD | Continuity of Care Document ---
Author Author Mehul MARTIN MD Organization Unknown Address [address] [place] [address] Phone [phone] Care Team Providers Care Clamper Name Role Phone Mark Lovell MD @ [facility] AUTM [phone] Mehul Harper AUTM [phone] Problems Active Problems Provider Date Deviated nasal [...] lb BMI (Body Mass Index) 23.9 kg/m2 [place] Body Weight 154 lb Weight 71.272 kg BSA (Body Surface Area) 1.84 m2 01/14/2021 3:40pm BP Systolic 130 mmHg BP Diastolic 70 mmHg Height 68 inches 5'8" Weight 162.00 lb BMI (Body Mass Index) 24.6 kg/m2 [employer] Body Weight 154 lb Weight 73.483 kg BSA (Body Surface Area) 1.87 m2 Results Test Acquired Date Facility Test Result H/L Range Note Amylase & Lipase 01/20/2021 [facility] [address] [place] [address] [id number] [phone] Amylase 72 U/L Normal 25-115 Lipase 190 U/L Normal 73-393 1 Liver Profile 01/20/2021 [facility] [address] [place], [place] [address] [phone] Ast/Sgot 24 U/L Normal 7-37 Alt/SGPT 54 [...] See triage. Procedures Date Code Description Status 03/25/2021 74593 Office/Outpatient Established Lo w MDM 20-29 Min Completed 01/14/2021 50539 Office/Outpatient Established Mo d MDM 30-39 Min Completed Medical Devices Description No Information Available Encounters Type Date Location Provider Dx Diagnosis Office Visit 03/25/2021 3:00p [facility] Edu jammie Martin MD K40.90 Unil inguinal hernia, w/o ob st or gangr, not spcf as recur Office Visit 01/14/2021 3:15p [facility] SHAQ Hartley K85.00 Idiopathic acute pancreatiti s without necrosis or infection R94.8 Abnormal results of function studies of organs and systems Assessments Date Code Description Provider 03/25/2021 K40.90 Right inguinal hernia Watson Martin MD 01/14/2021 K85.00 Idiopathic acute pancreatitis wi thout necrosis or infection SHAQ Hartley 01/14/2021 R94.8 Abnormal results of function studies of other organs and systems SHAQ Hartley Plan of Treatment Future Appointment(s):* 04/29/2021 11:15 am - LEORA Hall at [facility] * 04/15/2021 10:10 am - Watson Martin MD at [facility] 03/25/2021 - Watson Martin MD* [...] Watson Martin MD RIGHT INGUINAL HERNIA Scheduled [address] [address] [phone] Delgado Barnett M.D. FOLLOW UP FROM [facility] Scheduled [address] [place] [address], Gastroenterology [address] [facility], [address] [place] [address] [phone]
--- OUTSIDE RECORDS SUMMARY | 2021-05-05 03:29 | CCD | Continuity of Care Document ---
Author Author Mehul Lovell MD Organization Unknown Address 53 [facility] [address] [place] [address] Phone [phone] Care Team Providers Care Wholesale Representative Name Role Phone Mark Lovell JR, MD AUTM Unavailable Delgado Barnett MD AUTM [phone] Ralph Treviño MD AUTM [phone] Bert Pearce MD AUTM [phone] Problems Active Problems Provider Date Benign essential [...] CPT Code Status Date Vaccine Lot # [id number] Given 08/14/2014 Prevnar 13 [id number] 76476 Given 05/07/2009 Pneumovax 23 U-Tetan Refused 09/17/2020 Tetanus,Unspecified U-Flu Refused 09/17/2020 Influenza,Unspecified 55294 Refused 09/17/2020 Shingrix Zoster Vaccine (HZV), Recombinant, Subunit, Adjuvanted 06961 Refused 08/31/2017 Zoster Vaccine 64963 Refused 08/31/2017 Influenza Vaccin e Quadrivalent Preser/Antibiotic [...] Test Result H/L Range Note A1c 03/28/2021 [facility] , rickie Customer Management Specialist: [place] [address] [phone] Hba1c 7.1 % High <5.7 1 Est Avg Glucose 157 mg/dL High 60 - 110 Laboratory test finding 03/28/2021 [facility] [employer] rickie salazar Customer Management Specialist: [place] [address] [phone] PSA 1.51 ng/mL <4.00 2 Comprehensive Chem Profile 03/28/2021 [facility] garber Customer Management Specialist: [place] [address] [phone] Glucose 100 mg/dL High 74 - 99 [...] 60 mL/min >60 5 Lipid Profile 03/28/2021 [facility] Customer Management Specialist: [place] [address] [phone] Cholesterol 102 mg/dL Low 131 - 200 Triglycerides 27 mg/dL Low 30 - 150 HDL Cholesterol 54 mg/dL 35 - 60 LDL (Calculated) 43 CALC Low 50 - 159 Liver Profile 01/20/2021 [facility] nter [address] [place] [address] [phone] Ast/Sgot 24 U/L Normal 7-37 Alt/SGPT 54 U/L Normal 12-78 Alkaline Phosphatase 66 U/L Normal 45-117 Bilirubin,Total 1.5 mg/dL High 0.2-1.0 Bilirubin,Direct 0.3 mg/dL High 0.0-0.2 Total Protein 6.3 GM/DL Low 6.4-8.2 Albumin 3.6 GM/DL Normal 3.2-5.2 Albumin/Globulin Ratio 1.3 Normal Laboratory test finding 01/20/2021 [facility] [address] [place] [address] [phone] Amylase 72 U/L Normal 25-115 Lipase 190 U/L Normal 73-393 Influenza A/B RSV Covid Amp 12/04/2020 [facility] [address] [place] [address] [phone] Influenza A Amplification NEGATIVE Normal Negati ve 6 Influenza B Amplification NEGATIVE Normal Negative 7 RSV Amplification NEGATIVE Normal Negative 8 Sars Covid-19 Amplification NEGATIVE Normal Negative 9 CBC With Differential 12/04/[address] [address] [phone] White Blood Count 9.2 10 Normal 4.0-10.0 [...] 36.0-66.0 Lymph % 7.3 % Low 24.0-44.0 [place] % 6.6 % Normal 2.0-8.0 Eos % 2.8 % Normal 0.0-3.0 Baso % 0.3 % Normal 0.0-1.0 Immature Granulocyte % 0.4 % Normal 0-3.0 Nucleated Red Blood Cell % 0.0 % Normal 0-0 Neutrophils # 7.6 10 Normal 1.5-8.5 Lymph # 0.7 10 Low 1.5-5.0 [place] # 0.6 10 Normal 0.0-0.8 Eos # 0.3 10 Normal 0.0-0.5 Baso # 0.0 10 Normal 0.0-0.2 Prothrombin Time/Inr 12/04/2020 [facility] enter [address] [place] [address] [phone] Prothrombin Time 11.9 seconds Normal 12.5-14.3 Inr 0.86 Normal 10 Laboratory test finding 12/04/[address] [address] [phone] Partial Thromboplastin Time 24.9 seconds Low 24 .2-38.5 Cardiac Marker Panel 12/04/2020 [facility] enter [address] [place] [address] [phone] CPK Creatine Phosphokinase 40 U/L Normal 39-30 8 CK-MB Value Mass 1.6 NG/ML Normal <3.6 MB/CK Relative Index 4.00 Normal < Or =4 11 Troponin I < 0.02 NG/ML Normal < 0.10 12 Type & Screen -Incl Blood Type,Tone,AB SC 12/04/[address] [address] [phone] Blood Type O POSITIVE Normal AB Screen (Indirect Yakelin)Vis NEGATIVE Normal Comprehensive Metabolic Profil 12/04/2020 [facility] [address] [place] [address] [phone] Glucose, Fasting 231 mg/dL High 70-100 Blood [...] LITTLE GFR LEFT ESRD GFR <15 ON INSURANCE INSPECTOR 6 Negative results do not prec lude [...] pathogens. DISCLAIMER: Testing was performed using the [employer] SARS-CoV-2 test. This test was developed and its performance characteristics determined by [employer] This test has not been FDA cleared [...] Troponin I Reference Interva l for [employer] LOCI: 99th Percentile= 0.00-0.045 ng/ml Risk Stratification: [...] Little GFR Left ESRD GFR <15 on INSURANCE INSPECTOR Procedures Date Code Description Status 01/31/2021 16142 Office/Outpatient Established Lo w MDM 20-29 Min Completed 12/31/2020 82139 [facility] SRV W/I 14D Of DC, Co mm W/I 2 Dys Med Rec Completed 05/23/2020 [id number] Diabetic Retinal Eye Exam Comple leslie 05/19/2019 506651497 Diabetic Retinal Eye Exam Comple leslie 05/18/2018 816527573 Diabetic Retinal Eye Exam Comple leslie 04/22/2017 636324010 Diabetic Retinal Eye Exam Comple leslie 03/17/2017 571829861 Diabetic Retinal Eye Exam Comple leslie 02/02/2017 554841440 Diabetic Retinal Eye Exam Comple leslie 05/10/2013 059918701 Diabetic Retinal Eye Exam Comple leslie 07/18/2012 07236057 Colonoscopy Completed 01/27/2012 770530349 Diabetic Retinal Eye Exam Comple leslie 06/09/2011 414773261 Diabetic Retinal Eye Exam Comple leslie Medical Devices Description No Information Available Encounters Type Date Location Provider Dx Diagnosis Office Visit 01/31/2021 1:20p [facility]CRAIMUNDO De La Rosa JR R19.09 Other intra-abdominal and pe lvic swelling, mass and lump Office Visit 12/31/2020 2:40p [facility] PA[facility]ree[facility] De La Rosa JR I63.9 Cerebral infarction, [...] 03/28/2021 N32.81 Overactive bladder Mark fay MD 01/31/2021 R19.09 Other intra-abdominal and pelvic swelling, mass and lump RAIMUNDO Nielson JR 12/31/2020 I63.9 Cerebral infarction, unspecified RAIMUNDO Nielson JR 12/31/2020 I10 Essential (primary) hypertension RAIMUNDO Nielson JR 12/31/2020 E78.00 Pure hypercholesterolemia, unspe cified RAIMUNDO Nielson JR 12/31/2020 K86.1 Other chronic pancreatitis [place] RAIMUNDO Parker JR 12/31/2020 E11.65 Type 2 diabetes mellitus with hy perglycemia RAIMUNDO Nielson JR 12/31/2020 N40.1 Benign prostatic hyperplasia wit h lower urinary tract symptoms RAIMUNDO Nielson JR 12/31/2020 N32.81 Overactive bladder RAIMUNDO Neely JR Plan of Treatment Future Appointment(s):* 07/30/2021 8:40 am - Mark Lovell MD at [facility] 03/28/2021 - Mark Lovell MD* Z01.810 Encounter for preprocedural cardiovascular examination * K40.90 Unilateral inguinal hernia, without obstruction or gangrene, not specified as recurrent * I10 Essential (primary) hypertension* Comments:* Hypertension at JNC-8 guidelines * E78.00 Pure hypercholesterolemia, unspecified * E11.65 Type 2 diabetes mellitus with hyperglycemia* Comments:* ABC's meet goal.Diabetic foot and eye exams up to date. TLC discussed. Glycemic index discussed. * I63.9 Cerebral infarction, unspecified * N40.1 Benign prostatic hyperplasia with lower urinary tract symptoms * N32.81 Overactive bladder Functional Status Description No Information Available Mental Status Description No Information Available Referrals Refer to Reason for Referral Status Appt Date Watson Martin MD CONSULT FOR PAINFUL RT INGUINAL HERNIA Raimundo francis Notified 03/25/2021 [facility] [address], [address] [place] [id number] [phone]
--- OUTSIDE RECORDS SUMMARY | 2021-05-05 03:29 | CCD | Continuity of Care Document ---
Author Author Mehul Lovell MD Organization Unknown Address 53 [facility] [address] [place] [address] Phone [phone] Care Team Providers Care [employer] Name Role Phone Mark Lovell JR, MD AUTM Unavailable Delgado Barnett MD AUTM [phone] Ralph Treviño MD AUTM [phone] Bert Pearce MD AUTM [phone] Problems Active Problems Provider Date Benign essential [...] CPT Code Status Date Vaccine Lot # [id number] Given 08/14/2014 Prevnar 13 [id number] 97541 Given 05/07/2009 Pneumovax 23 U-Tetan Refused 09/17/2020 Tetanus,Unspecified U-Flu Refused 09/17/2020 Influenza,Unspecified 12034 Refused 09/17/2020 Shingrix Zoster Vaccine (HZV), Recombinant, Subunit, Adjuvanted 29821 Refused 08/31/2017 Zoster Vaccine 15126 Refused 08/31/2017 Influenza Vaccin e Quadrivalent Preser/Antibiotic [...] Result H/L Range Note Liver Profile 01/20/2021 [facility] nter [address] [place] [address] [phone] Ast/Sgot 24 U/L Normal 7-37 Alt/SGPT 54 U/L Normal 12-78 Alkaline Phosphatase 66 U/L Normal 45-117 Bilirubin,Total 1.5 mg/dL High 0.2-1.0 Bilirubin,Direct 0.3 mg/dL High 0.0-0.2 Total Protein 6.3 GM/DL Low 6.4-8.2 Albumin 3.6 GM/DL Normal 3.2-5.2 Albumin/Globulin Ratio 1.3 Normal Laboratory test finding 01/20/2021 [facility] [address] [place] [address] [phone] Amylase 72 U/L Normal 25-115 Lipase 190 U/L Normal 73-393 Influenza A/B RSV Covid Amp 12/04/2020 [facility] [address] [place] [address] [phone] Influenza A Amplification NEGATIVE Normal Negati ve 1 Influenza B Amplification NEGATIVE Normal Negative 2 RSV Amplification NEGATIVE Normal Negative 3 Sars Covid-19 Amplification NEGATIVE Normal Negative 4 CBC With Differential 12/04/2020 [facility] [address] [place] [address] [phone] White Blood Count 9.2 10 Normal 4.0-10.0 [...] 36.0-66.0 Lymph % 7.3 % Low 24.0-44.0 [place] % 6.6 % Normal 2.0-8.0 Eos % 2.8 % Normal 0.0-3.0 Baso % 0.3 % Normal 0.0-1.0 Immature Granulocyte % 0.4 % Normal 0-3.0 Nucleated Red Blood Cell % 0.0 % Normal 0-0 Neutrophils # 7.6 10 Normal 1.5-8.5 Lymph # 0.7 10 Low 1.5-5.0 [place] # 0.6 10 Normal 0.0-0.8 Eos # 0.3 10 Normal 0.0-0.5 Baso # 0.0 10 Normal 0.0-0.2 Prothrombin Time/Inr 12/04/2020 [facility] enter [address] [place] [address] [phone] Prothrombin Time 11.9 seconds Normal 12.5-14.3 Inr 0.86 Normal 5 Laboratory test finding 12/04/2020 [facility] [address] [place] [address] [phone] Partial Thromboplastin Time 24.9 seconds Low 24 .2-38.5 Cardiac Marker Panel 12/04/2020 [facility] enter [address] [place] [address] [phone] CPK Creatine Phosphokinase 40 U/L Normal 39-30 8 CK-MB Value Mass 1.6 NG/ML Normal <3.6 MB/CK Relative Index 4.00 Normal < Or =4 6 Troponin I < 0.02 NG/ML Normal < 0.10 7 Type & Screen -Incl Blood Type,Tone,AB SC 12/04/[address] [id number] [phone] Blood Type O POSITIVE Normal AB Screen (Indirect Yakelin)Vis NEGATIVE Normal Comprehensive Metabolic Profil 12/04/[address] [address] [phone] Glucose, Fasting 231 mg/dL High 70-100 Blood [...] pathogens. DISCLAIMER: Testing was performed using the [employer] SARS-CoV-2 test. This test was developed and its performance characteristics determined by [employer]. This test has not been FDA cleared [...] 7 Troponin I Reference Interva l for [employer] LOCI: 99th Percentile= 0.00-0.045 ng/ml Risk Stratification: [...] Little GFR Left ESRD GFR <15 on MACHINE SORTER Procedures Date Code Description Status 01/31/2021 85234 Office/Outpatient Established Lo w MDM 20-29 Min Completed 12/31/2020 [address] [facility] Care SRV W/I 14D Of DC, Co mm W/I 2 Dys Med Rec Completed 05/23/2020 [id number] Diabetic Retinal Eye Exam Comple leslie 05/19/2019 397717649 Diabetic Retinal Eye Exam Comple leslie 05/18/2018 [id number] Diabetic Retinal Eye Exam Comple leslie 04/22/2017 639079678 Diabetic Retinal Eye Exam Comple leslie 03/17/2017 816588224 Diabetic Retinal Eye Exam Comple leslie 02/02/2017 846099923 Diabetic Retinal Eye Exam Comple leslie 05/10/2013 697400128 Diabetic Retinal Eye Exam Comple leslie 07/18/2012 15991057 Colonoscopy Completed 01/27/2012 715707739 Diabetic Retinal Eye Exam Comple leslie 06/09/2011 985034752 Diabetic Retinal Eye Exam Comple leslie Medical Devices Description No Information Available Encounters Type Date Location Provider Dx Diagnosis Office Visit 01/31/2021 1:20p [facility]CRAIMUNDO De La Rosa JR R19.09 [...] 1:30 pm - Mark Lovell MD at [facility] Functional Status Description No Information Available Mental Status Description No Information Available Referrals Refer to Reason for Referral Status Appt Date Watson Martin MD CONSULT FOR PAINFUL RT INGUINAL HERNIA Raimundo francis Notified 03/25/2021 [facility] [address] [facility], [place] [id number] [phone]
--- OUTSIDE RECORDS SUMMARY | 2021-05-05 03:29 | CCD | Continuity of Care Document ---
Author Author Mehul QUINTEROS PA Organization Unknown Address [address] [facility] [address] [place] [address] Phone [phone] Care Team Providers Care Psychiatric Nurse Name Role Phone Mark Lovell JR, MD AUTM Unavailable Delgado Barnett MD AUTM [phone] Ralph Treviño MD AUTM [phone] Bert Pearce MD AUTM [phone] Problems Active Problems Provider Date Benign essential [...] smoked Allergies, Adverse Reactions, Alerts Active Allergies Reaction Severity Comments Date Januvia pancreatitis 11/11/2010 Inactive Allergies NKDA 09/01/2010 Medications Active Medications SIG Qnty Indications Ordering Provide r Date Freestyle Xander 14 Day/Sensor/Flash Guera toring System Misc apply every 14 days 2units Mark marie MD 01/07/2021 Losartan Potassium 50mg Tablets 1 by mouth every day 90tabs LEORA Nielson JR 021 Glipizide 5mg Tablets take [...] ER 24HR take 1 tablet daily 90tabs LEORA Nielson JR 11/03/2011 Accu-Chek Compact Test Drum [...] 2Sensor Misc reapply every 2 weeks 2units LEORA Nielson JR 12/31/2020 - 01/07/2021 Myrbetriq 25mg Tablets ER 24HR 1 by mouth every day 30tabs Mark Lovell MD 09/17/2020 - 12/31/2020 Medications Administered in Office Medication SIG Qnty Indications Ordering Provider Date Covid-19 vaccine, Unspecified Inj ection Unknown 08/25/2020 Covid-19 vaccine, Unspecified Inj ection Unknown 08/04/2020 Immunizations CPT Code Status Date Vaccine Lot # [id number] Given 08/14/2014 Prevnar 13 [id number] Given 05/07/2009 Pneumovax 23 U-Tetan Refused 09/17/2020 Tetanus,Unspecified U-Flu Refused 09/17/2020 Influenza,Unspecified [id number] Refused 09/17/2020 Shingrix Zoster Vaccine (HZV), Recombinant, Subunit, Adjuvanted [id number] Refused 08/31/2017 Zoster Vaccine [id number] Refused 08/31/2017 Influenza Vaccin e Quadrivalent Preser/Antibiotic Free Im Use Vital Signs Date Vital Result Comment 01/31/2021 11:54am BP Systolic 128 mmHg BP Diastolic 80 mmHg Heart Rate 76 /min Height 68 inches 5'8" Weight 162.00 lb BMI (Body Mass Index) 24.6 kg/m2 12/31/2020 2:33pm BP Systolic 122 mmHg BP Diastolic 62 mmHg Heart Rate 86 /min Height 68 inches 5'8" Weight 163.00 lb O2 % BldC Oximetry 96 % RM Air BMI (Body Mass Index) 24.8 kg/m2 Results Test Acquired Date Facility Test Result H/L Range Note Liver Profile 01/20/2021 [facility] nter [address] [place], [place] [id number] [phone] Ast/Sgot 24 U/L Normal 7-37 Alt/SGPT 54 U/L Normal 12-78 Alkaline Phosphatase 66 U/L Normal 45-117 Bilirubin,Total 1.5 mg/dL High 0.2-1.0 Bilirubin,Direct 0.3 mg/dL High 0.0-0.2 Total Protein 6.3 GM/DL Low 6.4-8.2 Albumin 3.6 GM/DL Normal 3.2-5.2 Albumin/Globulin Ratio 1.3 Normal Laboratory test finding 01/20/2021 [facility] [address] [place], [place] [id number] [phone] Amylase 72 U/L Normal 25-115 Lipase 190 U/L Normal 73-393 Influenza A/B RSV Covid Amp 12/04/2020 [facility] [address] [place] [address] [phone] Influenza A Amplification NEGATIVE Normal Negati ve 1 Influenza B Amplification NEGATIVE Normal Negative 2 RSV Amplification NEGATIVE Normal Negative 3 Sars Covid-19 Amplification NEGATIVE Normal Negative 4 CBC With Differential 12/04/2020 [facility] [address] [place] [address] [phone] White Blood Count 9.2 10 Normal 4.0-10.0 [...] 36.0-66.0 Lymph % 7.3 % Low 24.0-44.0 Dawes % 6.6 % Normal 2.0-8.0 Eos % 2.8 % Normal 0.0-3.0 Baso % 0.3 % Normal 0.0-1.0 Immature Granulocyte % 0.4 % Normal 0-3.0 Nucleated Red Blood Cell % 0.0 % Normal 0-0 Neutrophils # 7.6 10 Normal 1.5-8.5 Lymph # 0.7 10 Low 1.5-5.0 Dawes # 0.6 10 Normal 0.0-0.8 Eos # 0.3 10 Normal 0.0-0.5 Baso # 0.0 10 Normal 0.0-0.2 Prothrombin Time/Inr 12/04/2020 [facility] enter [address] [place] [address] [phone] Prothrombin Time 11.9 seconds Normal 12.5-14.3 Inr 0.86 Normal 5 Laboratory test finding 12/04/2020 [facility] [address] [place] [address] [phone] Partial Thromboplastin Time 24.9 seconds Low 24 .2-38.5 Cardiac Marker Panel 12/04/2020 [facility] enter [address] [place] [address] [phone] CPK Creatine Phosphokinase 40 U/L Normal 39-30 8 CK-MB Value Mass 1.6 NG/ML Normal <3.6 MB/CK Relative Index 4.00 Normal < Or =4 6 Troponin I < 0.02 NG/ML Normal < 0.10 7 Type & Screen -Incl Blood Type,Tone,AB SC 12/04/[address] [address] [phone] Blood Type O POSITIVE Normal AB Screen (Indirect Yakelin)Vis NEGATIVE Normal Comprehensive Metabolic Profil 12/04/[address] [address] [phone] Glucose, Fasting 231 mg/dL High 70-100 Blood [...] GM/DL Low 3.2-5.2 Albumin/Globulin Ratio 1.2 Normal Complete Blood Count 09/17/2020 [facility] [employer] [facility] [facility] Park Maintenance Technician: [place] [address] [phone] WBC 12.3 x10*3/UL High 4.1 - 10.9 9 RBC 4.85 x10*6/UL 4.20 - 6.30 Hemoglobin 15.3 g/dL 12.0 - 18.0 Hematocrit 42.9 % 37.0 - 51.0 MCV 88.5 fL 80.0 - 97.0 MCH 31.5 pg 26.0 - 32.0 MCHC 35.6 g/dL 31.0 - 38.0 RDW 13.4 % 11.6 - 13.7 PLT 301 x10*3/UL 140 - 440 MPV 8.2 FL 7.8 - 11.0 Lymph % 4.8 % Low 10.0 - 58.5 Mid % 6.2 % 1.7 - 9.3 Neut % 89.0 % 37.0 - 92.0 Lymph # 0.6 x10*3/UL 0.6 - 4.1 Mid # 0.8 x10*3/UL High 0.1 - 0.6 Neut # 10.9 x10*3/UL High 2.0 - 7.8 A1c 09/17/2020 [facility] , Park Maintenance Technician: [place] [address] [phone] Hba1c 9.3 % High <5.7 10 Est Avg Glucose 220 mg/dL High 60 - 110 Comprehensive Chem Profile 09/17/2020 [facility], Park Maintenance Technician: [place] [address] [phone] Glucose 144 mg/dL High 74 - 99 11 BUN 20 mg/dL High 7 - 18 Creatinine 0.8 mg/dL 0.6 - 1.3 Sodium 141 mEq/L 136 - 145 Potassium 4.7 mEq/L 3.5 - 5.1 Chloride 101 mEq/L 98 - 107 Carbon Dioxide 27 mEq/L 21 - 32 Calcium 9.1 mg/dL 8.5 - 10.1 Alk. Phosphatase 75 mg/dL 46 - 116 Total Bilirubin 1.3 mg/dL High 0.2 - 1.0 12 Ast (Sgot) 16 U/L 15 - 37 Alt (SGPT) 31 U/L 12 - 78 Albumin 3.5 g/dL 3.4 - 5.0 Total Protein 6.2 g/dL Low 6.4 - 8.2 A/G Ratio 1.30 CALC 1.00 - 1.90 GFR >= 60 mL/min >60 GFR >= 60 mL/min >60 13 Lipid Profile 09/17/2020 [facility] , Park Maintenance Technician: [place] [address] [phone] Cholesterol 194 mg/dL 131 - 200 Triglycerides 34 mg/dL 30 - 150 HDL Cholesterol 61 mg/dL High 35 - 60 LDL (Calculated) 126 CALC 50 - 159 Microalbumin/Creatinine Urine 09/17/2020 [facility] Park Maintenance Technician: [place] [address] [phone] Microalbumin Urine 4.8 mg/L 1.3 - 20.0 Urine Creatinine 55.3 mg/dL 30.0 - 125.0 Microalb/Creat Ratio 8.7 ug/mg 0.0 - 30.0 1 Negative results do not prec lude [...] pathogens. DISCLAIMER: Testing was performed using the [employer] SARS-CoV-2 test. This test was developed and its performance characteristics determined by [employer]. This test has not been FDA cleared [...] 7 Troponin I Reference Interva l for [employer] LOCI: 99th Percentile= 0.00-0.045 ng/ml Risk Stratification: [...] Little GFR Left ESRD GFR <15 on BEAR KEEPER 9 NOTE: CBC VERIFIED 10 Lab Result Notes: Pre-Diabetes 5.7 - 6.4 % Diabetes = or > 6.5% 11 100-125 mg/dL PRE-DIABET ES/FASTING >126 mg/dL DIABETES/FASTING 12 NOTE: T.BILIT.PROTEIN VERIFIED 13 CHRONIC KIDNEY DISEASE STAGI NG PER NKF STAGE I & II GFR >= 60 NORMAL TO MILDLY DECREASED STAGE III GFR 30-59 MODERATELY DECREASED STAGE IV GFR 15-29 SEVERELY DECREASED STAGE V GFR <15 VERY LITTLE GFR LEFT ESRD GFR <15 ON BEAR KEEPER Procedures Date Code Description Status 01/31/2021 34046 Office/Outpatient Established Lo w MDM 20-29 Min Completed 12/31/2020 28072 [facility] Care SRV W/I 14D Of DC, Co mm W/I 2 Dys Med Rec Completed 09/17/2020 37187 Office/Outpatient Established Mo d MDM 30-39 Min Completed 05/23/2020 [id number] Diabetic Retinal Eye Exam Comple leslie 05/19/2019 [id number] Diabetic Retinal Eye Exam Comple lelsie 05/18/2018 [id number] Diabetic Retinal Eye Exam Comple leslie 04/22/2017 [id number] Diabetic Retinal Eye Exam Comple leslie 03/17/2017 [id number] Diabetic Retinal Eye Exam Comple leslie 02/02/2017 [id number] Diabetic Retinal Eye Exam Comple leslie 05/10/2013 131650899 Diabetic Retinal Eye Exam Comple leslie 07/18/2012 [id number] Colonoscopy Completed 01/27/2012 [id number] Diabetic Retinal Eye Exam Comple leslie 06/09/2011 [id number] Diabetic Retinal Eye Exam Comple leslie Medical Devices Description No Information Available Encounters Type Date Location Provider Dx Diagnosis Office Visit 01/31/2021 1:20p [facility] PLEORA Munson JR R19.09 Other intra-abdominal and pe lvic swelling, mass and lump Office Visit 12/31/2020 2[facility] I63.9 Cerebral infarction, unspeci fied I10 Essential (primary) hyperten william E78.00 Pure hypercholesterolemia, u nspecified K86.1 Other chronic pancreatitis E11.65 Type 2 diabetes mellitus wit h hyperglycemia N40.1 Benign prostatic hyperplasia with lower urinary tract symp N32.81 Overactive bladder Office Visit 09/17/2020 2:[facility]p [facility] E11.65 Type 2 diabetes mellitus with hyperglyce brittni I10 Essential (primary) hyperten william E78.00 Pure hypercholesterolemia, u nspecified K86.1 Other chronic pancreatitis N40.1 Benign prostatic hyperplasia with lower urinary tract symp N32.81 Overactive bladder Z13.89 Encounter for screening for other disorder Assessments Date Code Description Provider 01/31/2021 R19.09 Other intra-abdominal and pelvic swelling, mass and lump LEORA Nielson JR 12/31/2020 I63.9 Cerebral infarction, unspecified LEORA Nielson JR 12/31/2020 I10 Essential (primary) hypertension LEORA Nielson JR 12/31/2020 E78.00 Pure hypercholesterolemia, unspe cified LEORA Nielson JR 12/31/2020 K86.1 Other chronic pancreatitis LEORA Thomas JR 12/31/2020 E11.65 Type 2 diabetes mellitus with hy perglycemia LEORA Nielson JR 12/31/2020 N40.1 Benign prostatic hyperplasia wit h lower urinary tract symptoms LEORA Nielson JR 12/31/2020 N32.81 Overactive bladder LEORA Neely JR 09/17/2020 E11.65 Type 2 diabetes mellitus with hy perglycemia Mark Lovell MD 09/17/2020 I10 Essential (primary) hypertension Mark Lovell MD 09/17/2020 E78.00 Pure hypercholesterolemia, unspe cified Mark Lovell MD 09/17/2020 K86.1 Other chronic pancreatitis Colli abril Lovell MD 09/17/2020 N40.1 Benign prostatic hyperplasia wit h lower urinary tract symptoms Mark Lovell MD 09/17/2020 N32.81 Overactive bladder Mark fay MD 09/17/2020 Z13.89 Encounter for screening for othe r disorder Mark Lovell MD Plan of Treatment Future Appointment(s):* 03/28/2021 9:40 am - Mark Lovell MD at [facility] 01/31/2021 - LEORA Nielson JR* R19.09 Other intra-abdominal and pelvic swelling, mass and lump * All * Comments:* Total time spent with patient: 16 minutes. Functional Status Description No Information Available Mental Status Description No Information Available Referrals Description No Information Available
--- OUTSIDE RECORDS SUMMARY | 2021-05-05 03:29 | CCD | Continuity of Care Document ---
Author Author Mehul Lovell MD Organization Unknown Address [address] [facility] [address] [place] [address] Phone [phone] Care Team Providers Care Design Engineer Products Name Role Phone Mark Lovell JR, MD AUTM Unavailable Delgado Barnett MD AUTM [phone] Ralph Treviño MD AUTM [phone] Bert Pearce MD AUTM [phone] Problems Active Problems Provider Date Benign essential [...] CPT Code Status Date Vaccine Lot # 53311 Given 08/14/2014 Prevnar 13 [id number] Given 05/07/2009 Pneumovax 23 U-Tetan Refused 09/17/2020 Tetanus,Unspecified U-Flu Refused 09/17/2020 Influenza,Unspecified 43655 Refused 09/17/2020 Shingrix Zoster Vaccine (HZV), Recombinant, Subunit, Adjuvanted 97042 Refused 08/31/2017 Zoster Vaccine [id number] Refused 08/31/2017 Influenza Vaccin e Quadrivalent Preser/Antibiotic [...] Result H/L Range Note Liver Profile 01/20/2021 [facility] nter [address] [place] [address] [phone] Ast/Sgot 24 U/L Normal 7-37 Alt/SGPT 54 U/L Normal 12-78 Alkaline Phosphatase 66 U/L Normal 45-117 Bilirubin,Total 1.5 mg/dL High 0.2-1.0 Bilirubin,Direct 0.3 mg/dL High 0.0-0.2 Total Protein 6.3 GM/DL Low 6.4-8.2 Albumin 3.6 GM/DL Normal 3.2-5.2 Albumin/Globulin Ratio 1.3 Normal Laboratory test finding 01/20/2021 [facility] [address] [place] [address] [phone] Amylase 72 U/L Normal 25-115 Lipase 190 U/L Normal 73-393 Influenza A/B RSV Covid Amp 12/04/2020 [facility] [address] [place] [address] [phone] Influenza A Amplification NEGATIVE Normal Negati ve 1 Influenza B Amplification NEGATIVE Normal Negative 2 RSV Amplification NEGATIVE Normal Negative 3 Sars Covid-19 Amplification NEGATIVE Normal Negative 4 CBC With Differential 12/04/2020 [facility] [address] [place] [address] [phone] White Blood Count 9.2 10 Normal 4.0-10.0 [...] 36.0-66.0 Lymph % 7.3 % Low 24.0-44.0 [place]bach % 6.6 % Normal 2.0-8.0 Eos % 2.8 % Normal 0.0-3.0 Baso % 0.3 % Normal 0.0-1.0 Immature Granulocyte % 0.4 % Normal 0-3.0 Nucleated Red Blood Cell % 0.0 % Normal 0-0 Neutrophils # 7.6 10 Normal 1.5-8.5 Lymph # 0.7 10 Low 1.5-5.0 Ziebach # 0.6 10 Normal 0.0-0.8 Eos # 0.3 10 Normal 0.0-0.5 Baso # 0.0 10 Normal 0.0-0.2 Prothrombin Time/Inr 12/04/2020 [facility] enter [address] [place] [address] [phone] Prothrombin Time 11.9 seconds Normal 12.5-14.3 Inr 0.86 Normal 5 Laboratory test finding 12/04/2020 [facility] [address] [place] [address] [phone] Partial Thromboplastin Time 24.9 seconds Low 24 .2-38.5 Cardiac Marker Panel 12/04/2020 [facility] enter [address] [place] [address] [phone] CPK Creatine Phosphokinase 40 U/L Normal 39-30 8 CK-MB Value Mass 1.6 NG/ML Normal <3.6 MB/CK Relative Index 4.00 Normal < Or =4 6 Troponin I < 0.02 NG/ML Normal < 0.10 7 Type & Screen -Incl Blood Type,Tone,AB SC 12/04/[address] [id number] [phone] Blood Type O POSITIVE Normal AB Screen (Indirect Yakelin)Vis NEGATIVE Normal Comprehensive Metabolic Profil 12/04/[address] [address] [phone] Glucose, Fasting 231 mg/dL High 70-100 Blood [...] pathogens. DISCLAIMER: Testing was performed using the [employer] SARS-CoV-2 test. This test was developed and its performance characteristics determined by [employer]. This test has not been FDA cleared [...] 7 Troponin I Reference Interva l for [employer] LOCI: 99th Percentile= 0.00-0.045 ng/ml Risk Stratification: [...] Little GFR Left ESRD GFR <15 on HANDICRAFT OR HOBBY SHOP MANAGER Procedures Date Code Description Status 01/31/2021 55243 Office/Outpatient Established Lo w MDM 20-29 Min Completed 12/31/2020 [address] [facility] Care SRV W/I 14D Of DC, Co mm W/I 2 Dys Med Rec Completed 05/23/2020 [id number] Diabetic Retinal Eye Exam Comple leslie 05/19/2019 [id number] Diabetic Retinal Eye Exam Comple leslie 05/18/2018 531822735 Diabetic Retinal Eye Exam Comple leslie 04/22/2017 075399774 Diabetic Retinal Eye Exam Comple leslie 03/17/2017 543358662 Diabetic Retinal Eye Exam Comple leslie 02/02/2017 [id number] Diabetic Retinal Eye Exam Comple leslie 05/10/2013 370482241 Diabetic Retinal Eye Exam Comple leslie 07/18/2012 [id number] Colonoscopy Completed 01/27/2012 [id number] Diabetic Retinal Eye Exam Comple leslie 06/09/2011 501556845 Diabetic Retinal Eye Exam Comple leslie Medical Devices Description No Information Available Encounters Type Date Location Provider Dx Diagnosis Office Visit 01/31/2021 1:20p [facility] R19.09 [...] 1:30 pm - Mark Lovell MD at [facility] Functional Status Description No Information Available Mental Status Description No Information Available Referrals Refer to Reason for Referral Status Appt Date Watson Martin MD CONSULT FOR PAINFUL RT INGUINAL HERNIA Raimundo francis Notified 03/25/[address] [facility] [address] [facility], [place] [id number] [phone]
--- OUTSIDE RECORDS SUMMARY | 2021-05-05 03:30 | CCD ---
Author Author [facility] Organization [facility] Address Unknown Phone Unavailable Care Team Providers Care Life Skills Worker Name Role Phone Fidelia CHI MD Unavailable Unavailable Fidelia CHI MD Unavailable Unavailable Fidelia CHI MD Unavailable Unavailable Fidelai CHI MD Unavailable Unavailable Fidelia CHI MD Unavailable Unavailable Fidelia CHI MD Unavailable Unavailable Fidelia CHI MD Unavailable Unavailable Fidelia CHI MD Unavailable Unavailable Fidelia CHI MD Unavailable Unavailable Fidelia CHI MD Unavailable Unavailable Fidelia CHI MD Unavailable Unavailable Fidelia CHI MD Unavailable Unavailable Fidelia CHI MD Unavailable Unavailable Fidelia CHI MD Unavailable Unavailable Fidelia CHI MD Unavailable Unavailable Fidelia CHI MD Unavailable Unavailable Fidelia CHI MD Unavailable Unavailable BARAYUGA, Fidelia CARLOS MD Unavailable Unavailable BARAYUGA, Fidelia CARLOS MD Unavailable Unavailable BARAYUGA, Fidelia CARLOS MD Unavailable Unavailable BARAYUGA, Fidelia CARLOS MD Unavailable Unavailable BARAYUGA, Fidelia CARLOS MD Unavailable Unavailable BARAYUGA, Fidelia CARLOS MD Unavailable Unavailable BARAYUGA, Fidelia CARLOS MD Unavailable Unavailable BARAYUGA, Fidelia CARLOS MD Unavailable Unavailable BARAYUGA, Fidelia CARLOS MD Unavailable Unavailable BARAYUGA, Fidelia CARLOS MD Unavailable Unavailable BARAYUGA, Fidelia CARLOS MD Unavailable Unavailable BARAYUGA, Fidelia CARLOS MD Unavailable Unavailable BARAYUGA, Fidelia CARLOS MD Unavailable Unavailable BARAYUGA, Fidelia CARLOS MD Unavailable Unavailable BARAYUGA, Fidelia CARLOS MD Unavailable Unavailable BARAYUGA, Fidelia CARLOS MD Unavailable Unavailable BARAYUGA, Fidelia CARLOS MD Unavailable Unavailable BARAYUGA, Fidelia CARLOS MD Unavailable Unavailable Charlebois, A Katharine RPA C Unavailable Unavailable Charlebois, A Katharine RPA C Unavailable Unavailable Charlebois, A Katharine RPA C Unavailable Unavailable Charlebois, A Katharine RPA C Unavailable Unavailable Charlebois, A Katharine RPA C Unavailable Unavailable Charlebois, A Katharine RPA C Unavailable Unavailable Charlebois, A Katharine RPA C Unavailable Unavailable Charlebois, A Katharine RPA C Unavailable Unavailable Charlebois, A Katharine RPA C Unavailable Unavailable Charlebois, A Katharine RPA C Unavailable Unavailable Charlebois, A Katharine RPA C Unavailable Unavailable Charlebois, A Katharine RPA C Unavailable Unavailable Charlebois, A Katharine RPA C Unavailable Unavailable Charlebois, A Katharine RPA C Unavailable Unavailable Charlebois, A Katharine RPA C Unavailable Unavailable Charlebois, A Katharine RPA C Unavailable Unavailable Charlebois, A Katharine RPA C Unavailable Unavailable Charlebois, A Katharine RPA C Unavailable Unavailable Charlebois, A Katharine RPA C Unavailable Unavailable Charlebois, A Katharine RPA C Unavailable Unavailable Charlebois, A Katharine RPA C Unavailable Unavailable Charlebois, A Katharine RPA C Unavailable Unavailable Charlebois, A Katharine RPA C Unavailable Unavailable Charlebois, A Katharine RPA C Unavailable Unavailable Charlebois, A Katharine RPA C Unavailable Unavailable Charlebois, A Katharine RPA C Unavailable Unavailable Charlebois, A Katharine RPA C Unavailable Unavailable Charlebois, A Katharine RPA C Unavailable Unavailable Charlebois, A Katharine RPA C Unavailable Unavailable Charlebois, A Katharine RPA C Unavailable Unavailable Charlebois, A Katharine RPA C Unavailable Unavailable Charlebois, A Katharine RPA C Unavailable Unavailable Charlebois, A Katharine RPA C Unavailable Unavailable PICKERAL JR, J SERA PA-C Unavailable Unavailable PICKERAL JR, J SERA PA-C Unavailable Unavailable PICKERAL JR, J SERA PA-C Unavailable Unavailable PICKERAL JR, J SERA PA-C Unavailable Unavailable PICKERAL JR, J SERA PA-C Unavailable Unavailable PICKERAL JR, J SERA PA-C Unavailable Unavailable PICKERAL JR, J SERA PA-C Unavailable Unavailable PICKERAL JR, J SERA PA-C Unavailable Unavailable PICKERAL JR, J SERA PA-C Unavailable Unavailable PICKERAL JR, J SERA PA-C Unavailable Unavailable PICKERAL JR, J SERA PA-C Unavailable Unavailable PICKERAL JR, J SERA PA-C Unavailable Unavailable PICKERAL JR, J SERA PA-C Unavailable Unavailable PICKERAL JR, J SERA PA-C Unavailable Unavailable PICKERAL JR, J SERA PA-C Unavailable Unavailable PICKERAL JR, J SERA PA-C Unavailable Unavailable PICKERAL JR, J SERA PA-C Unavailable Unavailable PICKERAL JR, J SERA PA-C Unavailable Unavailable PICKERAL JR, J SERA PA-C Unavailable Unavailable PICKERAL JR, J SERA PA-C Unavailable Unavailable PICKERAL JR, J SERA PA-C Unavailable Unavailable PICKERAL JR, J SERA PA-C Unavailable Unavailable PICKERAL JR, J SERA PA-C Unavailable Unavailable PICKERAL JR, J SERA PA-C Unavailable Unavailable PICKERAL JR, J SERA PA-C Unavailable Unavailable PICKERAL JR, J SERA PA-C Unavailable Unavailable PICKERAL JR, J SERA PA-C Unavailable Unavailable Patricio Lovell MD Unavailable Unavailable Patricio Lovell MD Unavailable Unavailable Patricio Lovell MD Unavailable Unavailable Patricio Lovell MD Unavailable Unavailable Patricio Lovell MD Unavailable Unavailable Patricio Lovell MD Unavailable Unavailable Patricio Lovell MD Unavailable Unavailable Patricio Lovell MD Unavailable Unavailable Patricio Lovell MD Unavailable Unavailable Patricio Lovell MD Unavailable Unavailable Patricio Lovell MD Unavailable Unavailable Patricio Lovell MD Unavailable Unavailable WorcesterPatricio MD Unavailable Unavailable LiliyaPatricio MD Unavailable Unavailable LiliyaPatricio MD Unavailable Unavailable LiliyaPatricio MD Unavailable Unavailable WorcesterPatricio MD Unavailable Unavailable LiliyaPatricio MD Unavailable Unavailable WorcesterPatricio MD Unavailable Unavailable LiliyaPatricio MD Unavailable Unavailable LiliyaPatricio MD Unavailable Unavailable LiliyaPatricio MD Unavailable Unavailable LiliyaPatricio MD Unavailable Unavailable WorcesterPatricio MD Unavailable Unavailable LiliyaPatricio MD Unavailable Unavailable WorcesterPatricio MD Unavailable Unavailable WorcesterPatricio MD Unavailable Unavailable WorcesterPatricio MD Unavailable Unavailable WorcesterPatricio MD Unavailable Unavailable LiliyaPatricio MD Unavailable Unavailable LiliyaPatricio MD Unavailable Unavailable WorcesterPatricio MD Unavailable Unavailable WorcesterPatricio MD Unavailable Unavailable LiliyaPatricio MD Unavailable Unavailable LiliyaPatricio MD Unavailable Unavailable LiliyaPatricio MD Unavailable Unavailable WorcesterPatricio MD Unavailable Unavailable LiliyaPatricio MD Unavailable Unavailable WorcesterPatricio MD Unavailable Unavailable LiliyaPatricio MD Unavailable Unavailable WorcesterPatricio MD Unavailable Unavailable WorcesterPatricio MD Unavailable Unavailable LiliyaPatricio MD Unavailable Unavailable LiliyaPatricio MD Unavailable Unavailable LiliyaPatricio MD Unavailable Unavailable LiliyaPatricio MD Unavailable Unavailable WorcesterPatricio MD Unavailable Unavailable WorcesterPatricio marie MD Unavailable Unavailable LiliyaPatricio MD Unavailable Unavailable WorcesterPatricio MD Unavailable Unavailable WorcesterPatricio marie MD Unavailable Unavailable WorcesterPatricio MD Unavailable Unavailable WorcesterPatricio MD Unavailable Unavailable WorcesterPatricio marie MD Unavailable Unavailable WorcesterPatricio marie MD Unavailable Unavailable LiliyaPatricio MD Unavailable Unavailable LiliyaPatricio MD Unavailable Unavailable WorcesterPatricio MD Unavailable Unavailable WorcesterPatricio MD Unavailable Unavailable LiliyaPatricio MD Unavailable Unavailable WorcesterPatricio MD Unavailable Unavailable LiliyaPatricio MD Unavailable Unavailable WorcesterPatricio MD Unavailable Unavailable WorcesterPatricio MD Unavailable Unavailable WorcesterPatricio MD Unavailable Unavailable LiliyaPatricio MD Unavailable Unavailable LiliyaPatricio MD Unavailable Unavailable [place], F Flores MD Unavailable Unavailable Liliya, F Mark MD Unavailable Unavailable [place], F Mark MD Unavailable Unavailable Liliya, F Mark MD Unavailable Unavailable Liliya, F Mark MD Unavailable Unavailable Liliya, F Mark MD Unavailable Unavailable Liliya, F Mark MD Unavailable Unavailable Worcester, F Mark MD Unavailable Unavailable [place], F Mark MD Unavailable Unavailable Liliya, F Mark MD Unavailable Unavailable Liliya, F Mark MD Unavailable Unavailable Liliya, F Mark MD Unavailable Unavailable [place], F Mark MD Unavailable Unavailable Liliya, F Mark MD Unavailable Unavailable Liliya, F Mark MD Unavailable Unavailable Liliya, F Mark MD Unavailable Unavailable Liliya, F Mark MD Unavailable Unavailable [place], F Mark MD Unavailable Unavailable Liliya, F Mark MD Unavailable Unavailable Mcrae, L Erin RPA Unavailable Unavailable Mcrae, L Erin RPA Unavailable Unavailable Mcrae, L Erin RPA Unavailable Unavailable Mcrae, L Erin RPA Unavailable Unavailable Mcrae, L Erin RPA Unavailable Unavailable Mcrae, L Erin RPA Unavailable Unavailable Mcrae, L Erin RPA Unavailable Unavailable Mcrae, L Erin RPA Unavailable Unavailable Mcrae, L Erin RPA Unavailable Unavailable Mcrae, L Erin RPA Unavailable Unavailable Mcrae, L Erin RPA Unavailable Unavailable Mcrae, L Erin RPA Unavailable Unavailable Mcrae, L Erin RPA Unavailable Unavailable Mcrae, L Erin RPA Unavailable Unavailable Mcrae, L Erin RPA Unavailable Unavailable Mcrae, L Erin RPA Unavailable Unavailable Mcrae, L Erin RPA Unavailable Unavailable Mcrae, L Erin RPA Unavailable Unavailable Mcrae, L Erin RPA Unavailable Unavailable Mcrae, L Erin RPA Unavailable Unavailable Mcrae, L Erin RPA Unavailable Unavailable Mcrae, L Erin RPA Unavailable Unavailable Mcrae, L Erin RPA Unavailable Unavailable Mcrae, L Erin RPA Unavailable Unavailable Mcrae, L Erin RPA Unavailable Unavailable Mcrae, L Erin RPA Unavailable Unavailable Mcrae, L Erin RPA Unavailable Unavailable Mcrae, L Erin RPA Unavailable Unavailable Mcrae, L Erin RPA Unavailable Unavailable Mcrae, L Erin RPA Unavailable Unavailable Mcrae, L Erin RPA Unavailable Unavailable Mcrae, L Erin RPA Unavailable Unavailable Hegard, Nancy BOBBIN WASHER Unavailable Unavailable Hegard, Nancy BOBBIN WASHER Unavailable Unavailable Hegard, Nancy BOBBIN WASHER Unavailable Unavailable Hegard, Nancy BOBBIN WASHER Unavailable Unavailable Hegard, Nancy BOBBIN WASHER Unavailable Unavailable Hegard, Nancy BOBBIN WASHER Unavailable Unavailable Hegard, Nancy BOBBIN WASHER Unavailable Unavailable Hegard, Nancy BOBBIN WASHER Unavailable Unavailable Hegard, Nancy BOBBIN WASHER Unavailable Unavailable Hegard, Nancy BOBBIN WASHER Unavailable Unavailable Hegard, Nancy BOBBIN WASHER Unavailable Unavailable Hegard, Nancy BOBBIN WASHER Unavailable Unavailable Hegard, Nancy BOBBIN WASHER Unavailable Unavailable Hegard, Nancy BOBBIN WASHER Unavailable Unavailable Hegard, Nancy BOBBIN WASHER Unavailable Unavailable Hegard, Nancy BOBBIN WASHER Unavailable Unavailable Hegard, Nancy BOBBIN WASHER Unavailable Unavailable Re-disclosure Warning The records that you are about to access may contain information from federally-assisted alcohol or drug abuse programs. If such information is present, then the following federally mandated warning applies: This information has been disclosed to you from records protected by federal confidentiality rules (42 CFR part 2). The federal rules prohibit you from making any further disclosure of this information unless further disclosure is expressly permitted by the written consent of the person to whom it pertains or as otherwise permitted by 42 CFR part 2. A general authorization for the release of medical or other information is NOT sufficient for this purpose. The Federal rules restrict any use of the information to criminally investigate or prosecute any alcohol or drug abuse patient.The records that you are about to access may contain highly sensitive health information, the redisclosure of which is protected by Article 27-F of the [facility] Public Health law. If you continue you may have access to information: Regarding HIV / AIDS; Provided by facilities licensed or operated by the [facility] Office of Mental Health; or Provided by the [facility] Office for People With Developmental Disabilities. If such information is present, then the following [facility] mandated warning applies: This information has been disclosed to you from confidential records which are protected by state law. State law prohibits you from making any further disclosure of this information without the specific written consent of the person to whom it pertains, or as otherwise permitted by law. Any unauthorized further disclosure in violation of state law may result in a fine or long-term sentence or both. A general authorization for the release of medical or other information is NOT sufficient authorization for further disc losure. Family History Family Member Name Family Member Gender Family Member Status Date o f Status Description Data Source(s) Unknown Unknown Problem [facility] ([facility], ) stomach father Unknown Male Problem [facility] ([facility]) Encounters Encounter Providers Location Date Indications Data Source(s ) Office Visit Attender: Erinsindhu Jordan/Cuero/Hemanth/R eindl 04/29/2021 11:15:00 AM EDT MED[facility] ([facility]) Outpatient Attender: Mark Sandoval 0 03/28/2021 09:40:00 AM EDT MED[facility] ([facility] ) Outpatient Attender: BREANNA Jordan/Cuero/Hemanth/ Reindl 03/25/2021 03:00:00 PM EDT MED[facility] ([facility]) Outpatient Attender: SERA Sandoval 0 01/31/2021 01:20:00 PM EDT MED[facility] ([facility] ) Outpatient Attender: Nancy San [facility] Main Office 0 01/22/2021 12:45:00 PM EDT [facility] Attender: Katharine Alvarez RPA C Nikki/Cuero/A ngel/Reindl 01/14/2021 03:15:00 PM EDT MEDENT ([facility]) Outpatient Attender: SERA Sandoval 0 12/31/2020 02:40:00 PM EDT MED[facility] ([facility] ) Outpatient 12/10/2020 08:13:00 PM EDT L pontine stroke [facility] L pontine stroke [place] [address] [address] 09/18/2020 12:00:00 AM EDT eCW1 ([facility]) Outpatient Attender: Mark Sandoval 0 09/17/2020 02:00:00 PM EDT [facility] ([facility] ) (MMS 1) [facility] [address] [address] 09/11/2020 12:00:00 AM EST eCW1 ([facility]) [place] [address] [address] 09/10/2020 12:00:00 AM EST eCW1 ([facility]) Outpatient Attender: Mark Sandoval 0 03/15/2020 02:15:00 PM EDT MED[facility] ([facility] ) Immunizations Vaccine Date Status Description Data Source(s) Shingrix Zoster Vaccine (HZV), Recombinant, Subunit, A djuvanted 09/17/2020 11:03:00 AM EDT completed [facility] ([facility]) This CVX code allows reporting of a vacc ination when formulation is unknown (for example, when recording a Influenza vaccination when noted on a vaccination card) 09/17/2020 11:02:00 AM EDT completed MEDEN T ([facility]) tetanus toxoid, unspecified formulation 09/17/2020 11:02:00 AM EDT completed [facility] ([facility]) COVID-19 VACCINE Pfizer 08/25/2020 12:00:00 AM EST completed [facility] Vaccine Series Complete: YESThis Data wa s Submitted to [facility] Via [employer]. COVID-19 VACCINE Pfizer 08/04/2020 12:00:00 AM EST completed [facility] Vaccine Series Complete: NOThis Data was Submitted to [facility] Via [employer]. Medications Medication Brand Name Start Date Product Form Dose Route Admi nistrative Instructions Pharmacy Instructions Status Indications Reaction Description Data Source(s) Acetaminophen 325 MG / Hydrocodone Bitartrate 5 MG Ora l Tablet Hydrocodone Bitartrate/Acetaminophen 04/11/2021 12:00:00 AM EDT ORAL completed MEDENT ([facility], ) Freestyle Xander 14 Day/Sensor/Flash Monitoring System 01/07/2021 12:00:00 AM EDT active MEDENT ([facility]) Freestyle Xander 2/Sensor/Flash Glucose Monitoring System 12/31/2020 12:00:00 AM EDT completed MED[facility] ([facility]) Losartan Potassium 50 MG Oral Tablet Losartan Potassium 12:00:00 AM EDT ORAL active MED[facility] ([facility]) Glipizide 5 MG Oral Tablet Glipizide 09/17/2020 12:00:00 AM EDT ORAL active [facility] ([facility]) 24 HR mirabegron 25 MG Extended Release Oral Tablet [Myrbetr iq] Myrbetriq 09/17/2020 12:00:00 AM EDT ORAL completed MED[facility] ([facility]) Covid-19 vaccine, Unspecified 08/25/2020 12:00:00 AM EST completed [facility] ([facility]) Medication administered onsite Covid-19 vaccine, Unspecified 08/04/2020 12:00:00 AM EST completed [facility] ([facility]) Medication administered onsite canagliflozin 300 MG Oral Tablet [Invokana] Invokana 06/04 12:00:00 AM EST ORAL active MED[facility] ( [facility]) Insurance Providers Payer name Policy type / Coverage type Policy ID Covered alliance party ID Covered alliance party's relationship to pearson Policy Pearson Plan Information [facility] Commercial [id number] Self [id number] [facility] [place] [id number] Self Hmo Medicare Natl Govt Serv Medicare Primary [id number] Self [id number] Medicare Natl Govt Servic Medicare Primary [id number] Self [id number] Medicare Natl Govt Servic Medicare Primary [id number] Self [id number] Medicare Natl Govt Servic Medicare Primary [id number] Self [id number] Medicare Natl Govt Servic Medicare Primary [id number] Self [id number] MEDICARE [id number] SP [id number] A Medicare Natl Govt Servic Medicare Primary [id number] Self [id number] Medicare Natl Govt Servic Medicare Primary [id number] Self MEDICARE [id number] [place] [id number] A Medicare Medicare Primary [id number] Self [id number] BS [employer] Medigap Part B [id number] Self [id number] BS Verizon Medigap Part B [id number] Self [id number] [employer] BCBS [id number] [place] UQV [id number] DME Jurisdiction A CAIC C [id number] SELF [id number] [employer]/[place]/BS Other Health Maintenance Organization (HMO) U [id number] Self [id number] [facility] Commercial [id number] Self [id number] [facility] O [id number] S [id number] MEDICARE C [id number] S [id number] A [employer] Medicare Leslie Commercial [id number] Self [id number] BS [place] [employer] Medigap Part B [id number] Self [id number] EXCELLUS BCBS B [id number] S UQV [id number] Excell[employer] BCBS Medigap Part B [id number] Self [id number] Medicare [place] Medicare Primary [id number] Self [place]HABA MEDICARE PART B C [id number] S [id number] BCBS [place] 200/700 [id number] SP [id number] Blue Cross Blue Shield P [id number] SELF [id number] Medicare C [id number] SELF [id number] A [employer]CELL[employer] BCBS S [id number] S [id number] A MEDICARE COMPLETE [id number] SP [id number] MEDICARE [id number] SP [id number] MEDICARE COMPLETE [id number] SP [id number] BS [place] Medigap Part B [id number] Self [id number] MEDICARE COMPLETE-[facility] O [id number] S [id number] [facility] Medicare Commercial [id number] Self [id number] [employer] BCBS Medigap Part B [id number] Self [id number] Medicare [place]/[facility] Medicare Primary [id number] Self [id number] [facility] [id number] SP [id number] MEDICARE [id number] SP [id number] A [facility] Medicare Commercial [id number] Self [id number] [facility] Medicare Commercial [id number] Self [id number] [facility] O [id number] S [id number] [facility]/Med[employer]are [employer] Commercial [id number] Self [id number] [facility] [id number] SP [id number] BCBS [place] [id number] SP [id number] Unitedhealthcare Medicare Commercial [id number] Self [id number] United[employer]care Medicare Commercial [id number] Self [id number] Problems, Conditions, and Diagnoses Code Display Name Description Problem Type Effective Dates Data Source(s) L pontine stroke L pontine stroke Diagnosis 12/10/2020 08 :13:00 PM EDT [facility] C44.229 [id number] 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 Problem 09/11/2020 12:00:00 AM EST eCW1 ([facility]) 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 Problem 06/14/2020 12:00:00 AM EST MED[facility] ([facility]) Surgeries/Procedures Procedure Description Date Indications Data Source(s) Lap Inguinal Hernia Repair 04/15/2021 12:00:00 AM EDT MED[facility] ([facility], ) ECG ROUTINE ECG W/LEAST 12 LDS W/I&R 03/28/2021 12:00: 00 AM EDT MEDENT ([facility]) OFFICE OUTPATIENT VISIT 25 MINUTES 03/28/2021 12:00:00 AM EDT MED[facility] ([facility]) OFFICE OUTPATIENT VISIT 15 MINUTES 03/25/2021 12:00:00 AM EDT MED[facility] ([facility], ) OFFICE OUTPATIENT VISIT 15 MINUTES 01/31/2021 12:00:00 AM EDT MED[facility] ([facility]) DESTRUCTION PREMALIGNANT LESION 1ST 01/22/2021 12:00:0 0 AM EDT MED[facility] ([facility]) OFFICE OUTPATIENT VISIT 25 MINUTES 01/22/2021 12:00:00 AM EDT MED[facility] ([facility]) OFFICE OUTPATIENT VISIT 25 MINUTES 01/14/2021 12:00:00 AM EDT MEDENT ([facility], ) Trans Care SRV W/I 14D Of DC, Comm W/I 2 Dys Med Rec 12/31/2020 12:00:00 AM EDT MEDENT ([facility] ) Suture Removal 09/18/2020 12:00:00 AM EDT eCW1 ([facility]) OFFICE OUTPATIENT VISIT 25 MINUTES 09/17/2020 12:00:00 AM EDT MED[facility] ([facility]) Med: Derm Lidocaine with Epinephrine Inj ection 1% with 2 ml sodium bicarbonate Intradermally to marked areas 09/11/2020 12:00:00 AM EST eCW1 ([facility]) Diabetic Retinal Eye Exam 05/23/2020 12:00:00 AM EST MED[facility] ([facility]) Results ID Date Data Source [id number] 04/10/2021 11:25:00 AM EDT [facility] Name Value Range Interpretation Code Description Data Vera rce(s) Supporting Document(s) SARS-CoV-2 (COVID-19) RNA [Presence] in Respiratory specimen by GARTH with probe detection Not Detected [facility] This lab was ordered by [facility] and reported by [employer]. ID Date Data Source [id number] 03/28/2021 10:19:00 AM EDT MEDENT ([facility]) Name Value Range Interpretation Code Description Data Vera rce(s) Supporting Document(s) Cholesterol [Mass/volume] in Serum or Plasma 102 mg/dL 131-200 MED[facility] ([facility]) Triglyceride [Mass/volume] in Serum or Plasma 27 mg/dL 30-150 [facility] ([facility]) Cholesterol in HDL [Mass/volume] in Serum or Plasma 54 mg/dL 35-60 [facility] ([facility]) Cholesterol in LDL [Mass/volume] in Serum or Plasma by calcu lation 43 CALC 50-159 [facility] ([facility]) ID Date Data Source [id number] 03/28/2021 10:19:00 AM EDT MED[facility] ([facility]) Name Value Range Interpretation Code Description Data Vera rce(s) Supporting Document(s) Glucose [Mass/volume] in Serum or Plasma 100 mg/dL 74-99 [facility] ([facility]) 100-125 mg/dL PRE-DIABETES/FASTING >126 mg/dL DIABETES/FASTING Urea nitrogen [Mass/volume] in Serum or Plasma 22 mg/dL 7-18 [facility] ([facility]) Sodium [Moles/volume] in Serum or Plasma 141 meq/L 136-145 [facility] ([facility]) Potassium [Moles/volume] in Serum or Plasma 4.7 meq/L 3.5-5.1 [facility] ([facility]) Creatinine 0.8 mg/dL 0.6-1.3 [facility] ([facility]) Calcium [Mass/volume] in Serum or Plasma 9.3 mg/dL 8.5-10.1 [facility] ([facility]) Chloride [Moles/volume] in Serum or Plasma 105 meq/L 98-107 [facility] ([facility]) Carbon dioxide, total [Moles/volume] in Serum or Plasma 29 meq/L 21 -32 [facility] ([facility]) Alkaline phosphatase isoenzyme [Units/volume] in Serum or Pl asma 60 mg/dL 46-116 [facility] ([facility]) Aspartate aminotransferase [Enzymatic activity/volume] in Serum or Plasma 12 U/L 15-37 [facility] ([facility] ) Total Bilirubin 2.0 mg/dL 0.2-1.0 [facility] ([facility]) NOTE: RESULT VERIFIED. Alanine aminotransferase [Enzymatic activity/volume] in Seru m or Plasma 30 U/L 12-78 [facility] ([facility]) A/G Ratio 1.42 CALC 1.00-1.90 [facility]) Proteinase 3 Ab [Units/volume] in Serum 6.3 g/dL 6.4-8.2 [facility] ([facility]) Albumin [Mass/volume] in Serum or Plasma 3.7 g/dL 3.4-5.0 [facility] ([facility]) Glomerular filtration rate/1.73 sq M pre dicted among blacks [Volume Rate/Area] in Serum or Plasma by Creatinine-based formula (MDRD) Laboratory test result [facility] ([facility]) <content>CHRONIC KIDNEY DISEASE STAGING PER NKF</content>
<content></content>
<content>STAGE I & II GFR >= 60 NORMAL TO MILDLY DECREASED</content>
<content>STAGE III GFR 30-59 MODERATELY DECREASED</content>
<content>STAGE IV GFR 15-29 SEVERELY DECREASED</content>
<content>STAGE V GFR <15 VERY LITTLE GFR LEFT</content>
<content>ESRD GFR <15 ON JOB ORDER CLERK</content>
<content></content> Glomerular filtration rate/1.73 sq M pre dicted among non-blacks [Volume Rate/Area] in Serum or Plasma by Creatinine-based formula (MDRD) Laboratory test result [facility] ([facility] ) ID Date Data Source [id number] 03/28/2021 10:19:00 AM EDT [facility] ([facility]) Name Value Range Interpretation Code Description Data Vera rce(s) Supporting Document(s) Prostate specific Ag [Mass/volume] in Serum or Plasma 1.51 ng/mL [facility] ([facility]) This assay was performed on the Siemens Dimension EXL using the B- Galactosidase/CPRG methodology and should not be compared interchangeably with other methods. The PSA should not be used alone as a screening test for the presence or absence of malignant disease. ID Date Data Source [id number] 03/28/2021 10:19:00 AM EDT [facility] ([facility]) Name Value Range Interpretation Code Description Data Vera rce(s) Supporting Document(s) Glucose mean value [Mass/volume] in Blood Estimated fr om glycated hemoglobin 157 mg/dL 60-110 [facility] ([facility] ) Hemoglobin A1c/Hemoglobin.total in Blood 7.1 % [facility] ([facility]) Lab Result Notes: Pre-Diabetes 5.7 - 6.4 % Diabetes = or > 6.5% ID Date Data Source [id number] 01/20/2021 12:30:00 PM EDT [facility] Name Value Range Interpretation Code Description Data Vera rce(s) Supporting Document(s) Ast/Sgot 24 U/L 7-37 Normal (applies to non-numeric resul ts) [facility] ([facility]) Alt/SGPT 54 U/L 12-78 Normal (applies to non-numeric resul ts) [facility] ([facility]) Alkaline Phosphatase 66 U/L 45-117 Normal (applies to non-num gildardo results) [facility] ([facility]) Bilirubin,Total 1.5 mg/dL 0.2-1.0 Above high normal [facility] ([facility]) Bilirubin,Direct 0.3 mg/dL 0.0-0.2 Above high normal [facility] ([facility]) Albumin 3.6 GM/DL 3.2-5.2 Normal (applies to non-numeric resul ts) [facility] ([facility]) Total Protein 6.3 GM/DL 6.4-8.2 Below low normal [facility] ([facility]) Albumin/Globulin Ratio 1.3 Normal (applies to non-n umeric results) [facility] ([facility]) 01/21/21 (WedJan 21) 04:07 PM KATHARINE CHARLEBOIS Bilirubin mildly elevated. Total protein has improved. See triage. ID Date Data Source [id number] 01/20/2021 12:30:00 PM EDT [facility] ([facility]) Name Value Range Interpretation Code Description Data Vera rce(s) Supporting Document(s) Amylase [Enzymatic activity/volume] in Serum or Plasma 72 U/L 25-115 Normal (applies to non-numeric results) [facility] ([facility], ) Lipoprotein lipase [Enzymatic activity/volume] in Serum or P lasma 190 U/L 73-393 Normal (applies to non-numeric results) [facility] ([facility]) 01/21/21 (WedJan 21) 03:59 PM KATHARINE CHARLEBOIS Normal. ID Date Data Source [id number] 01/20/2021 12:30:00 PM EDT [facility]) Name Value Range Interpretation Code Description Data Vera rce(s) Supporting Document(s) Amylase [Enzymatic activity/volume] in Serum or Plasma 72 U/L 25- 115 [facility] ([facility]) Lipoprotein lipase [Enzymatic activity/volume] in Serum or P lasma 190 U/L 73-393 [facility] ([facility]) ID Date Data Source [id number] 01/20/2021 12:30:00 PM EDT [facility] ([facility]) Name Value Range Interpretation Code Description Data Vera rce(s) Supporting Document(s) Alkaline Phosphatase 66 U/L 45-117 [facility] ([facility]) Ast/Sgot 24 U/L 7-37 [facility]) Alt/SGPT 54 U/L 12-78 [facility] ([facility]) Total Protein 6.3 GM/DL 6.4-8.2 [facility] ([facility]) Bilirubin,Total 1.5 mg/dL 0.2-1.0 [facility] ([facility]) Bilirubin,Direct 0.3 mg/dL 0.0-0.2 [facility] ([facility]) Albumin 3.6 GM/DL 3.2-5.2 [facility] ([facility]) Albumin/Globulin Ratio 1.3 [facility] ([facility]) ID Date Data Source [id number] 12/04/2020 11:12:00 AM EDT [facility] ([facility]) Name Value Range Interpretation Code Description Data Vera [facility](s) Supporting Document(s) Influenza B Amplification Laboratory test result [facility] ([facility]) Negative results do not preclude influen za or RSV virus infection and should not be used as the sole basis for treatment or other patient management decisions. Influenza A Amplification Laboratory test result [facility] ([facility]) Negative results do not preclude influen za or RSV virus infection and should not be used as the sole basis for treatment or other patient management decisions. RSV Amplification Laboratory test result [facility] ([facility]) Negative results do not preclude influen za or RSV virus infection and should not be used as the sole basis for treatment or other patient management decisions. Laboratory test finding (navigational concept) Laboratory test result [facility] ([facility]) A false negative result may occur if a s pecimen is improperly collected, transported or handled. False [...] pathogens. DISCLAIMER: Testing was performed using the [employer] SARS-CoV-2 test. This test was developed and its performance characteristics determined by [employer]. This test has not been FDA cleared [...] the authorization is terminated or revoked sooner. ID Date Data Source [id number] 12/04/2020 11:12:00 AM EDT [facility] Name Value Range Interpretation Code Description Data Vera rce(s) Supporting Document(s) SARS coronavirus 2 RNA [Presence] in Res piratory specimen by GARTH with probe detection NEGATIVE [facility] This lab was ordered by [facility] a nd reported by [facility]. ID Date Data Source [id number] 12/04/2020 09:53:00 AM EDT [facility] ([facility]) Name Value Range Interpretation Code Description Data Vera rce(s) Supporting Document(s) Glucose, Fasting 231 mg/dL 70-100 [facility] ([facility]) Creatinine For GFR 0.76 mg/dL 0.70-1.30 [facility] ([facility]) Blood Urea Nitrogen 18 mg/dL 7-18 [facility] ([facility]) Glomerular Filtration Rate [facility]) <content>Units are mL/min/1.73 m2</content>
<content></content>
<content>Chronic Kidney Disease Staging per NKF:</content>
<content></content>
<content>Stage I & II GFR >=60 Normal to Mildly Decreased</content>
<content>Stage III GFR 30- 59 Moderately Decreased</content>
<content>Stage IV GFR 15-29 Severely Decreased</content>
<content>Stage V GFR <15 Very Little GFR Left</content>
<content>ESRD GFR <15 on JOB ORDER CLERK</content>
<content></content> Sodium Level 140 meq/L 136-145 [facility] ([facility]) Potassium Serum 4.6 meq/L 3.5-5.1 [facility] ([facility]) Chloride Level 107 meq/L 98-107 [facility] ([facility]) Carbon Dioxide Level 27 meq/L 21-32 [facility] Anion Gap 6 meq/L 8-16 [facility] ([facility]) Ast/Sgot 18 U/L 7-37 [facility] ([facility]) Alt/SGPT 35 U/L 12-78 [facility] ([facility]) Calcium Level 8.8 mg/dL 8.8-10.2 [facility] ([facility]) Total Protein 5.5 GM/DL 6.4-8.2 [facility] Alkaline Phosphatase 64 U/L 45-117 [facility] Bilirubin,Total 1.3 mg/dL 0.2-1.0 [facility] ([facility]) Albumin/Globulin Ratio 1.2 [facility] ([facility]) Albumin 3.0 GM/DL 3.2-5.2 [facility] ([facility]) ID Date Data Source [id number] 12/04/2020 09:53:00 AM EDT [facility] ([facility] Name Value Range Interpretation Code Description Data Vera rce(s) Supporting Document(s) Blood Type Laboratory test result [facility] ([facility]) AB Screen (Indirect Yakelin)Vis Laboratory test result [facility] ([facility]) ID Date Data Source [id number] 12/04/2020 09:53:00 AM EDT [facility] ([facility]) Name Value Range Interpretation Code Description Data Vera rce(s) Supporting Document(s) CPK Creatine Phosphokinase 40 U/L 39-308 [facility] ([facility]) CK-MB Value Mass 1.6 ng/mL [facility] ([facility]) MB/CK Relative Index 4.00 [facility]) <content>DIAGNOSIS CRITERIA</content>
<content>MMB ng/ml Relative Index (RI)</content>
<content>NON-AMI < or = 5 N/A</content>
<content>COREA ZONE > 5 < or = 4</content>
<content>AMI > 5 > 4</content>
<content></content> Troponin I Laboratory test result [facility] ([facility]) <content>Troponin I Reference Interval f or Siemens [place] LOCI:</content>
<content></content>
<content>99th Percentile= 0.00-0.045 ng/ml</content>
<content></content>
<content>Risk Stratification:</content>
<content><= 0.10 ng/ml Decreased Risk for Adverse Clinical</content>
<content>Events.</content>
<content>0.10-1.50 ng/ml Increased Risk for Adverse Clinical</content>
<content>Events. Evaluation of additional</content>
<content>criterion and/or repeat testing in 2-6</content>
<content>hours is suggested to rule out myocardial</content>
<content>damage.</content>
<content>>= 1.50 ng/ml Indicative of Myocardial Injury.</content>
<content></content> ID Date Data Source [id number] 12/04/2020 09:53:00 AM EDT [facility]) Name Value Range Interpretation Code Description Data Vera rce(s) Supporting Document(s) aPTT in Blood by Coagulation assay 24.9 s 24.2-38.5 [facility] ([facility]) ID Date Data Source [id number] 12/04/2020 09:53:00 AM EDT [facility] ([facility]) Name Value Range Interpretation Code Description Data Vera rce(s) Supporting Document(s) Prothrombin Time 11.9 s 12.5-14.3 [facility] ([facility]) Inr 0.86 [facility] THERAPUTIC HUMAN INR VALUES INDICATIONS NORMAL RANGES PROPHYLAXIS/TREATMENT OF: VENOUS THROMBOSIS 2.0-3.0 PULMONARY EMBOLISM 2.0-3.0 PREVENTION OF SYSTEMIC EMBOLISM FROM: TISSUE HEART VALVES 2.0-3.0 ACUTE MYOCARDIAL INFARCTION 2.0-3.0 VALVULAR HEART DISEASE 2.0-3.0 ATRIAL FIBRILLATION 2.0-3.0 MECHANICAL VALVES(HIGH RISK) 2.5-3.5 RECURRENT MYOCARDIAL INFARCTION 2.5-3.5 ID Date Data Source [id number] 12/04/2020 09:53:00 AM EDT [facility] ([facility]) Name Value Range Interpretation Code Description Data [facility] rce(s) Supporting Document(s) White Blood Count 9.2 10 4.0-10.0 [facility] ([facility]) Hemoglobin 15.7 g/dL 13.5-17.5 [facility]) Red Blood Count 5.08 10 4.30-6.10 [facility] ([facility]) Hematocrit 46.2 % 42.0-52.0 [facility] ([place] [facility] Mean Corpuscular Volume 90.9 fl 80.0-96.0 [facility] ([facility]) Mean Corpuscular Hemoglobin 30.9 pg 27.0-33.0 [facility] ([facility]) Mean Corpuscular HGB Conc 34.0 g/dL 32.0-36.5 [facility] NT ([facility]) Red Cell Distribution Width 12.9 % 11.5-14.5 [facility] ([facility]) Lymph % 7.3 % 24.0-44.0 [facility] [facility] Neutrophils % 82.6 % 36.0-66.0 [facility] ([facility]) Platelet Count, Automated 303 10 150-450 [facility] ([facility]) [place] % 6.6 % 2.0-8.0 [facility] ([facility]) Eos % 2.8 % 0.0-3.0 [facility] ([facility]) Immature Granulocyte % 0.4 % 0-3.0 [facility] ([facility]) Baso % 0.3 % 0.0-1.0 [facility] ([facility]) Neutrophils # 7.6 10 1.5-8.5 [facility] ([facility]) Lymph # 0.7 10 1.5-5.0 [facility] ([facility]) Nucleated Red Blood Cell % 0.0 % 0-0 [facility] ([facility]) Eos # 0.3 10 0.0-0.5 [facility] ([facility]) [place] # 0.6 10 0.0-0.8 [facility] ([facility]) Baso # 0.0 10 0.0-0.2 [facility] ([facility]) ID Date Data Source [id number] 09/17/2020 02:34:00 PM EDT [facility] ([facility]) Name Value Range Interpretation Code Description Data Vera rce(s) Supporting Document(s) Urine Creatinine 55.3 mg/dL 30.0-125.0 [facility] ([facility]) Microalbumin Urine 4.8 mg/L 1.3-20.0 [facility] ([facility]) Microalb/Creat Ratio 8.7 ug/mg 0.0-30.0 [facility] ID Date Data Source [id number] 09/17/2020 02:34:00 PM EDT [facility] ([facility]) Name Value Range Interpretation Code Description Data Vera rce(s) Supporting Document(s) Cholesterol [Mass/volume] in Serum or Plasma 194 mg/dL 131-200 [facility] ([facility]) Triglyceride [Mass/volume] in Serum or Plasma 34 mg/dL 30-150 [facility] ([facility]) Cholesterol in HDL [Mass/volume] in Serum or Plasma 61 mg/dL 35-60 [facility] ([facility]) Cholesterol in LDL [Mass/volume] in Serum or Plasma by calcu lation 126 CALC 50-159 [facility] ([facility]) ID Date Data Source [id number] 09/17/2020 02:34:00 PM EDT [facility] ([facility]) Name Value Range Interpretation Code Description Data Vera rce(s) Supporting Document(s) Urea nitrogen [Mass/volume] in Serum or Plasma 20 mg/dL 7-18 [facility] ([facility]) Glucose [Mass/volume] in Serum or Plasma 144 mg/dL 74-99 [facility] ([facility]) 100-125 mg/dL PRE-DIABETES/FASTING >126 mg/dL DIABETES/FASTING Creatinine 0.8 mg/dL 0.6-1.3 [facility] ([facility]) Sodium [Moles/volume] in Serum or Plasma 141 meq/L 136-145 [facility] ([facility]) Carbon dioxide, total [Moles/volume] in Serum or Plasma 27 meq/L 21 -32 [facility] ([facility]) Potassium [Moles/volume] in Serum or Plasma 4.7 meq/L 3.5-5.1 [facility] ([facility]) Chloride [Moles/volume] in Serum or Plasma 101 meq/L 98-107 [facility] ([facility]) Alkaline phosphatase isoenzyme [Units/volume] in Serum or Pl asma 75 mg/dL 46-116 [facility] ([facility]) Calcium [Mass/volume] in Serum or Plasma 9.1 mg/dL 8.5-10.1 [facility] ([facility]) Aspartate aminotransferase [Enzymatic activity/volume] in Serum or Plasma 16 U/L 15-37 [facility] ([facility] ) Total Bilirubin 1.3 mg/dL 0.2-1.0 [facility] ([facility]) NOTE: T.BILI,T.PROTEIN VERIFIED Alanine aminotransferase [Enzymatic activity/volume] in Seru m or Plasma 31 U/L 12-78 [facility] ([facility]) Albumin [Mass/volume] in Serum or Plasma 3.5 g/dL 3.4-5.0 [facility] ([facility]) Proteinase 3 Ab [Units/volume] in Serum 6.2 g/dL 6.4-8.2 [facility] ([facility]) Glomerular filtration rate/1.73 sq M pre dicted among non-blacks [Volume Rate/Area] in Serum or Plasma by Creatinine-based formula (MDRD) Laboratory test result [facility] ([facility] A/G Ratio 1.30 CALC 1.00-1.90 [facility] ([facility]) Glomerular filtration rate/1.73 sq M pre dicted among blacks [Volume Rate/Area] in Serum or Plasma by Creatinine-based formula (MDRD) Laboratory test result [facility] ([facility]) <content>CHRONIC KIDNEY DISEASE STAGING PER NKF</content>
<content></content>
<content>STAGE I & II GFR >= 60 NORMAL TO MILDLY DECREASED</content>
<content>STAGE III GFR 30-59 MODERATELY DECREASED</content>
<content>STAGE IV GFR 15-29 SEVERELY DECREASED</content>
<content>STAGE V GFR <15 VERY LITTLE GFR LEFT</content>
<content>ESRD GFR <15 ON JOB ORDER CLERK</content>
<content></content> ID Date Data Source [id number] 09/17/2020 02:34:00 PM EDT [facility]) Name Value Range Interpretation Code Description Data Vera rce(s) Supporting Document(s) Hemoglobin A1c/Hemoglobin.total in Blood 9.3 % [facility] ([facility]) Lab Result Notes: Pre-Diabetes 5.7 - 6.4 % Diabetes = or > 6.5% Glucose mean value [Mass/volume] in Blood Estimated fr om glycated hemoglobin 220 mg/dL 60-110 [facility] ([facility] ) ID Date Data Source [id number] 09/17/2020 02:34:00 PM EDT [facility]) Name Value Range Interpretation Code Description Data Vera rce(s) Supporting Document(s) Leukocytes [#/volume] in Blood by Automated count 12.3 x10*3/UL 4.1-1 0.9 [facility] ([facility]) NOTE: CBC VERIFIED Erythrocytes [#/volume] in Blood by Automated count 4.85 x10*6/UL 4.2 0-6.30 [facility] ([facility]) Hemoglobin [Mass/volume] in Blood 15.3 g/dL 12.0-18.0 [facility] ([facility]) Hematocrit [Volume Fraction] of Blood by Automated count 42.9 % 3 7.0-51.0 [facility] ([facility]) MCV 88.5 fL 80.0-97.0 [facility] ([facility]) MCHC 35.6 g/dL 31.0-38.0 [facility] ([facility] [place] [facility]) MCH 31.5 pg 26.0-32.0 [facility] ([facility]) MPV 8.2 FL 7.8-11.0 [facility] ([facility] [place] [facility]) Platelets [#/volume] in Blood by Automated count 301 x10*3/UL 140-440 [facility] ([facility]) Erythrocyte distribution width [Ratio] by Automated count 13.4 % 11.6-13.7 [facility] ([facility]) Mid % 6.2 % 1.7-9.3 [facility] ([facility]) Lymph % 4.8 % 10.0-58.5 [facility] ([facility] [place] [facility]) Lymph # 0.6 x10*3/UL 0.6-4.1 [facility] ([facility]) Neut % 89.0 % 37.0-92.0 [facility] ([facility]) Mid # 0.8 x10*3/UL 0.1-0.6 [facility] ([facility]) Neut # 10.9 x10*3/UL 2.0-7.8 [facility] ([facility]) ID Date Data Source [id number] 06/22/2020 03:17:00 PM EST [facility] Name Value Range Interpretation Code Description Data Vera rce(s) Supporting Document(s) SARS coronavirus 2 RdRp gene [Presence] in Respiratory specimen by GARTH with probe detection [facility] This lab was ordered by [place] and repor leslie by [facility]. ID Date Data Source [id number] 06/22/2020 07:39:00 AM EST [facility] Name Value Range Interpretation Code Description Data Vera rce(s) Supporting Document(s) SARS-CoV-2 RdRp gene result [facility] This lab was ordered by [facility] and [facility] ID Date Data Source [id number] 06/11/2020 12:00:00 AM EST [facility] Name Value Range Interpretation Code Description Data Vera rce(s) Supporting Document(s) 2019-nCoV RNA XXX GARTH+probe-Imp [facility] This lab was ordered by [facility] and reported by [employer]. ID Date Data Source [id number] 03/17/2020 10:00:00 PM EDT [facility] ([facility]) Name Value Range Interpretation Code Description Data Vera rce(s) Supporting Document(s) Urine Creatinine 90.9 mg/dL 30.0-125.0 [facility] ([facility]) Microalbumin Urine 6.0 mg/L 1.3-20.0 [facility] ([facility]) Microalb/Creat Ratio 6.6 ug/mg 0.0-30.0 [facility] ID Date Data Source [id number] 03/15/2020 02:05:00 PM EDT [facility] ([facility]) Name Value Range Interpretation Code Description Data Vera rce(s) Supporting Document(s) Cholesterol [Mass/volume] in Serum or Plasma 156 mg/dL 131-200 [facility] ([facility]) Triglyceride [Mass/volume] in Serum or Plasma 56 mg/dL 30-150 [facility] ([facility]) Cholesterol in HDL [Mass/volume] in Serum or Plasma 58 mg/dL 35-60 [facility] ([facility]) Cholesterol in LDL [Mass/volume] in Serum or Plasma by calcu lation 87 CALC 50-159 [facility] ([facility]) ID Date Data Source [id number] 03/15/2020 02:05:00 PM EDT [facility] ([facility]) Name Value Range Interpretation Code Description Data Vera rce(s) Supporting Document(s) Glucose [Mass/volume] in Serum or Plasma 224 mg/dL 74-99 [facility] ([facility]) 100-125 mg/dL PRE-DIABETES/FASTING >126 mg/dL DIABETES/FASTING Creatinine 0.9 mg/dL 0.6-1.3 [facility] ([facility]) Urea nitrogen [Mass/volume] in Serum or Plasma 17 mg/dL 7-18 [facility] ([facility]) Potassium [Moles/volume] in Serum or Plasma 4.1 meq/L 3.5-5.1 [facility] ([facility]) Chloride [Moles/volume] in Serum or Plasma 105 meq/L 98-107 [facility] ([facility]) Sodium [Moles/volume] in Serum or Plasma 139 meq/L 136-145 [facility] ([facility]) Calcium [Mass/volume] in Serum or Plasma 8.4 mg/dL 8.5-10.1 [facility] ([facility]) NOTE: CALCIUM,ALBUMIN,T.PROTEIN VERIFIED Carbon dioxide, total [Moles/volume] in Serum or Plasma 30 meq/L 21 -32 [facility] ([facility]) Alkaline phosphatase isoenzyme [Units/volume] in Serum or Pl asma 82 mg/dL 46-116 [facility] ([facility]) Aspartate aminotransferase [Enzymatic activity/volume] in Serum or Plasma 14 U/L 15-37 [facility] ([facility] ) Total Bilirubin 1.1 mg/dL 0.2-1.0 [facility] ([facility]) Albumin [Mass/volume] in Serum or Plasma 2.8 g/dL 3.4-5.0 [facility] ([facility]) Proteinase 3 Ab [Units/volume] in Serum 5.9 g/dL 6.4-8.2 [facility] ([facility]) Alanine aminotransferase [Enzymatic activity/volume] in Seru m or Plasma 25 U/L 12-78 [facility] ([facility]) Glomerular filtration rate/1.73 sq M pre dicted among non-blacks [Volume Rate/Area] in Serum or Plasma by Creatinine-based formula (MDRD) Laboratory test result [facility] ([facility] ) A/G Ratio 0.90 CALC 1.00-1.90 [facility]) Glomerular filtration rate/1.73 sq M pre dicted among blacks [Volume Rate/Area] in Serum or Plasma by Creatinine-based formula (MDRD) Laboratory test result [facility] ([facility]) <content>CHRONIC KIDNEY DISEASE STAGING PER NKF</content>
<content></content>
<content>STAGE I & II GFR >= 60 NORMAL TO MILDLY DECREASED</content>
<content>STAGE III GFR 30-59 MODERATELY DECREASED</content>
<content>STAGE IV GFR 15-29 SEVERELY DECREASED</content>
<content>STAGE V GFR <15 VERY LITTLE GFR LEFT</content>
<content>ESRD GFR <15 ON JOB ORDER CLERK</content>
<content></content> ID Date Data Source [id number] 03/15/2020 02:05:00 PM EDT [facility] ([facility]) Name Value Range Interpretation Code Description Data Vera rce(s) Supporting Document(s) Hemoglobin A1c/Hemoglobin.total in Blood 9.0 g/dL 4.8-5.6 [facility] ([facility]) Lab Result Notes: Pre-Diabetes 5.7 - 6.4 % Diabetes = or > 6.5% Glucose mean value [Mass/volume] in Blood Estimated fr om glycated hemoglobin 212 mg/dL 60-110 [facility] ([facility] ) ID Date Data Source [id number] 03/15/2020 02:05:00 PM EDT [facility] ([facility]) Name Value Range Interpretation Code Description Data Vera rce(s) Supporting Document(s) Leukocytes [#/volume] in Blood by Automated count 8.7 x10*3/UL 4.1-10 .9 [facility] ([facility]) Erythrocytes [#/volume] in Blood by Automated count 5.04 x10*6/UL 4.2 0-6.30 [facility] ([facility]) Hemoglobin [Mass/volume] in Blood 15.2 g/dL 12.0-18.0 [facility] ([facility]) Hematocrit [Volume Fraction] of Blood by Automated count 43.2 % 3 7.0-51.0 [facility] ([facility]) MCV 85.5 fL 80.0-97.0 [facility] ([facility]) Erythrocyte distribution width [Ratio] by Automated count 12.7 % 11.6-13.7 [facility] ([facility]) MCH 30.1 pg 26.0-32.0 [facility] ([facility]) MCHC 35.2 g/dL 31.0-38.0 [facility] ([facility]) Lymph % 7.7 % 10.0-58.5 [facility] ([facility]) Platelets [#/volume] in Blood by Automated count 332 x10*3/UL 140-440 [facility] ([facility]) MPV 8.4 FL 7.8-11.0 [facility] ([facility]) Mid % 2.1 % 1.7-9.3 [facility] ([facility]) Mid # 0.3 x10*3/UL 0.1-0.6 [facility] ([facility]) Lymph # 0.6 x10*3/UL 0.6-4.1 [facility] ([facility]) Neut % 90.2 % 37.0-92.0 [facility] ([facility]) Neut # 7.8 x10*3/UL 2.0-7.8 [facility] ([facility]) ID Date Data Source [id number] 03/15/2020 02:04:00 PM EDT [facility] ([facility]) Name Value Range Interpretation Code Description Data Vera rce(s) Supporting Document(s) Prostate specific Ag [Mass/volume] in Serum or Plasma 1.47 ng/mL [facility] ([facility]) This assay was performed on the Siemens Dimension EXL using the B- Galactosidase/CPRG methodology and should not be compared interchangeably with other methods. The PSA should not be used alone as a screening test for the presence or absence of malignant disease. ID Date Data Source [id number] 03/15/2020 02:04:00 PM EDT [facility] Name Value Range Interpretation Code Description Data Vera rce(s) Supporting Document(s) Hemoglobin A1c/Hemoglobin.total in Blood Laboratory test result [facility] ([facility]) Procedure Social History No Information Vital Signs ID Date Data Source UNK Name Value Range Interpretation Code Description Data Source(s) Systolic blood pressure 156 mm[Hg] 156 mm[Hg] [facility] ([facility]) Diastolic blood pressure 79 mm[Hg] 79 mm[Hg] [facility] ([facility]) Heart rate 66 /min 66 /min [facility] ([facility]) Body temperature 98.4 [degF] 98.4 [degF] [facility] ([facility]) Body height 68 [in_i] 68 [in_i] [facility] ([facility]) 5'8" Body weight 59.00 [lb_av] 59.00 [lb_av] [facility] ([facility]) Body mass index (BMI) [Ratio] 9.0 kg/m2 9.0 kg /m2 [facility] ([facility]) [place] body weight 154 [lb_av] 154 [lb_av] [facility] Body weight 26.762 kg 26.762 kg [facility] ([facility]) Body surface area Derived from formula 1.22 m2 1.22 m2 [facility] ([facility]) Systolic blood pressure 136 mm[Hg] 136 mm[Hg] M [facility] ([facility]) Heart rate 64 /min 64 /min [facility] ([facility]) Diastolic blood pressure 70 mm[Hg] 70 mm[Hg] [facility] ([facility]) Body height 68 [in_i] 68 [in_i] [facility] ([facility]) 5'8" Body weight 156.00 [lb_av] 156.00 [lb_av] [facility] ([facility]) Body mass index (BMI) [Ratio] 23.7 kg/m2 23.7 k g/m2 [facility] ([facility]) Body surface area Derived from formula 1.84 m2 1.84 m2 [facility] ([facility]) Body height 68 [in_i] 68 [in_i] [facility] ([facility]) 5'8" Body weight 71.272 kg 71.272 kg [facility] ([facility]) Body temperature 98.4 [degF] 98.4 [degF] [facility] ([facility]) Body weight 157.12 [lb_av] 157.12 [lb_av] [facility] ([facility]) Body mass index (BMI) [Ratio] 23.9 kg/m2 23.9 k g/m2 [facility] ([facility]) [place] body weight 154 [lb_av] 154 [lb_av] [facility] ([facility]) Systolic blood pressure 132 mm[Hg] 132 mm[Hg] [facility] ([facility]) Diastolic blood pressure 70 mm[Hg] 70 mm[Hg] [facility] ([facility]) Body mass index (BMI) [Ratio] 24.6 kg/m2 24.6 k g/m2 [facility] ([facility]) Body weight 162.00 [lb_av] 162.00 [lb_av] [facility] ([facility]) Systolic blood pressure 128 mm[Hg] 128 mm[Hg] [facility] ([facility]) Diastolic blood pressure 80 mm[Hg] 80 mm[Hg] [facility] ([facility]) Heart rate 76 /min 76 /min [facility] ([facility]) Body height 68 [in_i] 68 [in_i] [facility] 5'8" Systolic blood pressure 120 mm[Hg] 120 mm[Hg] [facility] Diastolic blood pressure 70 mm[Hg] 70 mm[Hg] [facility] ([facility]) Body weight 160.00 [lb_av] 160.00 [lb_av] [facility] ([facility]) Respiratory rate 18 /min 18 /min [facility] ( [facility]) Body height 68 [in_i] 68 [in_i] [facility] ([facility]) 5'8" Body weight 162.00 [lb_av] 162.00 [lb_av] [facility] ([facility]) Body mass index (BMI) [Ratio] 24.6 kg/m2 24.6 k g/m2 [facility] ([facility]) [place] body weight 154 [lb_av] 154 [lb_av] [facility] ([facility]) Body weight 73.483 kg 73.483 kg [facility] ([facility]) Body surface area Derived from formula 1.87 m2 1.87 m2 [facility] ([facility]) Systolic blood pressure 130 mm[Hg] 130 mm[Hg] M [facility] ([facility]) Diastolic blood pressure 70 mm[Hg] 70 mm[Hg] [facility] ([facility]) Body height 68 [in_i] 68 [in_i] [facility] ([facility]) 5'8" Body weight 162.00 [lb_av] 162.00 [lb_av] [facility] ([facility]) Body mass index (BMI) [Ratio] 24.6 kg/m2 24.6 k g/m2 [facility] ([facility]) Body surface area Derived from formula 1.87 m2 1.87 m2 [facility] ([facility]) [place] body weight 154 [lb_av] 154 [lb_av] [facility] ([facility]) Body weight 73.483 kg 73.483 kg [facility] ([facility]) Body mass index (BMI) [Ratio] 24.8 kg/m2 24.8 k g/m2 [facility] ([facility]) Systolic blood pressure 122 mm[Hg] 122 mm[Hg] [facility] ([facility]) Diastolic blood pressure 62 mm[Hg] 62 mm[Hg] [facility] ([facility]) Heart rate 86 /min 86 /min [facility] ([facility]) Body height 68 [in_i] 68 [in_i] [facility] ([facility]) 5'8" Body weight 163.00 [lb_av] 163.00 [lb_av] [facility] ([facility]) Oxygen saturation in Arterial blood by Pulse oximetry 96 % 96 % [facility] ([facility]) RM Air Systolic blood pressure 128 mm[Hg] 128 mm[Hg] M [facility] ([facility]) Body height 68 [in_i] 68 [in_i] [facility] ([facility]) 5'8" Diastolic blood pressure 64 mm[Hg] 64 mm[Hg] [facility] ([facility]) Body weight 169.00 [lb_av] 169.00 [lb_av] [facility] ([facility]) Body mass index (BMI) [Ratio] 25.7 kg/m2 25.7 k g/m2 [facility] ([facility]) Body weight 171 [lb_av] 171 [lb_av] W1 ([facility]) Body height [in_i] eCW1 ([facility]) Body mass index (BMI) [Ratio] 25.25 kg/m2 25.25 kg/m2 W[facility] ([facility]) Systolic blood pressure 153 mm[Hg] 153 mm[Hg] e CW1 ([facility]) Diastolic blood pressure 87 mm[Hg] 87 mm[Hg] W1 ([facility]) Systolic blood pressure 126 mm[Hg] 126 mm[Hg] M [facility] ([facility]) Diastolic blood pressure 71 mm[Hg] 71 mm[Hg] [facility] ([facility]) Body weight 163.00 [lb_av] 163.00 [lb_av] [facility] ([facility]) Body temperature 96.9 [degF] 96.9 [degF] [facility] ([facility]) Diastolic blood pressure 62 mm[Hg] 62 mm[Hg] [facility] Heart rate 74 /min 74 /min [facility] ([facility]) Body height 68 [in_i] 68 [in_i] [facility] ([facility]) 5'8" Body weight 168.00 [lb_av] 168.00 [lb_av] [facility] ([facility]) Body mass index (BMI) [Ratio] 25.5 kg/m2 25.5 k g/m2 [facility] ([facility]) Systolic blood pressure 130 mm[Hg] 130 mm[Hg] M [facility] ([facility]) ID Date Data Source [id number] 12/10/2020 08:13:12 PM EDT [facility] Name Value Range Interpretation Code Description Data Source(s) TRANSFER FROM [facility]
[2021-05-05 04:13] LABS: BASO % 0.4 % (0.0-1.0); EOS # 0.4 10^3/uL (0.0-0.5); EOS % 4.6 % (0.0-3.0); HEMATOCRIT 40.5 % (42.0-52.0); HEMOGLOBIN 13.7 g/dl (13.5-17.5); LYMPH # 0.6 10^3/uL (1.5-5.0); LYMPH % 8.4 % (24.0-44.0); MEAN CORPUSCULAR HEMOGLOBIN 30.3 pg (27.0-33.0); MEAN CORPUSCULAR HGB CONC 33.8 g/dl (32.0-36.5); MEAN CORPUSCULAR VOLUME 89.6 fl (80.0-96.0); MONO # 0.7 10^3/uL (0.0-0.8); MONO % 9.3 % (2.0-8.0); NEUTROPHILS # 5.9 10^3/uL (1.5-8.5); PLATELET COUNT, AUTOMATED 303 10^3/uL (150-450); RED BLOOD COUNT 4.52 10^6/uL (4.30-6.10); WHITE BLOOD COUNT 7.6 10^3/uL (4.0-10.0)
--- NOTE | 2021-05-05 04:21 | REPVR ---
PROCEDURE INFORMATION: Exam: CT Head Without Contrast Exam date and time: 05/05/2021 3:51 AM Age: 75 years old Clinical indication: Pain; Headache; Additional info: CVA - nursing interventions must not delay CT TECHNIQUE: Imaging protocol: Computed tomography of the head without contrast. Radiation optimization: All CT scans at this facility use at least one of these dose optimization techniques: automated exposure control; mA and/or kV adjustment per patient size (includes targeted exams where dose is matched to clinical indication); or iterative reconstruction. COMPARISON: MRI-Brain without Contrast 12/09/2020 7:49 PM FINDINGS: Brain: Generalized parenchymal atrophy and evidence of microvascular ischemic disease involving periventricular and subcortical white matter bilaterally. Cerebral ventricles: No ventriculomegaly. Paranasal sinuses: Visualized sinuses are unremarkable. No fluid levels. Mastoid air cells: Visualized mastoid air cells are well aerated. Bones/joints: Unremarkable. No acute fracture. Soft tissues: Unremarkable. IMPRESSION: No acute intracranial pathology. Electronically signed by: Audi Ibarra On 05/05/2021 04:20:34 AM
--- NOTE | 2021-05-05 04:21 | REPVR ---
PROCEDURE INFORMATION: Exam: XR Chest Exam date and time: 05/05/2021 4:03 AM Age: 75 years old Clinical indication: Other: CVA TECHNIQUE: Imaging protocol: XR of the chest. Views: 1 view. COMPARISON: CR PORTABLE CHEST X-RAY 12/04/2020 10:03 AM FINDINGS: Lungs: Stable mild bilateral perihilar reticulonodular opacities. Pleural spaces: Unremarkable. No pleural effusion. No pneumothorax. Heart/Mediastinum: Calcified left hilar lymph nodes. 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 Organs: Status post cholecystectomy. IMPRESSION: No acute cardiopulmonary pathology. Electronically signed by: Audi Ibarra On 05/05/2021 04:21:45 AM
[2021-05-05 04:23] LABS: INR 0.89; PROTHROMBIN TIME 12.4 SECONDS (12.7-14.5)
[2021-05-05 04:24] LABS: PARTIAL THROMBOPLASTIN TIME 28.1 SECONDS (25.9-37.0)
[2021-05-05 04:37] LABS: BLOOD UREA NITROGEN 20 MG/DL (7-18); CALCIUM LEVEL 8.9 MG/DL (8.8-10.2); CARBON DIOXIDE LEVEL 28 MEQ/L (21-32); CHLORIDE LEVEL 110 MEQ/L (98-107); CK-MB VALUE MASS 1.4 NG/ML (<3.6); CPK CREATINE PHOSPHOKINASE 35 U/L (39-308); CREATININE FOR GFR 0.75 MG/DL (0.70-1.30); GLOMERULAR FILTRATION RATE > 60.0 (>42); GLUCOSE, FASTING 180 MG/DL (70-100); SODIUM LEVEL 142 MEQ/L (136-145); TROPONIN I < 0.02 NG/ML (< 0.10)
--- NOTE | 2021-05-05 05:04 | REPVR ---
PROCEDURE INFORMATION: Exam: MR Head Without Contrast Exam date and time: 05/05/2021 4:33 AM Age: 75 years old Clinical indication: Speech disturbance; Slurred speech; Additional info: Vertigo, slurred speech, h/o pontine CVA TECHNIQUE: Imaging protocol: MR of the head without contrast. COMPARISON: CT Head without contrast 05/05/2021 3:49 AM FINDINGS: Brain: Generalized parenchymal atrophy and evidence of microvascular ischemic disease involving periventricular and subcortical white matter bilaterally. Old lacunar infarct in the left felicitas. Cerebral ventricles: Normal. No ventriculomegaly. Bones/joints: Unremarkable. Paranasal sinuses: Normal as visualized. No acute sinusitis. Mastoid air cells: Normal as visualized. No mastoid effusion. Orbital cavity: Unremarkable. Soft tissues: Unremarkable. IMPRESSION: No acute intracranial pathology. Electronically signed by: Audi Ibarra On 05/05/2021 05:03:51 AM
--- OUTSIDE RECORDS SUMMARY | 2021-05-05 05:40 | CCD ---
Author Author [facility] Organization [facility] Address Unknown Phone Unavailable Care Team Providers Care Operations Architect Name Role Phone Fidelia CHI MD Unavailable [...] Katharine RPA C Unavailable Unavailable Charlebois, A Katharien RPA C Unavailable Unavailable Charlebois, A Katharine [...] Unavailable Unavailable Patricio Lovell MD Unavailable Unavailable BuckinghamPatricio MD Unavailable Unavailable LiliyaPatricio MD Unavailable Unavailable LiliyaPatricio MD Unavailable Unavailable LiliyaPatricio MD Unavailable Unavailable BuckinghamPatricio MD Unavailable Unavailable LiliyaPatricio MD Unavailable Unavailable BuckinghamPatricio MD Unavailable Unavailable LiliyaPatricio MD Unavailable Unavailable LiliyaPatricio MD Unavailable Unavailable LiliyaPatricio MD Unavailable Unavailable LiliyaPatricio MD Unavailable Unavailable BuckinghamPatricio MD Unavailable Unavailable LiliyaPatricio MD Unavailable Unavailable BuckinghamPatricio MD Unavailable Unavailable BuckinghamPatricio MD Unavailable Unavailable BuckinghamPatricio MD Unavailable Unavailable BuckinghamPatricio MD Unavailable Unavailable LiliyaPatricio MD Unavailable Unavailable LiliyaPatricio MD Unavailable Unavailable BuckinghamPatricio MD Unavailable Unavailable BuckinghamPatricio MD Unavailable Unavailable LiliyaPatricio MD Unavailable Unavailable LiliyaPatricio MD Unavailable Unavailable LiliyaPatricio MD Unavailable Unavailable BuckinghamPatricio MD Unavailable Unavailable LiliyaPatricio MD Unavailable Unavailable BuckinghamPatricio MD Unavailable Unavailable LiliyaPatricio MD Unavailable Unavailable BuckinghamPatricio MD Unavailable Unavailable BuckinghamPatricio MD Unavailable Unavailable LiliyaPatricio MD Unavailable Unavailable LiliyaPatricio MD Unavailable Unavailable LiliyaPatricio MD Unavailable Unavailable LiliyaPatricio MD Unavailable Unavailable BuckinghamPatricio MD Unavailable Unavailable BuckinghamPatricio marie MD Unavailable Unavailable LiliyaPatricio MD Unavailable Unavailable BuckinghamPatricio MD Unavailable Unavailable BuckinghamPatricio marie MD Unavailable Unavailable BuckinghamPatricio MD Unavailable Unavailable BuckinghamPatricio MD Unavailable Unavailable BuckinghamPatricio marie MD Unavailable Unavailable BuckinghamPatricio marie MD Unavailable Unavailable LiliyaPatricio MD Unavailable Unavailable LiliyaPatricio MD Unavailable Unavailable BuckinghamPatricio MD Unavailable Unavailable BuckinghamPatricio MD Unavailable Unavailable LiliyaPatricio MD Unavailable Unavailable BuckinghamPatricio MD Unavailable Unavailable LiliyaPatricio MD Unavailable Unavailable BuckinghamPatricio MD Unavailable Unavailable BuckinghamPatricio MD Unavailable Unavailable BuckinghamPatricio MD Unavailable Unavailable LiliyaPatricio MD Unavailable Unavailable LiliyaPatricio MD Unavailable Unavailable Buckingham, F Flores MD Unavailable Unavailable Liliya, F Mark MD Unavailable Unavailable Buckingham, F Mark MD Unavailable Unavailable Liliya, F Mark MD Unavailable Unavailable Liliya, F Mark MD Unavailable Unavailable Liliya, F Mark MD Unavailable Unavailable Liliya, F Mark MD Unavailable Unavailable Buckingham, F Mark MD Unavailable Unavailable Buckingham, F Mark MD Unavailable Unavailable Liliya, F Mark MD Unavailable Unavailable Liliya, F Mark MD Unavailable Unavailable Liliya, F Mark MD Unavailable Unavailable Buckingham, F Mark MD Unavailable Unavailable Liliya, F Mark MD Unavailable Unavailable Liliya, F Mark MD Unavailable Unavailable Liliya, F Mark MD Unavailable Unavailable Liliya, F Mark MD Unavailable Unavailable Buckingham, F Mark MD Unavailable Unavailable Liliya, F [...] L Erin RPA Unavailable Unavailable Mcrae, L Rein RPA Unavailable Unavailable Mcrae, L Erin RPA [...] Mcrae, L Erin RPA Unavailable Unavailable Hegard, Nanyc DIP FILLER Unavailable Unavailable Hegard, Nancy DIP FILLER Unavailable Unavailable Hegard, Nancy DIP FILLER Unavailable Unavailable Hegard, Nancy DIP FILLER Unavailable Unavailable Hegard, Nancy DIP FILLER Unavailable Unavailable Hegard, Nancy DIP FILLER Unavailable Unavailable Hegard, Nancy DIP FILLER Unavailable Unavailable Hegard, Nancy DIP FILLER Unavailable Unavailable Hegard, Nancy DIP FILLER Unavailable Unavailable Hegard, Nancy DIP FILLER Unavailable Unavailable Hegard, Nancy DIP FILLER Unavailable Unavailable Hegard, Nancy DIP FILLER Unavailable Unavailable Hegard, Nancy DIP FILLER Unavailable Unavailable Hegard, Nancy DIP FILLER Unavailable Unavailable Hegard, Nancy DIP FILLER Unavailable Unavailable Hegard, Nancy DIP FILLER Unavailable Unavailable Hegard, Nancy DIP FILLER Unavailable Unavailable Re-disclosure Warning The records that [...] is protected by Article 27-F of the [facility] Public Health law. If you continue you may have access to information: Regarding HIV / AIDS; Provided by facilities licensed or operated by the [facility] Office of Mental Health; or Provided by the [facility] Office for People With Developmental Disabilities. If such information is present, then the following [facility] mandated warning applies: This information has [...] law may result in a fine or fdc sentence or both. A general authorization for the release of medical or other information is NOT sufficient authorization for further disc losure. Family History Family Member Name Family Member Gender Family Member Status Date o f Status Description Data Source(s) Unknown Unknown Problem [facility] ([facility], ) stomach father Unknown Male Problem [facility] ([facility]) Encounters Encounter Providers Location Date Indications Data Source(s ) Office Visit Attender: Erinsindhu Jordan/[place]/Hemanth/R eindl 04/29/2021 11:15:00 AM EDT MED[facility] ([facility]) Outpatient Attender: Mark Sandoval 0 03/28/2021 09:40:00 AM EDT MED[facility] ([facility] ) Outpatient Attender: BREANNA Jordan/[place]/Hemanth/ Reindl 03/25/2021 03:00:00 PM EDT MED[facility] ([facility]) Outpatient Attender: SERA Sandoval 0 01/31/2021 01:20:00 PM EDT MED[facility] ([facility] ) Outpatient Attender: Nancy San [facility] Main Office 0 01/22/2021 12:45:00 PM EDT [facility] Attender: Katharine Alvarez RPA C Nikki/[place]/A ngel/Reindl 01/14/2021 03:15:00 PM EDT MEDENT ([facility]) Outpatient Attender: SERA Sandoval 0 12/31/2020 02:40:00 PM EDT MED[facility] ([facility] ) Outpatient 12/10/2020 08:13:00 PM EDT L pontine stroke [facility] L pontine stroke Outpatient [address] [address] 09/18/2020 12:00:00 AM EDT eCW1 ([facility]) Outpatient Attender: Mark Sandoval 0 09/17/2020 02:00:00 PM EDT MED[facility] ([facility] ) (MMS 1) [facility] [address] [address] 09/11/2020 12:00:00 AM EST eCW1 ([facility]) Unknown [address] [address] 09/10/2020 12:00:00 AM EST eCW1 ([facility]) Outpatient Attender: Mark Sandoval 0 03/15/2020 02:15:00 PM EDT MED[facility] ([facility] ) Immunizations Vaccine Date Status Description Data Source(s) Shingrix Zoster Vaccine (HZV), Recombinant, Subunit, A djuvanted 09/17/2020 11:03:00 AM EDT completed [facility] ([facility]) This CVX code allows reporting of a vacc ination when formulation is unknown (for example, when recording a Influenza vaccination when noted on a vaccination card) 09/17/2020 11:02:00 AM EDT completed MEDEN T ([facility]) tetanus toxoid, unspecified formulation 09/17/2020 11:02:00 AM EDT completed MEDENT ([facility]) COVID-19 VACCINE Pfizer 08/25/2020 12:00:00 AM EST completed [facility] Vaccine Series Complete: YESThis Data wa s Submitted to [facility] [employer]. COVID-19 VACCINE Pfizer 08/04/2020 12:00:00 AM EST completed [facility] Vaccine Series Complete: NOThis Data was Submitted to [facility] [employer]. Medications Medication Brand Name Start Date Product Form Dose Route Admi nistrative Instructions Pharmacy Instructions Status Indications Reaction Description Data Source(s) Acetaminophen 325 MG / Hydrocodone Bitartrate 5 MG Ora l Tablet Hydrocodone Bitartrate/Acetaminophen 04/11/2021 12:00:00 AM EDT ORAL completed MEDENT ([facility], ) Freestyle Xander 14 Day/Sensor/Flash Monitoring System 01/07/2021 12:00:00 AM EDT active MEDENT ([facility]) Freestyle Xander 2/Sensor/Flash Glucose Monitoring System 12/31/2020 12:00:00 AM EDT completed MEDENT ([facility]) Losartan Potassium 50 MG Oral Tablet Losartan Potassium 12:00:00 AM EDT ORAL active MEDENT ([facility]) Glipizide 5 MG Oral Tablet Glipizide 09/17/2020 12:00:00 AM EDT ORAL active MED[facility] ([facility]) 24 HR mirabegron 25 MG Extended Release Oral Tablet [Myrbetr iq] Myrbetriq 09/17/2020 12:00:00 AM EDT ORAL completed MED[facility] ([facility]) Covid-19 vaccine, Unspecified 08/25/2020 12:00:00 AM EST completed [facility]) Medication administered onsite Covid-19 vaccine, Unspecified 08/04/2020 12:00:00 AM EST completed [facility]) Medication administered onsite canagliflozin 300 MG Oral Tablet [Invokana] Invokana 06/04 12:00:00 AM EST ORAL active MEDENT ( [facility]) Insurance Providers Payer name Policy type / Coverage type Policy ID Covered constitution party ID Covered constitution party's relationship to pearson Policy Pearson Plan Information [facility] Commercial [id number] Self [id number] [facility] [place] [id number] Self Hmo Medicare Natl Govt Serv Medicare Primary [id number] Self [id number] Medicare Natl Govt Servic Medicare Primary [id number] Self [id number] Medicare Natl Govt Servic Medicare Primary [id number] Self [id number] Medicare Natl Govt Servic Medicare Primary [id number] Self [id number] Medicare Natl Govt Servic Medicare Primary [id number] Self [id number] MEDICARE [id number] SP [id number] A Medicare Natl Govt Servic Medicare Primary [id number] Self [id number] Medicare Natl Govt Servic Medicare Primary [id number] Self MEDICARE [id number] Ivett [id number] A Medicare Medicare Primary [id number] Self [id number] BS Verizon Medigap Part B [id number] Self [id number] BS Verizon Medigap Part B [id number] Self [id number] EXCELLUS BCBS [id number] Ivett UQV [id number] DME Jurisdiction A IAIC C [id number] SELF [id number] Excellus/Olivia/BS Other Health Maintenance Organization (HMO) U [id number] Self [id number] [facility] Commercial [id number] Self [id number] [facility] O [id number] S [id number] MEDICARE C [id number] S [id number] A [employer] Medicare Leslie Commercial [id number] Self [id number] BS Olivia Verizon Medigap Part B [id number] Self [id number] EXCELLUS BCBS B [id number] S UQV [id number] Excellus BCBS Medigap Part B [id number] Self [id number] Medicare [place]/N[place] Medicare Primary [id number] Self CAHABA MEDICARE PART B C [id number] S [id number] BCBS OF [place] 200/700 [id number] SP [id number] Blue Cross Blue Shield P [id number] SELF [id number] Medicare C [id number] SELF [id number] A EXCELLUS BCBS S [id number] S [id number] A MEDICARE COMPLETE [id number] SP [id number] MEDICARE [id number] SP [id number] MEDICARE COMPLETE [id number] SP [id number] BS Olivia Lauraon Medigap Part B [id number] Self [id number] MEDICARE COMPLETE-[facility] O [id number] S [id number] [facility] Medicare Commercial [id number] Self [id number] Excellus BCBS Medigap Part B [id number] Self [id number] Medicare [place]/[facility] Medicare Primary [id number] [facility] [id number] SP [id number] MEDICARE [id number] SP [id number] A [facility] Medicare Commercial [id number] Self [id number] [facility] Medicare Commercial [id number] Self [id number] [facility] O [id number] S [id number] [facility]/Medicare [employer] Commercial [id number] 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 Problem 09/11/2020 12:00:00 AM EST eCW1 ([facility]) 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 Problem 06/14/2020 12:00:00 AM EST MEDENT ([facility]) Surgeries/Procedures Procedure Description Date Indications Data Source(s) Lap Inguinal Hernia Repair 04/15/2021 12:00:00 AM EDT MED[facility] ([facility], ) ECG ROUTINE ECG W/LEAST 12 LDS W/I&R 03/28/2021 12:00: 00 AM EDT MEDENT ([facility]) OFFICE OUTPATIENT VISIT 25 MINUTES 03/28/2021 12:00:00 AM EDT MEDENT ([facility]) OFFICE OUTPATIENT VISIT 15 MINUTES 03/25/2021 12:00:00 AM EDT MEDENT ([facility], ) OFFICE OUTPATIENT VISIT 15 MINUTES 01/31/2021 12:00:00 AM EDT MEDENT ([facility]) DESTRUCTION PREMALIGNANT LESION 1ST 01/22/2021 12:00:0 0 AM EDT MEDENT ([facility]) OFFICE OUTPATIENT VISIT 25 MINUTES 01/22/2021 12:00:00 AM EDT MEDENT ([facility]) OFFICE OUTPATIENT VISIT 25 MINUTES 01/14/2021 12:00:00 AM EDT MEDENT ([facility] ) Trans Care SRV W/I 14D Of DC, Comm W/I 2 Dys Med Rec 12/31/2020 12:00:00 AM EDT MEDENT ([facility] ) Suture Removal 09/18/2020 12:00:00 AM EDT eCW1 ([facility]) OFFICE OUTPATIENT VISIT 25 MINUTES 09/17/2020 12:00:00 AM EDT MEDENT ([facility]) Med: Derm Lidocaine with Epinephrine Inj ection 1% with 2 ml sodium bicarbonate Intradermally to marked areas 09/11/2020 12:00:00 AM EST eCW1 ([facility]) Diabetic Retinal Eye Exam 05/23/2020 12:00:00 AM EST MEDENT ([facility]) Results ID Date Data Source [id number] 04/10/2021 11:25:00 AM EDT [facility] Name Value Range Interpretation Code Description Data Vera rce(s) Supporting Document(s) SARS-CoV-2 (COVID-19) RNA [Presence] in Respiratory specimen by GARTH with probe detection Not Detected [facility] This lab was ordered by [facility] and reported by [employer]. ID Date Data Source [id number] 03/28/2021 10:19:00 AM EDT MED[facility] ([facility]) Name Value Range Interpretation Code Description Data Vera rce(s) Supporting Document(s) Cholesterol [Mass/volume] in Serum or Plasma 102 mg/dL 131-200 MED[facility] ([facility]) Triglyceride [Mass/volume] in Serum or Plasma 27 mg/dL 30-150 [facility] ([facility]) Cholesterol in HDL [Mass/volume] in Serum or Plasma 54 mg/dL 35-60 [facility] ([facility]) Cholesterol in LDL [Mass/volume] in Serum or Plasma by calcu lation 43 CALC 50-159 [facility] ([facility]) ID Date Data Source [id number] 03/28/2021 10:19:00 AM EDT MED[facility] ([facility] Name Value Range Interpretation Code Description Data Vera rce(s) Supporting Document(s) Glucose [Mass/volume] in Serum or Plasma 100 mg/dL 74-99 [facility] ([facility]) 100-125 mg/dL PRE-DIABETES/FASTING >126 mg/dL DIABETES/FASTING Urea nitrogen [Mass/volume] in Serum or Plasma 22 mg/dL 7-18 [facility] ([facility]) Sodium [Moles/volume] in Serum or Plasma 141 meq/L 136-145 [facility] ([facility]) Potassium [Moles/volume] in Serum or Plasma 4.7 meq/L 3.5-5.1 [facility] ([facility]) Creatinine 0.8 mg/dL 0.6-1.3 [facility] ([facility]) Calcium [Mass/volume] in Serum or Plasma 9.3 mg/dL 8.5-10.1 [facility] ([facility]) Chloride [Moles/volume] in Serum or Plasma 105 meq/L 98-107 [facility] ([facility]) Carbon dioxide, total [Moles/volume] in Serum or Plasma 29 meq/L 21 -32 [facility] ([facility]) Alkaline phosphatase isoenzyme [Units/volume] in Serum or Pl asma 60 mg/dL 46-116 [facility] ([facility]) Aspartate aminotransferase [Enzymatic activity/volume] in Serum or Plasma 12 U/L 15-37 [facility] ([facility] ) Total Bilirubin 2.0 mg/dL 0.2-1.0 [facility] ([facility]) NOTE: RESULT VERIFIED. Alanine aminotransferase [Enzymatic activity/volume] in Seru m or Plasma 30 U/L 12-78 [facility] ([facility]) A/G Ratio 1.42 CALC 1.00-1.90 [facility]) Proteinase 3 Ab [Units/volume] in Serum 6.3 g/dL 6.4-8.2 [facility] ([facility]) Albumin [Mass/volume] in Serum or Plasma 3.7 g/dL 3.4-5.0 [facility] ([facility]) Glomerular filtration rate/1.73 sq M pre dicted among blacks [Volume Rate/Area] in Serum or Plasma by Creatinine-based formula (MDRD) Laboratory test result [facility] <content>CHRONIC KIDNEY DISEASE STAGING PER NKF</content>
<content></content>
<content>STAGE I & II GFR >= 60 NORMAL TO MILDLY DECREASED</content>
<content>STAGE III GFR 30-59 MODERATELY DECREASED</content>
<content>STAGE IV GFR 15-29 SEVERELY DECREASED</content>
<content>STAGE V GFR <15 VERY LITTLE GFR LEFT</content>
<content>ESRD GFR <15 ON MANAGER DRUG SAFETY</content>
<content></content> Glomerular filtration rate/1.73 sq M pre dicted among non-blacks [Volume Rate/Area] in Serum or Plasma by Creatinine-based formula (MDRD) Laboratory test result [facility] ([facility] ) ID Date Data Source [id number] 03/28/2021 10:19:00 AM EDT [facility] ([facility]) Name Value Range Interpretation Code Description Data Vera rce(s) Supporting Document(s) Prostate specific Ag [Mass/volume] in Serum or Plasma 1.51 ng/mL [facility] ([facility]) This assay was performed on the Siemens Dimension EXL using the B- Galactosidase/CPRG methodology and should not be compared interchangeably with other methods. The PSA should not be used alone as a screening test for the presence or absence of malignant disease. ID Date Data Source [id number] 03/28/2021 10:19:00 AM EDT [facility] ([facility]) Name Value Range Interpretation Code Description Data Vera rce(s) Supporting Document(s) Glucose mean value [Mass/volume] in Blood Estimated fr om glycated hemoglobin 157 mg/dL 60-110 [facility] Hemoglobin A1c/Hemoglobin.total in Blood 7.1 % [facility] Lab Result Notes: Pre-Diabetes 5.7 - 6.4 % Diabetes = or > 6.5% ID Date Data Source [id number] 01/20/2021 12:30:00 PM EDT [facility] Name Value Range Interpretation Code Description Data Vera rce(s) Supporting Document(s) Ast/Sgot 24 U/L 7-37 Normal (applies to non-numeric resul ts) [facility] ([facility]) Alt/SGPT 54 U/L 12-78 Normal (applies to non-numeric resul ts) [facility] ([facility]) Alkaline Phosphatase 66 U/L 45-117 Normal (applies to non-num gildardo results) [facility] ([facility]) Bilirubin,Total 1.5 mg/dL 0.2-1.0 Above high normal ME DENT ([facility]) Bilirubin,Direct 0.3 mg/dL 0.0-0.2 Above high normal M EDENT ([facility]) Albumin 3.6 GM/DL 3.2-5.2 Normal (applies to non-numeric resul ts) [facility] ([facility]) Total Protein 6.3 GM/DL 6.4-8.2 Below low normal MEDEN T ([facility]) Albumin/Globulin Ratio 1.3 Normal (applies to non-n umeric results) [facility] ([facility]) 01/21/21 (WedJan 21) 04:07 PM KATHARINE CHARLEBOIS Bilirubin mildly elevated. Total protein has improved. See triage. ID Date Data Source [id number] 01/20/2021 12:30:00 PM EDT [facility] ([facility]) Name Value Range Interpretation Code Description Data Vera rce(s) Supporting Document(s) Amylase [Enzymatic activity/volume] in Serum or Plasma 72 U/L 25-115 Normal (applies to non-numeric results) [facility] ([facility], ) Lipoprotein lipase [Enzymatic activity/volume] in Serum or P lasma 190 U/L 73-393 Normal (applies to non-numeric results) [facility] ([facility]) 01/21/21 (WedJan 21) 03:59 PM KATHARINE CHARLEBOIS Normal. ID Date Data Source [id number] 01/20/2021 12:30:00 PM EDT [facility]) Name Value Range Interpretation Code Description Data Vera rce(s) Supporting Document(s) Amylase [Enzymatic activity/volume] in Serum or Plasma 72 U/L 25- 115 [facility] ([facility]) Lipoprotein lipase [Enzymatic activity/volume] in Serum or P lasma 190 U/L 73-393 [facility] ([facility]) ID Date Data Source [id number] 01/20/2021 12:30:00 PM EDT MED[facility] ([facility]) Name Value Range Interpretation Code Description Data Vera rce(s) Supporting Document(s) Alkaline Phosphatase 66 U/L 45-117 [facility] ([facility]) Ast/Sgot 24 U/L 7-37 [facility] Alt/SGPT 54 U/L 12-78 [facility] Total Protein 6.3 GM/DL 6.4-8.2 MED[facility] ([facility]) Bilirubin,Total 1.5 mg/dL 0.2-1.0 [facility] ([facility]) Bilirubin,Direct 0.3 mg/dL 0.0-0.2 [facility] ([facility]) Albumin 3.6 GM/DL 3.2-5.2 [facility] ([facility] Albumin/Globulin Ratio 1.3 [facility] ([facility]) ID Date Data Source [id number] 12/04/2020 11:12:00 AM EDT MEDENT ([facility]) Name Value Range Interpretation Code Description Data [facility](s) Supporting Document(s) Influenza B Amplification Laboratory test result [facility] Negative results do not preclude influen za or RSV virus infection and should not be used as the sole basis for treatment or other patient management decisions. Influenza A Amplification Laboratory test result [facility] ([facility]) Negative results do not preclude influen za or RSV virus infection and should not be used as the sole basis for treatment or other patient management decisions. RSV Amplification Laboratory test result [facility] ([facility]) Negative results do not preclude influen za or RSV virus infection and should not be used as the sole basis for treatment or other patient management decisions. Laboratory test finding (navigational concept) Laboratory test result [facility] ([facility]) A false negative result may occur [...] pathogens. DISCLAIMER: Testing was performed using the [employer] SARS-CoV-2 test. This test was developed and its performance characteristics determined by [employer]. This test has not been FDA cleared [...] or revoked sooner. ID Date Data Source [id number] 12/04/2020 11:12:00 AM EDT [facility] Name Value Range Interpretation Code Description Data Vera rce(s) Supporting Document(s) SARS coronavirus 2 RNA [Presence] in Res piratory specimen by GARTH with probe detection NEGATIVE [facility] This lab was ordered by [facility] a nd reported by [facility]. ID Date Data Source [id number] 12/04/2020 09:53:00 AM EDT [facility] ([facility]) Name Value Range Interpretation Code Description Data Vera rce(s) Supporting Document(s) Glucose, Fasting 231 mg/dL 70-100 [facility] ([facility]) Creatinine For GFR 0.76 mg/dL 0.70-1.30 [facility] ([facility]) Blood Urea Nitrogen 18 mg/dL 7-18 [facility] ([facility]) Glomerular Filtration Rate Laboratory test result [facility] ([facility]) <content>Units are mL/min/1.73 m2</content>
<content></content>
<content>Chronic Kidney Disease Staging per NKF:</content>
<content></content>
<content>Stage I & II GFR >=60 Normal to Mildly Decreased</content>
<content>Stage III GFR 30- 59 Moderately Decreased</content>
<content>Stage IV GFR 15-29 Severely Decreased</content>
<content>Stage V GFR <15 Very Little GFR Left</content>
<content>ESRD GFR <15 on MANAGER DRUG SAFETY</content>
<content></content> Sodium Level 140 meq/L 136-145 [facility] ([facility]) Potassium Serum 4.6 meq/L 3.5-5.1 [facility] ([facility]) Chloride Level 107 meq/L 98-107 [facility] ([facility]) Carbon Dioxide Level 27 meq/L 21-32 [facility] Anion Gap 6 meq/L 8-16 [facility] ([facility]) Ast/Sgot 18 U/L 7-37 [facility] ([facility]) Alt/SGPT 35 U/L 12-78 [facility] ([facility]) Calcium Level 8.8 mg/dL 8.8-10.2 [facility] ([facility]) Total Protein 5.5 GM/DL 6.4-8.2 [facility] Alkaline Phosphatase 64 U/L 45-117 [facility] Bilirubin,Total 1.3 mg/dL 0.2-1.0 [facility] ([facility]) Albumin/Globulin Ratio 1.2 [facility] Albumin 3.0 GM/DL 3.2-5.2 [facility] ([facility]) ID Date Data Source [id number] 12/04/2020 09:53:00 AM EDT [facility] ([facility] Name Value Range Interpretation Code Description Data Vera rce(s) Supporting Document(s) Blood Type Laboratory test result [facility] AB Screen (Indirect Yakelin)Vis Laboratory test result [facility] ID Date Data Source [id number] 12/04/2020 09:53:00 AM EDT [facility] ([facility]) Name Value Range Interpretation Code Description Data Vera rce(s) Supporting Document(s) CPK Creatine Phosphokinase 40 U/L 39-308 [facility] ([facility]) CK-MB Value Mass 1.6 ng/mL [facility] ([facility]) MB/CK Relative Index 4.00 [facility]) <content>DIAGNOSIS CRITERIA</content>
<content>MMB ng/ml Relative Index (RI)</content>
<content>NON-AMI < or = 5 N/A</content>
<content>COREA ZONE > 5 < or = 4</content>
<content>AMI > 5 > 4</content>
<content></content> Troponin I Laboratory test result [facility] ([facility]) <content>Troponin I Reference Interval f or [employer] [place] LOCI:</content>
<content></content>
<content>99th Percentile= 0.00-0.045 ng/ml</content>
<content></content>
<content>Risk Stratification:</content>
<content><= 0.10 ng/ml Decreased Risk for Adverse Clinical</content>
<content>Events.</content>
<content>0.10-1.50 ng/ml Increased Risk for Adverse Clinical</content>
<content>Events. Evaluation of additional</content>
<content>criterion and/or repeat testing in 2-6</content>
<content>hours is suggested to rule out myocardial</content>
<content>damage.</content>
<content>>= 1.50 ng/ml Indicative of Myocardial Injury.</content>
<content></content> ID Date Data Source [id number] 12/04/2020 09:53:00 AM EDT [facility]) Name Value Range Interpretation Code Description Data Vera rce(s) Supporting Document(s) aPTT in Blood by Coagulation assay 24.9 s 24.2-38.5 [facility] ([facility]) ID Date Data Source [id number] 12/04/2020 09:53:00 AM EDT [facility] ([facility]) Name Value Range Interpretation Code Description Data Vera rce(s) Supporting Document(s) Prothrombin Time 11.9 s 12.5-14.3 [facility] ([facility]) [facility]86 [facility] THERAPUTIC HUMAN INR VALUES INDICATIONS NORMAL RANGES PROPHYLAXIS/TREATMENT OF: VENOUS THROMBOSIS 2.0-3.0 PULMONARY EMBOLISM 2.0-3.0 PREVENTION OF SYSTEMIC EMBOLISM FROM: TISSUE HEART VALVES 2.0-3.0 ACUTE MYOCARDIAL INFARCTION 2.0-3.0 VALVULAR HEART DISEASE 2.0-3.0 ATRIAL FIBRILLATION 2.0-3.0 MECHANICAL VALVES(HIGH RISK) 2.5-3.5 RECURRENT MYOCARDIAL INFARCTION 2.5-3.5 ID Date Data Source [id number] 12/04/2020 09:53:00 AM EDT [facility] ([facility]) Name Value Range Interpretation Code Description Data [facility] rce(s) Supporting Document(s) White Blood Count 9.2 10 4.0-10.0 [facility] ([facility]) Hemoglobin 15.7 g/dL 13.5-17.5 [facility] Red Blood Count 5.08 10 4.30-6.10 [facility] ([facility]) Hematocrit 46.2 % 42.0-52.0 [facility] ([facility]) Mean Corpuscular Volume 90.9 fl 80.0-96.0 [facility] ([facility]) Mean Corpuscular Hemoglobin 30.9 pg 27.0-33.0 [facility] ([facility]) Mean Corpuscular HGB Conc 34.0 g/dL 32.0-36.5 [facility] NT ([facility]) Red Cell Distribution Width 12.9 % 11.5-14.5 [facility] ([facility]) Lymph % 7.3 % 24.0-44.0 [facility] Neutrophils % 82.6 % 36.0-66.0 [facility] ([facility]) Platelet Count, Automated 303 10 150-450 [facility] NT ([facility]) Screven % 6.6 % 2.0-8.0 [facility] ([facility]) Eos % 2.8 % 0.0-3.0 [facility] ([facility]) Immature Granulocyte % 0.4 % 0-3.0 [facility] ([facility]) Baso % 0.3 % 0.0-1.0 [facility] ([facility]) Neutrophils # 7.6 10 1.5-8.5 [facility] ([facility]) Lymph # 0.7 10 1.5-5.0 [facility] ([facility]) Nucleated Red Blood Cell % 0.0 % 0-0 [facility] ([facility]) Eos # 0.3 10 0.0-0.5 [facility] ([facility]) Screven # 0.6 10 0.0-0.8 [facility] ([facility]) Baso # 0.0 10 0.0-0.2 [facility] ([facility]) ID Date Data Source [id number] 09/17/2020 02:34:00 PM EDT [facility] ([facility]) Name Value Range Interpretation Code Description Data Vera rce(s) Supporting Document(s) Urine Creatinine 55.3 mg/dL 30.0-125.0 [facility] ([facility]) Microalbumin Urine 4.8 mg/L 1.3-20.0 [facility] ([facility]) Microalb/Creat Ratio 8.7 ug/mg 0.0-30.0 [facility] ( [facility] ID Date Data Source [id number] 09/17/2020 02:34:00 PM EDT [facility] ([facility]) Name Value Range Interpretation Code Description Data Vera rce(s) Supporting Document(s) Cholesterol [Mass/volume] in Serum or Plasma 194 mg/dL 131-200 [facility] ([facility]) Triglyceride [Mass/volume] in Serum or Plasma 34 mg/dL 30-150 [facility] ([facility]) Cholesterol in HDL [Mass/volume] in Serum or Plasma 61 mg/dL 35-60 [facility] ([facility]) Cholesterol in LDL [Mass/volume] in Serum or Plasma by calcu lation 126 CALC 50-159 [facility] ([facility]) ID Date Data Source [id number] 09/17/2020 02:34:00 PM EDT [facility] ([facility]) Name Value Range Interpretation Code Description Data Vera rce(s) Supporting Document(s) Urea nitrogen [Mass/volume] in Serum or Plasma 20 mg/dL 7-18 [facility] ([facility]) Glucose [Mass/volume] in Serum or Plasma 144 mg/dL 74-99 [facility] ([facility]) 100-125 mg/dL PRE-DIABETES/FASTING >126 mg/dL DIABETES/FASTING Creatinine 0.8 mg/dL 0.6-1.3 [facility] Sodium [Moles/volume] in Serum or Plasma 141 meq/L 136-145 [facility] ([facility]) Carbon dioxide, total [Moles/volume] in Serum or Plasma 27 meq/L 21 -32 [facility] ([facility]) Potassium [Moles/volume] in Serum or Plasma 4.7 meq/L 3.5-5.1 [facility] ([facility]) Chloride [Moles/volume] in Serum or Plasma 101 meq/L 98-107 [facility] ([facility]) Alkaline phosphatase isoenzyme [Units/volume] in Serum or Pl asma 75 mg/dL 46-116 [facility] ([facility]) Calcium [Mass/volume] in Serum or Plasma 9.1 mg/dL 8.5-10.1 [facility] ([facility]) Aspartate aminotransferase [Enzymatic activity/volume] in Serum or Plasma 16 U/L 15-37 [facility] ([facility] ) Total Bilirubin 1.3 mg/dL 0.2-1.0 [facility] ([facility]) NOTE: T.BILI,T.PROTEIN VERIFIED Alanine aminotransferase [Enzymatic activity/volume] in Seru m or Plasma 31 U/L 12-78 [facility] ([facility]) Albumin [Mass/volume] in Serum or Plasma 3.5 g/dL 3.4-5.0 [facility] Proteinase 3 Ab [Units/volume] in Serum 6.2 g/dL 6.4-8.2 [facility] Glomerular filtration rate/1.73 sq M pre dicted among non-blacks [Volume Rate/Area] in Serum or Plasma by Creatinine-based formula (MDRD) Laboratory test result [facility] A/G Ratio 1.30 CALC 1.00-1.90 [facility] ([facility]) Glomerular filtration rate/1.73 sq M pre dicted among blacks [Volume Rate/Area] in Serum or Plasma by Creatinine-based formula (MDRD) Laboratory test result [facility] ([facility]) <content>CHRONIC KIDNEY DISEASE STAGING PER NKF</content>
<content></content>
<content>STAGE I & II GFR >= 60 NORMAL TO MILDLY DECREASED</content>
<content>STAGE III GFR 30-59 MODERATELY DECREASED</content>
<content>STAGE IV GFR 15-29 SEVERELY DECREASED</content>
<content>STAGE V GFR <15 VERY LITTLE GFR LEFT</content>
<content>ESRD GFR <15 ON MANAGER DRUG SAFETY</content>
<content></content> ID Date Data Source [id number] 09/17/2020 02:34:00 PM EDT [facility]) Name Value Range Interpretation Code Description Data Vera rce(s) Supporting Document(s) Hemoglobin A1c/Hemoglobin.total in Blood 9.3 % [facility] ([facility]) Lab Result Notes: Pre-Diabetes 5.7 - 6.4 % Diabetes = or > 6.5% Glucose mean value [Mass/volume] in Blood Estimated fr om glycated hemoglobin 220 mg/dL 60-110 [facility] ([facility] ) ID Date Data Source [id number] 09/17/2020 02:34:00 PM EDT [facility]) Name Value Range Interpretation Code Description Data Vera rce(s) Supporting Document(s) Leukocytes [#/volume] in Blood by Automated count 12.3 x10*3/UL 4.1-1 0.9 [facility] ([facility]) NOTE: CBC VERIFIED Erythrocytes [#/volume] in Blood by Automated count 4.85 x10*6/UL 4.2 0-6.30 [facility] ([facility]) Hemoglobin [Mass/volume] in Blood 15.3 g/dL 12.0-18.0 [facility] ([facility]) Hematocrit [Volume Fraction] of Blood by Automated count 42.9 % 3 7.0-51.0 [facility] ([facility]) MCV 88.5 fL 80.0-97.0 [facility] ([facility]) MCHC 35.6 g/dL 31.0-38.0 [facility] ([facility]) MCH 31.5 pg 26.0-32.0 [facility] ([facility]) MPV 8.2 FL 7.8-11.0 [facility] ([facility]) Platelets [#/volume] in Blood by Automated count 301 x10*3/UL 140-440 [facility] ([facility]) Erythrocyte distribution width [Ratio] by Automated count 13.4 % 11.6-13.7 [facility] ([facility]) Mid % 6.2 % 1.7-9.3 [facility] ([facility]) Lymph % 4.8 % 10.0-58.5 [facility] ([facility]) Lymph # 0.6 x10*3/UL 0.6-4.1 [facility] ([facility]) Neut % 89.0 % 37.0-92.0 [facility] ([facility]) Mid # 0.8 x10*3/UL 0.1-0.6 [facility] ([facility]) Neut # 10.9 x10*3/UL 2.0-7.8 [facility] ([facility]) ID Date Data Source [id number] 06/22/2020 03:17:00 PM EST [facility] Name Value Range Interpretation Code Description Data Vera rce(s) Supporting Document(s) SARS coronavirus 2 RdRp gene [Presence] in Respiratory specimen by GARTH with probe detection [facility] This lab was ordered by [place] and repor leslie by [facility]. ID Date Data Source [id number] 06/22/2020 07:39:00 AM EST [facility] Name Value Range Interpretation Code Description Data Vera rce(s) Supporting Document(s) SARS-CoV-2 RdRp gene result [facility] This lab was ordered by [facility] ID Date Data Source [id number] 06/11/2020 12:00:00 AM EST [facility] Name Value Range Interpretation Code Description Data Vera rce(s) Supporting Document(s) 2019-nCoV RNA XXX GARTH+probe-Imp [facility] This lab was ordered by [facility] and reported by [employer]. ID Date Data Source [id number] 03/17/2020 10:00:00 PM EDT [facility] ([facility]) Name Value Range Interpretation Code Description Data Vera rce(s) Supporting Document(s) Urine Creatinine 90.9 mg/dL 30.0-125.0 [facility] ([facility]) Microalbumin Urine 6.0 mg/L 1.3-20.0 [facility] ([facility]) Microalb/Creat Ratio 6.6 ug/mg 0.0-30.0 [facility] ( [facility]) ID Date Data Source [id number] 03/15/2020 02:05:00 PM EDT [facility] ([facility]) Name Value Range Interpretation Code Description Data Vera rce(s) Supporting Document(s) Cholesterol [Mass/volume] in Serum or Plasma 156 mg/dL 131-200 [facility] ([facility]) Triglyceride [Mass/volume] in Serum or Plasma 56 mg/dL 30-150 [facility] ([facility]) Cholesterol in HDL [Mass/volume] in Serum or Plasma 58 mg/dL 35-60 [facility] ([facility]) Cholesterol in LDL [Mass/volume] in Serum or Plasma by calcu lation 87 CALC 50-159 [facility] ([facility]) ID Date Data Source [id number] 03/15/2020 02:05:00 PM EDT [facility] ([facility]) Name Value Range Interpretation Code Description Data Vera rce(s) Supporting Document(s) Glucose [Mass/volume] in Serum or Plasma 224 mg/dL 74-99 [facility] ([facility]) 100-125 mg/dL PRE-DIABETES/FASTING >126 mg/dL DIABETES/FASTING Creatinine 0.9 mg/dL 0.6-1.3 [facility] ([facility]) Urea nitrogen [Mass/volume] in Serum or Plasma 17 mg/dL 7-18 [facility] ([facility]) Potassium [Moles/volume] in Serum or Plasma 4.1 meq/L 3.5-5.1 [facility] ([facility]) Chloride [Moles/volume] in Serum or Plasma 105 meq/L 98-107 [facility] ([facility]) Sodium [Moles/volume] in Serum or Plasma 139 meq/L 136-145 [facility] ([facility]) Calcium [Mass/volume] in Serum or Plasma 8.4 mg/dL 8.5-10.1 [facility] ([facility]) NOTE: CALCIUM,ALBUMIN,T.PROTEIN VERIFIED Carbon dioxide, total [Moles/volume] in Serum or Plasma 30 meq/L 21 -32 [facility] ([facility]) Alkaline phosphatase isoenzyme [Units/volume] in Serum or Pl asma 82 mg/dL 46-116 [facility] ([facility]) Aspartate aminotransferase [Enzymatic activity/volume] in Serum or Plasma 14 U/L 15-37 [facility] ([facility] ) Total Bilirubin 1.1 mg/dL 0.2-1.0 [facility] ([facility]) Albumin [Mass/volume] in Serum or Plasma 2.8 g/dL 3.4-5.0 [facility] ([facility]) Proteinase 3 Ab [Units/volume] in Serum 5.9 g/dL 6.4-8.2 [facility] ([facility]) Alanine aminotransferase [Enzymatic activity/volume] in Seru m or Plasma 25 U/L 12-78 [facility] ([facility]) Glomerular filtration rate/1.73 sq M pre dicted among non-blacks [Volume Rate/Area] in Serum or Plasma by Creatinine-based formula (MDRD) Laboratory test result [facility] ([facility] ) A/G Ratio 0.90 CALC 1.00-1.90 [facility] ([facility]) Glomerular filtration rate/1.73 sq M pre dicted among blacks [Volume Rate/Area] in Serum or Plasma by Creatinine-based formula (MDRD) Laboratory test result [facility] <content>CHRONIC KIDNEY DISEASE STAGING PER NKF</content>
<content></content>
<content>STAGE I & II GFR >= 60 NORMAL TO MILDLY DECREASED</content>
<content>STAGE III GFR 30-59 MODERATELY DECREASED</content>
<content>STAGE IV GFR 15-29 SEVERELY DECREASED</content>
<content>STAGE V GFR <15 VERY LITTLE GFR LEFT</content>
<content>ESRD GFR <15 ON MANAGER DRUG SAFETY</content>
<content></content> ID Date Data Source [id number] 03/15/2020 02:05:00 PM EDT [facility] Name Value Range Interpretation Code Description Data Vera rce(s) Supporting Document(s) Hemoglobin A1c/Hemoglobin.total in Blood 9.0 g/dL 4.8-5.6 [facility] ([facility]) Lab Result Notes: Pre-Diabetes 5.7 - 6.4 % Diabetes = or > 6.5% Glucose mean value [Mass/volume] in Blood Estimated fr om glycated hemoglobin 212 mg/dL 60-110 [facility] ID Date Data Source [id number] 03/15/2020 02:05:00 PM EDT [facility] ([facility] Name Value Range Interpretation Code Description Data Vera rce(s) Supporting Document(s) Leukocytes [#/volume] in Blood by Automated count 8.7 x10*3/UL 4.1-10 .9 [facility] Erythrocytes [#/volume] in Blood by Automated count 5.04 x10*6/UL 4.2 0-6.30 [facility] Hemoglobin [Mass/volume] in Blood 15.2 g/dL 12.0-18.0 [facility] ([facility]) Hematocrit [Volume Fraction] of Blood by Automated count 43.2 % 3 7.0-51.0 [facility] MCV 85.5 fL 80.0-97.0 [facility] ([facility]) Erythrocyte distribution width [Ratio] by Automated count 12.7 % 11.6-13.7 [facility] MCH 30.1 pg 26.0-32.0 [facility] ([facility]) MCHC 35.2 g/dL 31.0-38.0 [facility] ([facility]) Lymph % 7.7 % 10.0-58.5 [facility] ([facility]) Platelets [#/volume] in Blood by Automated count 332 x10*3/UL 140-440 [facility] MPV 8.4 FL 7.8-11.0 [facility] ([facility]) Mid % 2.1 % 1.7-9.3 [facility] ([facility]) Mid # 0.3 x10*3/UL 0.1-0.6 [facility] Lymph # 0.6 x10*3/UL 0.6-4.1 [facility] ([facility]) Neut % 90.2 % 37.0-92.0 [facility] ([facility]) Neut # 7.8 x10*3/UL 2.0-7.8 [facility] ID Date Data Source [id number] 03/15/2020 02:04:00 PM EDT [facility] ([facility] Name Value Range Interpretation Code Description Data Vera rce(s) Supporting Document(s) Prostate specific Ag [Mass/volume] in Serum or Plasma 1.47 ng/mL [facility] ([facility]) This assay was performed on the Siemens Dimension EXL using the B- Galactosidase/CPRG methodology and should not be compared interchangeably with other methods. The PSA should not be used alone as a screening test for the presence or absence of malignant disease. ID Date Data Source [id number] 03/15/2020 02:04:00 PM EDT [facility]) Name Value Range Interpretation Code Description Data Vera rce(s) Supporting Document(s) Hemoglobin A1c/Hemoglobin.total in Blood Laboratory test result [facility] ([facility]) Procedure Social History No Information Vital Signs ID Date Data Source [id number] Name Value Range Interpretation Code Description Data Source(s) Systolic blood pressure 156 mm[Hg] 156 mm[Hg] [facility] ([facility]) Diastolic blood pressure 79 mm[Hg] 79 mm[Hg] [facility] ([facility]) Heart rate 66 /min 66 /min [facility] ([facility]) Body temperature 98.4 [degF] 98.4 [degF] [facility] ([facility]) Body height 68 [in_i] 68 [in_i] [facility] ([facility]) 5'8" Body weight 59.00 [lb_av] 59.00 [lb_av] [facility] ([facility]) Body mass index (BMI) [Ratio] 9.0 kg/m2 9.0 kg /m2 [facility] ([facility]) [place] body weight 154 [lb_av] 154 [lb_av[facility] Body weight 26.762 kg 26.762 kg [facility] ([facility]) Body surface area Derived from formula 1.22 m2 1.22 m2 [facility] ([facility]) Systolic blood pressure 136 mm[Hg] 136 mm[Hg] [facility]) Heart rate 64 /min 64 /min [facility] ([facility]) Diastolic blood pressure 70 mm[Hg] 70 mm[Hg] [facility] ([facility]) Body height 68 [in_i] 68 [in_i] [facility] ([facility] 5'8" Body weight 156.00 [lb_av] 156.00 [lb_av] [facility] ([facility]) Body mass index (BMI) [Ratio] 23.7 kg/m2 23.7 k g/m2 [facility] ([facility]) Body surface area Derived from formula 1.84 m2 1.84 m2 [facility] ([facility]) Body height 68 [in_i] 68 [in_i] [facility] ([facility]) 5'8" Body weight 71.272 kg 71.272 kg [facility] ([facility]) Body temperature 98.4 [degF] 98.4 [degF] [facility] ([facility] [facility]) Body weight 157.12 [lb_av] 157.12 [lb_av] [facility] ([facility]) Body mass index (BMI) [Ratio] 23.9 kg/m2 23.9 k g/m2 [facility] ([facility]) [place] body weight 154 [lb_av] 154 [lb_av] [facility] ([facility]) Systolic blood pressure 132 mm[Hg] 132 mm[Hg] [facility] ([facility]) Diastolic blood pressure 70 mm[Hg] 70 mm[Hg] [facility] ([facility]) Body mass index (BMI) [Ratio] 24.6 kg/m2 24.6 k g/m2 [facility] ([facility]) Body weight 162.00 [lb_av] 162.00 [lb_av] [facility] ([facility]) Systolic blood pressure 128 mm[Hg] 128 mm[Hg] [facility] ([facility]) Diastolic blood pressure 80 mm[Hg] 80 mm[Hg] [facility] ([facility]) Heart rate 76 /min 76 /min [facility] ([facility]) Body height 68 [in_i] 68 [in_i] [facility] 5'8" Systolic blood pressure 120 mm[Hg] 120 mm[Hg] [facility] ([facility]) Diastolic blood pressure 70 mm[Hg] 70 mm[Hg] [facility] ([facility]) Body weight 160.00 [lb_av] 160.00 [lb_av] [facility] ([facility]) Respiratory rate 18 /min 18 /min [facility] ( [facility]) Body height 68 [in_i] 68 [in_i] [facility] ([facility]) 5'8" Body weight 162.00 [lb_av] 162.00 [lb_av] [facility] ([facility]) Systolic blood pressure 130 mm[Hg] 130 mm[Hg] M [facility] ([facility]) Diastolic blood pressure 70 mm[Hg] 70 mm[Hg] [facility] ([facility]) Body mass index (BMI) [Ratio] 24.6 kg/m2 24.6 k g/m2 [facility] ([facility]) [place] body weight 154 [lb_av] 154 [lb_av] [facility] ([facility]) Body weight 73.483 kg 73.483 kg [facility] ([facility]) Body surface area Derived from formula 1.87 m2 1.87 m2 [facility] ([facility]) Body surface area Derived from formula 1.87 m2 1.87 m2 [facility] ([facility]) Body height 68 [in_i] 68 [in_i] [facility] ([facility]) 5'8" Body weight 162.00 [lb_av] 162.00 [lb_av] [facility] ([facility]) Body mass index (BMI) [Ratio] 24.6 kg/m2 24.6 k g/m2 [facility] ([facility]) [place] body weight 154 [lb_av] 154 [lb_av] [facility] ([facility]) Body weight 73.483 kg 73.483 kg [facility] ([facility]) Body mass index (BMI) [Ratio] 24.8 kg/m2 24.8 k g/m2 [facility] ([facility]) Systolic blood pressure 122 mm[Hg] 122 mm[Hg] M [facility] ([facility]) Diastolic blood pressure 62 mm[Hg] 62 mm[Hg] [facility] ([facility]) Heart rate 86 /min 86 /min [facility] ([facility]) Body height 68 [in_i] 68 [in_i] [facility] ([facility] 5'8" Body weight 163.00 [lb_av] 163.00 [lb_av] [facility] T ([facility]) Oxygen saturation in Arterial blood by Pulse oximetry 96 % 96 % [facility] ([facility]) Air Systolic blood pressure 128 mm[Hg] 128 mm[Hg] M [facility] ([facility]) Diastolic blood pressure 64 mm[Hg] 64 mm[Hg] [facility] ([facility]) Body height 68 [in_i] 68 [in_i] [facility] ([facility] 5'8" Body weight 169.00 [lb_av] 169.00 [lb_av] [facility] T ([facility]) Body mass index (BMI) [Ratio] 25.7 kg/m2 25.7 k g/m2 [facility] ([facility]) Body weight 171 [lb_av] 171 [lb_av] W1 ([facility]) Body height [in_i] W1 ([facility]) Body mass index (BMI) [Ratio] 25.25 kg/m2 25.25 kg/m2 W1 ([facility]) Systolic blood pressure 153 mm[Hg] 153 mm[Hg] e CW1 ([facility]) Diastolic blood pressure 87 mm[Hg] 87 mm[Hg] W1 ([facility]) Systolic blood pressure 126 mm[Hg] 126 mm[Hg] M EDENT ([facility]) Diastolic blood pressure 71 mm[Hg] 71 mm[Hg] [facility] ([facility]) Body weight 163.00 [lb_av] 163.00 [lb_av] [facility] T ([facility]) Body temperature 96.9 [degF] 96.9 [degF] [facility] ([facility]) Heart rate 74 /min 74 /min [facility] ([facility]) Diastolic blood pressure 62 mm[Hg] 62 mm[Hg] [facility] ([facility]) Systolic blood pressure 130 mm[Hg] 130 mm[Hg] M [facility] ([facility]) Body height 68 [in_i] 68 [in_i] [facility] ([facility] 5'8" Body weight 168.00 [lb_av] 168.00 [lb_av] [facility] T ([facility]) Body mass index (BMI) [Ratio] 25.5 kg/m2 25.5 k g/m2 [facility] ([facility]) ID Date Data Source [id number] 12/10/2020 08:13:[address] [facility] Name Value Range Interpretation Code Description Data Source(s) TRANSFER FROM [facility]
[2021-05-05] MEDS ORDERED: ATOR1TAB21 PO (05:53)
[2021-05-05] MEDS ORDERED: LOSA50TA88 PO (05:53)
[2021-05-05] MEDS ORDERED: FLOM0.4C39 PO (05:53)
[2021-05-05] MEDS ORDERED: METF850T4 PO (05:53)
[2021-05-05] MEDS ORDERED: PLAV1TAB2 PO (05:53)
[2021-05-05] MEDS ORDERED: GLIP5TAB8 PO ×2 (05:54→05:56)
[2021-05-05] MEDS ORDERED: MED REC COMMENT ×2 (05:59→06:05)
[2021-05-05] MEDS ORDERED: MAGN400C PO (06:02)
[2021-05-05] MEDS ORDERED: HOME MED LIST COMPLETE! XX SCH (06:05)
[2021-05-05 07:48] LABS: RSV AMPLIFICATION NEGATIVE (NEGATIVE)
--- OUTSIDE RECORDS SUMMARY | 2021-05-05 08:35 | CCD ---
Author Author [facility] Organization [facility] Address Unknown Phone Unavailable Care Team Providers Care Flour Blender Name Role Phone Fidelia CHI MD Unavailable [...] Unavailable Unavailable Patricio Lovell MD Unavailable Unavailable [place]Patricio MD Unavailable Unavailable LiliyaPatricio MD Unavailable Unavailable LiliyaPatricio MD Unavailable Unavailable LiliyaPatricio MD Unavailable Unavailable [place] MD Unavailable Unavailable LiliyaPatricio MD Unavailable Unavailable [place]io MD Unavailable Unavailable LiliyaPatricio MD Unavailable Unavailable LiliyaPatricio MD Unavailable Unavailable LiliyaPatricio MD Unavailable Unavailable LiliyaPatricio MD Unavailable Unavailable [place] MD Unavailable Unavailable LiliyaPatricio MD Unavailable Unavailable [place]io MD Unavailable Unavailable [place]io MD Unavailable Unavailable [place] MD Unavailable Unavailable [place]io MD Unavailable Unavailable LiliyaPatricio MD Unavailable Unavailable LiliyaPatricio MD Unavailable Unavailable [place] MD Unavailable Unavailable [place]io MD Unavailable Unavailable LiliyaPatricio MD Unavailable Unavailable LiliyaPatricio MD Unavailable Unavailable LiliyaPatricio MD Unavailable Unavailable [place]Pat[place] MD Unavailable Unavailable LiliyaPatricio MD Unavailable Unavailable [place]Pat[place]io MD Unavailable Unavailable LiliyaPatricio MD Unavailable Unavailable [place]Patricio MD Unavailable Unavailable [place]Patricio MD Unavailable Unavailable LiliyaPatricio MD Unavailable Unavailable LiliyaPatricio MD Unavailable Unavailable LiliyaPatricio MD Unavailable Unavailable LiliyaPatricio MD Unavailable Unavailable [place] MD Unavailable Unavailable [place]Pat[place] marie MD Unavailable Unavailable LiliyaPatricio MD Unavailable Unavailable [place] MD Unavailable Unavailable [place] marie MD Unavailable Unavailable [place] MD Unavailable Unavailable [place]Pat[place]io MD Unavailable Unavailable [place] marie MD Unavailable Unavailable [place] marie MD Unavailable Unavailable LiliyaPatricio MD Unavailable Unavailable LiliyaPatricio MD Unavailable Unavailable [place] MD Unavailable Unavailable [place]Pat[place]io MD Unavailable Unavailable LiliyaPatricio MD Unavailable Unavailable [place]Pat[place]io MD Unavailable Unavailable LiliyaPatricio MD Unavailable Unavailable [place]Pat[place]io MD Unavailable Unavailable [place]Patricio MD Unavailable Unavailable [place]Patricio MD Unavailable Unavailable LiliyaPatricio MD Unavailable Unavailable LiliyaPatricio MD Unavailable Unavailable [place], F Flores MD Unavailable Unavailable Liliya, F Mark MD Unavailable Unavailable [place], F Mark MD Unavailable Unavailable Liliya, F Mark MD Unavailable Unavailable Liliya, F Mark MD Unavailable Unavailable Liliya, F Mark MD Unavailable Unavailable Liliya, F Mark MD Unavailable Unavailable [place], F Mark MD Unavailable Unavailable [place], F Mark MD Unavailable Unavailable Liliya, F Mark MD Unavailable Unavailable Liliya, F Mark MD Unavailable Unavailable Liliya, F Mark MD Unavailable Unavailable [place], F Mark MD Unavailable Unavailable Liliya, F Mark MD Unavailable Unavailable Liliya, F Mark MD Unavailable Unavailable Liliya, F Mark MD Unavailable Unavailable Liliya, F Mark MD Unavailable Unavailable [place], F Mark MD Unavailable Unavailable Liliya, F Mark MD Unavailable Unavailable Mcrae, L Erin RPA Unavailable Unavailable Mcrae, L Erin RPA Unavailable Unavailable Mcrae, L Erin RPA Unavailable Unavailable Mcrae, L Erin RPA Unavailable Unavailable Mcrae, L Erin RPA Unavailable Unavailable Mcrae, L Erin RPA Unavailable Unavailable Mcare, L Erin RPA Unavailable Unavailable Mcrae, L [...] L Erin RPA Unavailable Unavailable Mcrae, L Erni RPA Unavailable Unavailable Mcrae, L Erin RPA Unavailable Unavailable Mcrae, L Erin RPA Unavailable Unavailable Mcrae, L Erin RPA Unavailable Unavailable Mcrae, L Erin RPA Unavailable Unavailable Mcrae, L Erin RPA Unavailable Unavailable Hegard, Nancy DIGITAL MARKETING ANALYST Unavailable Unavailable Hegard, Nancy DIGITAL MARKETING ANALYST Unavailable Unavailable Hegard, Nancy DIGITAL MARKETING ANALYST Unavailable Unavailable Hegard, Nancy DIGITAL MARKETING ANALYST Unavailable Unavailable Hegard, Nancy DIGITAL MARKETING ANALYST Unavailable Unavailable Hegard, Nancy DIGITAL MARKETING ANALYST Unavailable Unavailable Hegard, Nancy DIGITAL MARKETING ANALYST Unavailable Unavailable Hegard, Nancy DIGITAL MARKETING ANALYST Unavailable Unavailable Hegard, Nancy DIGITAL MARKETING ANALYST Unavailable Unavailable Hegard, Nancy DIGITAL MARKETING ANALYST Unavailable Unavailable Hegard, Nancy DIGITAL MARKETING ANALYST Unavailable Unavailable Hegard, Nancy DIGITAL MARKETING ANALYST Unavailable Unavailable Hegard, Nancy DIGITAL MARKETING ANALYST Unavailable Unavailable Hegard, Nancy DIGITAL MARKETING ANALYST Unavailable Unavailable Hegard, Nancy DIGITAL MARKETING ANALYST Unavailable Unavailable Hegard, Nancy DIGITAL MARKETING ANALYST Unavailable Unavailable Hegard, Nancy DIGITAL MARKETING ANALYST Unavailable Unavailable Re-disclosure Warning The records that [...] is protected by Article 27-F of the [facility] Public Health law. If you continue you may have access to information: Regarding HIV / AIDS; Provided by facilities licensed or operated by the [facility] Office of Mental Health; or Provided by the [facility] Office for People With Developmental Disabilities. If such information is present, then the following [facility] mandated warning applies: This information has [...] law may result in a fine or assisted sentence or both. A general authorization for the release of medical or other information is NOT sufficient authorization for further disc losure. Family History Family Member Name Family Member Gender Family Member Status Date o f Status Description Data Source(s) Unknown Unknown Problem [facility] ([facility], ) stomach father Unknown Male Problem [facility] ([facility] Encounters Encounter Providers Location Date Indications Data Source(s ) Office Visit Attender: Erinsindhu Jordan/[place]emanth/R eindl 04/29/2021 11:15:00 AM EDT [facility] ([facility]) Outpatient Attender: Mark Sandoval 0 03/28/2021 09:40:00 AM EDT [facility] ([facility] ) Outpatient Attender: BREANNA Jordan/[place]/Hemanth/ Reindl 03/25/2021 03:00:00 PM EDT [facility] ([facility]) Outpatient Attender: SERA Sandoval 0 01/31/2021 01:20:00 PM EDT [facility] ([facility] ) [facility]: [facility] 0 01/22/2021 12:45:00 PM EDT [facility] Attender: Katharine Alvarez RPA C Nikki/[place]/A ngel/Reindl 01/14/2021 03:15:00 PM EDT [facility] ([facility]) Outpatient Attender: SERA Sandoval 0 12/31/2020 02:40:00 PM EDT [facility] ([facility] ) Outpatient 12/10/2020 08:13:00 PM EDT L pontine stroke [facility] L pontine stroke [place] [address] [address] 09/18/2020 12:00:00 AM EDT eCW1 ([facility]) Outpatient Attender: Mark Sandoval 0 09/17/2020 02:00:00 PM EDT [facility] ([facility] ) (MMS 1) [facility] [address] [address] 09/11/2020 12:00:00 AM EST eCW1 ([facility]) Unknown [address] [address] 09/10/2020 12:00:00 AM EST eCW1 ([facility]) Outpatient Attender: Mark Sandoval 0 03/15/2020 02:15:00 PM EDT MED[facility] ([facility] ) Immunizations Vaccine Date Status Description Data Source(s) Shingrix Zoster Vaccine (HZV), Recombinant, Subunit, A djuvanted 09/17/2020 11:03:00 AM EDT completed [facility] ([facility]) This CVX code allows reporting of a vacc ination when formulation is unknown (for example, when recording a Influenza vaccination when noted on a vaccination card) 09/17/2020 11:02:00 AM EDT completed MEDEN T ([facility]) tetanus toxoid, unspecified formulation 09/17/2020 11:02:00 AM EDT completed MEDENT ([facility]) COVID-19 VACCINE Pfizer 08/25/2020 12:00:00 AM EST completed [facility] Vaccine Series Complete: YESThis Data wa s Submitted to [facility] Via Epiphyte. COVID-19 VACCINE Pfizer 08/04/2020 12:00:00 AM EST completed [facility] Vaccine Series Complete: NOThis Data was Submitted to [facility] Via Epiphyte. Medications Medication Brand Name Start Date Product Form Dose Route Admi nistrative Instructions Pharmacy Instructions Status Indications Reaction Description Data Source(s) Acetaminophen 325 MG / Hydrocodone Bitartrate 5 MG Ora l Tablet Hydrocodone Bitartrate/Acetaminophen 04/11/2021 12:00:00 AM EDT ORAL completed [facility] ([facility] ) Freestyle Xander 14 Day/Sensor/Flash Monitoring System 01/07/2021 12:00:00 AM EDT active MEDENT ([facility]) Freestyle Xander 2/Sensor/Flash Glucose Monitoring System 12/31/2020 12:00:00 AM EDT completed [facility] ([facility]) Losartan Potassium 50 MG Oral Tablet Losartan Potassium 12:00:00 AM EDT ORAL active MED[facility] ([facility]) Glipizide 5 MG Oral Tablet Glipizide 09/17/2020 12:00:00 AM EDT ORAL active [facility] ([facility]) 24 HR mirabegron 25 MG Extended Release Oral Tablet [Myrbetr iq] Myrbetriq 09/17/2020 12:00:00 AM EDT ORAL completed MED[facility] ([facility]) Covid-19 vaccine, Unspecified 08/25/2020 12:00:00 AM EST completed [facility]) Medication administered onsite Covid-19 vaccine, Unspecified 08/04/2020 12:00:00 AM EST completed [facility]) Medication administered onsite canagliflozin 300 MG Oral Tablet [Invokana] Invokana 06/04 12:00:00 AM EST ORAL active MED[facility] ( [facility]) Insurance Providers Payer name Policy type / Coverage type Policy ID Covered alliance party ID Covered alliance party's relationship to pearson Policy Pearson Plan Information [facility] Commercial [id number] Self [id number] [facility] [place] [id number] Self Hmo Medicare Natl Govt Serv Medicare Primary [id number] Self [id number] Medicare Natl Govt Servic Medicare Primary [id number] Self [id number] Medicare Natl Govt Servic Medicare Primary [id number] Self [id number] Medicare Natl Govt Servic Medicare Primary [id number] Self [id number] Medicare Natl Govt Servic Medicare Primary [id number] Self [id number] MEDICARE [id number] SP [id number] A Medicare Natl Govt Servic Medicare Primary [id number] Self [id number] Medicare Natl Govt Servic Medicare Primary [id number] Self MEDICARE [id number] [place] [id number] A Medicare Medicare Primary [id number] Self [id number] BS Verizon Medigap Part B [id number] Self [id number] BS Verizon Medigap Part B [id number] Self [id number] EXCELLUS BCBS [id number] [place] UQV [id number] DME Jurisdiction A IDIC C [id number] SELF [id number] [employer]/[place]/BS Other Health Maintenance Organization (HMO) U [id number] Self [id number] [facility] Commercial [id number] Self [id number] [facility] O [id number] S [id number] MEDICARE C [id number] S [id number] A Unitedhcare Medicare [place] Commercial [id number] Self [id number] BS [place] Verizon Medigap Part B [id number] Self [id number] EXCELLUS BCBS B [id number] S UQV [id number] Excell[employer] BCBS Medigap Part B [id number] Self [id number] Medicare [place]/NGS Medicare Primary [id number] Self [place] MEDICARE PART B C [id number] S [id number] BCBS [place] 200/700 [id number] SP [id number] Blue Cross Blue Shield P [id number] SELF [id number] Medicare C [id number] SELF [id number] A EXCELLUS BCBS S [id number] S [id number] A MEDICARE COMPLETE [id number] SP [id number] MEDICARE [id number] SP [id number] MEDICARE COMPLETE [id number] SP [id number] BS [place] Lauraon Medigap Part B [id number] Self [id number] MEDICARE COMPLETE-[facility] O [id number] S [id number] [facility] Medicare Commercial [id number] Self [id number] Excell[employer] BCBS Medigap Part B [id number] Self [id number] Medicare Upstate/[facility] Medicare Primary [id number] Self [id number] [facility] [id number] SP [id number] MEDICARE [id number] SP [id number] A [facility] Medicare Commercial [id number] Self [id number] [facility] Medicare Commercial [id number] Self [id number] [facility] O [id number] S [id number] [facility]/Medicare [employer] Commercial [id number] Self [id number] [facility] [id number] SP [id number] [place] [id number]/834 [id number] SP [id number] Unitedhealthcare Medicare Commercial [id number] Self [id number] United[employer]care Medicare Commercial [id number] Self [id number] Problems, Conditions, and Diagnoses Code Display Name Description Problem Type Effective Dates Data Source(s) L pontine stroke L pontine stroke Diagnosis 12/10/2020 08 :13:00 PM EDT [facility] C44.229 [id number] 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 Problem 09/11/2020 12:00:00 AM EST eCW1 ([facility]) 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 Problem 06/14/2020 12:00:00 AM EST MEDENT ([facility]) Surgeries/Procedures Procedure Description Date Indications Data Source(s) Lap Inguinal Hernia Repair 04/15/2021 12:00:00 AM EDT MED[facility] ([facility], ) ECG ROUTINE ECG W/LEAST 12 LDS W/I&R 03/28/2021 12:00: 00 AM EDT MEDENT ([facility]) OFFICE OUTPATIENT VISIT 25 MINUTES 03/28/2021 12:00:00 AM EDT MEDENT ([facility]) OFFICE OUTPATIENT VISIT 15 MINUTES 03/25/2021 12:00:00 AM EDT MEDENT ([facility], ) OFFICE OUTPATIENT VISIT 15 MINUTES 01/31/2021 12:00:00 AM EDT MEDENT ([facility]) DESTRUCTION PREMALIGNANT LESION 1ST 01/22/2021 12:00:0 0 AM EDT MED[facility] ([facility]) OFFICE OUTPATIENT VISIT 25 MINUTES 01/22/2021 12:00:00 AM EDT MEDENT ([facility]) OFFICE OUTPATIENT VISIT 25 MINUTES 01/14/2021 12:00:00 AM EDT MEDENT ([facility], ) Trans Care SRV W/I 14D Of DC, Comm W/I 2 Dys Med Rec 12/31/2020 12:00:00 AM EDT MEDENT ([facility] ) Suture Removal 09/18/2020 12:00:00 AM EDT eCW1 ([facility]) OFFICE OUTPATIENT VISIT 25 MINUTES 09/17/2020 12:00:00 AM EDT MEDENT ([facility]) Med: Derm Lidocaine with Epinephrine Inj ection 1% with 2 ml sodium bicarbonate Intradermally to marked areas 09/11/2020 12:00:00 AM EST eCW1 ([facility]) Diabetic Retinal Eye Exam 05/23/2020 12:00:00 AM EST MEDENT ([facility]) Results ID Date Data Source [id number] 04/10/2021 11:25:00 AM EDT [facility] Name Value Range Interpretation Code Description Data Vera rce(s) Supporting Document(s) SARS-CoV-2 (COVID-19) RNA [Presence] in Respiratory specimen by GARTH with probe detection Not Detected [facility] This lab was ordered by [facility] and reported by [facility]. ID Date Data Source [id number] 03/28/2021 10:19:00 AM EDT MEDENT ([facility]) Name Value Range Interpretation Code Description Data Vera rce(s) Supporting Document(s) Cholesterol [Mass/volume] in Serum or Plasma 102 mg/dL 131-200 [facility] ([facility]) Triglyceride [Mass/volume] in Serum or Plasma 27 mg/dL 30-150 [facility] ([facility]) Cholesterol in HDL [Mass/volume] in Serum or Plasma 54 mg/dL 35-60 [facility] ([facility]) Cholesterol in LDL [Mass/volume] in Serum or Plasma by calcu lation 43 CALC 50-159 [facility] ([facility]) ID Date Data Source [id number] 03/28/2021 10:19:00 AM EDT MED[facility] ([facility]) Name Value Range Interpretation Code Description Data Vera rce(s) Supporting Document(s) Glucose [Mass/volume] in Serum or Plasma 100 mg/dL 74-99 [facility] ([facility]) 100-125 mg/dL PRE-DIABETES/FASTING >126 mg/dL DIABETES/FASTING Urea nitrogen [Mass/volume] in Serum or Plasma 22 mg/dL 7-18 [facility] ([facility]) Sodium [Moles/volume] in Serum or Plasma 141 meq/L 136-145 [facility] ([facility]) Potassium [Moles/volume] in Serum or Plasma 4.7 meq/L 3.5-5.1 [facility] ([facility]) Creatinine 0.8 mg/dL 0.6-1.3 [facility] ([facility]) Calcium [Mass/volume] in Serum or Plasma 9.3 mg/dL 8.5-10.1 [facility] ([facility]) Chloride [Moles/volume] in Serum or Plasma 105 meq/L 98-107 [facility] ([facility]) Carbon dioxide, total [Moles/volume] in Serum or Plasma 29 meq/L 21 -32 [facility] ([facility]) Alkaline phosphatase isoenzyme [Units/volume] in Serum or Pl asma 60 mg/dL 46-116 [facility] ([facility]) Aspartate aminotransferase [Enzymatic activity/volume] in Serum or Plasma 12 U/L 15-37 [facility] ([facility] ) Total Bilirubin 2.0 mg/dL 0.2-1.0 [facility] ([facility]) NOTE: RESULT VERIFIED. Alanine aminotransferase [Enzymatic activity/volume] in Seru m or Plasma 30 U/L 12-78 [facility] ([facility]) A/G Ratio 1.42 CALC 1.00-1.90 [facility] ([facility]) Proteinase 3 Ab [Units/volume] in Serum 6.3 g/dL 6.4-8.2 [facility] ([facility]) Albumin [Mass/volume] in Serum or Plasma 3.7 g/dL 3.4-5.0 [facility] ([facility]) Glomerular filtration rate/1.73 sq M pre dicted among blacks [Volume Rate/Area] in Serum or Plasma by Creatinine-based formula (MDRD) Laboratory test result [facility] <content>CHRONIC KIDNEY DISEASE STAGING PER NKF</content>
<content></content>
<content>STAGE I & II GFR >= 60 NORMAL TO MILDLY DECREASED</content>
<content>STAGE III GFR 30-59 MODERATELY DECREASED</content>
<content>STAGE IV GFR 15-29 SEVERELY DECREASED</content>
<content>STAGE V GFR <15 VERY LITTLE GFR LEFT</content>
<content>ESRD GFR <15 ON INFORMATICS COORDINATOR</content>
<content></content> Glomerular filtration rate/1.73 sq M pre dicted among non-blacks [Volume Rate/Area] in Serum or Plasma by Creatinine-based formula (MDRD) Laboratory test result [facility] ([facility] ) ID Date Data Source [id number] 03/28/2021 10:19:00 AM EDT [facility] ([facility]) Name Value Range Interpretation Code Description Data Vera rce(s) Supporting Document(s) Prostate specific Ag [Mass/volume] in Serum or Plasma 1.51 ng/mL [facility] ([facility]) This assay was performed on the Siemens Dimension EXL using the B- Galactosidase/CPRG methodology and should not be compared interchangeably with other methods. The PSA should not be used alone as a screening test for the presence or absence of malignant disease. ID Date Data Source [id number] 03/28/2021 10:19:00 AM EDT [facility] ([facility]) Name Value Range Interpretation Code Description Data Vera rce(s) Supporting Document(s) Glucose mean value [Mass/volume] in Blood Estimated fr om glycated hemoglobin 157 mg/dL 60-110 [facility] Hemoglobin A1c/Hemoglobin.total in Blood 7.1 % [facility] Lab Result Notes: Pre-Diabetes 5.7 - 6.4 % Diabetes = or > 6.5% ID Date Data Source [id number] 01/20/2021 12:30:00 PM EDT [facility], ) Name Value Range Interpretation Code Description Data Vera rce(s) Supporting Document(s) Ast/Sgot 24 U/L 7-37 Normal (applies to non-numeric resul ts) [facility] ([facility]) Alt/SGPT 54 U/L 12-78 Normal (applies to non-numeric resul ts) [facility] ([facility]) Alkaline Phosphatase 66 U/L 45-117 Normal (applies to non-num gildardo results) [facility] ([facility]) Bilirubin,Total 1.5 mg/dL 0.2-1.0 Above high normal [facility] ([facility]) Bilirubin,Direct 0.3 mg/dL 0.0-0.2 Above high normal M EDENT ([facility]) Albumin 3.6 GM/DL 3.2-5.2 Normal (applies to non-numeric resul ts) [facility] ([facility]) Total Protein 6.3 GM/DL 6.4-8.2 Below low normal MEDEN T ([facility]) Albumin/Globulin Ratio 1.3 Normal (applies to non-n umeric results) [facility] ([facility]) 01/21/21 (WedJan 21) 04:07 PM KATHARINE CHARLEBOIS Bilirubin mildly elevated. Total protein has improved. See triage. ID Date Data Source [id number] 01/20/2021 12:30:00 PM EDT [facility] ([facility]) Name Value Range Interpretation Code Description Data Vera rce(s) Supporting Document(s) Amylase [Enzymatic activity/volume] in Serum or Plasma 72 U/L 25-115 Normal (applies to non-numeric results) [facility] ([facility], ) Lipoprotein lipase [Enzymatic activity/volume] in Serum or P lasma 190 U/L 73-393 Normal (applies to non-numeric results) [facility] ([facility]) 01/21/21 (WedJan 21) 03:59 PM KATHARINE CHARLEBOIS Normal. ID Date Data Source [id number] 01/20/2021 12:30:00 PM EDT [facility] ([facility]) Name Value Range Interpretation Code Description Data Vera rce(s) Supporting Document(s) Amylase [Enzymatic activity/volume] in Serum or Plasma 72 U/L 25- 115 [facility] ([facility]) Lipoprotein lipase [Enzymatic activity/volume] in Serum or P lasma 190 U/L 73-393 [facility] ([facility]) ID Date Data Source [id number] 01/20/2021 12:30:00 PM EDT MED[facility] ([facility]) Name Value Range Interpretation Code Description Data Vera rce(s) Supporting Document(s) Alkaline Phosphatase 66 U/L 45-117 [facility] ([facility]) Ast/Sgot 24 U/L 7-37 [facility]) Alt/SGPT 54 U/L 12-78 [facility]) Total Protein 6.3 GM/DL 6.4-8.2 MED[facility] ([facility]) Bilirubin,Total 1.5 mg/dL 0.2-1.0 [facility] ([facility]) Bilirubin,Direct 0.3 mg/dL 0.0-0.2 [facility] ([facility]) Albumin 3.6 GM/DL 3.2-5.2 [facility] ([place] [facility]) Albumin/Globulin Ratio 1.3 [facility] ([facility]) ID Date Data Source [id number] 12/04/2020 11:12:00 AM EDT [facility] ([facility]) Name Value Range Interpretation Code Description Data [facility](s) Supporting Document(s) Influenza B Amplification Laboratory test result [facility] Negative results do not preclude influen za or RSV virus infection and should not be used as the sole basis for treatment or other patient management decisions. Influenza A Amplification Laboratory test result [facility] ([facility]) Negative results do not preclude influen za or RSV virus infection and should not be used as the sole basis for treatment or other patient management decisions. RSV Amplification Laboratory test result [facility] ([facility]) Negative results do not preclude influen za or RSV virus infection and should not be used as the sole basis for treatment or other patient management decisions. Laboratory test finding (navigational concept) Laboratory test result [facility] ([facility]) A false negative result may occur [...] pathogens. DISCLAIMER: Testing was performed using the [employer] (acquired by [employer]) SARS-CoV-2 test. This test was developed and its performance characteristics determined by [employer] (acquired by [employer]). This test has not been FDA cleared [...] or revoked sooner. ID Date Data Source [id number] 12/04/2020 11:12:00 AM EDT [facility] Name Value Range Interpretation Code Description Data Vera rce(s) Supporting Document(s) SARS coronavirus 2 RNA [Presence] in Res piratory specimen by GARTH with probe detection NEGATIVE [facility] This lab was ordered by [facility] a nd reported by [facility]. ID Date Data Source [id number] 12/04/2020 09:53:00 AM EDT [facility] ([facility]) Name Value Range Interpretation Code Description Data Vera rce(s) Supporting Document(s) Glucose, Fasting 231 mg/dL 70-100 [facility] ([facility]) Creatinine For GFR 0.76 mg/dL 0.70-1.30 [facility] ([facility]) Blood Urea Nitrogen 18 mg/dL 7-18 [facility] ([facility]) Glomerular Filtration Rate Laboratory test result [facility] ([facility]) <content>Units are mL/min/1.73 m2</content>
<content></content>
<content>Chronic Kidney Disease Staging per NKF:</content>
<content></content>
<content>Stage I & II GFR >=60 Normal to Mildly Decreased</content>
<content>Stage III GFR 30- 59 Moderately Decreased</content>
<content>Stage IV GFR 15-29 Severely Decreased</content>
<content>Stage V GFR <15 Very Little GFR Left</content>
<content>ESRD GFR <15 on INFORMATICS COORDINATOR</content>
<content></content> Sodium Level 140 meq/L 136-145 [facility] ([facility]) Potassium Serum 4.6 meq/L 3.5-5.1 [facility] ([facility]) Chloride Level 107 meq/L 98-107 [facility] ([facility]) Carbon Dioxide Level 27 meq/L 21-32 [facility] Anion Gap 6 meq/L 8-16 [facility] ([facility]) Ast/Sgot 18 U/L 7-37 [facility] ([facility]) Alt/SGPT 35 U/L 12-78 [facility] ([facility]) Calcium Level 8.8 mg/dL 8.8-10.2 [facility] ([facility]) Total Protein 5.5 GM/DL 6.4-8.2 [facility] ([facility]) Alkaline Phosphatase 64 U/L 45-117 [facility] ([facility]) Bilirubin,Total 1.3 mg/dL 0.2-1.0 [facility] ([facility]) Albumin/Globulin Ratio 1.2 [facility] ([facility]) Albumin 3.0 GM/DL 3.2-5.2 [facility] ([facility]) ID Date Data Source [id number] 12/04/2020 09:53:00 AM EDT [facility] ([facility]) Name Value Range Interpretation Code Description Data Vera rce(s) Supporting Document(s) Blood Type Laboratory test result [facility] ([facility]) AB Screen (Indirect Yakelin)Vis Laboratory test result [facility] ([facility]) ID Date Data Source [id number] 12/04/2020 09:53:00 AM EDT [facility] ([facility]) Name Value Range Interpretation Code Description Data Vera rce(s) Supporting Document(s) CPK Creatine Phosphokinase 40 U/L 39-308 [facility] ([facility]) CK-MB Value Mass 1.6 ng/mL [facility] ([facility]) MB/CK Relative Index 4.00 [facility] ([facility]) <content>DIAGNOSIS CRITERIA</content>
<content>MMB ng/ml Relative Index (RI)</content>
<content>NON-AMI < or = 5 N/A</content>
<content>COREA ZONE > 5 < or = 4</content>
<content>AMI > 5 > 4</content>
<content></content> Troponin I Laboratory test result [facility] ([facility]) <content>Troponin I Reference Interval f or Siemens [place] LOCI:</content>
<content></content>
<content>99th Percentile= 0.00-0.045 ng/ml</content>
<content></content>
<content>Risk Stratification:</content>
<content><= 0.10 ng/ml Decreased Risk for Adverse Clinical</content>
<content>Events.</content>
<content>0.10-1.50 ng/ml Increased Risk for Adverse Clinical</content>
<content>Events. Evaluation of additional</content>
<content>criterion and/or repeat testing in 2-6</content>
<content>hours is suggested to rule out myocardial</content>
<content>damage.</content>
<content>>= 1.50 ng/ml Indicative of Myocardial Injury.</content>
<content></content> ID Date Data Source [id number] 12/04/2020 09:53:00 AM EDT [facility]) Name Value Range Interpretation Code Description Data Vera rce(s) Supporting Document(s) aPTT in Blood by Coagulation assay 24.9 s 24.2-38.5 [facility] ([facility]) ID Date Data Source [id number] 12/04/2020 09:53:00 AM EDT [facility] ([facility]) Name Value Range Interpretation Code Description Data Vera rce(s) Supporting Document(s) Prothrombin Time 11.9 s 12.5-14.3 [facility] ([facility]) [facility].86 [facility] [facility] THERAPUTIC HUMAN INR VALUES INDICATIONS NORMAL RANGES PROPHYLAXIS/TREATMENT OF: VENOUS THROMBOSIS 2.0-3.0 PULMONARY EMBOLISM 2.0-3.0 PREVENTION OF SYSTEMIC EMBOLISM FROM: TISSUE HEART VALVES 2.0-3.0 ACUTE MYOCARDIAL INFARCTION 2.0-3.0 VALVULAR HEART DISEASE 2.0-3.0 ATRIAL FIBRILLATION 2.0-3.0 MECHANICAL VALVES(HIGH RISK) 2.5-3.5 RECURRENT MYOCARDIAL INFARCTION 2.5-3.5 ID Date Data Source [id number] 12/04/2020 09:53:00 AM EDT [facility] ([facility]) Name Value Range Interpretation Code Description Data [facility] rce(s) Supporting Document(s) White Blood Count 9.2 10 4.0-10.0 [facility] ([facility]) Hemoglobin 15.7 g/dL 13.5-17.5 [facility] Red Blood Count 5.08 10 4.30-6.10 [facility] ([facility]) Hematocrit 46.2 % 42.0-52.0 [facility] ([place] [facility]) Mean Corpuscular Volume 90.9 fl 80.0-96.0 [facility] ([facility]) Mean Corpuscular Hemoglobin 30.9 pg 27.0-33.0 [facility] ([facility]) Mean Corpuscular HGB Conc 34.0 g/dL 32.0-36.5 [facility] ([facility]) Red Cell Distribution Width 12.9 % 11.5-14.5 [facility] ([facility]) Lymph % 7.3 % 24.0-44.0 [facility] [facility] Neutrophils % 82.6 % 36.0-66.0 [facility] ([facility]) Platelet Count, Automated 303 10 150-450 [facility] ([facility]) [place] % 6.6 % 2.0-8.0 [facility] ([place] [facility]) Eos % 2.8 % 0.0-3.0 [facility] ([place] [facility]) Immature Granulocyte % 0.4 % 0-3.0 [facility] ([facility]) Baso % 0.3 % 0.0-1.0 [facility] ([place] [facility]) Neutrophils # 7.6 10 1.5-8.5 [facility] ([facility]) Lymph # 0.7 10 1.5-5.0 [facility] ([place] [facility]) Nucleated Red Blood Cell % 0.0 % 0-0 [facility] ([facility]) Eos # 0.3 10 0.0-0.5 [facility] ([place] [facility]) [place] # 0.6 10 0.0-0.8 [facility] ([place] [facility]) Baso # 0.0 10 0.0-0.2 [facility] ([place] [facility]) ID Date Data Source [id number] 09/17/2020 02:34:00 PM EDT [facility] ([facility]) Name Value Range Interpretation Code Description Data Vera rce(s) Supporting Document(s) Urine Creatinine 55.3 mg/dL 30.0-125.0 [facility] ([facility]) Microalbumin Urine 4.8 mg/L 1.3-20.0 [facility] ([facility]) Microalb/Creat Ratio 8.7 ug/mg 0.0-30.0 [facility] ( [facility] ID Date Data Source [id number] 09/17/2020 02:34:00 PM EDT [facility] ([facility]) Name Value Range Interpretation Code Description Data Vera rce(s) Supporting Document(s) Cholesterol [Mass/volume] in Serum or Plasma 194 mg/dL 131-200 [facility] ([facility]) Triglyceride [Mass/volume] in Serum or Plasma 34 mg/dL 30-150 [facility] ([facility]) Cholesterol in HDL [Mass/volume] in Serum or Plasma 61 mg/dL 35-60 [facility] ([facility]) Cholesterol in LDL [Mass/volume] in Serum or Plasma by calcu lation 126 CALC 50-159 [facility] ([facility]) ID Date Data Source [id number] 09/17/2020 02:34:00 PM EDT [facility] ([facility]) Name Value Range Interpretation Code Description Data Vera rce(s) Supporting Document(s) Urea nitrogen [Mass/volume] in Serum or Plasma 20 mg/dL 7-18 [facility] ([facility]) Glucose [Mass/volume] in Serum or Plasma 144 mg/dL 74-99 [facility] ([facility]) 100-125 mg/dL PRE-DIABETES/FASTING >126 mg/dL DIABETES/FASTING Creatinine 0.8 mg/dL 0.6-1.3 [facility] ([facility]) Sodium [Moles/volume] in Serum or Plasma 141 meq/L 136-145 [facility] ([facility]) Carbon dioxide, total [Moles/volume] in Serum or Plasma 27 meq/L 21 -32 [facility] ([facility]) Potassium [Moles/volume] in Serum or Plasma 4.7 meq/L 3.5-5.1 [facility] ([facility]) Chloride [Moles/volume] in Serum or Plasma 101 meq/L 98-107 [facility] ([facility]) Alkaline phosphatase isoenzyme [Units/volume] in Serum or Pl asma 75 mg/dL 46-116 [facility] ([facility]) Calcium [Mass/volume] in Serum or Plasma 9.1 mg/dL 8.5-10.1 [facility] ([facility]) Aspartate aminotransferase [Enzymatic activity/volume] in Serum or Plasma 16 U/L 15-37 [facility] ([facility] ) Total Bilirubin 1.3 mg/dL 0.2-1.0 [facility] ([facility]) NOTE: T.BILI,T.PROTEIN VERIFIED Alanine aminotransferase [Enzymatic activity/volume] in Seru m or Plasma 31 U/L 12-78 [facility] ([facility]) Albumin [Mass/volume] in Serum or Plasma 3.5 g/dL 3.4-5.0 [facility] ([facility] [facility] Proteinase 3 Ab [Units/volume] in Serum 6.2 g/dL 6.4-8.2 [facility] ([facility] [facility]) Glomerular filtration rate/1.73 sq M pre dicted among non-blacks [Volume Rate/Area] in Serum or Plasma by Creatinine-based formula (MDRD) Laboratory test result [facility] ([facility] ) A/G Ratio 1.30 CALC 1.00-1.90 [facility] ([facility]) Glomerular filtration rate/1.73 sq M pre dicted among blacks [Volume Rate/Area] in Serum or Plasma by Creatinine-based formula (MDRD) Laboratory test result [facility] ([facility]) <content>CHRONIC KIDNEY DISEASE STAGING PER NKF</content>
<content></content>
<content>STAGE I & II GFR >= 60 NORMAL TO MILDLY DECREASED</content>
<content>STAGE III GFR 30-59 MODERATELY DECREASED</content>
<content>STAGE IV GFR 15-29 SEVERELY DECREASED</content>
<content>STAGE V GFR <15 VERY LITTLE GFR LEFT</content>
<content>ESRD GFR <15 ON INFORMATICS COORDINATOR</content>
<content></content> ID Date Data Source [id number] 09/17/2020 02:34:00 PM EDT [facility]) Name Value Range Interpretation Code Description Data Vera rce(s) Supporting Document(s) Hemoglobin A1c/Hemoglobin.total in Blood 9.3 % [facility] ([facility]) Lab Result Notes: Pre-Diabetes 5.7 - 6.4 % Diabetes = or > 6.5% Glucose mean value [Mass/volume] in Blood Estimated fr om glycated hemoglobin 220 mg/dL 60-110 [facility] ([facility] ) ID Date Data Source [id number] 09/17/2020 02:34:00 PM EDT [facility]) Name Value Range Interpretation Code Description Data Vera rce(s) Supporting Document(s) Leukocytes [#/volume] in Blood by Automated count 12.3 x10*3/UL 4.1-1 0.9 [facility] ([facility]) NOTE: CBC VERIFIED Erythrocytes [#/volume] in Blood by Automated count 4.85 x10*6/UL 4.2 0-6.30 [facility] ([facility]) Hemoglobin [Mass/volume] in Blood 15.3 g/dL 12.0-18.0 [facility] ([facility]) Hematocrit [Volume Fraction] of Blood by Automated count 42.9 % 3 7.0-51.0 [facility] ([facility]) MCV 88.5 fL 80.0-97.0 [facility] ([place] [facility]) MCHC 35.6 g/dL 31.0-38.0 [facility] ([place] [facility]) MCH 31.5 pg 26.0-32.0 [facility] ([place] [facility]) MPV 8.2 FL 7.8-11.0 [facility] ([place] [facility]) Platelets [#/volume] in Blood by Automated count 301 x10*3/UL 140-440 [facility] ([facility]) Erythrocyte distribution width [Ratio] by Automated count 13.4 % 11.6-13.7 [facility] ([facility]) Mid % 6.2 % 1.7-9.3 [facility] ([place] [facility]) Lymph % 4.8 % 10.0-58.5 [facility] ([place] [facility]) Lymph # 0.6 x10*3/UL 0.6-4.1 [facility] ([facility]) Neut % 89.0 % 37.0-92.0 [facility] ([place] [facility]) Mid # 0.8 x10*3/UL 0.1-0.6 [facility] ([facility]) Neut # 10.9 x10*3/UL 2.0-7.8 [facility] ([facility]) ID Date Data Source [id number] 06/22/2020 03:17:00 PM EST [facility] Name Value Range Interpretation Code Description Data Vera rce(s) Supporting Document(s) SARS coronavirus 2 RdRp gene [Presence] in Respiratory specimen by GARTH with probe detection [facility] This lab was ordered by [place] and repor leslie by [facility]. ID Date Data Source [id number] 06/22/2020 07:39:00 AM EST [facility] Name Value Range Interpretation Code Description Data Vera rce(s) Supporting Document(s) SARS-CoV-2 RdRp gene result [facility] This lab was ordered by [facility] ID Date Data Source [id number] 06/11/2020 12:00:00 AM EST [facility] Name Value Range Interpretation Code Description Data Vera rce(s) Supporting Document(s) 2019-nCoV RNA XXX GARTH+probe-Imp [facility] This lab was ordered by [facility] and reported by [facility]. ID Date Data Source [id number] 03/17/2020 10:00:00 PM EDT [facility] ([facility]) Name Value Range Interpretation Code Description Data Vera rce(s) Supporting Document(s) Urine Creatinine 90.9 mg/dL 30.0-125.0 [facility] ([facility]) Microalbumin Urine 6.0 mg/L 1.3-20.0 [facility] ([facility]) Microalb/Creat Ratio 6.6 ug/mg 0.0-30.0 [facility] ( [facility]) ID Date Data Source [id number] 03/15/2020 02:05:00 PM EDT [facility] ([facility]) Name Value Range Interpretation Code Description Data Vera rce(s) Supporting Document(s) Cholesterol [Mass/volume] in Serum or Plasma 156 mg/dL 131-200 [facility] ([facility]) Triglyceride [Mass/volume] in Serum or Plasma 56 mg/dL 30-150 [facility] ([facility]) Cholesterol in HDL [Mass/volume] in Serum or Plasma 58 mg/dL 35-60 [facility] ([facility]) Cholesterol in LDL [Mass/volume] in Serum or Plasma by calcu lation 87 CALC 50-159 [facility] ([facility]) ID Date Data Source [id number] 03/15/2020 02:05:00 PM EDT [facility] ([facility]) Name Value Range Interpretation Code Description Data Vera rce(s) Supporting Document(s) Glucose [Mass/volume] in Serum or Plasma 224 mg/dL 74-99 [facility] ([facility]) 100-125 mg/dL PRE-DIABETES/FASTING >126 mg/dL DIABETES/FASTING Creatinine 0.9 mg/dL 0.6-1.3 [facility] ([facility]) Urea nitrogen [Mass/volume] in Serum or Plasma 17 mg/dL 7-18 [facility] ([facility]) Potassium [Moles/volume] in Serum or Plasma 4.1 meq/L 3.5-5.1 [facility] ([facility]) Chloride [Moles/volume] in Serum or Plasma 105 meq/L 98-107 [facility] ([facility]) Sodium [Moles/volume] in Serum or Plasma 139 meq/L 136-145 [facility] ([facility]) Calcium [Mass/volume] in Serum or Plasma 8.4 mg/dL 8.5-10.1 [facility] ([facility]) NOTE: CALCIUM,ALBUMIN,T.PROTEIN VERIFIED Carbon dioxide, total [Moles/volume] in Serum or Plasma 30 meq/L 21 -32 [facility] ([facility]) Alkaline phosphatase isoenzyme [Units/volume] in Serum or Pl asma 82 mg/dL 46-116 [facility] ([facility]) Aspartate aminotransferase [Enzymatic activity/volume] in Serum or Plasma 14 U/L 15-37 [facility] ([facility] ) Total Bilirubin 1.1 mg/dL 0.2-1.0 [facility] ([facility]) Albumin [Mass/volume] in Serum or Plasma 2.8 g/dL 3.4-5.0 [facility] ([facility]) Proteinase 3 Ab [Units/volume] in Serum 5.9 g/dL 6.4-8.2 [facility] ([facility]) Alanine aminotransferase [Enzymatic activity/volume] in Seru m or Plasma 25 U/L 12-78 [facility] ([facility]) Glomerular filtration rate/1.73 sq M pre dicted among non-blacks [Volume Rate/Area] in Serum or Plasma by Creatinine-based formula (MDRD) Laboratory test result [facility] ([facility] ) A/G Ratio 0.90 CALC 1.00-1.90 [facility] ([place] [facility]) Glomerular filtration rate/1.73 sq M pre dicted among blacks [Volume Rate/Area] in Serum or Plasma by Creatinine-based formula (MDRD) Laboratory test result [facility] ([facility]) <content>CHRONIC KIDNEY DISEASE STAGING PER NKF</content>
<content></content>
<content>STAGE I & II GFR >= 60 NORMAL TO MILDLY DECREASED</content>
<content>STAGE III GFR 30-59 MODERATELY DECREASED</content>
<content>STAGE IV GFR 15-29 SEVERELY DECREASED</content>
<content>STAGE V GFR <15 VERY LITTLE GFR LEFT</content>
<content>ESRD GFR <15 ON INFORMATICS COORDINATOR</content>
<content></content> ID Date Data Source [id number] 03/15/2020 02:05:00 PM EDT [facility] ([facility] Name Value Range Interpretation Code Description Data Vera rce(s) Supporting Document(s) Hemoglobin A1c/Hemoglobin.total in Blood 9.0 g/dL 4.8-5.6 [facility] ([facility]) Lab Result Notes: Pre-Diabetes 5.7 - 6.4 % Diabetes = or > 6.5% Glucose mean value [Mass/volume] in Blood Estimated fr om glycated hemoglobin 212 mg/dL 60-110 [facility] ([facility] ID Date Data Source [id number] 03/15/2020 02:05:00 PM EDT [facility] ([facility] Name Value Range Interpretation Code Description Data Vera rce(s) Supporting Document(s) Leukocytes [#/volume] in Blood by Automated count 8.7 x10*3/UL 4.1-10 .9 [facility] ([facility] Erythrocytes [#/volume] in Blood by Automated count 5.04 x10*6/UL 4.2 0-6.30 [facility] ([facility]) Hemoglobin [Mass/volume] in Blood 15.2 g/dL 12.0-18.0 [facility] ([facility]) Hematocrit [Volume Fraction] of Blood by Automated count 43.2 % 3 7.0-51.0 [facility] ([facility]) MCV 85.5 fL 80.0-97.0 [facility] ([facility]) Erythrocyte distribution width [Ratio] by Automated count 12.7 % 11.6-13.7 [facility] ([facility]) MCH 30.1 pg 26.0-32.0 [facility] ([facility]) MCHC 35.2 g/dL 31.0-38.0 [facility] ([facility]) Lymph % 7.7 % 10.0-58.5 [facility] ([facility]) Platelets [#/volume] in Blood by Automated count 332 x10*3/UL 140-440 [facility] ([facility] [facility]) MPV 8.4 FL 7.8-11.0 [facility] ([place] [facility]) Mid % 2.1 % 1.7-9.3 [facility] ([facility]) Mid # 0.3 x10*3/UL 0.1-0.6 [facility] ([facility] [facility]) Lymph # 0.6 x10*3/UL 0.6-4.1 [facility] ([facility]) Neut % 90.2 % 37.0-92.0 [facility] ([facility]) Neut # 7.8 x10*3/UL 2.0-7.8 [facility] ([facility] [facility]) ID Date Data Source [id number] 03/15/2020 02:04:00 PM EDT [facility] ([facility]) Name Value Range Interpretation Code Description Data Vera rce(s) Supporting Document(s) Prostate specific Ag [Mass/volume] in Serum or Plasma 1.47 ng/mL [facility] ([facility]) This assay was performed on the Siemens Dimension EXL using the B- Galactosidase/CPRG methodology and should not be compared interchangeably with other methods. The PSA should not be used alone as a screening test for the presence or absence of malignant disease. ID Date Data Source [id number] 03/15/2020 02:04:00 PM EDT [facility] ([facility]) Name Value Range Interpretation Code Description Data Vera rce(s) Supporting Document(s) Hemoglobin A1c/Hemoglobin.total in Blood Laboratory test result [facility] ([facility]) Procedure Social History No Information Vital Signs ID Date Data Source UNK Name Value Range Interpretation Code Description Data Source(s) Systolic blood pressure 156 mm[Hg] 156 mm[Hg] [facility] ([facility]) Diastolic blood pressure 79 mm[Hg] 79 mm[Hg] [facility] ([facility]) Heart rate 66 /min 66 /min [facility] ([facility]) Body temperature 98.4 [degF] 98.4 [degF] [facility] ([facility]) Body height 68 [in_i] 68 [in_i] [facility] ([facility]) 5'8" Body weight 59.00 [lb_av] 59.00 [lb_av] [facility] ([facility]) Body mass index (BMI) [Ratio] 9.0 kg/m2 9.0 kg /m2 [facility] ([facility]) [place] body weight 154 [lb_av] 154 [lb_av] [facility] Body weight 26.762 kg 26.762 kg [facility] ([facility]) Body surface area Derived from formula 1.22 m2 1.22 m2 [facility] ([facility]) Systolic blood pressure 136 mm[Hg] 136 mm[Hg] [facility] ([facility]) Heart rate 64 /min 64 /min [facility] ([facility]) Diastolic blood pressure 70 mm[Hg] 70 mm[Hg] [facility] ([facility]) Body height 68 [in_i] 68 [in_i] [facility] ([facility]) 5'8" Body weight 156.00 [lb_av] 156.00 [lb_av] [facility] ([facility]) Body mass index (BMI) [Ratio] 23.7 kg/m2 23.7 k g/m2 [facility] ([facility]) Body surface area Derived from formula 1.84 m2 1.84 m2 [facility] ([facility]) Body height 68 [in_i] 68 [in_i] [facility] ([facility]) 5'8" Body weight 71.272 kg 71.272 kg [facility] ([facility]) Body temperature 98.4 [degF] 98.4 [degF] [facility] ([facility]) Body weight 157.12 [lb_av] 157.12 [lb_av] [facility] ([facility]) Body mass index (BMI) [Ratio] 23.9 kg/m2 23.9 k g/m2 [facility] ([facility]) [place] body weight 154 [lb_av] 154 [lb_av] [facility] ([facility]) Systolic blood pressure 132 mm[Hg] 132 mm[Hg] [facility] ([facility]) Diastolic blood pressure 70 mm[Hg] 70 mm[Hg] [facility] ([facility]) Body mass index (BMI) [Ratio] 24.6 kg/m2 24.6 k g/m2 [facility] ([facility]) Body weight 162.00 [lb_av] 162.00 [lb_av] [facility] ([facility]) Systolic blood pressure 128 mm[Hg] 128 mm[Hg] [facility] ([facility]) Diastolic blood pressure 80 mm[Hg] 80 mm[Hg] [facility] ([facility]) Heart rate 76 /min 76 /min [facility] ([facility]) Body height 68 [in_i] 68 [in_i] [facility] ([facility]) 5'8" Systolic blood pressure 120 mm[Hg] 120 mm[Hg] [facility] Diastolic blood pressure 70 mm[Hg] 70 mm[Hg] [facility] ([facility]) Body weight 160.00 [lb_av] 160.00 [lb_av] [facility] ([facility]) Respiratory rate 18 /min 18 /min [facility] ( [facility]) Body height 68 [in_i] 68 [in_i] [facility] ([facility]) 5'8" Body weight 162.00 [lb_av] 162.00 [lb_av] [facility] ([facility]) Body mass index (BMI) [Ratio] 24.6 kg/m2 24.6 k g/m2 [facility] ([facility]) [place] body weight 154 [lb_av] 154 [lb_av] [facility] ([facility]) Body weight 73.483 kg 73.483 kg [facility] ([facility]) Body surface area Derived from formula 1.87 m2 1.87 m2 [facility] ([facility]) Systolic blood pressure 130 mm[Hg] 130 mm[Hg] [facility] ([facility]) Diastolic blood pressure 70 mm[Hg] 70 mm[Hg] [facility] ([facility]) Body height 68 [in_i] 68 [in_i] [facility] ([facility]) 5'8" Body surface area Derived from formula 1.87 m2 1.87 m2 [facility] ([facility]) Body weight 162.00 [lb_av] 162.00 [lb_av] [facility] ([facility]) Body mass index (BMI) [Ratio] 24.6 kg/m2 24.6 k g/m2 [facility] ([facility]) [place] body weight 154 [lb_av] 154 [lb_av] [facility] ([facility]) Body weight 73.483 kg 73.483 kg [facility] ([facility]) Body mass index (BMI) [Ratio] 24.8 kg/m2 24.8 k g/m2 [facility] ([facility]) Systolic blood pressure 122 mm[Hg] 122 mm[Hg] [facility] ([facility]) Diastolic blood pressure 62 mm[Hg] 62 mm[Hg] [facility] ([facility]) Heart rate 86 /min 86 /min [facility] ([facility]) Body height 68 [in_i] 68 [in_i] [facility] ([facility]) 5'8" Body weight 163.00 [lb_av] 163.00 [lb_av] [facility] ([facility]) Oxygen saturation in Arterial blood by Pulse oximetry 96 % 96 % [facility] ([facility]) RM Air Systolic blood pressure 128 mm[Hg] 128 mm[Hg] [facility] ([facility]) Diastolic blood pressure 64 mm[Hg] 64 mm[Hg] [facility] ([facility]) Body height 68 [in_i] 68 [in_i] [facility] ([facility]) 5'8" Body weight 169.00 [lb_av] 169.00 [lb_av] [facility] ([facility]) Body mass index (BMI) [Ratio] 25.7 kg/m2 25.7 k g/m2 [facility] ([facility]) Body weight 171 [lb_av] 171 [lb_av] W1 ([facility]) Body height [in_i] W1 ([facility]) Body mass index (BMI) [Ratio] 25.25 kg/m2 25.25 kg/m2 W1 ([facility]) Systolic blood pressure 153 mm[Hg] 153 mm[Hg] e CW1 ([facility]) Diastolic blood pressure 87 mm[Hg] 87 mm[Hg] W1 ([facility]) Systolic blood pressure 126 mm[Hg] 126 mm[Hg] [facility] ([facility]) Diastolic blood pressure 71 mm[Hg] 71 mm[Hg] [facility] ([facility]) Body weight 163.00 [lb_av] 163.00 [lb_av] [facility] ([facility]) Body temperature 96.9 [degF] 96.9 [degF] [facility] ([facility]) Heart rate 74 /min 74 /min [facility] ([facility]) Body height 68 [in_i] 68 [in_i] [facility] ([facility]) 5'8" Body weight 168.00 [lb_av] 168.00 [lb_av] [facility] ([facility]) Body mass index (BMI) [Ratio] 25.5 kg/m2 25.5 k g/m2 [facility] ([facility]) Diastolic blood pressure 62 mm[Hg] 62 mm[Hg] [facility] ([facility]) Systolic blood pressure 130 mm[Hg] 130 mm[Hg] M [facility] ([facility]) ID Date Data Source [id number] 12/10/2020 08:13:12 PM EDT [facility] Hospital Name Value Range Interpretation Code Description Data Source(s) TRANSFER FROM [facility]
[2021-05-05] MEDS: LOSARTAN 50MG TABLET PO SCH (10:07)
[2021-05-05] MEDS: glipiZIDE (GLUCOTROL) 5 MG TAB PO SCH (10:07)
[2021-05-05] MEDS: TAMSULOSIN 0.4 MG CAP PO SCH (10:07)
[2021-05-05] MEDS: CLOPIDOGREL 75 MG TAB PO SCH (10:07)
[2021-05-05] MEDS: METOPROLOL SUCC (TopROL XL) 100MG *XL* TAB PO SCH (10:08)
--- NOTE | 2021-05-05 11:51 | HPEPDOC ---
[facility] Medical History & Physical Date of Admission May 05, 2021 Date of Service: May 05, 2021 History and Physical CHIEF COMPLAINT: Dizziness HISTORY OF PRESENT ILLNESS: 75-year-old male presents for a several hour history of dizziness. Patient states around 11 PM in the evening he experienced sudden onset of dizziness w hile standing. He proceeded to go to bed as usual. 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 His dizziness persisted. As per family members there was concern for change in speech. He was recently diagnosed with CVA, acute ischemic left pontine, in December 2020. On evaluation patient denies any medical complaints. He denies chest pain, shortness of breath, headaches, changes in vision, abdominal pain, nausea, vomiting, diarrhea, numbness or tingling or weakness. 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 FAMILY HISTORY: Father: in his late 90s, history of prostate CA Mother: in her late 90s ALLERGIES: Please see below. REVIEW OF SYSTEMS: Negative except as per HPI. HOME MEDICATIONS: Please see below. PHYSICAL EXAMINATION: Vital Signs: reviewed General: NAD, lying comfortably in bed HEENT: NC/AT, EOMI Neck: supple, no masses Chest: lungs CTA B/L Heart: +S1S2, RRR Abd: soft, NT, ND, +BS Ext: no edema Skin: no rashes MSK: full ROM at large joints Neuro: no gross focal deficits Psych: AAOx3 LABORATORY DATA: See below. MICROBIOLOGY: Please see below. A/P: 75-year-old male admitted for 6 new onset of dizziness with possible dysarthria, past medical history significant for recent ischemic CVA in December 2020, diabetes, hypertension. #dizziness - symptoms seem to have resolved - will monitor on telemetry - PT/OT #HTN - continue home meds #DM - insulin sliding scale while inpatient #L pontine CVA - December 2020 - continue ASA, plavix, statin - discussed with neuro - CT head/MRI negative #DVT prophylaxis - mechanical Vital Signs Vital Signs Date Time Temp Pulse Resp B/P (MAP) Pulse Ox O2 Delivery O2 Flow Rate FiO2 05/05/21 10:45 98.9 64 17 140/71 (94) 96 Room Air 05/05/21 07:25 2.0 Laboratory Data Labs 24H Laboratory Tests 2 05/05/21 03:43: Immature Granulocyte % (Auto) 0.3, Neutrophils (%) (Auto) 77.0H, Lymphocytes (%) (Auto) 8.4L, Monocytes (%) (Auto) 9.3H, Eosinophils (%) (Auto) 4.6H, Basophils (%) (Auto) 0.4, Neutrophils # (Auto) 5.9, Lymphocytes # (Auto) 0.6L, Monocytes # (Auto) 0.7, Eosinophils # (Auto) 0.4, Basophils # (Auto) 0.0, Nucleated Red Blood Cells % (auto) 0.0, Prothrombin Time 12.4, Prothromb Time International Ratio 0.89, Activated Partial Thromboplast Time 28.1, Anion Gap 4L, Glomerular Filtration Rate > 60.0, Calcium Level 8.9, Total Creatine Kinase 35L, Creatine Kinase MB 1.4, Creatine Kinase MB Relative Index 4.00, Troponin I < 0.02 05/05/21 03:49: POC Glucose (Misc Panel) 183H, POC Sodium (Misc Panel) 141, POC Potassium (Misc Panel) 3.9, POC Chloride (Misc Panel) 105, POC Total CO2 (Misc Panel) 24.0, POC Blood Urea Nitrogen (Misc Panel 20, POC Ionized Calcium (Misc Panel) 4.9, POC Creatinine (Misc Panel) 0.7, POC Hematocrit (Misc Panel) 39.0 05/05/21 03:57: Bedside Glucose (Misc Panel) 175H 05/05/21 06:27: Coronavirus (COVID-19)(PCR) NEGATIVE, Influenza Type A (RT-PCR) NEGATIVE, Influenza Type B (RT-PCR) NEGATIVE, Respiratory Syncytial Virus (PCR) NEGATIVE CBC/BMP Laboratory Tests 05/05/21 03:43 Home Medications Scheduled Aspirin (Aspirin EC) 81 Mg Tab, 81 MG PO QHS Atorvastatin Calcium (Atorvastatin Calcium) 20 Mg Tablet, 20 MG PO QHS Canagliflozin (Invokana) 300 Mg Tablet, 300 MG PO DAILY Clopidogrel Bisulfate (Plavix) 75 Mg Tablet, 75 MG PO DAILY Glipizide (Glipizide) 5 Mg Tablet, 5 MG PO QAM Glipizide (Glipizide) 5 Mg Tablet, 10 MG PO QPM Losartan Potassium (Losartan Potassium) 50 Mg Tablet, 50 MG PO DAILY Magnesium Oxide (Magnesium) 400 Mg Capsule, 400 MG PO QHS Metformin HCl (Metformin HCl) 850 Mg Tablet, 850 MG PO BID Metoprolol Succinate (Metoprolol Succinate) 100 Mg Tab.er.24h, 100 MG PO DAILY Multivitamins (Thera M Plus Tablet) 1 Each Tablet, 1 TAB PO QHS Tamsulosin HCl (Flomax) 0.4 Mg Capsule, 0.4 MG PO DAILY Miscellaneous Medications [Med Rec Comment] UNABLE TO VERIFY LAST DOSES WITH PT. CALLED SON HE IS UNAWARE WELL. USED LIST FROM RECENT SURGERY ON 04/16/21 Allergies Coded Allergies: No Known Allergies (Unverified , 04/10/21) A-FIB/CHADSVASC A-FIB History Current/History of A-Fib/PAF?: No JOLLY INGRAM MD May 05, 2021 11:51
[2021-05-05 12:20] VITALS: BP 151/74
[2021-05-05 16:00] VITALS: BP 144/84
[2021-05-05] MEDS ORDERED: GLUCAGON INJ 1MG VIAL SC PRN (16:20)
[2021-05-05] MEDS ORDERED: DEXTROSE 50% 50 ML SYRINGE IV PRN (16:20)
[2021-05-05] MEDS ORDERED: GLUCOSE 4GM CHEW TABLET PO PRN (16:20)
[2021-05-05] MEDS: HumaLOG INSULIN (NovoLOG) PER UNIT SC SCH (17:30)
[2021-05-05] MEDS ORDERED: glipiZIDE (GLUCOTROL) 5 MG TAB PO SCH (17:30)
[2021-05-05 20:00] VITALS: BP 135/69
[2021-05-05] MEDS ORDERED: MULTIVITAMINS/MINERALS THERAP 1 TAB PO SCH (21:00)
[2021-05-05] MEDS ORDERED: ASPIRIN 81MG ENTERIC TABLET PO SCH (21:00)
[2021-05-05] MEDS ORDERED: ATORVASTATIN 20 MG TAB PO SCH (21:00)
[2021-05-05] MEDS ORDERED: MAGNESIUM OXIDE 400MG TAB (MAG-OX) PO SCH (21:00)
[2021-05-05] MEDS ORDERED: HumaLOG INSULIN (NovoLOG) PER UNIT SC SCH (21:00)
[2021-05-06] VITALS: BP 126/64
[2021-05-06 04:00] VITALS: BP 130/65
[2021-05-06 05:33] LABS: HEMATOCRIT 42.1 % (42.0-52.0); HEMOGLOBIN 14.1 g/dl (13.5-17.5); MEAN CORPUSCULAR HEMOGLOBIN 30.8 pg (27.0-33.0); MEAN CORPUSCULAR HGB CONC 33.5 g/dl (32.0-36.5); MEAN CORPUSCULAR VOLUME 91.9 fl (80.0-96.0); PLATELET COUNT, AUTOMATED 270 10^3/uL (150-450); RED BLOOD COUNT 4.58 10^6/uL (4.30-6.10); WHITE BLOOD COUNT 7.2 10^3/uL (4.0-10.0)
[2021-05-06 05:51] LABS: BLOOD UREA NITROGEN 20 MG/DL (7-18); CALCIUM LEVEL 8.6 MG/DL (8.8-10.2); CARBON DIOXIDE LEVEL 24 MEQ/L (21-32); CHLORIDE LEVEL 109 MEQ/L (98-107); CREATININE FOR GFR 0.59 MG/DL (0.70-1.30); GLOMERULAR FILTRATION RATE > 60.0 (>42); GLUCOSE, FASTING 68 MG/DL (70-100); SODIUM LEVEL 142 MEQ/L (136-145)
[2021-05-06] MEDS: HumaLOG INSULIN (NovoLOG) PER UNIT SC SCH (07:30)
--- NOTE | 2021-05-06 07:56 | ECGEPIP ---
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
[2021-05-06 08:00] VITALS: BP 162/76
[2021-05-06] MEDS: METOPROLOL SUCC (TopROL XL) 100MG *XL* TAB PO SCH (08:37)
[2021-05-06 08:38] VITALS: BP 162/76
[2021-05-06] MEDS: LOSARTAN 50MG TABLET PO SCH (08:38)
[2021-05-06] MEDS: TAMSULOSIN 0.4 MG CAP PO SCH (08:38)
[2021-05-06] MEDS: CLOPIDOGREL 75 MG TAB PO SCH (08:38)
[2021-05-06] MEDS: glipiZIDE (GLUCOTROL) 5 MG TAB PO SCH (08:38)
--- NOTE | 2021-05-06 14:22 | DS.PDOC ---
Discharge Summary General Date of Admission May 05, 2021 at 08:09 Date of Discharge 05/06/2021 Discharge Summary PROCEDURES PERFORMED DURING STAY: [None]. ADMITTING DIAGNOSES / DISCHARGE DIAGNOSES: s/p Dizziness HTN DM2 L pontine CVA DVT prophylaxis COMPLICATIONS/CHIEF COMPLAINT: Dizziness HISTORY OF PRESENT ILLNESS: Patient is a 75-year-old male with a PMHx of L pontine ischemic CVA, R vertebral artery stenosis, HTN, DM2, Urinary retention, who presents to the ER with several hours of dizziness. Patient reported that he recently had a stroke and was concerned that this could be another stroke. Upon arrival to the ER, patient had a CT scan and an MRI completed which were unrevealing for any acute stroke. Neurology was called initially for further input. Patient was admitted to the hospitalist service for further evaluation and treatment. HOSPITAL COURSE: s/p Dizziness - Patient has reported resolution of his symptoms - Telemetry unremarkable - Patient is cleared physical therapy for discharge home - Will have outpatient follow-up with primary care provider, and urology within the next 7 days HTN - BP slightly elevated; but patient is due to receive AM medications - c/w Metoprolol / Losartan DM2 - c/w ISS L pontine CVA - December 2020 - Imaging noted above - Hospitalist service had initially discussed case with neurology on 05/05 - c/w ASA, plavix, statin DVT prophylaxis - c/w TEDs/Sequentials DISCHARGE MEDICATIONS: Please see below. ALLERGIES: Please see below. PHYSICAL EXAMINATION ON DISCHARGE: Vitals (See below) General: Lying in bed, appears comfortable, AAOx3 HEENT: NC, AT CVS: +S1S2 Lungs: Fair air entry b/l, -w/r/r Abdomen: Soft, ND, NT Extremities: No evidence of edema LABORATORY DATA: Please see below. IMAGING: CXR 05/05: No acute cardiopulmonary pathology. CT head 05/05: No acute intracranial pathology. Brain MRI 05/05: No acute intracranial pathology. ACTIVITY: [As tolerated]. DISCHARGE PLAN: Follow-up with primary care provider, and urology within the next 7 days Remain compliant with treatment plan and medications Return to the ER if you experience any problems DISPOSITION: Home, Self-Care. DISCHARGE CONDITION: [Stable]. TIME SPENT ON DISCHARGE: 35 minutes. Vital Signs/I&Os Vital Signs Date Time Temp Pulse Resp B/P (MAP) Pulse Ox O2 Delivery O2 Flow Rate FiO2 05/06/21 08:38 162/76 05/06/21 08:37 88 05/06/21 08:00 97.0 18 99 Room Air 05/05/21 07:25 2.0 I&O- Last 24 Hours up to 6 AM 05/06/21 05:59 Intake Total 240 ml Balance 240 ml Laboratory Data Labs 24H Laboratory Tests 2 05/05/21 17:23: Bedside Glucose (Misc Panel) 71L 05/05/21 19:58: Bedside Glucose (Misc Panel) 156H 05/06/21 05:03: Nucleated Red Blood Cells % (auto) 0.0, Anion Gap 9, Glomerular Filtration Rate > 60.0, Calcium Level 8.6L CBC/BMP Laboratory Tests 05/06/21 05:03 FSBS Laboratory Tests Test 05/05/21 17:23 05/05/21 19:58 Range/Units Bedside Glucose (Misc Panel) 71 156 83-110 MG/DL Discharge Medications Scheduled Aspirin (Aspirin EC) 81 Mg Tab, 81 MG PO QHS, (Reported) Atorvastatin Calcium (Atorvastatin Calcium) 20 Mg Tablet, 20 MG PO QHS, (Reported) Canagliflozin (Invokana) 300 Mg Tablet, 300 MG PO DAILY, (Reported) Clopidogrel Bisulfate (Plavix) 75 Mg Tablet, 75 MG PO DAILY, (Reported) Glipizide (Glipizide) 5 Mg Tablet, 5 MG PO QAM, (Reported) Glipizide (Glipizide) 5 Mg Tablet, 10 MG PO QPM, (Reported) Losartan Potassium (Losartan Potassium) 50 Mg Tablet, 50 MG PO DAILY, (Reported) Magnesium Oxide (Magnesium) 400 Mg Capsule, 400 MG PO QHS, (Reported) Metformin HCl (Metformin HCl) 850 Mg Tablet, 850 MG PO BID, (Reported) Metoprolol Succinate (Metoprolol Succinate) 100 Mg Tab.er.24h, 100 MG PO DAILY, (Reported) Multivitamins (Thera M Plus Tablet) 1 Each Tablet, 1 TAB PO QHS, (Reported) Tamsulosin HCl (Flomax) 0.4 Mg Capsule, 0.4 MG PO DAILY, (Reported) Allergies Coded Allergies: No Known Allergies (Unverified , 04/10/21) DEVEN EPPS MD May 06, 2021 14:22
== END 2021-05-06 11:07 | disposition home or self-care (01) ==
LOC: M ED 03:22 → M ED INP 08:09 → ENRESERV 09:23 → M PCU 12:14
PROVIDERS: ADMIT Internal Medicine; ATTEND Internal Medicine
DX: R42 Dizziness and giddiness (principal); I10 Essential (primary) hypertension; E11.9 Type 2 diabetes mellitus without complications; Z86.73 Personal history of transient ischemic attack (TIA), and cerebral infarction without residual deficits; I65.01 Occlusion and stenosis of right vertebral artery; Z79.02 Long term (current) use of antithrombotics/antiplatelets; Z79.84 Long term (current) use of oral hypoglycemic drugs; Z79.82 Long term (current) use of aspirin; R33.9 Retention of urine, unspecified; Z79.899 Other long term (current) drug therapy
CPT/HCPCS: 36415; 70450; 70551; 71045; 80047; 80048; 82550; 82553; 84484; 85025; 85027; 85610; 85730; 87631; 93005; 93041; 94760; 97161; 97530; 99285; G0378

== ENCOUNTER → 2021-09-15 | Outpatient (REF) | payer MEDICARE ==
[~2021-09-15] MED LIST changes: +LOSA100T45 PO; -LOSA100T50 PO; +LOSA50TA28 PO; +MAGN400C PO; +MED REC COMMENT; +PLAV1TAB2 PO
== END ==
LOC: M LAB REF 16:07
PROVIDERS: ATTEND Internal Medicine
DX: N39.0 Urinary tract infection, site not specified (principal)

== ENCOUNTER → 2021-11-20 | Outpatient (REF) | payer MEDICARE | LOC: M LAB REF 16:06 | PROVIDERS: ATTEND Internal Medicine | DX: N39.0 Urinary tract infection, site not specified (principal) ==

== ENCOUNTER → 2022-10-12 | Outpatient (REF) | payer MEDICARE ==
[~2022-10-12] MED LIST changes: +CLOP75TA99 PO; -PLAV1TAB2 PO
== END ==
LOC: M LAB REF 16:33
PROVIDERS: ATTEND Nurse Practitioner Family
DX: N39.0 Urinary tract infection, site not specified (principal)

== ENCOUNTER → 2024-03-14 | Outpatient (CLI) | payer MEDICARE ==
[~2024-03-14] MED LIST changes: -COZA50TA PO; +GLIP5TAB17 PO; -GLIP5TAB8 PO; -HYDR25TA PO; +HYDR25TA88 PO; +LOSA-528 PO; -LOSA100T45 PO; +LOSA100T46 PO; +PROHANCE 279.3MG/ML 15ML VIAL ONE
== END ==
LOC: M PLAIMG 14:19
PROVIDERS: ATTEND Nurse Practitioner Family
DX: I63.9 Cerebral infarction, unspecified (principal); H53.8 Other visual disturbances; R42 Dizziness and giddiness
CPT/HCPCS: 70553; A9576

== ENCOUNTER → 2024-03-27 | Outpatient (CLI) | payer MEDICARE ==
[~2024-03-27] MED LIST changes: -PROHANCE 279.3MG/ML 15ML VIAL ONE
== END ==
LOC: M RAD 09:27
PROVIDERS: ATTEND Nurse Practitioner Family
DX: R42 Dizziness and giddiness (principal); H53.8 Other visual disturbances